=== PATIENT | female | born 1930 | race Caucasian/White ===

== ENCOUNTER → 2019-03-03 | Outpatient (CLI) | payer MEDICARE ==
[~2019-03-03] MED LIST: AMLO10TA PO; CITA20TA4 PO; FURO20TA4 PO; LOSA100T7 PO
--- NOTE | 2019-03-03 11:18 | Diagnostic Imaging Report ---
PROCEDURE: MRI lumbar spine. TECHNIQUE: Multiplanar, multisequence MRI of the lumbar spine was performed without contrast. INDICATION: Low back pain radiating into both legs. COMPARISON: No prior studies are available for comparison. FINDINGS: There is mild left convexity lumbar scoliotic curvature. There is normal lordotic curvature. Alignment is normal. Vertebral body heights are maintained. No acute compression fracture is seen. No geographic marrow lesion is identified. There is generalized lumbar degenerative disc disease with variable disc space narrowing and desiccation. The conus is unremarkable at the T12-L1 level. T12-L1: There is some ligamentous thickening. Central canal does appear to be patent. No significant neural foraminal stenosis is seen. L1-2: Hypertrophic facet changes and ligamentous thickening is seen. There is some mild trefoil configuration of the thecal sac but the AP dimensions are normal. No significant neural foraminal stenosis is seen. L2-3: Hypertrophic facet changes and ligamentous thickening produce moderate trefoil stenosis to the canal. Broad-based disc/osteophyte complex results in moderate bilateral lateral recess stenosis as well as mild to moderate right and mild left neural foraminal stenosis. L3-4: Ligamentous thickening and facet changes with broad-based disc/osteophyte complex result in severe trefoil stenosis to the central canal. There is severe bilateral lateral recess stenosis as well as severe bilateral neural foraminal stenosis. L4-5: Ligamentous thickening and facet changes as well as broad-based disc/osteophyte complex result in severe trefoil stenosis to the central canal. There is severe bilateral lateral recess and severe bilateral neural foraminal stenosis. L5-S1: Hypertrophic facet changes are noted. Central canal is widely patent. There is moderate left neural foraminal narrowing. Right neural foramen is patent. Paraspinous tissues are unremarkable. IMPRESSION: Multilevel lumbar spondylosis with multilevel central canal, lateral recess and neural foraminal stenosis described level by level above. No acute compression fracture is detected. Dictated by: Dictated on workstation # [id number]
== END ==
LOC: RAD 10:11
PROVIDERS: ATTEND Family Medicine
DX: M47.817 Spondylosis without myelopathy or radiculopathy, lumbosacral region (principal); M48.07 Spinal stenosis, lumbosacral region; M41.86 Other forms of scoliosis, lumbar region; M51.36 Other intervertebral disc degeneration, lumbar region
CPT/HCPCS: 72148

== ENCOUNTER 2019-06-26 08:46 | Emergency (ER) | payer MEDICARE ==
[~2019-06-26] VITALS: Ht 157 cm; Wt 55.9 kg
[2019-06-26] MEDS ORDERED: ZINC50TA51 PO (09:33)
[2019-06-26] MEDS ORDERED: CALC600T12 PO (09:33)
[2019-06-26] MEDS ORDERED: NF-SOLIF5T PO (09:33)
[2019-06-26] MEDS ORDERED: CHOL20003 PO (09:33)
[2019-06-26] MEDS ORDERED: FESO4TAB PO (09:33)
[2019-06-26] MEDS ORDERED: MELO15TA39 PO (09:33)
[2019-06-26] MEDS ORDERED: MIRA25TA PO (09:33)
[2019-06-26] MEDS ORDERED: fentaNYL INJECTION 100 MCG/2 ML AMP IM ONE (10:00)
--- NOTE | 2019-06-26 10:00 | ED Back Pain ---
General Chief Complaint: Back Problems Stated Complaint: LEG/BACK PAIN Nursing Triage Note: Patient brought to ER room 10 via wheelchair with complaint of left lower back pain radiating into left hip and down left leg. Patient states this is an ongoing problem and had an MRI on 03-03-19 which showed a pinched nerve. She states since she has had more pain with difficulty walking on the left leg. It has gotten progressively worse in the last week. She has not followed up with her PCP for this. Nursing Sepsis Screen: No Definite Risk Source of Information: Patient, Family Exam Limitations: No Limitations History of Present Illness Date Seen by Provider: Jun 26, 2019 Time Seen by Provider: 09:55 Initial Comments This 89-year-old white female presents with a complaint of severe low back pain. Patient has well documented spinal stenosis. She's been using [id number] nonsteroidals without relief. Patient states that the pain is in the left buttock and radiates down into the left leg and foot. Patient denies bowel or bladder dysfunction. She denies dysuria frequency or flank pain. Next Patient is under the care of Dr. Carmona. Allergies and Home Medications Allergies Coded Allergies: Tetanus Vaccines & Toxoid (Unverified Allergy, Mild, RASH, 09/08/06) Home Medications Amlodipine Besylate 10 Mg Tablet, 20 MG PO DAILY, (Reported) Calcium Carbonate 600 Mg Tablet, 600 MG PO DAILY, (Reported) Cholecalciferol (Vitamin D3) 2,000 Unit Capsule, 2,000 UNIT PO DAILY, (Reported) Citalopram Hydrobromide 20 Mg Tablet, 20 MG PO DAILY, (Reported) Fesoterodine Fumarate 4 Mg Tab.sr.24h, 4 MG PO DAILY, (Reported) Losartan Potassium 100 Mg Tablet, 100 MG PO DAILY, (Reported) Meloxicam 15 Mg Tablet, 15 MG PO DAILY, (Reported) Mirabegron 25 Mg Tab.er.24h, 25 MG PO DAILY, (Reported) Solifenacin Succinate 5 Mg Tablet, 5 MG PO DAILY, (Reported) Zinc Amino Acid Chelate 50 Mg Tablet, 50 MG PO DAILY, (Reported) Patient Home Medication List Home Medication List Reviewed: Yes Review of Systems Constitutional: no symptoms reported EENTM: no symptoms reported Respiratory: no symptoms reported Cardiovascular: no symptoms reported Gastrointestinal: no symptoms reported Genitourinary: no symptoms reported Musculoskeletal: see HPI, back pain Skin: no symptoms reported Psychiatric/Neurological: No Symptoms Reported Past Zpdmqto-Shvnmy-Vztlmx Hx Past Med/Social Hx: Reviewed Nursing Past Med/Soc Hx Patient Social History Alcohol Use: Denies Use Recreational Drug Use: No Smoking Status: Never a Smoker 2nd Hand Smoke Exposure: No Recent Foreign Travel: No Contact w/Someone Who Travel: No Recent Infectious Disease Expo: No Recent Hopitalizations: No Physical Abuse: No Sexual Abuse: No Mistreated: No Fear: No Immunizations Up To Date Tetanus Booster (TDap): Unknown Date of Influenza Vaccine: Apr 19, 2019 Seasonal Allergies Seasonal Allergies: No Past Medical History Surgeries: Yes Bladder Surgery Respiratory: No Cardiac: Yes Hypertension Neurological: No Genitourinary: No Gastrointestinal: No Musculoskeletal: Yes Chronic Back Pain Endocrine: No HEENT: No Cancer: No Psychosocial: No Integumentary: No Blood Disorders: No Physical Exam Vital Signs Vital Signs - First Documented 06/26/19 09:10 Temp 36.7 Pulse 80 Resp 14 B/P (MAP) 174/88 (116) Pulse Ox 95 O2 Delivery Room Air Capillary Refill : Less Than 3 Seconds Height, Weight, BMI Height: 5'3" Weight: 165lbs. oz. 74.903539eg; 22.00 BMI Method:Estimated General Appearance: No Apparent Distress, WD/WN HEENT: Normal ENT Inspection Neck: Normal Inspection Cardiovascular: Regular Rate, Rhythm Respiratory: Crackles Gastrointestinal: Normal Bowel Sounds Back: Vertebral Tenderness (over the lower lumbar spine) Extremity: Normal Inspection, Normal Range of Motion Neurologic/Psychiatric: Oriented x3, No Motor/Sensory Deficits Skin: Normal Color, Warm/Dry Progress/Results/Core Measures Results/Orders My Orders Orders - EDIN QUILES MD Fentanyl Injection (Sublimaze Injection (06/26/19 10:00) Vital Signs/I&O 06/26/19 09:10 Temp 36.7 Pulse 80 Resp 14 B/P (MAP) 174/88 (116) Pulse Ox 95 O2 Delivery Room Air Blood Pressure Mean: 116 POS Progress Progress Note : Time: 09:58 Progress Note Patient was given 50 g of that now IM. I prescribed hydrocodone for pain and Flexeril for spasm. I asked that she follow-up with her primary care physician Dr. Carmona tomorrow. I told her that she still had crackles in her chest and that she should complete her amoxicillin which has improved her. I believe she'll need close follow-up until she is clear of her upper respiratory infection. Departure Impression Primary Impression: Back pain Qualified Codes: M54.42 - Lumbago with sciatica, left side; G89.29 - Other chronic pain Disposition: HOME, SELF-CARE Condition: Improved Departure-Patient Inst. Decision time for Depature: 10:01 Referrals: KOKO CARMONA MD (PCP/Family) Primary Care Physician Patient Instructions: Low Back Pain (DC) Add. Discharge Instructions: Flexeril and Vicodin as prescribed. Close follow-up with Dr. Carmona tomorrow. Return if any problems or questions. All discharge instructions reviewed with patient and/or family. Voiced understanding. Scripts Cyclobenzaprine HCl (Cyclobenzaprine HCl) 10 Mg Tablet 10 MG PO TID PRN for SPASMS, #30 TAB Prov: EDIN QUILES MD 06/26/19 Hydrocodone/Acetaminophen (Vicodin 5-300 mg Tablet) 1 Each Tablet 1-2 EACH PO Q6H PRN for PAIN-MODERATE MDD 10 for 7 Days, #20 TAB Prov: EDIN QUILES MD 06/26/19 EDIN QUILES MD Jun 26, 2019 10:00 POS
[2019-06-26] MEDS ORDERED: HYDR-3455 PO (10:07)
[2019-06-26] MEDS ORDERED: CYCL10TA9 PO (10:07)
[2019-06-26 10:21] VITALS: BP 131/94
--- OUTSIDE RECORDS SUMMARY | 2019-07-21 18:11 | XMS REPORT | Continuity of Care Document ---
Author Organization Unknown Address Unknown Phone Unavailable Allergies Active Description Code Type Severity Reaction Onset Reported/Identified Relationship to Patient Clinical Status Yes Tetanus Vaccines and Toxoid [id number] Drug Allergy Mild RASH 09/08/2006 Medications There is no data. Problems Date Dx Coded Attending Type Code Diagnosis Diagnosed By 03/10/2014 Ot 873.42 OPE N WOUND OF FOREHEAD 03/10/2014 Ot 959.01 HEA D INJURY, NOS 03/10/2014 Ot E000.8 OTH ER EXTERNAL CAUSE STATUS 03/10/2014 Ot E001.0 ACT IVITIES INVOLVING WALKING, MARCHING A 03/10/2014 Ot E849.0 ACC IDENT IN HOME 03/10/2014 Ot E885.9 FAL L FROM SLIPPING, TRIPPING, OR STUMBLI 03/02/2019 KOKO GUEVARA MD R Ot 786. 05 SHORTNESS OF BREATH 03/02/2019 ISMAEL IGLESIAS, KOKO R Ot 793. 19 OTHER NONSPECIFIC ABNORMAL FINDING OF BEBA 03/02/2019 KOKO GUEVARA MD R Ot 719. 43 JOINT PAIN-FOREARM 03/07/2019 KOKO GUEVARA MD R Ot M41. 86 OTHER FORMS OF SCOLIOSIS, LUMBAR REGION 03/07/2019 KOKO GUEVARA MD Ot M47.817 SPONDYLS W/O MYELOPATHY OR RADICULOPATHY 03/07/2019 KOKO GUEVARA MD R Ot M48. 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 86 OTHER FORMS OF SCOLIOSIS, LUMBAR REGION 03/24/2019 KOKO GUEVARA MD R Ot M47.817 SPONDYLS W/O MYELOPATHY OR RADICULOPATHY 03/24/2019 KOKO GUEVARA MD Ot M48. 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 86 OTHER FORMS OF SCOLIOSIS, LUMBAR REGION 03/31/2019 ISMAEL IGLESIAS, KOKO Ivory Ot M47.817 SPONDYLS W/O MYELOPATHY OR RADICULOPATHY 03/31/2019 KOKO GUEVARA MD R Ot M48. 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 5 LOW BACK PAIN 06/26/2019 EDIN QUILES MD Ot Z88. 7 ALLERGY STATUS TO SERUM AND VACCINE STAT 06/29/2019 EDIN QUILES MD Ot I10 ESSENTIAL (PRIMARY) HYPERTENSION 06/29/2019 EDIN QUILES MD Ot M54. 5 LOW BACK PAIN 06/29/2019 EDIN QUILES MD Ot Z88. 7 ALLERGY STATUS TO SERUM AND VACCINE STAT 07/02/2019 GLENNY ZAZUETA MD Ot G89. 29 OTHER CHRONIC PAIN 07/02/2019 GLENNY ZAZUETA MD Ot I10 ESSENTIAL (PRIMARY) HYPERTENSION 07/02/2019 GLENNY ZAZUETA MD Ot M54. 5 LOW BACK PAIN 07/02/2019 GLENNY ZAZUETA MD Ot Z79. 51 FDC (CURRENT) USE OF INHALED STERO 07/02/2019 GLENNY ZAZUETA MD Ot Z79. 52 FDC (CURRENT) USE OF SYSTEMIC STER 07/02/2019 GLENNY ZAZUETA MD Ot Z79.899 OTHER FDC (CURRENT) DRUG THERAPY 07/02/2019 GLENNY ZAZUETA MD Ot Z88. 7 ALLERGY STATUS TO SERUM AND VACCINE STAT 07/02/2019 GLENNY ZAZUEAT MD Ot G89. 29 OTHER CHRONIC PAIN 07/02/2019 GLENNY ZAZUETA MD Ot I10 ESSENTIAL (PRIMARY) HYPERTENSION 07/02/2019 GLENNY ZAZUETA MD Ot M54. 5 LOW BACK PAIN 07/02/2019 GLENNY ZAZUETA MD Ot Z79. 51 LABEL DRIER (CURRENT) USE OF INHALED STERO 07/02/2019 CARLITA IGLESIAS, GLENNY Mitchell Ot Z79. 52 FDC (CURRENT) USE OF SYSTEMIC STER 07/02/2019 CARLITA IGLESIAS, GLENNY Mitchell Ot Z79.899 OTHER FDC (CURRENT) DRUG THERAPY 07/02/2019 CARLITA IGLESIAS, GLENNY Mitchell Ot Z88. 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, SINGLE EPISOD 07/07/2019 ARTHUR DO, PERRY Ot I10 ESSENTIAL (PRIMARY) HYPERTENSION 07/07/2019 ARTHUR DO, PERRY Ot M19.91 PRIMARY OSTEOARTHRITIS, UNSPECIFIED SITE 07/07/2019 GIBSON DO, PERRY Ot M48.06 2 SPINAL STENOSIS, LUMBAR REGION WITH NEUR 07/07/2019 ARTHUR DO PERRY Ot M54.16 RADICULOPATHY, LUMBAR REGION 07/07/2019 ARTHUR DO PERRY Ot Z91.81 HISTORY OF FALLING 07/10/2019 ARTHUR DO PERRY Ot D64.9 ANEMIA, UNSPECIFIED 07/10/2019 ARTHUR DO, PERYR Ot E78.00 PURE HYPERCHOLESTEROLEMIA, UNSPECIFIED 07/10/2019 GIBSON DO, PERRY Ot 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, SINGLE EPISOD 07/10/2019 GIBSON DO, PERRY Ot G89.29 OTHER CHRONIC PAIN 07/10/2019 ARTHUR DO, PERRY Ot I10 ESSENTIAL (PRIMARY) HYPERTENSION 07/10/2019 ARTHUR DO, PERRY Ot M48.06 2 SPINAL STENOSIS, LUMBAR REGION WITH NEUR 07/10/2019 ARTHUR DO, PERRY Ot M51.16 INTERVERTEBRAL DISC DISORDERS W RADICULO 07/10/2019 ARTHUR DO PERRY Ot M54.5 LOW BACK PAIN 07/10/2019 ARTHUR DO PERRY Ot N28.9 DISORDER OF KIDNEY AND URETER, UNSPECIFI 07/10/2019 ARTHUR DO PERRY Ot N32.81 OVERACTIVE BLADDER 07/10/2019 ARTHUR DO PERRY Ot R33.8 OTHER RETENTION OF URINE 07/16/2019 ARTHUR DO PERRY Ot D62 ACUTE POSTHEMORRHAGIC ANEMIA 07/16/2019 ARTHUR DO PERRY Ot 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, SINGLE EPISOD 07/16/2019 ARTHUR DO PERRY Ot F41.9 ANXIETY DISORDER, UNSPECIFIED 07/16/2019 GIBSONRICHARD MCLAUGHLIN PERRY Ot G95.9 DISEASE OF SPINAL CORD, UNSPECIFIED 07/16/2019 GIBSONRICHARD MCLAUGHLIN PERRY Ot I10 ESSENTIAL (PRIMARY) HYPERTENSION 07/16/2019 GIBSONRICHARD MCLAUGHLIN PERRY Ot M19.91 PRIMARY OSTEOARTHRITIS, UNSPECIFIED SITE 07/16/2019 GIBSONRICHARD MCLAUGHLIN PERRY Ot M54.9 DORSALGIA, UNSPECIFIED 07/16/2019 GIBSONRICHARD MCLAUGHLIN PERRY Ot N32.81 OVERACTIVE BLADDER 07/16/2019 ARTHUR MCLAUGHLIN PERRY Ot R09.89 OTH SYMPTOMS AND SIGNS INVOLVING THE CIR 07/16/2019 GIBSONMADDI RAMOS DOI Ot R33.9 RETENTION OF URINE, UNSPECIFIED 07/16/2019 MADDI GIBSON DOI Ot Z91.81 HISTORY OF FALLING 07/21/2019 JUSTINO ASCENCIO MD, Ot I10 ESSENTIAL (PRIMARY) HYPERTENSION 07/21/2019 JUSTINO ASCENCIO MD, Ot M48.0 62 SPINAL STENOSIS, LUMBAR REGION WITH NEUR 07/21/2019 JUSTINO ASCENCIO MD, Ot M54.1 6 RADICULOPATHY, LUMBAR REGION 07/21/2019 JUSTINO ASCENCIO MD, Ot Z79.5 2 FDC (CURRENT) USE OF SYSTEMIC STER 07/21/2019 JUSTINO ASCENCIO MD, Ot Z79.8 91 LABEL DRIER (CURRENT) USE OF OPIATE ANALGE 07/21/2019 JUSTINO ASCENCIO MD, Ot Z88.7 ALLERGY STATUS TO SERUM AND VACCINE STAT Procedures Code Description Performed By Per formed On [id number] RE LEASE LUMBAR NERVE, OPEN APPROACH 07/08/2019 [id number] MO NITORING OF PNS ELECTR ACTIVITY, INTRA 07/08/2019 Results Test Result Range Complete blood count (CBC) with automate d white blood cell (WBC) differential - 07/03/19 05:58 Blood leukocytes automated count (number/volume) 5.4 10*3/uL 4.3-11.0 Blood erythrocytes automated count (number/volume) 3.55 10*6/uL 4.35-5.85 Venous blood hemoglobin measurement (mass/volume) 10.0 g/dL 11.5-16.0 Blood hematocrit (volume fraction) 32 % 35-52 Automated erythrocyte mean corpuscular volume 89 [ foz_us] 80-99 Automated erythrocyte mean corpuscular h emoglobin (mass per erythrocyte) 28 pg 25-34 Automated erythrocyte mean corpuscular h emoglobin concentration measurement (mass/volume) 32 g/dL 32-36 Automated erythrocyte distribution width ratio 16. 3 % 10.0- 14.5 Automated blood platelet count (count/volume) 264 10*3/uL 130-400 Automated blood platelet mean volume measurement 9.8 [foz_us] 7.4-10.4 Automated blood neutrophils/100 leukocytes 51 % 42-75 Automated blood lymphocytes/100 leukocytes 33 % 12-44 Blood monocytes/100 leukocytes 9 % 0-12 Automated blood eosinophils/100 leukocytes 7 % 0-10 Automated blood basophils/100 leukocytes 1 % 0-10 Blood neutrophils automated count (number/volume) 2.7 10*3 1.8-7.8 Blood lymphocytes automated count (number/volume) 1.8 10*3 1.0-4.0 Blood monocytes automated count (number/volume) 0. 5 10*3 0.0-1.0 Automated eosinophil count 0.4 10*3/uL 0 .0-0.3 Automated blood basophil count (count/volume) 0.1 10*3/uL 0.0-0.1 Comprehensive metabolic panel - 07/03/19 05:58 Serum or plasma sodium measurement (moles/volume) 139 mmol/L 135-145 Serum or plasma potassium measurement (moles/volume) 4.3 mmol/L 3.6-5.0 Serum or plasma chloride measurement (moles/volume) 103 mmol/L 98-107 Carbon dioxide 26 mmol/L 21-32 Serum or plasma anion gap determination (moles/volume) 10 mmol/L 5-14 Serum or plasma urea nitrogen measurement (mass/volume ) 22 mg/dL 7-18 Serum or plasma creatinine measurement (mass/volume) 1.10 mg/dL 0.60-1.30 Serum or plasma urea nitrogen/creatinine mass ratio 20 NRG Serum or plasma creatinine measurement w ith calculation of estimated glomerular filtration rate 47 NRG Serum or plasma glucose measurement (mass/volume) 95 mg/dL 70-105 Serum or plasma calcium measurement (mass/volume) 8.8 mg/dL 8.5-10.1 Serum or plasma total bilirubin measurement (mass/volu me) 0.3 mg/dL 0.1-1.0 Serum or plasma alkaline phosphatase priscilla surement (enzymatic activity/volume) 74 U/L 40-136 Serum or plasma aspartate aminotransfera se measurement (enzymatic activity/volume) 15 U/L 5-34 Serum or plasma alanine aminotransferase measurement (enzymatic activity/volume) 10 U/L 0-55 Serum or plasma protein measurement (mass/volume) 6.5 g/dL 6.4-8.2 Serum or plasma albumin measurement (mass/volume) 3.5 g/dL 3.2-4.5 CALCIUM CORRECTED 9.2 mg/dL 8.5-10.1 Methicillin resistant Staphylococcus aur eus (MRSA) screening culture - 07/06/19 21:50 Methicillin resistant Staphylococcus aureus (MRSA) scr eening culture NEG NRG Automated blood complete blood count (he mogram) panel - 07/07/19 05:01 Blood leukocytes automated count (number/volume) 6.5 10*3/uL 4.3-11.0 Blood erythrocytes automated count (number/volume) 4.06 10*6/uL 4.35-5.85 Venous blood hemoglobin measurement (mass/volume) 11.4 g/dL 11.5-16.0 Blood hematocrit (volume fraction) 36 % 35-52 Automated erythrocyte mean corpuscular volume 88 [ foz_us] 80-99 Automated erythrocyte mean corpuscular h emoglobin (mass per erythrocyte) 28 pg 25-34 Automated erythrocyte mean corpuscular h emoglobin concentration measurement (mass/volume) 32 g/dL 32-36 Automated erythrocyte distribution width ratio 16. 5 % 10.0- 14.5 Automated blood platelet count (count/volume) 287 10*3/uL 130-400 Automated blood platelet mean volume measurement 11.1 [foz_us] 7.4-10.4 Serum or plasma creatinine measurement ( mass/volume) - 07/07/19 05:01 Serum or plasma creatinine measurement (mass/volume) 1.21 mg/dL 0.60-1.30 Complete blood count (CBC) with automate d white blood cell (WBC) differential - 07/08/19 04:30 Blood leukocytes automated count (number/volume) 7.3 10*3/uL 4.3-11.0 Blood erythrocytes automated count (number/volume) 3.20 10*6/uL 4.35-5.85 Venous blood hemoglobin measurement (mass/volume) 9.1 g/dL 11.5-16.0 Blood hematocrit (volume fraction) 29 % 35-52 Automated erythrocyte mean corpuscular volume 92 [ foz_us] 80-99 Automated erythrocyte mean corpuscular h emoglobin (mass per erythrocyte) 28 pg 25-34 Automated erythrocyte mean corpuscular h emoglobin concentration measurement (mass/volume) 31 g/dL 32-36 Automated erythrocyte distribution width ratio 16. 4 % 10.0- 14.5 Automated blood platelet count (count/volume) 229 10*3/uL 130-400 Automated blood platelet mean volume measurement 11.2 [foz_us] 7.4-10.4 Automated blood neutrophils/100 leukocytes 60 % 42-75 Automated blood lymphocytes/100 leukocytes 28 % 12-44 Blood monocytes/100 leukocytes 10 % 0-12 Automated blood eosinophils/100 leukocytes 1 % 0-10 Automated blood basophils/100 leukocytes 0 % 0-10 Blood neutrophils automated count (number/volume) 4.4 10*3 1.8-7.8 Blood lymphocytes automated count (number/volume) 2.1 10*3 1.0-4.0 Blood monocytes automated count (number/volume) 0. 7 10*3 0.0-1.0 Automated eosinophil count 0.1 10*3/uL 0 .0-0.3 Automated blood basophil count (count/volume) 0.0 10*3/uL 0.0-0.1 Comprehensive metabolic panel - 07/08/19 04:30 Serum or plasma sodium measurement (moles/volume) 140 mmol/L 135-145 Serum or plasma potassium measurement (moles/volume) 4.3 mmol/L 3.6-5.0 Serum or plasma chloride measurement (moles/volume) 106 mmol/L 98-107 Carbon dioxide 27 mmol/L 21-32 Serum or plasma anion gap determination (moles/volume) 7 mmol/L 5-14 Serum or plasma urea nitrogen measurement (mass/volume ) 32 mg/dL 7-18 Serum or plasma creatinine measurement (mass/volume) 1.17 mg/dL 0.60-1.30 Serum or plasma urea nitrogen/creatinine mass ratio 27 NRG Serum or plasma creatinine measurement w ith calculation of estimated glomerular filtration rate 44 NRG Serum or plasma glucose measurement (mass/volume) 86 mg/dL 70-105 Serum or plasma calcium measurement (mass/volume) 8.1 mg/dL 8.5-10.1 Serum or plasma total bilirubin measurement (mass/volu me) 0.3 mg/dL 0.1-1.0 Serum or plasma alkaline phosphatase priscilla surement (enzymatic activity/volume) 51 U/L 40-136 Serum or plasma aspartate aminotransfera se measurement (enzymatic activity/volume) 20 U/L 5-34 Serum or plasma alanine aminotransferase measurement (enzymatic activity/volume) 19 U/L 0-55 Serum or plasma protein measurement (mass/volume) 5.6 g/dL 6.4-8.2 Serum or plasma albumin measurement (mass/volume) 3.3 g/dL 3.2-4.5 CALCIUM CORRECTED 8.7 mg/dL 8.5-10.1 Complete blood count (CBC) with automate d white blood cell (WBC) differential - 07/09/19 05:14 Blood leukocytes automated count (number/volume) 6.8 10*3/uL 4.3-11.0 Blood erythrocytes automated count (number/volume) 3.06 10*6/uL 4.35-5.85 Venous blood hemoglobin measurement (mass/volume) 8.7 g/dL 11.5-16.0 Blood hematocrit (volume fraction) 28 % 35-52 Automated erythrocyte mean corpuscular volume 91 [ foz_us] 80-99 Automated erythrocyte mean corpuscular h emoglobin (mass per erythrocyte) 28 pg 25-34 Automated erythrocyte mean corpuscular h emoglobin concentration measurement (mass/volume) 31 g/dL 32-36 Automated erythrocyte distribution width ratio 16. 4 % 10.0- 14.5 Automated blood platelet count (count/volume) 193 10*3/uL 130-400 Automated blood platelet mean volume measurement 11.1 [foz_us] 7.4-10.4 Automated blood neutrophils/100 leukocytes 61 % 42-75 Automated blood lymphocytes/100 leukocytes 21 % 12-44 Blood monocytes/100 leukocytes 13 % 0-12 Automated blood eosinophils/100 leukocytes 5 % 0-10 Automated blood basophils/100 leukocytes 0 % 0-10 Blood neutrophils automated count (number/volume) 4.1 10*3 1.8-7.8 Blood lymphocytes automated count (number/volume) 1.4 10*3 1.0-4.0 Blood monocytes automated count (number/volume) 0. 9 10*3 0.0-1.0 Automated eosinophil count 0.3 10*3/uL 0 .0-0.3 Automated blood basophil count (count/volume) 0.0 10*3/uL 0.0-0.1 Comprehensive metabolic panel - 07/09/19 05:14 Serum or plasma sodium measurement (moles/volume) 138 mmol/L 135-145 Serum or plasma potassium measurement (moles/volume) 4.7 mmol/L 3.6-5.0 Serum or plasma chloride measurement (moles/volume) 105 mmol/L 98-107 Carbon dioxide 24 mmol/L 21-32 Serum or plasma anion gap determination (moles/volume) 9 mmol/L 5-14 Serum or plasma urea nitrogen measurement (mass/volume ) 21 mg/dL 7-18 Serum or plasma creatinine measurement (mass/volume) 1.01 mg/dL 0.60-1.30 Serum or plasma urea nitrogen/creatinine mass ratio 21 NRG Serum or plasma creatinine measurement w ith calculation of estimated glomerular filtration rate 52 NRG Serum or plasma glucose measurement (mass/volume) 92 mg/dL 70-105 Serum or plasma calcium measurement (mass/volume) 8.1 mg/dL 8.5-10.1 Serum or plasma total bilirubin measurement (mass/volu me) 0.4 mg/dL 0.1-1.0 Serum or plasma alkaline phosphatase priscilla surement (enzymatic activity/volume) 52 U/L 40-136 Serum or plasma aspartate aminotransfera se measurement (enzymatic activity/volume) 15 U/L 5-34 Serum or plasma alanine aminotransferase measurement (enzymatic activity/volume) 11 U/L 0-55 Serum or plasma protein measurement (mass/volume) 5.6 g/dL 6.4-8.2 Serum or plasma albumin measurement (mass/volume) 3.1 g/dL 3.2-4.5 CALCIUM CORRECTED 8.8 mg/dL 8.5-10.1 Complete blood count (CBC) with automate d white blood cell (WBC) differential - 07/10/19 04:47 Blood leukocytes automated count (number/volume) 7.7 10*3/uL 4.3-11.0 Blood erythrocytes automated count (number/volume) 3.21 10*6/uL 4.35-5.85 Venous blood hemoglobin measurement (mass/volume) 9.2 g/dL 11.5-16.0 Blood hematocrit (volume fraction) 29 % 35-52 Automated erythrocyte mean corpuscular volume 91 [ foz_us] 80-99 Automated erythrocyte mean corpuscular h emoglobin (mass per erythrocyte) 29 pg 25-34 Automated erythrocyte mean corpuscular h emoglobin concentration measurement (mass/volume) 32 g/dL 32-36 Automated erythrocyte distribution width ratio 16. 0 % 10.0- 14.5 Automated blood platelet count (count/volume) 187 10*3/uL 130-400 Automated blood platelet mean volume measurement 11.6 [foz_us] 7.4-10.4 Automated blood neutrophils/100 leukocytes 67 % 42-75 Automated blood lymphocytes/100 leukocytes 18 % 12-44 Blood monocytes/100 leukocytes 12 % 0-12 Automated blood eosinophils/100 leukocytes 4 % 0-10 Automated blood basophils/100 leukocytes 0 % 0-10 Blood neutrophils automated count (number/volume) 5.1 10*3 1.8-7.8 Blood lymphocytes automated count (number/volume) 1.4 10*3 1.0-4.0 Blood monocytes automated count (number/volume) 0. 9 10*3 0.0-1.0 Automated eosinophil count 0.3 10*3/uL 0 .0-0.3 Automated blood basophil count (count/volume) 0.0 10*3/uL 0.0-0.1 Comprehensive metabolic panel - 07/10/19 04:47 Serum or plasma sodium measurement (moles/volume) 139 mmol/L 135-145 Serum or plasma potassium measurement (moles/volume) 4.4 mmol/L 3.6-5.0 Serum or plasma chloride measurement (moles/volume) 105 mmol/L 98-107 Carbon dioxide 25 mmol/L 21-32 Serum or plasma anion gap determination (moles/volume) 9 mmol/L 5-14 Serum or plasma urea nitrogen measurement (mass/volume ) 19 mg/dL 7-18 Serum or plasma creatinine measurement (mass/volume) 0.87 mg/dL 0.60-1.30 Serum or plasma urea nitrogen/creatinine mass ratio 22 NRG Serum or plasma creatinine measurement w ith calculation of estimated glomerular filtration rate > NRG Serum or plasma glucose measurement (mass/volume) 101 mg/dL 70-105 Serum or plasma calcium measurement (mass/volume) 8.5 mg/dL 8.5-10.1 Serum or plasma total bilirubin measurement (mass/volu me) 0.5 mg/dL 0.1-1.0 Serum or plasma alkaline phosphatase priscilla surement (enzymatic activity/volume) 53 U/L 40-136 Serum or plasma aspartate aminotransfera se measurement (enzymatic activity/volume) 15 U/L 5-34 Serum or plasma alanine aminotransferase measurement (enzymatic activity/volume) 6 U/L 0-55 Serum or plasma protein measurement (mass/volume) 5.9 g/dL 6.4-8.2 Serum or plasma albumin measurement (mass/volume) 3.3 g/dL 3.2-4.5 CALCIUM CORRECTED 9.1 mg/dL 8.5-10.1 IRON TEST - 07/10/19 04:47 Serum or plasma iron measurement (mass/volume) 16 % 35-180 Complete blood count (CBC) with automate d white blood cell (WBC) differential - 07/11/19 05:48 Blood leukocytes automated count (number/volume) 6.8 10*3/uL 4.3-11.0 Blood erythrocytes automated count (number/volume) 3.12 10*6/uL 4.35-5.85 Venous blood hemoglobin measurement (mass/volume) 8.7 g/dL 11.5-16.0 Blood hematocrit (volume fraction) 28 % 35-52 Automated erythrocyte mean corpuscular volume 90 [ foz_us] 80-99 Automated erythrocyte mean corpuscular h emoglobin (mass per erythrocyte) 28 pg 25-34 Automated erythrocyte mean corpuscular h emoglobin concentration measurement (mass/volume) 31 g/dL 32-36 Automated erythrocyte distribution width ratio 16. 1 % 10.0- 14.5 Automated blood platelet count (count/volume) 186 10*3/uL 130-400 Automated blood platelet mean volume measurement 11.3 [foz_us] 7.4-10.4 Automated blood neutrophils/100 leukocytes 62 % 42-75 Automated blood lymphocytes/100 leukocytes 20 % 12-44 Blood monocytes/100 leukocytes 14 % 0-12 Automated blood eosinophils/100 leukocytes 5 % 0-10 Automated blood basophils/100 leukocytes 0 % 0-10 Blood neutrophils automated count (number/volume) 4.2 10*3 1.8-7.8 Blood lymphocytes automated count (number/volume) 1.3 10*3 1.0-4.0 Blood monocytes automated count (number/volume) 1. 0 10*3 0.0-1.0 Automated eosinophil count 0.3 10*3/uL 0 .0-0.3 Automated blood basophil count (count/volume) 0.0 10*3/uL 0.0-0.1 Comprehensive metabolic panel - 07/11/19 05:48 Serum or plasma sodium measurement (moles/volume) 139 mmol/L 135-145 Serum or plasma potassium measurement (moles/volume) 4.4 mmol/L 3.6-5.0 Serum or plasma chloride measurement (moles/volume) 105 mmol/L 98-107 Carbon dioxide 24 mmol/L 21-32 Serum or plasma anion gap determination (moles/volume) 10 mmol/L 5-14 Serum or plasma urea nitrogen measurement (mass/volume ) 18 mg/dL 7-18 Serum or plasma creatinine measurement (mass/volume) 1.01 mg/dL 0.60-1.30 Serum or plasma urea nitrogen/creatinine mass ratio 18 NRG Serum or plasma creatinine measurement w ith calculation of estimated glomerular filtration rate 52 NRG Serum or plasma glucose measurement (mass/volume) 97 mg/dL 70-105 Serum or plasma calcium measurement (mass/volume) 8.8 mg/dL 8.5-10.1 Serum or plasma total bilirubin measurement (mass/volu me) 0.4 mg/dL 0.1-1.0 Serum or plasma alkaline phosphatase priscilla surement (enzymatic activity/volume) 56 U/L 40-136 Serum or plasma aspartate aminotransfera se measurement (enzymatic activity/volume) 15 U/L 5-34 Serum or plasma alanine aminotransferase measurement (enzymatic activity/volume) < U/L 0-55 Serum or plasma protein measurement (mass/volume) 6.1 g/dL 6.4-8.2 Serum or plasma albumin measurement (mass/volume) 3.2 g/dL 3.2-4.5 CALCIUM CORRECTED 9.4 mg/dL 8.5-10.1 Encounters ACCT No. Visit Date/Time Discharge Status Pt. Type Provider Facility Loc./Unit Complaint [id number] 07/10/2019 09:50:00 019 11:15:00 DIS Outpatient PERRY GIBSON DO [facility] IRF LUMBAR STENOSIS, LUMBAR RADICULOPATHY [id number] 07/07/2019 13:45:00 09:46:00 DIS Outpatient PERRY GIBSON DO [facility] 4TH LAMINECTOMY [id number] 07/07/2019 14:05:00 23:59:59 CLS Outpatient JUSTINO ASCENCIO MD [facility] SDC SPINAL STENOSIS [id number] 07/02/2019 10:35:00 13:30:00 DIS Outpatient PERRY GIBSON DO [facility] IRF LUMBAR RADICULOPATHY [id number] 07/01/2019 15:33:00 10:45:00 DIS Outpatient CARLITA IGLESIAS, GLENNY Mitchell [facility] 4TH LUMBAR STENOSIS W INABI LITY TO CARE FOR SELF [id number] 06/26/2019 08:47:00 10:22:00 DIS Emergency KB IGLESIAS, EDIN Courtney [facility] ER LEG/BACK PAIN [id number] 03/03/2019 10:11:00 23:59:59 CLS Outpatient KOKO GUEVARA MD [facility] RAD BACK PAIN [id number] 02/24/2014 09:00:00 23:59:59 CLS Outpatient KOKO GUEVARA MD [facility] RAD PAINFUL ON EXTENSION [id number] 09/26/2013 09:40:00 23:59:59 CLS Outpatient KOKO GUEVARA MD [facility] RAD SOA WITH ACTIVITY [id number] 06/09/2013 12:05:00 23:59:59 CLS Outpatient [id number] 06/06/2013 10:51:00 23:59:59 CLS Outpatient [id number] 12/06/2012 10:14:00 23:59:59 CLS Outpatient [id number] 03/10/2014 18:19:00 Document Registration
== END 2019-06-26 10:22 | disposition home or self-care (01) ==
LOC: EDUNIT# 08:46 → ER 08:47
DX: M54.5 Low back pain (principal); I10 Essential (primary) hypertension; Z88.7 Allergy status to serum and vaccine
CPT/HCPCS: 96372; 99284

== ENCOUNTER 2019-07-01 13:30 | Observation (INO) | payer MEDICARE ==
[~2019-07-01] VITALS: Ht 157.5 cm; Wt 55.0 kg
[~2019-07-01 13:30] MED LIST changes: +CALC600T12 PO; +CHOL20003 PO; +CYCL10TA9 PO; +FESO4TAB PO; +HYDR-3455 PO; +MELO15TA39 PO; +MIRA25TA PO; +NF-SOLIF5T PO; +ZINC50TA51 PO
--- NOTE | 2019-07-01 13:59 | ED Back Pain ---
General Chief Complaint: Back Problems Stated Complaint: HIP/LEG PAIN Nursing Triage Note: Patient brought to ER triage room via wheelchair with daughter. Patient is RAMIREZ x4, complaining of lower back pain radiating into bilateral lower legs. Patient was seen here on Thursday with same symptoms and was given flexeril and hydrocodone/apap. Patient states the medication did not work well and she was unable to follow up with her PCP since he was out of town. She states she is barely able to walk. She denies any new injuries. Nursing Sepsis Screen: No Definite Risk Source of Information: Patient Exam Limitations: No Limitations History of Present Illness Date Seen by Provider: Jul 01, 2019 Time Seen by Provider: 13:56 Initial Comments To ER by private vehicle with reports of midline low back pain, this is somewhat alleviated by bending forward. Pain radiates down both legs all the way to the feet. No loss of bowel or bladder control, no episodes of incontinence and no loss of sensation of her genitals. She had an MRI here in February of this year. She was seen here recently and given Flexeril and hydrocodone but denies improvement. His pain seemed to began or at least get worse than usual around without inciting event. Location: Lumbar Spine Timing/Duration: 1-2 Days, Other Severity: Moderate Method of Injury: Unknown Associated Symptoms: lower back pain Allergies and Home Medications Allergies Coded Allergies: Tetanus Vaccines and Toxoid (Unverified Allergy, Mild, RASH, 09/08/06) Home Medications Amlodipine Besylate 10 Mg Tablet, 20 MG PO DAILY, (Reported) Calcium Carbonate 600 Mg Tablet, 600 MG PO DAILY, (Reported) Cholecalciferol (Vitamin D3) 2,000 Unit Capsule, 2,000 UNIT PO DAILY, (Reported) Citalopram Hydrobromide 20 Mg Tablet, 20 MG PO DAILY, (Reported) Cyclobenzaprine HCl 10 Mg Tablet, 10 MG PO TID PRN for SPASMS Prescribed by: EDIN QUILES MD on 06/26/191006 Fesoterodine Fumarate 4 Mg Tab.sr.24h, 4 MG PO DAILY, (Reported) Hydrocodone/Acetaminophen 1 Each Tablet, 1-2 EACH PO Q6H PRN for PAIN-MODERATE Prescribed by: EDIN QUILES MD on 06/26/191006 Losartan Potassium 100 Mg Tablet, 100 MG PO DAILY, (Reported) Meloxicam 15 Mg Tablet, 15 MG PO DAILY, (Reported) Mirabegron 25 Mg Tab.er.24h, 25 MG PO DAILY, (Reported) Oxycodone HCl/Acetaminophen 1 Each Tablet, 1 TAB PO Q4H Prescribed by: JUNE KILGORE on 07/01/19 1424 Prednisone 20 Mg Tab, 40 MG PO DAILY Prescribed by: JUNE KILGORE on 07/01/19 1443 Solifenacin Succinate 5 Mg Tablet, 5 MG PO DAILY, (Reported) Zinc Amino Acid Chelate 50 Mg Tablet, 50 MG PO DAILY, (Reported) Patient Home Medication List Home Medication List Reviewed: Yes Review of Systems Constitutional: see HPI EENTM: see HPI Respiratory: no symptoms reported Cardiovascular: no symptoms reported Genitourinary: no symptoms reported Musculoskeletal: see HPI, back pain Skin: no symptoms reported Past Nmkavof-Bzdzap-Osbcjs Hx Patient Social History Alcohol Use: Denies Use Recreational Drug Use: No Smoking Status: Never a Smoker 2nd Hand Smoke Exposure: No Recent Foreign Travel: No Contact w/Someone Who Travel: No Recent Infectious Disease Expo: No Recent Hopitalizations: No Physical Abuse: No Sexual Abuse: No Mistreated: No Fear: No Immunizations Up To Date Tetanus Booster (TDap): Unknown Date of Influenza Vaccine: Apr 19, 2019 Seasonal Allergies Seasonal Allergies: No Past Medical History Surgeries: Yes Bladder Surgery Respiratory: No Cardiac: Yes Hypertension Neurological: No Genitourinary: No Gastrointestinal: No Musculoskeletal: Yes Chronic Back Pain Endocrine: No HEENT: No Cancer: No Psychosocial: No Integumentary: No Blood Disorders: No Physical Exam Vital Signs Vital Signs - First Documented 07/01/19 13:32 Temp 37.0 Pulse 83 Resp 16 B/P (MAP) 138/79 (98) Pulse Ox 95 O2 Delivery Room Air Capillary Refill : Less Than 3 Seconds Height, Weight, BMI Height: 5'3" Weight: 165lbs. oz. 74.296785mx; 23.00 BMI Method:Estimated General Appearance: No Apparent Distress, WD/WN Neck: Full Range of Motion, Normal Inspection Respiratory: Chest Non Tender, Lungs Clear, Normal Breath Sounds Gastrointestinal: Non Tender, Soft Extremity: Normal Capillary Refill, Normal Inspection, Other (able to dorsiflex both feet and great toes, strength 4 out of 5 bilateral) Neurologic/Psychiatric: Alert, Oriented x3 Skin: Normal Color, Warm/Dry Progress/Results/Core Measures Results/Orders My Orders Orders - JUNE KILGORE APRN Ed Iv/Invasive Line Start (07/01/19 13:52) Ketorolac Injection (Toradol Injection) (07/01/19 14:00) Fentanyl Injection (Sublimaze Injection (07/01/19 14:00) Fentanyl Injection (Sublimaze Injection (07/01/19 15:00) Medications Given in ED Current Medications Medications Dose Ordered Sig/Dawood Route Start Time Stop Time Status Last Admin Dose Admin Fentanyl Citrate 25 mcg ONCE PRN IVP 07/01/19 14:00 07/01/19 14:21 25 MCG Fentanyl Citrate 50 mcg ONCE ONCE IVP 07/01/19 15:00 07/01/19 15:01 DC 07/01/19 15:09 50 MCG Ketorolac Tromethamine 15 mg ONCE ONCE IVP 07/01/19 14:00 07/01/19 14:01 DC 07/01/19 14:21 15 MG Vital Signs/I&O 07/01/19 13:32 Temp 37.0 Pulse 83 Resp 16 B/P (MAP) 138/79 (98) Pulse Ox 95 O2 Delivery Room Air Blood Pressure Mean: 98 POS Departure Communication (Admissions) NAME: MIKE CHO [facility] REC#: [id number] PT STATUS: REG CLI : 1930 PHYSICIAN: KOKO GUEVARA MD ADMIT DATE: 03/03/19/RAD Signed Date of Exam:03/03/19 MRI LUMBAR SPINE W/O CONTRAST PROCEDURE: MRI lumbar spine. TECHNIQUE: Multiplanar, multisequence MRI of the lumbar spine was performed without contrast. INDICATION: Low back pain radiating into both legs. COMPARISON: No prior studies are available for comparison. FINDINGS: There is mild left convexity lumbar scoliotic curvature. There is normal lordotic curvature. Alignment is normal. Vertebral body heights are maintained. No acute compression fracture is seen. No geographic marrow lesion is identified. There is generalized lumbar degenerative disc disease with variable disc space narrowing and desiccation. The conus is unremarkable at the T12-L1 level. T12- L1: There is some ligamentous thickening. Central canal does appear to be patent. No significant neural foraminal stenosis is seen. L1-2: Hypertrophic facet changes and ligamentous thickening is seen. There is some mild trefoil configuration of the thecal sac but the AP dimensions are normal. No significant neural foraminal stenosis is seen. L2-3: Hypertrophic facet changes and ligamentous thickening produce moderate trefoil stenosis to the canal. Broad- based disc/osteophyte complex results in moderate bilateral lateral recess stenosis as well as mild to moderate right and mild left neural foraminal stenosis. L3-4: Ligamentous thickening and facet changes with broad-based disc/osteophyte complex result in severe trefoil stenosis to the central canal. There is severe bilateral lateral recess stenosis as well as severe bilateral neural foraminal stenosis. L4-5: Ligamentous thickening and facet changes as well as broad-based disc/osteophyte complex result in severe trefoil stenosis to the central canal. There is severe bilateral lateral recess and severe bilateral neural foraminal stenosis. L5-S1: Hypertrophic facet changes are noted. Central canal is widely patent. There is moderate left neural foraminal narrowing. Right neural foramen is patent. Paraspinous tissues are unremarkable. IMPRESSION: Multilevel lumbar spondylosis with multilevel central canal, lateral recess and neural foraminal stenosis described level by level above. No acute compression fracture is detected. Dictated by: Dictated on workstation # [id number] Dict: 03/03/19 1106 Trans: 03/03/19 1552 [facility] [id number] Interpreted by: AUSTYN JANE MD Electronically signed by: AUSTYN JANE MD 03/03/19 1552 Impression Primary Impression: Low back pain Qualified Codes: M54.5 - Low back pain; G89.29 - Other chronic pain Additional Impression: Lumbar radiculopathy Disposition: 01 HOME, SELF-CARE Condition: Stable Departure-Patient Inst. Decision time for Depature: 14:22 Referrals: JUSTINO SANDOVAL MD, FLOYD R MD (PCP/Family) Primary Care Physician Patient Instructions: Low Back Pain in Adults Add. Discharge Instructions: 1. Call Dr. Sandoval to make an appointment to be seen for follow-up. Stop the hydrocodone and the Flexeril, start the oxycodone. Beware this may be constipating, if you don't already then you should start taking a Colace stool softener daily. All discharge instructions reviewed with patient and/or family. Voiced understanding. Scripts Prednisone (Prednisone) 20 Mg Tab 40 MG PO DAILY, #8 TAB 0 Refills Prov: JUNE KILGORE APRN 07/01/19 Oxycodone HCl/Acetaminophen (Percocet 5-325 mg Tablet) 1 Each Tablet 1 TAB PO Q4H for PAIN-MODERATE MDD 6 TABS for 7 Days, #20 TAB Prov: JUNE KILGORE APRN 07/01/19 JUNE KILGORE APRN Jul 01, 2019 13:59 POS
[2019-07-01] MEDS ORDERED: fentaNYL INJECTION 100 MCG/2 ML AMP IVP PRN (14:00)
[2019-07-01] MEDS ORDERED: KETOROLAC 30 MG/ML VIAL IVP ONE (14:00)
[2019-07-01] MEDS ORDERED: OXYC1TAB87 PO (14:24)
[2019-07-01] MEDS ORDERED: PRD20T PO (14:43)
[2019-07-01] MEDS ORDERED: fentaNYL INJECTION 100 MCG/2 ML AMP IVP ONE (15:00)
--- NOTE | 2019-07-01 15:39 | NUR ---
Patient awake and alert. Daughter in room. Patient states the pain medications did help the back pain and rates her pain at a 3. She is resting quietly at this time.
--- NOTE | 2019-07-01 16:20 | NUR ---
ARU SW, consult. Called to ED to educate patient and daughter Daysi Villar about proposed Thursday admission and overview of services. Patient resides with her daughter Sander Blanco. 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 She did say she picked up the child/children and that she shouldn't have, relative to back pain. Patient appears to remain tentative about the initial OBS admission and ARU proposed admission to follow. If she could get up and walk, no doubt she would choose discharge to home. Sys Dir present when Registration came to get signatures, assisted with explanation of OBS status and the offer to bring home Rx. Got a copy of her current Rx from Daysi, patrice and with her admission paperwork. Patient concerned about how long she might be hospitalized, she set her comfortable limit at one week. Visit patient next week if she has admitted to ARU.
--- NOTE | 2019-07-01 16:45 | NUR ---
MIKE CHO admitted to room 432-1, with an admitting diagnosis of BACK PAIN, on 07/01/19 from ER via W/C, accompanied by STAFF.MIKE CHO introduced to surroundings, call light, bed controls, phone, TV, temperature control, lights, meal times, smoking policy, visitor policy, side rail policy, bathrooms and showers. Patient Rights given to patient in the handbook.MIKE CHO verbalizes understanding that [facility] is not responsible for the loss or damage to any personal effects or valuables that are kept in the patients posession during their hospitalization. The following Patient Care Plans were discussed with the PT: Discharge Planning, PAIN CONTROL,IV THERAPY, and TESTS AND PROCEDURES. MIKE CHO verbalizes understanding of Interdisciplinary Patient Education. Patient and/or family were informed about the Rapid Response Team and its purpose.
[2019-07-01 17:02] VITALS: BP 159/88
[2019-07-01 17:06] VITALS: BP 159/88
[2019-07-01] MEDS ORDERED: fentaNYL INJECTION 100 MCG/2 ML AMP IV PRN ×2 (17:15)
[2019-07-01] MEDS ORDERED: CATHETER FLUSH 10 ML SYR IV PRN (17:15)
[2019-07-01 20:00] VITALS: BP 132/70
[2019-07-01] MEDS: oxyCODONE/APAP 5/325MG (PERCOCET 5) TABLET PO PRN (20:12)
[2019-07-01] MEDS: CATHETER FLUSH 10 ML SYR IV SCH (22:16)
[2019-07-01 23:29] VITALS: BP 144/70
[2019-07-02 04:30] VITALS: BP 152/83
[2019-07-02] MEDS: CATHETER FLUSH 10 ML SYR IV SCH (05:06)
[2019-07-02] MEDS ORDERED: POLYETHYLENE GLYCOL 17 GM (MIRALAX) PACK PO PRN (07:00)
[2019-07-02] MEDS ORDERED: MELATONIN 3 MG TABLET PO PRN (07:00)
[2019-07-02] MEDS ORDERED: ONDANSETRON 4 MG/2 ML (SDV) Z0FRAN IV PRN (07:00)
[2019-07-02] MEDS ORDERED: ACETAMINOPHEN 325 MG TABLET PO PRN (07:00)
[2019-07-02] MEDS ORDERED: BISACODYL 10 MG SUPP (DULCOLAX) PR PRN (07:00)
[2019-07-02] MEDS ORDERED: ONDANSETRON 4 MG (ZOFRAN) ORAL DISSOLVE TAB PO PRN (07:00)
[2019-07-02] MEDS ORDERED: MILK OF MAGNESIA 400 MG/5 ML 30 ML UDC PO PRN (07:00)
[2019-07-02 08:00] VITALS: BP 146/77
[2019-07-02] MEDS ORDERED: PATIENT MAY USE OWN MEDS, ALL MC SCH (08:15)
[2019-07-02] MEDS ORDERED: DOCUSATE SODIUM 100 MG (COLACE) CAP PO SCH (09:00)
[2019-07-02] MEDS ORDERED: SENNOSIDES 8.6 MG (SENOKOT) TAB PO SCH (09:00)
[2019-07-02] MEDS: oxyCODONE/APAP 5/325MG (PERCOCET 5) TABLET PO PRN (10:11)
--- NOTE | 2019-07-02 10:40 | Discharge Summary ---
Discharge Summary Hospital Course Was the Problem List Reviewed?: Yes Problems/Dx: (1) Intractable low back pain Status: Acute Final Diagnosis: intractable back pain Hospital Course Date of Admission: Jul 01, 2019 at 15:33 Admission Diagnosis : intractable back pain Family Physician/Provider: Mendez Carmona MD Date of Discharge: 07/02/19 Discharge Diagnosis: intractable back pain Hospital Course: Adriana Blake is an 89-year-old female with past medical history of hypertension and lumbar stenosis who presented with intractable low back pain. She was admitted for pain control. She will transferred to the inpatient rehabilitation unit for ongoing therapies and pain control. Labs and Pending Lab Test: Home Meds Active Prednisone 20 Mg Tab 40 Mg PO DAILY Percocet 5-325 mg Tablet (Oxycodone HCl/Acetaminophen) 1 Each Tablet 1 Tab PO Q4H MDD 6 TABS 7 Days Cyclobenzaprine HCl 10 Mg Tablet 10 Mg PO TID PRN Vicodin 5-300 mg Tablet (Hydrocodone/Acetaminophen) 1 Each Tablet 1-2 Each PO Q6H PRN MDD 10 7 Days Reported Zinc (Zinc Amino Acid Chelate) 50 Mg Tablet 50 Mg PO DAILY Vitamin D3 (Cholecalciferol (Vitamin D3)) 2,000 Unit Capsule 2,000 Unit PO DAILY Calcium (Calcium Carbonate) 600 Mg Tablet 600 Mg PO DAILY Meloxicam 15 Mg Tablet 15 Mg PO DAILY Toviaz (Fesoterodine Fumarate) 4 Mg Tab.sr.24h 4 Mg PO DAILY Vesicare (Solifenacin Succinate) 5 Mg Tablet 5 Mg PO DAILY Myrbetriq (Mirabegron) 25 Mg Tab.er.24h 25 Mg PO DAILY Citalopram Hbr (Citalopram Hydrobromide) 20 Mg Tablet 20 Mg PO DAILY Losartan Potassium 100 Mg Tablet 100 Mg PO DAILY Amlodipine Besylate 10 Mg Tablet 20 Mg PO DAILY Assessment/Pt Instructions take medications as prescribed. Participate in therapies. Discharge Instructions Discharge Diet: No Restrictions Activity as Tolerated: Yes Discharge Physical Examination General Appearance: Alert, Oriented X3, Cooperative, No Acute Distress HEENT: Atraumatic, PERRLA, EOMI, Mucous Memb Moist/[place] Respiratory: Clear to Auscultation, Normal Air Movement Cardiovascular: Regular Rate, Normal S1, Normal S2, No Murmurs Abdominal: Normal Bowel Sounds, Soft, No Tenderness Extremities: No Edema, No Tenderness/Swelling Skin: No Rashes, No Significant Lesion Neuro: Normal Speech Psych/Mental Status: Mental Status NL, Mood NL Allergies: Coded Allergies: Tetanus Vaccines and Toxoid (Unverified Allergy, Mild, RASH, 09/08/06) Discharge Summary Date of Admission Jul 01, 2019 at 15:33 Date of Discharge Discharge Date: Jul 02, 2019 Discharge Time: 08:00 Admission Diagnosis intractable low back pain Discharge Diagnosis intractable low back pain (1) Intractable low back pain Status: Acute Clinical Quality Measures DVT/VTE Risk/Contraindication: Risk Factor Score Per Nursin RFS Level Per Nursing on Admit: 4+=Very High GLENNY ZAZUETA MD Jul 02, 2019 10:40 POS
[2019-07-02 10:45] VITALS: BP 146/77
--- NOTE | 2019-07-02 10:45 | NUR ---
REPORT GIVEN TO GIA COBIAN
--- NOTE | 2019-07-02 10:45 | NUR ---
DISCHARGED TO REHAB PER W/C.
[2019-07-02] MEDS ORDERED: CALC600T80 PO (17:24)
[2019-07-02] MEDS ORDERED: CHOL200025 PO (17:26)
== END 2019-07-02 07:32 ==
LOC: EDUNIT# 13:30 → ER 13:31 → 4TH 15:33 → UNDOADMOB 15:33 → 4TH 16:45 → UNDODISOB 07-02 10:45
PROVIDERS: ADMIT Internal Medicine; ATTEND Internal Medicine
DX: M54.5 Low back pain (principal); I10 Essential (primary) hypertension; G89.29 Other chronic pain; Z79.51 Long term (current) use of inhaled steroids; Z79.899 Other long term (current) drug therapy; Z88.7 Allergy status to serum and vaccine; Z79.52 Long term (current) use of systemic steroids
CPT/HCPCS: 94760; 96374; 96375; 96376; G0378

== ENCOUNTER 2019-07-02 10:35 | Inpatient (IN) | payer MEDICARE ==
[~2019-07-02] VITALS: Ht 157.5 cm; Wt 57.8 kg
[2019-07-02] MEDS: DOCUSATE SODIUM 100 MG (COLACE) CAP PO SCH ×2 (09:00→20:16)
[~2019-07-02 10:35] MED LIST changes: +ALPRAZolam 0.25 MG (XANAX) TAB PO PRN; +BISACODYL 10 MG SUPP (DULCOLAX) PR PRN; +CALCIUM CARBONATE 500 MG (TUMS) TAB.CHEW PO PRN; +DOCUSATE SODIUM 100 MG (COLACE) CAP PO PRN; +FLEET ENEMA ADULT 1 EA BTL PR PRN; +LACTULOSE SYRUP 10GM/15ML (ENULOSE) 30ML UDC PO PRN; +LOPERAMIDE 2 MG (IMODIUM) TABLET PO PRN; +MELATONIN 3 MG TABLET PO PRN; +ONDANSETRON 4 MG (ZOFRAN) ORAL DISSOLVE TAB PO PRN; +OXYC1TAB87 PO; +PRD20T PO; +diphenhydrAMINE 25 MG TAB (BENADRYL) PO PRN; +guaiFENesin/CODEINE (ROBITUSSIN AC) 10ML UDC PO PRN
--- NOTE | 2019-07-02 10:35 | NUR ---
Adriana Hayden admitted to room 231-1, with an admitting diagnosis of Debility, on 07/02/19 from 4th floor via wheelchair, accompanied by staff/family.ADRIANA CHO introduced to surroundings, call light, bed controls, phone, TV, temperature control, lights, meal times, smoking policy, visitor policy, side rail policy, bathrooms and showers. Patient Rights given to patient in the handbook.ADRIANA CHO verbalizes understanding that [facility] is not responsible for the loss or damage to any personal effects or valuables that are kept in the patients posession during their hospitalization. The following Patient Care Plans were discussed with the Fall Precautions, Standard Precaution, and Discharge Planning. ADRIANA CHO verbalizes understanding of Interdisciplinary Patient Education. Patient received Patient Rights Booklet, which includes Privacy Act Statement and Data Collection Information Summary.
--- NOTE | 2019-07-02 11:00 | Occupational Therapy Eval ---
OT Evaluation-General/PLF Medical Diagnosis Admission Date Jul 02, 2019 at 10:35 Medical Diagnosis: back pain Onset Date: Jun 16, 2019 Therapy Diagnosis Therapy Diagnosis: impaired ADLs and funcitonal mobility. Height/Weight Height (Inches): 3 Weight (Pounds): 165 Precautions Precautions/Isolations: Standard Precautions Weight Bear Status Weight Bearing Restriction: Weight Bearing/Tolerated Referral Physician: Anjali Referral Reason: Activity Tolerance, Self Care, Evaluation/Treatment, Strengthening/ROM Medical History Reviewed History: Yes Social History Home: Single Level Current Living Status: Children ADL-Prior Level of Function SCALE: Activities may be completed with or without assistive devices. 5-Bilwifpzzg-vbeesri completes the activity by him/herself with no assistance from a helper. 5-Set-up or Clean-up Assistance-helper sets up or cleans up; patient completes activity. [place] assists only prior to or following the activity. 4-Supervision or Touching Assistance-helper provides verbal cues and/or touching/steadying and/or contact guard assistance as patient completes activity. Assistance may be provided throughout the activity or intermittently. 3-Partial/Moderate Assistance-helper does LESS THAN HALF the effort. [place] lifts, holds or supports trunk or limbs, but provides less than half the effort. 2-Substantial/Maximal Assistance-helper does MORE THAN HALF the effort. [place] lifts or holds trunk or limbs and provides more than half the effort. 3-Wkyiupkif-ylljqg does ALL the effort. Patient does none of the effort to complete the activity. Or, the assistance of 2 or more helpers is required for the patient to complete the activity. If activity was not attempted, code reason: 7-Patient Refused. 9-Not Applicable-not attempted and the patient did not perform the activity before the current illness, exacerbation or injury. 10-Not Attempted due to Environmental Limitations-(lack of equipment, weather restraints, etc.). 88-Not Attempted due to Medical Conditions or Safety Concerns. ADL PLOF Comments Pt reports she lives with her youngest daughter, she was able to complete all ADLs indpenedently prior to her back pain starting around gi. She helps with babysitting her 2 great grandchildren Self Care: Independent Functional Cognition: Independent DME/Equipment: Tub/Shower DME/Equipment Comments none, pt reports using furniture and objects to hold onto as she walks Drive Self: Yes OT Current Status Subjective OT assisted with transferring pt from 4th floor to the rehab unit. Pt's daughter present during OT evaluation. Mental Status/Objective Patient Orientation: Person, Place, Time, Situation Current Glasses/Contacts: Yes Hearing Aids: No Dentures/Partials: Yes Hand Dominance: Right Upper Extremity ROM WFL Upper Extremity Coordination WFL Upper Extremity Sensation Pt denies tingling/numbness in UEs, she states her legs feel "dull" and sometim es she experiences tingling/numbness at the back of her thighs and hips. Upper Extremity Strength grossly 3+/5 MMT BUE ADL-Treatment Eating (QC): 7 Oral Hygiene (QC): 7 Shower/Bathe Self (QC): 7 Upper Body Dressing (QC): 7 Lower Body Dressing (QC): 7 On/Off Footwear (QC): 7 Toileting Hygiene (QC): 2 (pt finishing with toileting task with nursing at start of session. Pt reported she required assistance with managing clothing but she was able to complete hygiene without assistance. Pt's legs shaking as she attempted to pull up pants, assistance required to pull up completely.) Toilet Transfer (QC): 4 (CGA transfer to/from toilet.) Other Treatments OT assisted pt from toilet to w/c, then transferred pt from 4th floor to the room 231 on the rehab unit. Pt provided information about PLOF and home set up. OT assisted pt from w/c to bed, pt used FWW with CGA. Pt then transferred sit to supine, requiring assistance with BLE due to back pain. Post OT session, pt laying in bed, call light in reach and all needs met. Education OT Patient Education: Correct positioning, Energy conservation, Modified ADL techniques, Progress toward Goal/Update tx plan, Purpose of tx/functional activities, Transfer techniques Teaching Recipient: Patient Teaching Methods: Discussion Response to Teaching: Verbalize Understanding OT Flower Buncher Or Picker Goals Flower Buncher Or Picker Goals Time Frame: Jul 16, 2019 Eating (QC): 6 Oral Hygiene (QC): 6 Toileting Hygiene (QC): 6 Shower/Bathe Self (QC): 6 Upper Body Dressing (QC): 6 Lower Body Dressing (QC): 6 On/Off Footwear (QC): 6 Additional Goals: 1-Demonstrate ADL Tasks, 2-Verbalize Understanding, 3-Impro veStrength/Kaden 1=Demonstrate adherence to instructed precautions during ADL tasks. 2=Patient will verbalize/demonstrate understanding of assistive devices/modifications for ADL. 3=Patient will improve strength/tolerance for activity to enable patient to perform ADL's. OT Education/Plan Problem List/Assessment Assessment: Decreased Activ Tolerance, Decreased UE Strength, Impaired Funct Balance, Impaired I ADL's, Impaired Self-Care Skills Discharge Recommendations Plan/Recommendations: Continue POC Treatment Plan/Plan of Care Treatment,Training & Education: Yes Patient would benefit from OT for education, treatment and training to promote independence in ADL's, mobility, safety and/or upper extremity function for ADL's. Plan of Care: ADL Retraining, Functional Mobility, Group Exercise/Act as Ind, UE Funct Exercise/Act Treatment Duration: Jul 16, 2019 Frequency: At least 5 of 7 days/Wk (IRF) Estimated Hrs Per Day: 1.5 hours per day Agreement: Yes Rehab Potential: Fair Time/GCodes Start Time: 10:15 Stop Time: 10:50 Total Time Billed (hr/min): 35 Billed Treatment Time 1, EVL (25'), ADL (10') CRUZITO BOBO OT Jul 02, 2019 11:00 POS
[2019-07-02 12:09] VITALS: BP 111/68
--- NOTE | 2019-07-02 12:46 | PM&R Post Admission Assessment ---
PM&R HP Date of Visit: Jul 02, 2019 Time of Visit: 12:20 History of Present Illness Chief complaint: Severe lumbar stenosis back pain in need of rehabilitation in order to ambulate and return home History of present illness: This is an 89-year-old white female patient of Dr. Carmona who has a past medical history of hypertension who presents to the inpatient rehab unit after a very debilitating week of lumbar stenosis back pain when she arrived in the ER last week given pain medication sent home and return back a week later with the same situation. MRI was obtained by primary care provider showing significant stenosis and bone spurs and not a surgical candidate. She lives at home with her daughter. She had a bowel movement yesterday. Steroids were given and back pain is much improved. We will maintain pain medication and physical therapy in order to strengthen and help with the debilitating severe back pain. She is not aware of any cardiology or pulmonology problems in the past. She was a [employer] worker for 20+ yrs. Past Wygikmz-Isoicq-Lgovyf Hx Past Med/Social Hx: Reviewed Nursing Past Med/Soc Hx, Reviewed and Corrections made Patient Social History Marrital Status: single Employed/Student: retired Alcohol Use: Denies Use Recreational Drug Use: No Smoking Status: Never a Smoker 2nd Hand Smoke Exposure: No Physical Abuse Screen: No Sexual Abuse: No Recent Foreign Travel: No Contact w/other who traveled: No Recent Hopitalizations: No Recent Infectious Disease Expo: No Immunizations Up To Date Tetanus Booster (TDap): Unknown Date of Pneumonia Vaccine: Apr 19, 2014 Date of Influenza Vaccine: Apr 19, 2019 Seasonal Allergies Seasonal Allergies: No Past Medical History Surgeries: Bladder Surgery Currently Using CPAP: No Currently Using BIPAP: No Cardiac: Hypertension Sexually Transmitted Disease: No HIV/AIDS: No Female Reproductive Disorders: Denies Musculoskeletal: Chronic Back Pain Hearing Impairment: Denies History of Blood Disorders: No Self Care: Independent Functional Cognition: Independent Drive Self: Yes Eatin Oral Hygiene: 7 Shower/Bathe Self: 7 Upper Body Dressin Lower Body Dressin On/Off Footwear: 7 Toileting Hygiene: 2 (pt finishing with toileting task with nursing at start of session. Pt reported she required assistance with managing clothing but she was able to complete hygiene without assistance. Pt's legs shaking as she attempted to pull up pants, assistance required to pull up completely.) Toilet Transfer: 4 (CGA transfer to/from toilet.) PM&R Allergy/Meds/Data Review Allergies Coded Allergies: Tetanus Vaccines and Toxoid (Unverified Allergy, Mild, RASH, 09/08/06) Home Medications Scheduled Amlodipine Besylate (Amlodipine Besylate), 5 MG PO DAILY, (Reported) Calcium Carbonate (Calcium Carbonate), 600 MG PO DAILY Cholecalciferol (Vitamin D3) (Vitamin D3), 2,000 UNIT PO DAILY Citalopram Hydrobromide (Citalopram Hbr), 20 MG PO DAILY, (Reported) Fesoterodine Fumarate (Toviaz), 4 MG PO DAILY, (Reported) Losartan Potassium (Losartan Potassium), 50 MG PO DAILY, (Reported) Meloxicam (Meloxicam), 15 MG PO DAILY, (Reported) Mirabegron (Myrbetriq), 50 MG PO DAILY, (Reported) Oxycodone HCl/Acetaminophen (Percocet 5-325 mg Tablet), 1 TAB PO Q4H Prednisone (Prednisone), 40 MG PO DAILY Solifenacin Succinate (Vesicare), 5 MG PO DAILY, (Reported) Zinc Amino Acid Chelate (Zinc), 50 MG PO DAILY, (Reported) Scheduled PRN Cyclobenzaprine HCl (Cyclobenzaprine HCl), 10 MG PO TID PRN for SPASMS Hydrocodone/Acetaminophen (Vicodin 5-300 mg Tablet), 1-2 EACH PO Q6H PRN for PAIN-MODERATE Discontinued Medications Calcium Carbonate (Calcium), 600 MG PO DAILY, (Reported) Discontinued Reason: No Longer Taking Cholecalciferol (Vitamin D3) (Vitamin D3), 2,000 UNIT PO DAILY, (Reported) Discontinued Reason: No Longer Taking Furosemide (Furosemide), 1 EACH PO DAILY, (Reported) Discontinued Reason: No Longer Taking Current Medications Current Medications Reviewed Review of Systems Constitutional: see HPI, malaise, weakness Musculoskeletal: back pain Physical Exam Physical Exam Vital Signs Vital Signs - First Documented 07/02/19 12:09 Temp 36.7 Pulse 73 Resp 18 B/P (MAP) 111/68 Pulse Ox 95 O2 Delivery Room Air Capillary Refill : Height, Weight, BMI Height: '3" Weight: 165lbs. oz. 74.768247ke; 22.25 BMI Method:Estimated General Appearance: No Apparent Distress, WD/WN, Chronically ill, Thin Eyes: Bilateral Eye Normal Inspection, Bilateral Eye PERRL HEENT: PERRL/EOMI, Normal ENT Inspection, Pharynx Normal Neck: Full Range of Motion, Normal Inspection, Non Tender, Supple, Carotid Bruit Respiratory: Chest Non Tender, Lungs Clear, Normal Breath Sounds, No Accessory Muscle Use, No Respiratory Distress Cardiovascular: Regular Rate, Rhythm, No Edema, No Gallop, No JVD, No Murmur, Normal Peripheral Pulses Gastrointestinal: Normal Bowel Sounds, No Organomegaly, No Pulsatile Mass, Non Tender, Soft Back: Normal Inspection, Decreased Range of Motion, Muscle Spasm, Vertebral Tenderness Extremity: Normal Capillary Refill, Normal Inspection, Normal Range of Motion, Non Tender, No Calf Tenderness, No Pedal Edema Neurologic/Psychiatric: Alert, Oriented x3, No Motor/Sensory Deficits, Normal Mood/Affect, athletic instructor II-XII Norm as Tested Skin: Normal Color, Warm/Dry Lymphatic: No Adenopathy PM&R Medical Assessment & Plan REHAB/MEDICAL ASSESSMENT AND PLAN: REHAB IMPAIRMENT GROUP: Lumbar stenosis ETIOLOGIC DIAGNOSIS: Lumbar stenosis The comorbidities that impact the patients function and/or functional outcome by: advanced age, fall risk, thin habitus, narcotics in elderly REHAB PLAN: The patient is being admitted to our comprehensive inpatient rehabilitation facility and can tolerate the intensity of service consisting of at least: 180 minutes of therapy a day, 5 out of 7 days a week Rehab treatment will consist of: PT will help stretching fall risk prevention and OT will help in ADL independence The patient/family has a good understanding of our discharge process and will benefit from an interdisciplinary inpatient rehabilitation program. The patient has potential to make improvement and is in need of at least two of the following multidisciplinary therapies including but not limited to physical, occupational, speech, and prosthetics and orthotics. Additionally the patient will need services from respiratory, nutritional services, wound care, psychology, etc. (Customize this to each patient). Given the patients complex condition and risk of further medical complications, rehabilitation services cannot be safely or effectively provided at a lower level of care such as a care home facility. BARRIERS TO DISCHARGE: Frail status and advanced age at risk for falls and decline ESTIMATED LOS: 7 days DISPOSITION: Home with daughter RELEVANT CHANGES SINCE PREADMISSION SCREENING: I have compared the patients medical and functional status at the time of the preadmission screening and there are: no changes PROGNOSIS: Good REHABILITATION GOALS: 1. Focus on improving back pain and increasing strength and back mobility to prevent falls All the above goals were reviewed with the patient and he/she is in agreement. By signing this document, I acknowledge that I have personally performed a full physical examination on this patient within 24 hours of admission to this inpatient rehabilitation facility and have determined the patient to be able to tolerate the above course of treatment at an intensive level for a reasonable period of time. I will be completing a detailed individualized Plan of Care for this patient by day #4 of the patients stay based upon the Preadmission Screen, the Post-Admission Evaluation, and the therapy evaluations. Admission Dx/Comorbidities: (1) Intractable low back pain Status: Acute ICD Codes: M54.5 - Low back pain (2) Hypertension ICD Codes: I10 - Essential (primary) hypertension (3) Osteoarthritis ICD Codes: M19.90 - Unspecified osteoarthritis, unspecified site (4) Depression ICD Codes: F32.9 - Major depressive disorder, single episode, unspecified (5) Advanced age ICD Codes: R54 - Age-related physical debility (6) Thin build ICD Codes: R68.89 - Other general symptoms and signs (7) At risk for falls ICD Codes: Z91.81 - History of falling (8) DVT prophylaxis ICD Codes: Z29.9 - Encounter for prophylactic measures, unspecified (9) Lumbar radiculopathy Status: Acute ICD Codes: M54.16 - Radiculopathy, lumbar region PERRY GIBSON DO Jul 02, 2019 12:46 POS
[2019-07-02] MEDS ORDERED: BACLOFEN 10 MG (LIORESAL) TAB PO PRN (13:00)
--- NOTE | 2019-07-02 14:12 | Physical Therapy Evaluation ---
PT Evaluation-General Medical Diagnosis Admission Date Jul 02, 2019 at 10:35 Medical Diagnosis: back pain Onset Date: Jun 16, 2019 Therapy Diagnosis Therapy Diagnosis: Decreased functional mobility Height/Weight Height (Inches): 3 Weight (Pounds): 165 Precautions Precautions/Isolations: Fall Prevention, Standard Precautions Weight Bear Status Right Lower Extremity: Right Full Weight Bearing Left Lower Extremity: Left Full Weight Bearing Referral Physician: Anjali Reason for Referral: Evaluation/Treatment Medical History Pertinent Medical History: HTN Additional Medical History bladder Sx, chronic back pain Current History Pt reports that "since about " her back pain "has been coming on". Presented to ER on 07/01/19 due to severe LBP with (B) radiculopathy to (B) feet. Admitted to ARU this date. Reviewed History: Yes Social History Home: Single Level Current Living Status: Children Entry Into Home: Stairs Without Railing PT Steps Into Home: 1 Prior Prior Level of Function SCALE: Activities may be completed with or without assistive devices. 2-Kdfifzgxkl-sthgfou completes the activity by him/herself with no assistance from a helper. 5-Set-up or Clean-up Assistance-helper sets up or cleans up; patient completes activity. [place] assists only prior to or following the activity. 4-Supervision or Touching Assistance-helper provides verbal cues and/or touching/steadying and/or contact guard assistance as patient completes activity. Assistance may be provided throughout the activity or intermittently. 3-Partial/Moderate Assistance-helper does LESS THAN HALF the effort. [place] lifts, holds or supports trunk or limbs, but provides less than half the effort. 2-Substantial/Maximal Assistance-helper does MORE THAN HALF the effort. [place] lifts or holds trunk or limbs and provides more than half the effort. 4-Bjwutxynb-zgbfar does ALL the effort. Patient does none of the effort to complete the activity. Or, the assistance of 2 or more helpers is required for the patient to complete the activity. If activity was not attempted, code reason: 7-Patient Refused. 9-Not Applicable-not attempted and the patient did not perform the activity before the current illness, exacerbation or injury. 10-Not Attempted due to Environmental Limitations-(lack of equipment, weather restraints, etc.). 88-Not Attempted due to Medical Conditions or Safety Concerns. Bed Mobility: 6 Transfers (B,C,W/C): 6 Gait: 6 Stairs: 6 Indoor Mobility (Ambulation): Independent Stairs: Independent Prior Devices Use: None Prior Device Use: Prior to episode of LBP, Pt (I). Pt has spouse's FWW and reports she attempted to use it when pain began but it is very wide and hard for her to maneuver. PT Evaluation-Current Subjective Pt in bed, agreeable and states "I will do what I can". Denies pain at rest but reports 8/10 with any movement. Localizes pain to low back and "mostly" posterior thighs but states it goes down to (B) feet. Reports (B) LE "feel numb". Objective Patient Orientation: Person, Place, Time, Situation ROM/Strength ROM Upper Extremities See OT ROM Lower Extremities Grossly WFL for mobility Strength Upper Extremities See OT Strength Lower Extremities (R) LE grossly 3+/5 knee and ankle (L) LE grossly 3/5 knee and ankle (B) hips grossly 3/5, no resistance given due to high pain rating Integumentary/Posture Integumentary See nurses' notes Neuromuscular (Tone, Coordination, Reflexes) Weakness (B) L5-S1 myotomes, L > R. Pt reports numbness (B) LE but intact to light touch (B) LE Patellar and Achilles reflexes 1+ (B) Proprioception unremarkable with functional movement Sensory Vision: Functional Hearing: Functional Hand Dominance: Right Sensation Right Lower Extremit: Intact Sensation Left Lower Extremity: Intact Sensation Lower Extremities Reports numbness (B) LE but intact to light touch Transfers Roll Left to Right (QC): 3 Sit to Lying (QC): 3 Lying to Sitting/Side of Bed(Q: 3 Sit to Stand (QC): 4 Chair/Ewj-oq-Mporf Xfer(QC): 4 Car Transfer (QC): 88 Pt's pain increased immediately with activity. Requested to return to bed. Gait Does the Patient Walk?: Yes Mode of Locomotion: Walk Anticipated Mode of Locomotion: Walk Walk 10 feet (QC): 4 Walk 50 ft with 2 Turns(QC): 88 Walk 150 ft (QC): 88 Walking 10ft/uneven surface-QC: 88 Distance: 10 Gait Assistive Device: FWW Comments/Gait Description CGA for safety with FWW. Pt with flexed posture, short, shuffling steps with (B) hips and knees in flexion. Precarious balance at time due to pain but no neelam LOB. Wheelchair Training Does the Pt Use a Wheelchair?: No Wheel 50 ft with 2 turns (QC): 9 Wheel 150 ft (QC): 9 Type of Wheelchair: Manual Stairs 1 Step (curb) (QC): 88 4 Steps (QC): 88 12 Steps (QC): 88 Pt ambulated only 10 feet this date due to severe pain. Balance Sitting Static: Good Sitting Dynamic: Fair Standing Static: Fair Standing Dynamic: Fair Picking up an Object (QC): 88 Treatment Eval. Returned to bed with needs met, RN addressing pain. Assessment/Needs Pt's functional mobility severely limited by LBP and LE radicular pain. Pt may benefit from skilled PT address limited functional mobility to restore PLOF. Pt may also benefit from evaluation by workers compensation claims specialist and pain management doctor. Rehab Potential: Fair Post Rehab Potential-Barriers: Pt's functional activity tolernace severely limited by pain at this time. PT Short Term Goals Short Term Goals Time Frame: Jul 09, 2019 Roll Left & Right: 6 Sit to lyin Lying to sitting on side of be: 6 Sit to stand: 6 PT Jail Goals Jail Goals PT Jail Goals Time Frame: Jul 23, 2019 Roll Left & Right (QC): 6 Sit to Lying (QC): 6 Lying-Sitting on Side/Bed(QC): 6 Sit to Stand (QC): 6 Chair/Fuo-lp-Cudnq Xfer(QC): 6 Toilet Transfer (QC): 6 Car Transfer (QC): 6 Does the Patient Walk: Yes Walk 10 feet (QC): 6 Walk 50ft with 2 Turns (QC): 6 Walk 150 ft (QC): 6 Walking 10ft on Uneven Surface: 6 1 Step (curb) (QC): 6 4 Steps (QC): 4 12 Steps (QC): 4 Picking up an Object (QC): 6 Does the Pt use WC or Scooter?: No Type: N/A Type: N/A PT LTGs established to allow safe return home with family at [facility] PT Plan Problem List Problem List: Activity Tolerance, Functional Strength, Safety, Balance, Gait, Transfer, Bed Mobility, ROM Treatment/Plan Treatment Plan: Continue Plan of Care Treatment Plan: Bed Mobility, Education, Functional Activity Kaden, Functional Strength, Group Therapy, Gait, Safety, Therapeutic Exercise, Transfers Treatment Duration: Jul 23, 2019 Frequency: At least 5 of 7 days/Wk (IRF) Estimated Hrs Per Day: 1.5 hours per day Patient and/or Family Agrees t: Yes Safety Risks/Education Patient Education: Transfer Techniques Teaching Recipient: Patient Teaching Methods: Discussion Response to Teaching: Verbalize Understanding PT POC, Role of PT on ARU. Log rolling to protect LB Discharge Recommendations Plan Continue to assess as pain management improves. Barriers to Progress Pain Time/GCodes Time In: 1141 Time Out: 1201 Total Billed Treatment Time: 20 Total Billed Treatment 1[facility] ALPA RUIZ DPElizabeth Jul 02, 2019 14:12 POS
[2019-07-02] MEDS: POLYETHYLENE GLYCOL 17 GM (MIRALAX) PACK PO SCH ×2 (14:23→20:16)
[2019-07-02] MEDS: DICLOFENAC 1% GEL 100 GM (VOLTAREN) TUBE TOP SCH ×3 (14:27→20:15)
[2019-07-02] MEDS: ENOXAPARIN 40 MG/0.4 ML (LOVENOX) SYR SC SCH (14:52)
[2019-07-02] MEDS ORDERED: CALC600T80 PO (17:24)
[2019-07-02] MEDS ORDERED: CHOL200025 PO (17:26)
[2019-07-02] MEDS ORDERED: CYCLOBENZAPRINE 10 MG (FLEXERIL) TAB PO PRN (17:30)
[2019-07-02 17:51] VITALS: BP 139/72
[2019-07-02] MEDS: oxyCODONE/APAP 5/325MG (PERCOCET 5) TABLET PO SCH ×3 (18:10→23:38)
[2019-07-02] MEDS: SENNA W/DOCUSATE (SENOKOT S) TABLET PO SCH (20:16)
[2019-07-03] MEDS: oxyCODONE/APAP 5/325MG (PERCOCET 5) TABLET PO SCH ×5 (04:41→20:21)
[2019-07-03 06:05] VITALS: BP 137/73
[2019-07-03 06:14] LABS: BASOPHILS # (AUTO) 0.1 10^3/uL (0.0-0.1); BASOPHILS % (AUTO) 1 % (0-10); EOSINOPHILS # (AUTO) 0.4 10^3/uL (0.0-0.3); EOSINOPHILS % (AUTO) 7 % (0-10); HEMATOCRIT 32 % (35-52); LYMPHOCYTES # (AUTO) 1.8 X 10^3 (1.0-4.0); LYMPHOCYTES % (AUTO) 33 % (12-44); MEAN CORPUSCULAR HEMOGLOBIN 28 PG (25-34); MEAN CORPUSCULAR HGB CONC 32 G/DL (32-36); MEAN CORPUSCULAR VOLUME 89 FL (80-99); MEAN PLATELET VOLUME 9.8 FL (7.4-10.4); MONOCYTES # (AUTO) 0.5 X 10^3 (0.0-1.0); MONOCYTES % (AUTO) 9 % (0-12); NEUTROPHILS # (AUTO) 2.7 X 10^3 (1.8-7.8); NEUTROPHILS % (AUTO) 51 % (42-75); PLATELET COUNT 264 10^3/uL (130-400); RED CELL DISTRIBUTION WIDTH 16.3 % (10.0-14.5); WHITE BLOOD COUNT 5.4 10^3/uL (4.3-11.0)
[2019-07-03 06:34] LABS: ALBUMIN 3.5 GM/DL (3.2-4.5); BILIRUBIN,TOTAL 0.3 MG/DL (0.1-1.0); CALCIUM 8.8 MG/DL (8.5-10.1); CREATININE SERUM 1.1 MG/DL (0.60-1.30); POTASSIUM 4.3 MMOL/L (3.6-5.0); TOTAL PROTEIN 6.5 GM/DL (6.4-8.2)
[2019-07-03] MEDS ORDERED: NON-FORMULARY MEDICATION 1 EA EA (Fesoterodine Fumarate (Toviaz) 4 MG) PO SCH (09:00)
[2019-07-03] MEDS ORDERED: LOSARTAN 50 MG (COZAAR) TAB PO SCH (09:00)
[2019-07-03] MEDS ORDERED: amLODIPine 5 MG (NORVASC) TAB PO SCH (09:00)
[2019-07-03] MEDS ORDERED: MELOXICAM 7.5 MG (MOBIC) TABLET PO SCH (09:00)
[2019-07-03] MEDS ORDERED: SOLIFENACIN 5 MG TAB (VESICARE) NON-FORMULARY PO SCH (09:00)
[2019-07-03] MEDS: POLYETHYLENE GLYCOL 17 GM (MIRALAX) PACK PO SCH ×2 (10:57→11:06)
[2019-07-03] MEDS: ZINC SULFATE 220 MG CAPSULE PO SCH (11:02)
[2019-07-03] MEDS: SENNA W/DOCUSATE (SENOKOT S) TABLET PO SCH ×2 (11:02→20:21)
[2019-07-03] MEDS: DOCUSATE SODIUM 100 MG (COLACE) CAP PO SCH ×2 (11:02→20:21)
[2019-07-03] MEDS: DICLOFENAC 1% GEL 100 GM (VOLTAREN) TUBE TOP SCH ×3 (11:04→20:21)
--- NOTE | 2019-07-03 11:30 | PM&R Progress Note ---
Subjective HPI/CC On Admission Date Seen by Provider: Jul 03, 2019 Time Seen by Provider: 11:30 Subjective/Events-last exam Patient doing well today I explained why she was improved via prednisone and she understands why she is taking it now Oxycodone not used now Will wean steroids as the next few days progress NO confusion noted Daughter lives with her Checked meds and labs Reviewed therapy notes Conferred with matcher of Systems General: Fatigue Musculoskeletal: back pain Objective Exam Vital Signs Vital Signs Date Time Temp Pulse Resp B/P (MAP) Pulse Ox O2 Delivery O2 Flow Rate FiO2 07/03/19 18:00 36.4 62 18 134/81 (98) 97 Room Air Capillary Refill : General Appearance: No Apparent Distress, WD/WN, Chronically ill, Thin HEENT: PERRL/EOMI, Normal ENT Inspection, Pharynx Normal Neck: Full Range of Motion, Normal Inspection, Non Tender, Supple, Carotid Bruit Respiratory: Chest Non Tender, Lungs Clear, Normal Breath Sounds, No Accessory Muscle Use, No Respiratory Distress Cardiovascular: Regular Rate, Rhythm, No Edema, No Gallop, No JVD, No Murmur, Normal Peripheral Pulses Gastrointestinal: Normal Bowel Sounds, No Organomegaly, No Pulsatile Mass, Non Tender, Soft Back: Normal Inspection, Decreased Range of Motion, Muscle Spasm, Vertebral Tenderness Extremity: Normal Capillary Refill, Normal Inspection, Normal Range of Motion, Non Tender, No Calf Tenderness, No Pedal Edema Neurologic/Psychiatric: Alert, Oriented x3, No Motor/Sensory Deficits, Normal Mood/Affect, multicultural manager II-XII Norm as Tested Skin: Normal Color, Warm/Dry Lymphatic: No Adenopathy Results/Procedures Lab Laboratory Tests 07/03/19 05:58 Patient resulted labs reviewed. FIM Transfers Therapy Code Descriptions/Definitions Functional [place] Measure: 0=Not Assessed/NA 4=Minimal Assistance 1=Total Assistance 5=Supervision or Setup 2=Maximal Assistance 6=Modified [place] 3=Moderate Assistance 7=Complete IndependenceSCALE: Activities may be completed with or without assistive devices. 2-Fikouepozu-solosjt completes the activity by him/herself with no assistance from a helper. 5-Set-up or Clean-up Assistance-helper sets up or cleans up; patient completes activity. [place] assists only prior to or following the activity. 4-Supervision or Touching Assistance-helper provides verbal cues and/or touching/steadying and/or contact guard assistance as patient completes activity. Assistance may be provided throughout the activity or intermittently. 3-Partial/Moderate Assistance-helper does LESS THAN HALF the effort. [place] lifts, holds or supports trunk or limbs, but provides less than half the effort. 2-Substantial/Maximal Assistance-helper does MORE THAN HALF the effort. [place] lifts or holds trunk or limbs and provides more than half the effort. 7-Yqqrgtthp-lspmnh does ALL the effort. Patient does none of the effort to complete the activity. Or, the assistance of 2 or more helpers is required for the patient to complete the activity. If activity was not attempted, code reason: 7-Patient Refused. 9-Not Applicable-not attempted and the patient did not perform the activity before the current illness, exacerbation or injury. 10-Not Attempted due to Environmental Limitations-(lack of equipment, weather restraints, etc.). 88-Not Attempted due to Medical Conditions or Safety Concerns. Roll Left to Right (QC): 3 Sit to Lying (QC): 3 Sit to Stand (QC): 4 Chair/Jix-qc-Izsvc Xfer(QC): 4 Car Transfer (QC): 88 Gait Training Does the Patient Walk?: Yes Walk 10 feet (QC): 4 Walk 50 ft with 2 Turns(QC): 88 Walk 150 ft (QC): 88 Walking 10ft/uneven surface-QC: 88 Gait Assistive Device: FWW Wheelchair Training Does the Pt Use a Wheelchair?: No Wheel 50 ft with 2 turns (QC): 9 Wheel 150 ft (QC): 9 Type of Wheelchair: Manual Stair Training 1 Step (curb) (QC): 88 4 Steps (QC): 88 12 Steps (QC): 88 Balance Picking up an Object (QC): 88 ADL-Treatment Eating (QC): 7 Oral Hygiene (QC): 7 Shower/Bathe Self (QC): 7 Upper Body Dressing (QC): 7 Lower Body Dressing (QC): 7 On/Off Footwear (QC): 7 Toileting Hygiene (QC): 2 (pt finishing with toileting task with nursing at start of session. Pt reported she required assistance with managing clothing but she was able to complete hygiene without assistance. Pt's legs shaking as she attempted to pull up pants, assistance required to pull up completely.) Toilet Transfer (QC): 4 (CGA transfer to/from toilet.) Assessment/Plan Assessment and Plan Assess & Plan/Chief Complaint Assessment: Severe lumbar stenosis not a surgical candidate Risk for falls HTN Depression DVT PPx with Lovenox Plan: Lovenox BM regimen Monitor pain Wean prednisone (1) Intractable low back pain Status: Acute (2) Hypertension (3) Osteoarthritis (4) Depression (5) Advanced age (6) Thin build (7) At risk for falls (8) DVT prophylaxis (9) Lumbar radiculopathy Status: Acute PERRY GIBSON DO Jul 03, 2019 11:29 POS
[2019-07-03] MEDS: predniSONE 20 MG TAB PO SCH (11:44)
[2019-07-03] MEDS: ENOXAPARIN 40 MG/0.4 ML (LOVENOX) SYR SC SCH (14:07)
[2019-07-03 18:00] VITALS: BP 134/81
[2019-07-03] MEDS: TROSPIUM 20 MG (SANCTURA) TAB PO SCH (20:21)
[2019-07-04] MEDS ORDERED: oxyCODONE/APAP 5/325MG (PERCOCET 5) TABLET ONE (05:21)
[2019-07-04] MEDS: oxyCODONE/APAP 5/325MG (PERCOCET 5) TABLET PO PRN (05:57)
[2019-07-04 06:46] VITALS: BP 120/72
--- NOTE | 2019-07-04 08:24 | PM&R Progress Note ---
Subjective HPI/CC On Admission Date Seen by Provider: Jul 04, 2019 Time Seen by Provider: 08:30 Subjective/Events-last exam Decreasing Prednisone starting tomorrow since she had 40 today Bowel movement was yesterday Sore in her back Took and Oxycodone this morning Denies any other issues Daughter lives with her Checked meds and labs Reviewed therapy notes Conferred with plant changer of Systems Musculoskeletal: back pain Objective Exam Vital Signs Vital Signs Date Time Temp Pulse Resp B/P (MAP) Pulse Ox O2 Delivery O2 Flow Rate FiO2 07/04/19 20:20 Room Air 07/04/19 18:00 36.9 88 18 144/85 (104) 98 Capillary Refill : General Appearance: No Apparent Distress, WD/WN, Chronically ill, Thin HEENT: PERRL/EOMI, Normal ENT Inspection, Pharynx Normal Neck: Full Range of Motion, Normal Inspection, Non Tender, Supple, Carotid Bruit Respiratory: Chest Non Tender, Lungs Clear, Normal Breath Sounds, No Accessory Muscle Use, No Respiratory Distress Cardiovascular: Regular Rate, Rhythm, No Edema, No Gallop, No JVD, No Murmur, Normal Peripheral Pulses Gastrointestinal: Normal Bowel Sounds, No Organomegaly, No Pulsatile Mass, Non Tender, Soft Back: Normal Inspection, Decreased Range of Motion, Muscle Spasm, Vertebral Tenderness Extremity: Normal Capillary Refill, Normal Inspection, Normal Range of Motion, Non Tender, No Calf Tenderness, No Pedal Edema Neurologic/Psychiatric: Alert, Oriented x3, No Motor/Sensory Deficits, Normal Mood/Affect, plate molder II-XII Norm as Tested Skin: Normal Color, Warm/Dry Lymphatic: No Adenopathy Results/Procedures Lab Patient resulted labs reviewed. FIM Transfers Therapy Code Descriptions/Definitions Functional [place] Measure: 0=Not Assessed/NA 4=Minimal Assistance 1=Total Assistance 5=Supervision or Setup 2=Maximal Assistance 6=Modified [place] 3=Moderate Assistance 7=Complete IndependenceSCALE: Activities may be completed with or without assistive devices. 8-Xvwwbjtvta-svdjxde completes the activity by him/herself with no assistance from a helper. 5-Set-up or Clean-up Assistance-helper sets up or cleans up; patient completes a ctivity. [place] assists only prior to or following the activity. 4-Supervision or Touching Assistance-helper provides verbal cues and/or touching/steadying and/or contact guard assistance as patient completes activity. Assistance may be provided throughout the activity or intermittently. 3-Partial/Moderate Assistance-helper does LESS THAN HALF the effort. [place] lifts, holds or supports trunk or limbs, but provides less than half the effort. 2-Substantial/Maximal Assistance-helper does MORE THAN HALF the effort. [place] lifts or holds trunk or limbs and provides more than half the effort. 1-Zlafzzfgz-xltybd does ALL the effort. Patient does none of the effort to complete the activity. Or, the assistance of 2 or more helpers is required for the patient to complete the activity. If activity was not attempted, code reason: 7-Patient Refused. 9-Not Applicable-not attempted and the patient did not perform the activity before the current illness, exacerbation or injury. 10-Not Attempted due to Environmental Limitations-(lack of equipment, weather restraints, etc.). 88-Not Attempted due to Medical Conditions or Safety Concerns. Roll Left to Right (QC): 3 Sit to Lying (QC): 3 Sit to Stand (QC): 4 Chair/Qjk-em-Numgn Xfer(QC): 4 Car Transfer (QC): 88 Gait Training Does the Patient Walk?: Yes Walk 10 feet (QC): 4 Walk 50 ft with 2 Turns(QC): 88 Walk 150 ft (QC): 88 Walking 10ft/uneven surface-QC: 88 Gait Assistive Device: FWW Wheelchair Training Does the Pt Use a Wheelchair?: No Wheel 50 ft with 2 turns (QC): 9 Wheel 150 ft (QC): 9 Type of Wheelchair: Manual Stair Training 1 Step (curb) (QC): 88 4 Steps (QC): 88 12 Steps (QC): 88 Balance Picking up an Object (QC): 88 ADL-Treatment Eating (QC): 7 Oral Hygiene (QC): 7 Shower/Bathe Self (QC): 7 Upper Body Dressing (QC): 7 Lower Body Dressing (QC): 7 On/Off Footwear (QC): 7 Toileting Hygiene (QC): 2 (pt finishing with toileting task with nursing at start of session. Pt reported she required assistance with managing clothing but she was able to complete hygiene without assistance. Pt's legs shaking as she attempted to pull up pants, assistance required to pull up completely.) Toilet Transfer (QC): 4 (CGA transfer to/from toilet.) Assessment/Plan Assessment and Plan Assess & Plan/Chief Complaint Assessment: Severe lumbar stenosis not a surgical candidate Risk for falls HTN Depression DVT PPx with Lovenox Plan: Lovenox BM regimen Monitor pain Wean prednisone (1) Intractable low back pain Status: Acute (2) Hypertension (3) Osteoarthritis (4) Depression (5) Advanced age (6) Thin build (7) At risk for falls (8) DVT prophylaxis (9) Lumbar radiculopathy Status: Acute PERRY GIBSON DO Jul 04, 2019 08:24 POS
--- NOTE | 2019-07-04 08:51 | ST Cognitive Linguistic Eval ---
Speech Evaluation-General Medical Diagnosis back pain Onset Date: Jun 16, 2019 Therapy Diagnosis Therapy Diagnosis: Cognitive-communication Referral Referring Physician: Dr. Alba Medical History Pertinent Medical History: HTN Reviewed History: Yes Social History Current Living Status: Children Speech PLF-Current Status Prior Level of Function Patient lived with her children where she was independent with much of her daily needs. Subjective Patient was pleasant and cooperative with the cognitive assessment. Language Eval: Auditory Comprehends Simple Yes/No Ques: Functional Indent/Objects Multiple [place]: Functional Ident/Pics in Multiple [place]: Functional Follows 1-Step Commands: Functional Follows Complex Directions: Functional Follows General Conversations: Functional Language Eval: Verbal Language Completes Spontaneous Greeting: Functional Produces Auto, Serial Info: Functional Imitates Simple Words/Phrases: Functional Word Finding: Functional Requests Basic Needs: Functional States Basic Personal Info: Functional Expresses Complex Ideas: Functional Objective Cognitive Domain Problem Solving: Functional Executive Functions: WNL Visuospatial Skills: WNL Composite Severity Rating: WNL Clock Drawing Severity Rating: WN Objective Formal/Standardized Tests [facility] Mental Status ([facility]) Results , within the normal range of function Oral Motor/Speech Production Within Normal Limits Impression The patient is a pleasant 89 year old female who was admitted to the ARU due to back pain. The patient was given the UMS at bedside with a score of 28 obtained. The patient does not require further ST services at this time. Speech Patient Assess Expression of Ideas/Wants: Expression (4) Understanding Verbal Content: Understands (4) Brief Interview-Mental Status: Yes Repetition of Three Words: Three (3) Temporal Orientation: Year: Correct (3) Temporal Orientation: Month: Accurate within 5 days(2) Temporal Orientation: Day: Correct (1) Recall : Wear to say "Sock": Yes, no cue required (2) Recall : Color: Yes, after cueing (1) Recall : Bed: Yes, no cue required (2) Memory/Recall Ability: Current season, That he or she is in a hsp/hsp unit Speech-Plan Patient/Family Goals Patient/Family Goals: The patient plans on returning to her home where she lives with her children. Treatment Plan Speech Therapy Treatment Plan: Discontinue ST Patient does not warrant further skilled ST services at this time. Treatment Duration: Jul 04, 2019 Frequency: 4 times per week Estimated Hrs Per Day: .25 hour per day Rehab Potential: Fair Barriers to Learning: None identified with the UMS Pt/Family Agrees to Plan: Yes Safety Risks/Education Teaching Recipient: Patient Teaching Methods: Discussion Response to Teaching: Verbalize Understanding Education Topics Provided: Safety within her room and utilization of the call light as needed Time Speech Therapy Time In: 08:00 Speech Therapy Time Out: 08:15 Total Billed Time: 15 Billed Treatment Time 1, SPSNDLYDIA Hernandez Jul 04, 2019 08:51 POS
--- NOTE | 2019-07-04 09:33 | Physical Therapy Daily Note ---
PT Daily Note-Current Subjective PPt. states that in supine her pain is only around her hips and rates at approx 4/10 but in stance and on feet it is 8-10/10. Pt. also reports poor sensation in bilat feet Pain Numeric Pain Scale: 10-Worst Possible Pain Location: Left Location Body Site: Calf (thight to foot pain) Pain Description: Burning Transfers SCALE: Activities may be completed with or without assistive devices. 8-Dofxusygmx-rnazaym completes the activity by him/herself with no assistance from a helper. 5-Set-up or Clean-up Assistance-helper sets up or cleans up; patient completes activity. [place] assists only prior to or following the activity. 4-Supervision or Touching Assistance-helper provides verbal cues and/or touching/steadying and/or contact guard assistance as patient completes activity. Assistance may be provided throughout the activity or intermittently. 3-Partial/Moderate Assistance-helper does LESS THAN HALF the effort. [place] lifts, holds or supports trunk or limbs, but provides less than half the effort. 2-Substantial/Maximal Assistance-helper does MORE THAN HALF the effort. [place] lifts or holds trunk or limbs and provides more than half the effort. 0-Drdsuvike-utqwei does ALL the effort. Patient does none of the effort to complete the activity. Or, the assistance of 2 or more helpers is required for the patient to complete the activity. If activity was not attempted, code reason: 7-Patient Refused. 9-Not Applicable-not attempted and the patient did not perform the activity before the current illness, exacerbation or injury. 10-Not Attempted due to Environmental Limitations-(lack of equipment, weather restraints, etc.). 88-Not Attempted due to Medical Conditions or Safety Concerns. Weight Bearing Right Lower Extremity: Right Full Weight Bearing Left Lower Extremity: Left Full Weight Bearing Gait Training Does the Patient Walk?: Yes Walk 10 feet (QC): 4 Walk 50 ft with 2 Turns(QC): 4 Gait Persons Needed: 1 Gait Assistive Device: FWW instructed in wt bearing to help alleviate pain as well as safe space and position in FWW Wheelchair Training Does the Pt Use a Wheelchair?: Yes Wheel 50 ft with 2 turns (QC): 5 Type of Wheelchair: Manual instructed in braking and propulsion and turning Exercises Supine Ex: Ankle pumps, Quad Set, Rolling, Glut sets, Heel Slides, Short Arc Quads, Scooting, Hip abd/add Supine Reps: 15 Seated Therapy Exercises: Ankle pumps, Sit to stand, Long arc quads, Hip flexion, Hip abd/add Seated Reps: 15 NuStep Minutes: 8 NuStep Workload: 3 Assessment Current Status: Good Progress gives full effort but pain and nueropathy limits gait greatly PT Short Term Goals Short Term Goals Time Frame: Jul 09, 2019 Roll Left & Right: 6 Sit to lyin Lying to sitting on side of be: 6 Sit to stand: 6 PT [place]ing [place]pper Goals Assisted Goals PT [place] Goals Time Frame: Jul 23, 2019 Roll Left & Right (QC): 6 Sit to Lying (QC): 6 Lying-Sitting on Side/Bed(QC): 6 Sit to Stand (QC): 6 Chair/Cws-pi-Smxtl Xfer(QC): 6 Toilet Transfer (QC): 6 Car Transfer (QC): 6 Does the Patient Walk: Yes Walk 10 feet (QC): 6 Walk 50ft with 2 Turns (QC): 6 Walk 150 ft (QC): 6 Walking 10ft on Uneven Surface: 6 1 Step (curb) (QC): 6 4 Steps (QC): 4 12 Steps (QC): 4 Picking up an Object (QC): 6 Does the Pt use WC or Scooter?: No Type: N/A Type: N/A PT Plan Treatment/Plan Treatment Plan: Continue Plan of Care Treatment Plan: Bed Mobility, Education, Functional Activity Kaden, Functional Strength, Group Therapy, Gait, Safety, Therapeutic Exercise, Transfers Treatment Duration: Jul 23, 2019 Frequency: At least 5 of 7 days/Wk (IRF) Estimated Hrs Per Day: 1.5 hours per day Patient and/or Family Agrees t: Yes Safety Risks/Education Patient Education: Gait Training, Transfer Techniques, Correct Positioning, Disease Process, Safety Issues Teaching Recipient: Patient Teaching Methods: Demonstration, Discussion Response to Teaching: Verbalize Understanding, Return Demonstration, Reinforcement Needed Time/GCodes Time In: 845 Time Out: 930 Total Billed Treatment Time: 45 Total Billed Treatment 1,EX20m,GT15m,FA10m JADE LAI TANK SETTER Jul 04, 2019 09:33 POS
[2019-07-04] MEDS: LOSARTAN 25 MG (COZAAR) TAB PO SCH (09:39)
[2019-07-04] MEDS: amLODIPine 10 MG (NORVASC) TAB PO SCH (09:40)
[2019-07-04] MEDS: DOCUSATE SODIUM 100 MG (COLACE) CAP PO SCH ×2 (09:44→20:48)
[2019-07-04] MEDS: predniSONE 20 MG TAB PO SCH (09:44)
[2019-07-04] MEDS: DICLOFENAC 1% GEL 100 GM (VOLTAREN) TUBE TOP SCH ×4 (09:44→20:49)
[2019-07-04] MEDS: ZINC SULFATE 220 MG CAPSULE PO SCH (09:44)
[2019-07-04] MEDS: POLYETHYLENE GLYCOL 17 GM (MIRALAX) PACK PO SCH ×2 (09:44→20:49)
[2019-07-04] MEDS: SENNA W/DOCUSATE (SENOKOT S) TABLET PO SCH ×2 (09:47→20:48)
--- NOTE | 2019-07-04 10:25 | NUR ---
Pastoral care visit.
[2019-07-04] MEDS ORDERED: CALC600T80 PO (11:36)
[2019-07-04] MEDS ORDERED: CHOL200025 PO (11:36)
[2019-07-04] MEDS ORDERED: AMLO10TA7 PO (11:36)
[2019-07-04] MEDS ORDERED: LOSA25TA41 PO (11:36)
[2019-07-04] MEDS ORDERED: CITA20TA9 PO (11:36)
[2019-07-04] MEDS ORDERED: CYCL10TA9 PO (11:36)
[2019-07-04] MEDS ORDERED: HYDR-3812 PO (11:36)
[2019-07-04] MEDS ORDERED: PRD20T PO (11:44)
--- NOTE | 2019-07-04 12:58 | Occupational Ther Daily Note ---
OT Current Status-Daily Note Subjective Pt. reports 9/10 back pain with movement. States that she has already had pain meds, and this is when she is standing. Appearance Pt. in bed. Agrees to work with OT. Mental Status/Objective Patient Orientation: Person, Place ADL-Treatment Therapy Code Descriptions/Definitions Functional [place] Measure: 0=Not Assessed/NA 4=Minimal Assistance 1=Total Assistance 5=Supervision or Setup 2=Maximal Assistance 6=Modified [place] 3=Moderate Assistance 7=Complete IndependenceSCALE: Activities may be completed with or without assistive devices. 4-Bppwvdrudv-hilfvrp completes the activity by him/herself with no assistance from a helper. 5-Set-up or Clean-up Assistance-helper sets up or cleans up; patient completes activity. [place] assists only prior to or following the activity. 4-Supervision or Touching Assistance-helper provides verbal cues and/or touching/steadying and/or contact guard assistance as patient completes activity. Assistance may be provided throughout the activity or intermittently. 3-Partial/Moderate Assistance-helper does LESS THAN HALF the effort. [place] lifts, holds or supports trunk or limbs, but provides less than half the effort. 2-Substantial/Maximal Assistance-helper does MORE THAN HALF the effort. [place] lifts or holds trunk or limbs and provides more than half the effort. 0-Uknjjwzyq-wirofz does ALL the effort. Patient does none of the effort to complete the activity. Or, the assistance of 2 or more helpers is required for the patient to complete the activity. If activity was not attempted, code reason: 7-Patient Refused. 9-Not Applicable-not attempted and the patient did not perform the activity before the current illness, exacerbation or injury. 10-Not Attempted due to Environmental Limitations-(lack of equipment, weather restraints, etc.). 88-Not Attempted due to Medical Conditions or Safety Concerns. Shower/Bathe Self (QC): 4 (CGA in stance in shower.) Upper Body Dressing (QC): 4 (SBA to don shirt.) Lower Body Dressing (QC): 4 (CGA for pt. to don underwear and pants.) (4) SBA for pt. to don slipper socks while seated. Other Treatment Pt. agrees to shower. Transferred supine-sit with SBA. Stood with walker and CGA to ambulate to shower. Pt. required CGA in stance while in shower. After showering, pt. able to dress with CGA/SBA. Transferred to wheelchair and sat at sink to brush/comb hair. Pt. self propelled to hallway. Attempted to ambulate with walker but required CGA to ambulate approximately 10 feet. Pt. had difficulty standing upright and wanted to lean on walker due to pain. Transferred back to wheelchair and self propelled to laundry area. Pt. stood at washing machine with min assist and leaned to put in laundry. OT set it for h er. Pt. transferred back to wheelchair and self propelled to therapy gym. Pt. reports no pain while seated/propelling. Completed 10 minutes on arm bike at min resistance for overall endurance activity. Self propelled back to room and tranferred to bed. Min assist needed for sit-supine. All needs met. Education OT Patient Education: Correct positioning, Exercise program, Modified ADL techniques, Progress toward Goal/Update tx plan, Purpose of tx/functional activities, Reviewed precautions, Rehab process, Transfer techniques Teaching Recipient: Patient Teaching Methods: Demonstration, Discussion Response to Teaching: Verbalize Understanding, Return Demonstration OT Prison Goals Prison Goals Time Frame: Jul 16, 2019 Eating (QC): 6 Oral Hygiene (QC): 6 Toileting Hygiene (QC): 6 Shower/Bathe Self (QC): 6 Upper Body Dressing (QC): 6 Lower Body Dressing (QC): 6 On/Off Footwear (QC): 6 Additional Goals: 1-Demonstrate ADL Tasks, 2-Verbalize Understanding, 3- ImproveStrength/Kaden 1=Demonstrate adherence to instructed precautions during ADL tasks. 2=Patient will verbalize/demonstrate understanding of assistive devices/modifications for ADL. 3=Patient will improve strength/tolerance for activity to enable patient to perform ADL's. OT Education/Plan Problem List/Assessment Assessment: Decreased Activ Tolerance, Decreased UE Strength, Dependent Transfers, Impaired Bed Mobility, Impaired Funct Balance, Impaired I ADL's, Impaired Self-Care Skills Discharge Recommendations Plan/Recommendations: Continue POC Therapy Discharge Recommendati: 24 Hour Supervision, Post Acute OT Treatment Plan/Plan of Care Treatment,Training & Education: Yes Patient would benefit from OT for education, treatment and training to promote independence in ADL's, mobility, safety and/or upper extremity function for ADL's. Plan of Care: ADL Retraining, Functional Mobility, Group Exercise/Act as Ind, UE Funct Exercise/Act Treatment Duration: Jul 16, 2019 Frequency: At least 5 of 7 days/Wk (IRF) Estimated Hrs Per Day: 1.5 hours per day Agreement: Yes Rehab Potential: Fair Time/GCodes Start Time: 11:10 Stop Time: 12:10 Total Time Billed (hr/min): 60 Billed Treatment Time 1, ADL x 45minutes, Ex x 15minutes LEATHA LOPES OT Jul 04, 2019 12:58 POS
[2019-07-04] MEDS ORDERED: TR1C15 TOP (13:02)
--- NOTE | 2019-07-04 13:02 | NUR ---
MED REC WAS NOT COMPLETED ON 4TH FLOOR PRIOR TO THE PATIENT DISCHARGING TO REHAB. IT WAS ADDRESSED BY A NURSE IN REHAB. I REVIEWED WHAT IS ON HER CHART WITH THE EXT MED HX. SHE FILLED AMLODIPINE 10MG #90 FOR 90 DAYS 03-17-19 BUT SHE STATES SHE TAKES 1/2 TAB DAILY. SHE FILLED PREDNISONE 20MG 2 TABS DAILY #8 TABLETS 07-01-19 HOWEVER IT HAS NOT BEEN PICKED UP YET, I LEFT IT WELL THE SCRIPT FOR PERCOCET 5-325MG #20 ON THE MED REC. THE PERCOCET WAS PRINTED AND GIVEN TO THE PATIENT ON 07-01-19 WELL BUT [facility] HAS NOT RECEIVED IT YET AND NOTHING IS SHOWING IN [place] FOR THAT. SHE DOES PROBABLY HAVE THE SCRIPT AVAILABLE TO HER BUT WAS ADMITTED SHORTLY AFTER THEY WERE PRESCRIBED. I LEFT BOTH ON THE MED REC AT THIS TIME TO BE ADDRESSED AT DISCHARGE. OTC MEDS: ZINC CALCIUM VITAMIN D Addendum: 07/04/19 at 1308 by HERI MALDONADO [facility] INFORMED PHARMACIST RAFAL THAT I CLARIFIED WITH THE PATIENT SHE DOES NOT TAKE TOVIAZ, VESICARE, AND MYRBETRIQ. TOVIAZ HAS NOT BEEN FILLED SINCE JANUARY, PATIENT STATES SHE GETS SAMPLES OF HER MYRBETRIQ AND IF THEY DO NOT HAVE SAMPLES AVAILABLE THEY WILL PRESCRIBED ONE OF THE OTHER MEDICATIONS BUT SHE DOES NOT TAKE MORE THAN ONE AT A TIME, RECENTLY SHE HAS BEEN ON THE MYRBETRIQ AND BROUGHT THAT MEDICATION IN TO USE WHILE IN HOSPITAL.
[2019-07-04] MEDS: ENOXAPARIN 30 MG/0.3 ML (LOVENOX) SYR SC SCH (14:10)
--- NOTE | 2019-07-04 14:10 | Physical Therapy Daily Note ---
PT Daily Note-Current Subjective Pt. agrees to Rx but states she is still having the pain in her legs cathie with gait and wt bearing Pain Numeric Pain Scale: 8 Location: Right Location Body Site: Thigh Pain Description: Burning Comment: pain in leg and down in to foot Mental Status Patient Orientation: Normal For Age Transfers SCALE: Activities may be completed with or without assistive devices. 2-Styibylyit-ruuhfho completes the activity by him/herself with no assistance from a helper. 5-Set-up or Clean-up Assistance-helper sets up or cleans up; patient completes activity. [place] assists only prior to or following the activity. 4-Supervision or Touching Assistance-helper provides verbal cues and/or touching/steadying and/or contact guard assistance as patient completes activity. Assistance may be provided throughout the activity or intermittently. 3-Partial/Moderate Assistance-helper does LESS THAN HALF the effort. [place] lifts, holds or supports trunk or limbs, but provides less than half the effort. 2-Substantial/Maximal Assistance-helper does MORE THAN HALF the effort. [place] lifts or holds trunk or limbs and provides more than half the effort. 7-Xhxarueod-zoztmx does ALL the effort. Patient does none of the effort to complete the activity. Or, the assistance of 2 or more helpers is required for the patient to complete the activity. If activity was not attempted, code reason: 7-Patient Refused. 9-Not Applicable-not attempted and the patient did not perform the activity before the current illness, exacerbation or injury. 10-Not Attempted due to Environmental Limitations-(lack of equipment, weather restraints, etc.). 88-Not Attempted due to Medical Conditions or Safety Concerns. in out bed chair and on off toilet SBA to Mod I Weight Bearing Right Lower Extremity: Right Full Weight Bearing Left Lower Extremity: Left Full Weight Bearing Gait Training Does the Patient Walk?: Yes Gait Assistive Device: FWW gait trials 50 ft x 5 slow, small steps, instructed to take broader LESVIA and position safely in FWW. Pt. has increasing pain while on feet for gait and requests resting. Exercises Supine Ex: Ankle pumps, Lower trunk rotation, Knee to chest, Straight leg raise (for HS stretches) Supine Reps: 10 Seated Therapy Exercises: Ankle pumps, Sit to stand, Long arc quads Seated Reps: 10 Assessment Current Status: Good Progress pts. pain level continues to limit her gait . pt. may need to use w/c for primary mobility if pain is not stablilized PT Short Term Goals Short Term Goals Time Frame: Jul 09, 2019 Roll Left & Right: 6 Sit to lyin Lying to sitting on side of be: 6 Sit to stand: 6 PT Churn Drill Operator Goals Longterm Goals PT Churn Drill Operator Goals Time Frame: Jul 23, 2019 Roll Left & Right (QC): 6 Sit to Lying (QC): 6 Lying-Sitting on Side/Bed(QC): 6 Sit to Stand (QC): 6 Chair/Rcz-hf-Awmht Xfer(QC): 6 Toilet Transfer (QC): 6 Car Transfer (QC): 6 Does the Patient Walk: Yes Walk 10 feet (QC): 6 Walk 50ft with 2 Turns (QC): 6 Walk 150 ft (QC): 6 Walking 10ft on Uneven Surface: 6 1 Step (curb) (QC): 6 4 Steps (QC): 4 12 Steps (QC): 4 Picking up an Object (QC): 6 Does the Pt use WC or Scooter?: No Type: N/A Type: N/A PT Plan Treatment/Plan Treatment Plan: Continue Plan of Care Treatment Plan: Bed Mobility, Education, Functional Activity Kaden, Functional Strength, Group Therapy, Gait, Safety, Therapeutic Exercise, Transfers Treatment Duration: Jul 23, 2019 Frequency: At least 5 of 7 days/Wk (IRF) Estimated Hrs Per Day: 1.5 hours per day Patient and/or Family Agrees t: Yes Safety Risks/Education Patient Education: Gait Training, Transfer Techniques, Correct Positioning, Disease Process, Safety Issues Teaching Recipient: Patient Teaching Methods: Demonstration, Discussion Response to Teaching: Verbalize Understanding, Return Demonstration, Reinforcement Needed Time/GCodes Time In: 1320 Time Out: 1405 Total Billed Treatment Time: 45 Total Billed Treatment 1,EX20,GT25 JADE LAI ASSISTANT ACTIVITIES DIRECTOR Jul 04, 2019 14:10 POS
--- NOTE | 2019-07-04 15:00 | Occupational Ther Daily Note ---
OT Current Status-Daily Note Subjective No pain reported. Appearance Pt. had just finished session with PT. States that she is tired. Agrees to work with OT. Mental Status/Objective Patient Orientation: Person, Place, Time, Situation ADL-Treatment Therapy Code Descriptions/Definitions Functional [place] Measure: 0=Not Assessed/NA 4=Minimal Assistance 1=Total Assistance 5=Supervision or Setup 2=Maximal Assistance 6=Modified [place] 3=Moderate Assistance 7=Complete IndependenceSCALE: Activities may be completed with or without assistive devices. 5-Nwucxjiqqw-tttnpte completes the activity by him/herself with no assistance from a helper. 5-Set-up or Clean-up Assistance-helper sets up or cleans up; patient completes activity. [place] assists only prior to or following the activity. 4-Supervision or Touching Assistance-helper provides verbal cues and/or touching/steadying and/or contact guard assistance as patient completes a ctivity. Assistance may be provided throughout the activity or intermittently. 3-Partial/Moderate Assistance-helper does LESS THAN HALF the effort. [place] lifts, holds or supports trunk or limbs, but provides less than half the effort. 2-Substantial/Maximal Assistance-helper does MORE THAN HALF the effort. [place] lifts or holds trunk or limbs and provides more than half the effort. 5-Cgjvrxizz-usexsn does ALL the effort. Patient does none of the effort to complete the activity. Or, the assistance of 2 or more helpers is required for the patient to complete the activity. If activity was not attempted, code reason: 7-Patient Refused. 9-Not Applicable-not attempted and the patient did not perform the activity before the current illness, exacerbation or injury. 10-Not Attempted due to Environmental Limitations-(lack of equipment, weather restraints, etc.). 88-Not Attempted due to Medical Conditions or Safety Concerns. Pt. transfers sit-supine with SBA. Increased time needed. Pt. able to position self in bed but states that she is very tired. Completes 3 bilateral UE exercises x 15 reps each, x 2 sets in all planes. Tolerated well with rest breaks in between. Worked on this to increase overall strength and independence. All needs met after treatment. Education OT Patient Education: Correct positioning, Exercise program, Progress toward Goal/Update tx plan, Purpose of tx/functional activities, Reviewed precautions, Rehab process Teaching Recipient: Patient Teaching Methods: Demonstration, Discussion Response to Teaching: Verbalize Understanding, Return Demonstration OT Automotive Title Clerk Goals Group Home Goals Time Frame: Jul 16, 2019 Eating (QC): 6 Oral Hygiene (QC): 6 Toileting Hygiene (QC): 6 Shower/Bathe Self (QC): 6 Upper Body Dressing (QC): 6 Lower Body Dressing (QC): 6 On/Off Footwear (QC): 6 Additional Goals: 1-Demonstrate ADL Tasks, 2-Verbalize Understanding, 3- ImproveStrength/Kaden 1=Demonstrate adherence to instructed precautions during ADL tasks. 2=Patient will verbalize/demonstrate understanding of assistive devices/modifications for ADL. 3=Patient will improve strength/tolerance for activity to enable patient to perform ADL's. OT Education/Plan Problem List/Assessment Assessment: Decreased Activ Tolerance, Decreased UE Strength, Impaired I ADL's Discharge Recommendations Plan/Recommendations: Continue POC Therapy Discharge Recommendati: Post Acute OT Treatment Plan/Plan of Care Treatment,Training & Education: Yes Patient would benefit from OT for education, treatment and training to promote independence in ADL's, mobility, safety and/or upper extremity function for ADL's. Plan of Care: ADL Retraining, Functional Mobility, Group Exercise/Act as Ind, UE Funct Exercise/Act Treatment Duration: Jul 16, 2019 Frequency: At least 5 of 7 days/Wk (IRF) Estimated Hrs Per Day: 1.5 hours per day Agreement: Yes Rehab Potential: Fair Time/GCodes Start Time: 14:05 Stop Time: 14:35 Total Time Billed (hr/min): 30 Billed Treatment Time 1, Ex x 2 LEATHA LOPES OT Jul 04, 2019 15:00 POS
--- NOTE | 2019-07-04 16:03 | NUR ---
"RD ASSESSMENT PMHx: HTN PT INTERACTION: Pt was awake and pleasant during nutrition assessment. Pt states current appetite is good, though she doesn't normally eat a lot. Note pt avg PO intake of 81% x2d, per chart review. Pt states following a regular diet at home, and has no issues with chewing/swallowing food at this time. Pt states no recent issues with n/v at this time. Pt states having some issues with constipation. Note pt currently on bowel regimen of senna BID; colace BID; and miralax BID, per chart review. Pt states no recent wt changes. Note unable to determine recent wt hx, per chart review. ABNORMAL NUTRITION-RELATED LAB VALUES LOW: HIGH: BUN 22 Est. kcal needs: 0793-3943 kcal | 25-30 kcal/kg Est. Pro needs: 58-69 g Pro | 1.0-1.2 g Pro/kg PES STATEMENT: Given pt's current PO intake, no nutrition diagnosis at this time (NO-1.1) INTERVENTION: Continue with current diet order of Regular diet. Will continue to follow and reassess as pt needs and status change. MONITOR/EVALUATE: PO Intake; Plan of Care; Hydration Status; Weight Status; Lab Values Ciro Betancur, MS, RD, LD"
[2019-07-04 18:00] VITALS: BP 144/85
[2019-07-04] MEDS: TROSPIUM 20 MG (SANCTURA) TAB PO SCH (20:48)
[2019-07-05 06:00] VITALS: BP 153/76
--- NOTE | 2019-07-05 08:56 | Occupational Ther Daily Note ---
OT Current Status-Daily Note Subjective Pt laying in bed at start of session, agreeable to OT tx. Pt reported pain 10/10 only when walking, denied pain when seated/laying down. Pain Numeric Pain Scale: 10-Worst Possible Pain ADL-Treatment Therapy Code Descriptions/Definitions Functional [place] Measure: 0=Not Assessed/NA 4=Minimal Assistance 1=Total Assistance 5=Supervision or Setup 2=Maximal Assistance 6=Modified [place] 3=Moderate Assistance 7=Complete IndependenceSCALE: Activities may be completed with or without assistive devices. 0-Zehzzmzgql-tppdavw completes the activity by him/herself with no assistance from a helper. 5-Set-up or Clean-up Assistance-helper sets up or cleans up; patient completes activity. [place] assists only prior to or following the activity. 4-Supervision or Touching Assistance-helper provides verbal cues and/or touching/steadying and/or contact guard assistance as patient completes activity. Assistance may be provided throughout the activity or intermittently. 3-Partial/Moderate Assistance-helper does LESS THAN HALF the effort. [place] lifts, holds or supports trunk or limbs, but provides less than half the effort. 2-Substantial/Maximal Assistance-helper does MORE THAN HALF the effort. [place] lifts or holds trunk or limbs and provides more than half the effort. 5-Zgcluzmtv-tuhbdg does ALL the effort. Patient does none of the effort to complete the activity. Or, the assistance of 2 or more helpers is required for the patient to complete the activity. If activity was not attempted, code reason: 7-Patient Refused. 9-Not Applicable-not attempted and the patient did not perform the activity before the current illness, exacerbation or injury. 10-Not Attempted due to Environmental Limitations-(lack of equipment, weather restraints, etc.). 88-Not Attempted due to Medical Conditions or Safety Concerns. Eating (QC): 6 (Per pt report: Pt was able to open all containers with breakfast and eat food without difficulty.) Oral Hygiene (QC): 6 (Pt completed task seated in w/c at sink.) Lower Body Dressing (QC): 4 (CGA during stand. Pt able to doff/don pants and underwear) Toileting Hygiene (QC): 4 (CGA during stand for clothing management. Pt able to complete all parts of task) Toilet Transfer (QC): 4 (CGA using FWW) FOOTWEAR QC: 6 (Pt able to don/doff BLE socks seated in recliner) Other Treatment Pt laying in bed at start of session, transferred supine to sit with SBA. She then ambulated to the bathroom using FWW & CGA, completing toileting. Pt then transferred to w/c to complete groom ing tasks at sink. Pt self propelled w/c to therapy gym. In order to increase BUE strength, functional endurance, and fine motor strength, pt completed the following tasks: 1) pt removed x36 beads from red theraputty, 2) Pt completed arm bike x15 mins, min resistance, no rest breaks. 3) [place] exercises, x15 reps, 2 sets each shoulder flexion, elbow flexion, front punch. Pt then self propelled w/c back to her room, she completed x10 reps of sales and marketing executive squeezes with red sales and marketing executive sponge. Post OT session, pt upright in recliner, call light and phone in reach, all needs met. Education OT Patient Education: Correct positioning, Energy conservation, Exercise prog allie, Modified ADL techniques, Progress toward Goal/Update tx plan, Purpose of tx/functional activities, Transfer techniques Teaching Recipient: Patient Teaching Methods: Demonstration, Discussion Response to Teaching: Verbalize Understanding, Return Demonstration OT [employer] Chemist Goals Halfway Goals Time Frame: Jul 16, 2019 Eating (QC): 6 Oral Hygiene (QC): 6 Toileting Hygiene (QC): 6 Shower/Bathe Self (QC): 6 Upper Body Dressing (QC): 6 Lower Body Dressing (QC): 6 On/Off Footwear (QC): 6 Additional Goals: 1-Demonstrate ADL Tasks, 2-Verbalize Understanding, 3- ImproveStrength/Kaden 1=Demonstrate adherence to instructed precautions during ADL tasks. 2=Patient will verbalize/demonstrate understanding of assistive devices/modifications for ADL. 3=Patient will improve strength/tolerance for activity to enable patient to perform ADL's. OT Education/Plan Problem List/Assessment Assessment: Decreased Activ Tolerance, Decreased UE Strength, Impaired Funct Balance, Impaired I ADL's, Impaired Self-Care Skills Discharge Recommendations Plan/Recommendations: Continue POC Treatment Plan/Plan of Care Treatment,Training & Education: Yes Patient would benefit from OT for education, treatment and training to promote independence in ADL's, mobility, safety and/or upper extremity function for ADL's. Plan of Care: ADL Retraining, Functional Mobility, Group Exercise/Act as Ind, UE Funct Exercise/Act Treatment Duration: Jul 16, 2019 Frequency: At least 5 of 7 days/Wk (IRF) Estimated Hrs Per Day: 1.5 hours per day Agreement: Yes Rehab Potential: Fair Time/GCodes Start Time: 08:00 Stop Time: 09:30 Total Time Billed (hr/min): 90 Billed Treatment Time 1, ADL 2 (30 mins), FA (15 mins), EX 3 (45mins) CRUZITO BOBO OT Jul 05, 2019 08:56 POS
[2019-07-05] MEDS: DOCUSATE SODIUM 100 MG (COLACE) CAP PO SCH ×2 (10:13→20:28)
[2019-07-05] MEDS: ZINC SULFATE 220 MG CAPSULE PO SCH (10:13)
[2019-07-05] MEDS: predniSONE 20 MG TAB PO SCH (10:13)
[2019-07-05] MEDS: SENNA W/DOCUSATE (SENOKOT S) TABLET PO SCH ×2 (10:14→20:28)
[2019-07-05] MEDS: LOSARTAN 25 MG (COZAAR) TAB PO SCH (10:15)
[2019-07-05] MEDS: amLODIPine 10 MG (NORVASC) TAB PO SCH (10:17)
[2019-07-05] MEDS: DICLOFENAC 1% GEL 100 GM (VOLTAREN) TUBE TOP SCH ×4 (10:18→20:23)
[2019-07-05] MEDS: POLYETHYLENE GLYCOL 17 GM (MIRALAX) PACK PO SCH ×2 (10:18→20:20)
--- NOTE | 2019-07-05 10:21 | NUR ---
Notified by PT that patient continues to have significant lower back pain that radiates down both legs. Notified Dr. Alba and received order to consult Dr. Sandoval. Talked with Dr. Lori Bartlett's nurse at [address] Tri is going to talk with Dr. Sandoval regarding consult and will phone this worker back with plan. Dr. Sandoval is out of the office next week and Tri reports Dr. Sandoval may want a colleague to see the patient. Notified PT and RN.
--- NOTE | 2019-07-05 10:35 | Individualized Plan of Care ---
Individualized Plan of Care Rehab Nursing IPOC Order Admission Date Jul 02, 2019 at 10:35 Current Orders Orders Admission Order(Inpt,Obs,Sdc) (07/02/19 07:16) Vital Signs: Per Unit Policy ( 08,16,00 (07/02/19 07:16) Juan Arango 09,21 (07/02/19 07:16) Sequential Compression Device Q4H (07/02/19 07:16) Mash Grinder-Inpt Rehab Con (07/02/19 07:16) Rehab Nursing Orders-Ipoc (07/02/19 07:16) Physical Therapy Rehab Orders (07/02/19 07:16) Occupational Therapy Rehab Ord (07/02/19 07:16) Speech Therapy Rehab Orders (07/02/19 07:16) Cbc With Automated Diff (07/03/19 06:00) Comprehensive Metabolic Panel (07/03/19 06:00) General/Regular (07/02/19 Lunch) Intake & Output 06,14,22 (07/02/19 07:16) Precautions (Aru) (07/02/19 07:16) Weekly Weight WEEK (07/02/19 07:16) Rehab-Intensity Of Therapy (07/02/19 07:16) Initiate Admission Nursing Pro .admission (07/02/19 07:16) Alprazolam Tablet (Xanax Tablet) (07/02/19 07:30) Calcium Carbonate Chew Tablet (Antacid C (07/02/19 07:30) Diphenhydramine Tablet (Benadryl Tablet) (07/02/19 07:30) Docusate Sodium Capsule (Colace Capsule) (07/02/19 09:00) Docusate Sodium Capsule (Colace Capsule) (07/02/19 07:30) Bisacodyl Suppository (Dulcolax Supposit (07/02/19 07:30) Lactulose Oral Solution (Enulose Oral So (07/02/19 07:30) Na Phos/Na Biphos Enema (Fleet Enema Wander (07/02/19 07:30) Guaifenesin/Codeine Syrup (Robitussin Ac (07/02/19 07:30) Loperamide Tablet (Imodium Tablet) (07/02/19 07:30) Enoxaparin Injection (Lovenox Injection) (07/02/19 14:00) Melatonin Tablet (Melatonin Tablet) (07/02/19 07:30) Polyethylene Glycol Powder Pkt (Miralax (07/02/19 09:00) Ondansetron Oral Dissolve Tab (Zofran (07/02/19 07:30) Senna S Tablet (Senokot S Tablet) (07/02/19 21:00) Admission Arrival Bed Request (07/02/19 10:40) Patient Visit (07/02/19 ) Pt Eval High Complexity (07/02/19 ) Oxycodone Immediate Rel Tablet (Oxyir Ta (07/02/19 13:00) Baclofen Tablet (Lioresal Tablet) (07/02/19 13:00) Diclofenac 1% Gel (Voltaren 1% Gel) (07/02/19 13:00) Citalopram Tablet (Celexa Tablet) (07/03/19 09:00) Cyclobenzaprine Tablet (Flexeril Tablet) (07/02/19 17:30) Losartan Tablet (Cozaar Tablet) (07/03/19 09:00) Oxycodone/Apap 5/325mg Tablet (Percocet (07/02/19 17:30) Prednisone Tablet (Deltasone Tablet) (07/03/19 09:00) (Nf) Fesoterodine Fumarate (Toviaz) (07/03/19 09:00) Meloxicam Tablet (Mobic Tablet) (07/03/19 09:00) (Nf) Mirabegron (Myrbetriq) (07/03/19 09:00) Zinc Sulfate Capsule (Zinc 50 Mg Capsule (07/03/19 09:00) Amlodipine Tablet (Norvasc Tablet) (07/03/19 09:00) Trospium Tablet (Sanctura Tablet) (07/03/19 21:00) Incentive Spirometry (Nursing) Q2H (07/03/19 11:49) Incentive Spirometry Initial (07/03/19 11:49) Incentive Spirometry (Nursing) Q2H (07/03/19 11:49) Non-Formulary Medication (Non-Formulary (07/04/19 09:00) Citalopram Tablet (Celexa Tablet) (07/04/19 09:00) Losartan Tablet (Cozaar Tablet) (07/04/19 09:00) Amlodipine Tablet (Norvasc Tablet) (07/04/19 09:00) Oxycodone/Apap 5/325mg Tablet (Percocet (07/03/19 23:45) Oxycodone/Apap 5/325mg Tablet (Percocet (07/04/19 05:21) Enoxaparin Injection (Lovenox Injection) (07/04/19 14:00) Prednisone Tablet (Deltasone Tablet) (07/05/19 08:00) Patient Visit (07/04/19 ) Speech Sound Lang Comp (07/04/19 ) Patient Visit (07/04/19 ) Exercise Therap, Ea 15 Min (07/04/19 ) Functional Activities, Ea 15 (07/04/19 ) Gait Training, Ea 15 Min (07/04/19 ) Consult Orthopedic Surgery (07/05/19 10:15) Patient Visit (07/05/19 ) Functional Activities, Ea 15 (07/05/19 ) Gait Training, Ea 15 Min (07/05/19 ) Exercise Therap, Ea 15 Min (07/05/19 ) Rehab Nursing Orders: Ongoing Assess. of Cognitive Status, Ongoing Assess. of Function Status, Bladder Management, Bladder Scan, Bladder Training, Bowel Management, Bowel Training, Disease Management & Educaiton, DVT Prophylaxis, Fall Prevention, Fluid/Electrolyte/Nutrition Mgmt, Infection Prevention, Medication Management & Education, Management of Risks & Complications, Management of Skin Intergrity, Nutrition Management, Pain Management, Patient/Family Support, Safety Management Intensity of Therapy to be met Patient to be seen: Min.3h per day/5 of 7d PT IPOC Problem List: Activity Tolerance, Functional Strength, Safety, Balance, Gait, Transfer, Bed Mobility, ROM Treatment Plan: Continue Plan of Care Bed Mobility, Education, Functional Activity Kaden, Functional Strength, Group Therapy, Gait, Safety, Therapeutic Exercise, Transfers Treatment Duration: Jul 23, 2019 Frequency: At least 5 of 7 days/Wk (IRF) Estimated Hrs Per Day: 1.5 hours per day OT IPOC Problems: Decreased Activ Tolerance, Decreased UE Strength, Impaired Funct Balance, Impaired I ADL's, Impaired Self-Care Skills OT Treatment, Training and Edu: Yes Plan of Care: ADL Retraining, Functional Mobility, Group Exercise/Act as Ind, UE Funct Exercise/Act Treatment Duration: Jul 16, 2019 Frequency: At least 5 of 7 days/Wk (IRF) Estimated Hrs Per Day: 1.[address] IPOC Speech Therapy Treatment Plan: Discontinue ST Treatment Duration: Jul 04, 2019 Frequency: 4 times per week Estimated Hrs Per Day: .25 hour per day Mash Grinder/Case Mgmt Mash Grinder/Case Managemen: Discharge Planning Dietitian/Roll Former Dietitian/Roll Former to monitor nutritional status and make changes and/or r ecommendations as needed and work with speech pathology on dietary upgrades as the occur. Physician IPOC Medical Issues being managed closely and that require the 24 hour availability of a physician: Frail status with advanced age and major fall risk with steroids which could cause delirium along with high risk for narcotic bowel Medical Issues: Bowel/Bladder Function, DVT Prophylaxis, Falls Precautions, Fluid/Electrolyte/Nutrition Balance, Infection Protection, Pain Management Brief Synthesis of Preadmission Screen, Post-Admission Evaluation, and Therapy Evaluations: PT and OT will both increase spine mobility with fall risk prevention and regain confidence and be able to return home Medical Prognosis: Good Anticipated Length of Stay: 7 days PERRY GIBOSN DO Jul 05, 2019 10:35 POS
--- NOTE | 2019-07-05 10:35 | PM&R Progress Note ---
Subjective HPI/CC On Admission Date Seen by Provider: Jul 05, 2019 Time Seen by Provider: 09:00 Subjective/Events-last exam Crackles are noted in the lower lobes, likely pulmonary fibrosis. Bowels are moving. Pain is controlled but taking Oxycodone and that is helping. Denies any other issues Daughter lives with her Checked meds and labs Reviewed therapy notes Conferred with field clerk of Systems Musculoskeletal: back pain, leg pain Objective Exam Vital Signs Vital Signs Date Time Temp Pulse Resp B/P (MAP) Pulse Ox O2 Delivery O2 Flow Rate FiO2 07/06/19 09:00 Room Air 07/06/19 06:28 35.8 65 18 153/76 (101) 98 Capillary Refill : General Appearance: No Apparent Distress, WD/WN, Chronically ill, Thin HEENT: PERRL/EOMI, Normal ENT Inspection, Pharynx Normal Neck: Full Range of Motion, Normal Inspection, Non Tender, Supple, Carotid Bruit Respiratory: Chest Non Tender, Lungs Clear, Normal Breath Sounds, No Accessory Muscle Use, No Respiratory Distress Cardiovascular: Regular Rate, Rhythm, No Edema, No Gallop, No JVD, No Murmur, Normal Peripheral Pulses Gastrointestinal: Normal Bowel Sounds, No Organomegaly, No Pulsatile Mass, Non Tender, Soft Back: Normal Inspection, Decreased Range of Motion, Muscle Spasm, Vertebral Tenderness Extremity: Normal Capillary Refill, Normal Inspection, Normal Range of Motion, Non Tender, No Calf Tenderness, No Pedal Edema Neurologic/Psychiatric: Alert, Oriented x3, No Motor/Sensory Deficits, Normal Mood/Affect, wirer maintenance II-XII Norm as Tested Skin: Normal Color, Warm/Dry Lymphatic: No Adenopathy Results/Procedures Lab Patient resulted labs reviewed. FIM Transfers Therapy Code Descriptions/Definitions Functional [place] Measure: 0=Not Assessed/NA 4=Minimal Assistance 1=Total Assistance 5=Supervision or Setup 2=Maximal Assistance 6=Modified [place] 3=Moderate Assistance 7=Complete IndependenceSCALE: Activities may be completed with or without assistive devices. 9-Iupqnflwrr-iyyopmi completes the activity by him/herself with no assistance from a helper. 5-Set-up or Clean-up Assistance-helper sets up or cleans up; patient completes activity. [place] assists only prior to or following the activity. 4-Supervision or Touching Assistance-helper provides verbal cues and/or touching/steadying and/or contact guard assistance as patient completes activity. Assistance may be provided throughout the activity or intermittently. 3-Partial/Moderate Assistance-helper does LESS THAN HALF the effort. [place] lifts, holds or supports trunk or limbs, but provides less than half the effort. 2-Substantial/Maximal Assistance-helper does MORE THAN HALF the effort. [place] lifts or holds trunk or limbs and provides more than half the effort. 9-Ornhkrxsy-wzgucz does ALL the effort. Patient does none of the effort to complete the activity. Or, the assistance of 2 or more helpers is required for the patient to complete the activity. If activity was not attempted, code reason: 7-Patient Refused. 9-Not Applicable-not attempted and the patient did not perform the activity before the current illness, exacerbation or injury. 10-Not Attempted due to Environmental Limitations-(lack of equipment, weather restraints, etc.). 88-Not Attempted due to Medical Conditions or Safety Concerns. Roll Left to Right (QC): 3 Sit to Lying (QC): 3 Sit to Stand (QC): 4 Chair/Wph-kv-Mcwmv Xfer(QC): 4 Car Transfer (QC): 88 Gait Training Does the Patient Walk?: Yes Walk 10 feet (QC): 4 Walk 50 ft with 2 Turns(QC): 4 Walk 150 ft (QC): 88 Walking 10ft/uneven surface-QC: 88 Gait Persons Needed: 1 Gait Assistive Device: FWW Wheelchair Training Does the Pt Use a Wheelchair?: Yes Wheel 50 ft with 2 turns (QC): 5 Wheel 150 ft (QC): 9 Type of Wheelchair: Manual Stair Training 1 Step (curb) (QC): 88 4 Steps (QC): 88 12 Steps (QC): 88 Balance Picking up an Object (QC): 88 ADL-Treatment Eating (QC): 6 (Per pt report: Pt was able to open all containers with breakfast and eat food without difficulty.) Oral Hygiene (QC): 6 (Pt completed task seated in w/c at sink.) Shower/Bathe Self (QC): 4 (CGA in stance in shower.) Upper Body Dressing (QC): 4 (SBA to don shirt.) Lower Body Dressing (QC): 4 (CGA during stand. Pt able to doff/don pants and underwear) On/Off Footwear (QC): 7 Toileting Hygiene (QC): 4 (CGA during stand for clothing management. Pt able to complete all parts of task) Toilet Transfer (QC): 4 (CGA using FWW) Assessment/Plan Assessment and Plan Assess & Plan/Chief Complaint Assessment: Severe lumbar stenosis not a surgical candidate Risk for falls HTN Depression DVT PPx with Lovenox Plan: Lovenox BM regimen Monitor pain Wean prednisone (1) Intractable low back pain Status: Acute (2) Hypertension (3) Osteoarthritis (4) Depression (5) Advanced age (6) Thin build (7) At risk for falls (8) DVT prophylaxis (9) Lumbar radiculopathy Status: Acute PERRY GIBSON DO Jul 05, 2019 10:35
--- NOTE | 2019-07-05 12:15 | Physical Therapy Daily Note ---
PT Daily Note-Current Subjective Pt sitting in bed upon arrival. Pt agrees to PT. Pain Numeric Pain Scale: 10-Worst Possible Pain Location: Right, Dorsal Location Body Site: Thigh Pain Description: Ache Comment: Pt reports pain in R hip down through thigh to foot, more with WB. Mental Status Patient Orientation: Person, Place, Time, Situation Transfers SCALE: Activities may be completed with or without assistive devices. 2-Pnofcdfmva-krgbobt completes the activity by him/herself with no assistance from a helper. 5-Set-up or Clean-up Assistance-helper sets up or cleans up; patient completes activity. [place] assists only prior to or following the activity. 4-Supervision or Touching Assistance-helper provides verbal cues and/or touching/steadying and/or contact guard assistance as patient completes activity. Assistance may be provided throughout the activity or intermittently. 3-Partial/Moderate Assistance-helper does LESS THAN HALF the effort. [place] lifts, holds or supports trunk or limbs, but provides less than half the effort. 2-Substantial/Maximal Assistance-helper does MORE THAN HALF the effort. [place] lifts or holds trunk or limbs and provides more than half the effort. 6-Bzofnjqyd-mygsob does ALL the effort. Patient does none of the effort to compl ete the activity. Or, the assistance of 2 or more helpers is required for the patient to complete the activity. If activity was not attempted, code reason: 7-Patient Refused. 9-Not Applicable-not attempted and the patient did not perform the activity before the current illness, exacerbation or injury. 10-Not Attempted due to Environmental Limitations-(lack of equipment, weather restraints, etc.). 88-Not Attempted due to Medical Conditions or Safety Concerns. Sit to Lying (QC): 5 Lying to Sitting/Side of Bed(Q: 5 Sit to Stand (QC): 5 Toilet Transfer (QC): 5 Weight Bearing Right Lower Extremity: Right Full Weight Bearing Left Lower Extremity: Left Full Weight Bearing Gait Training Does the Patient Walk?: Yes Distance: 50' x5 Walk 10 feet (QC): 5 Walk 50 ft with 2 Turns(QC): 5 Walk 150 ft (QC): 5 Gait Persons Needed: 1 Gait Assistive Device: FWW Pt fatigues due to pain tolerance at this time. Wheelchair Training Does the Pt Use a Wheelchair?: Yes Wheel 50 ft with 2 turns (QC): 5 Wheel 150 ft (QC): 5 Type of Wheelchair: Manual Exercises Seated Therapy Exercises: Ankle pumps, Long arc quads, Hip flexion, Kicking activity, Hip abd/add Seated Reps: 15 NuStep Minutes: 9 NuStep Workload: 3 Treatments Pt transfers from bed to standing. Pt uses restroom before leaving room. Pt ambulates in hallway with RB as needed for pain. Pt completes Seated EX then more ambulation before returning to Therapy Gym. Pt rests in W/C as needed after walks. Pt uses NuStep then returns to room via W/C due to fatigue. Pt transfers back to bed at end of Rx. Pt has all needs met, call light in hand. Assessment Current Status: Good Progress Pt's pain limits mobility. Pt's pain increases greatly with WB. Nurse notified & asked to consult Dr about Xray. PT Short Term Goals Short Term Goals Time Frame: Jul 09, 2019 Roll Left & Right: 6 Sit to lyin Lying to sitting on side of be: 6 Sit to stand: 6 PT Hospice Aide Goals Usp Goals PT Hospice Aide Goals Time Frame: Jul 23, 2019 Roll Left & Right (QC): 6 Sit to Lying (QC): 6 Lying-Sitting on Side/Bed(QC): 6 Sit to Stand (QC): 6 Chair/Ofs-lb-Kfcwf Xfer(QC): 6 Toilet Transfer (QC): 6 Car Transfer (QC): 6 Does the Patient Walk: Yes Walk 10 feet (QC): 6 Walk 50ft with 2 Turns (QC): 6 Walk 150 ft (QC): 6 Walking 10ft on Uneven Surface: 6 1 Step (curb) (QC): 6 4 Steps (QC): 4 12 Steps (QC): 4 Picking up an Object (QC): 6 Does the Pt use WC or Scooter?: No Type: N/A Type: N/A PT Plan Problem List Problem List: Activity Tolerance, Gait Treatment/Plan Treatment Plan: Continue Plan of Care Treatment Plan: Bed Mobility, Education, Functional Activity Kaden, Functional Strength, Group Therapy, Gait, Safety, Therapeutic Exercise, Transfers Treatment Duration: Jul 23, 2019 Frequency: At least 5 of 7 days/Wk (IRF) Estimated Hrs Per Day: 1.5 hours per day Patient and/or Family Agrees t: Yes Safety Risks/Education Patient Education: Gait Training, Transfer Techniques, Correct Positioning, W/C Management, Safety Issues Teaching Recipient: Patient Teaching Methods: Discussion Response to Teaching: Verbalize Understanding Time/GCodes Time In: 930 Time Out: 1040 Total Billed Treatment Time: 70 Total Billed Treatment 1, FA (10m), GT x2 (30m) & EX x2 (30m) SAMEER LEVINE PTA Jul 05, 2019 12:15 POS
[2019-07-05] MEDS: ENOXAPARIN 30 MG/0.3 ML (LOVENOX) SYR SC SCH (13:40)
--- NOTE | 2019-07-05 13:57 | NUR ---
Received a call from ARANZA Bartlett with Dr. Sandoval. Tri reports that Dr. Sandoval will be unavailable for consultation at this time. Notified RN and Dr. Alba.
--- NOTE | 2019-07-05 14:15 | Physical Therapy Daily Note ---
PT Daily Note-Current Subjective Pt laying Supine in bed upon arrival. Nurse gives shot during Rx. Pain Numeric Pain Scale: 3 Location: Right Location Body Site: Hip Pain Description: Ache Mental Status Patient Orientation: Person, Place, Time, Situation Transfers SCALE: Activities may be completed with or without assistive devices. 1-Ueorcpleht-igtnlwm completes the activity by him/herself with no assistance fr om a helper. 5-Set-up or Clean-up Assistance-helper sets up or cleans up; patient completes activity. [place] assists only prior to or following the activity. 4-Supervision or Touching Assistance-helper provides verbal cues and/or touching/steadying and/or contact guard assistance as patient completes activity. Assistance may be provided throughout the activity or intermittently. 3-Partial/Moderate Assistance-helper does LESS THAN HALF the effort. [place] lifts, holds or supports trunk or limbs, but provides less than half the effort. 2-Substantial/Maximal Assistance-helper does MORE THAN HALF the effort. [place] lifts or holds trunk or limbs and provides more than half the effort. 8-Okrygctkq-lcxsuk does ALL the effort. Patient does none of the effort to complete the activity. Or, the assistance of 2 or more helpers is required for the patient to complete the activity. If activity was not attempted, code reason: 7-Patient Refused. 9-Not Applicable-not attempted and the patient did not perform the activity before the current illness, exacerbation or injury. 10-Not Attempted due to Environmental Limitations-(lack of equipment, weather restraints, etc.). 88-Not Attempted due to Medical Conditions or Safety Concerns. Weight Bearing Right Lower Extremity: Right Full Weight Bearing Left Lower Extremity: Left Full Weight Bearing Exercises Supine Ex: Ankle pumps, Quad Set, Glut sets, Heel Slides, Hip abd/add Supine Reps: 10 (2 sets of 10 reps) Treatments Pt completes Supine Ex in bed then Nurse arrives to give shot & pt receives visitors at end of Rx. Pt has all needs met, call light in hand. Assessment Current Status: Good Progress Pain limits upright activity which leads to fatigue. PT Short Term Goals Short Term Goals Time Frame: Jul 09, 2019 Roll Left & Right: 6 Sit to lyin Lying to sitting on side of be: 6 Sit to stand: 6 PT Junior Database Administrator Goals Junior Database Administrator Goals PT Halfway Goals Time Frame: Jul 23, 2019 Roll Left & Right (QC): 6 Sit to Lying (QC): 6 Lying-Sitting on Side/Bed(QC): 6 Sit to Stand (QC): 6 Chair/Esb-on-Bbevy Xfer(QC): 6 Toilet Transfer (QC): 6 Car Transfer (QC): 6 Does the Patient Walk: Yes Walk 10 feet (QC): 6 Walk 50ft with 2 Turns (QC): 6 Walk 150 ft (QC): 6 Walking 10ft on Uneven Surface: 6 1 Step (curb) (QC): 6 4 Steps (QC): 4 12 Steps (QC): 4 Picking up an Object (QC): 6 Does the Pt use WC or Scooter?: No Type: N/A Type: N/A PT Plan Problem List Problem List: Activity Tolerance, Gait Treatment/Plan Treatment Plan: Continue Plan of Care Treatment Plan: Bed Mobility, Education, Functional Activity Kaden, Functional Strength, Group Therapy, Gait, Safety, Therapeutic Exercise, Transfers Treatment Duration: Jul 23, 2019 Frequency: At least 5 of 7 days/Wk (IRF) Estimated Hrs Per Day: 1.5 hours per day Patient and/or Family Agrees t: Yes Safety Risks/Education Patient Education: Transfer Techniques, Correct Positioning, Disease Process, Safety Issues Teaching Recipient: Patient Teaching Methods: Discussion Response to Teaching: Verbalize Understanding Time/GCodes Time In: 1330 Time Out: 1350 Total Billed Treatment Time: 20 Total Billed Treatment 1, EX (20m) SAMEER LEVINE VP [employer] Jul 05, 2019 14:15 POS
--- NOTE | 2019-07-05 14:51 | NUR ---
SS Admission Cantilever Crane Operator met with patient in ED of [facility] on 07/01/19. She was admitted OBS to hospital at that time, she admitted to ARU 07/02/19 for Lumbar Radiculopathy. Prior to hospital admission she resided home with her daughter Sander Blanco here in [place]. She was functionally mobile, including driving independently and baby sitting great grandchildren. DME: Needs are to be determined by ARU team, likely FWW. PCP: Dr. Mendez Carmona, [place], [place] INSURED: Medicare, [employer] supplement. PHARMACY: [facility]. ADVANCED DIRECTIVE: Indications are that patient's daughter Daysi Villar is her DPOA, family will be bringing document for EMR. Estimated LOS is 7 days, to be determined by patient progress. She understands the purpose of the weekly team conference, overall target discharge date to be set next team meeting. Sander Blanco, Daughter [phone] Daysi Villar, Daughter, DPOA [phone] Works [employer], can not talk on phone there unless emergency.
[2019-07-05 18:00] VITALS: BP 145/80
[2019-07-05] MEDS: TROSPIUM 20 MG (SANCTURA) TAB PO SCH (20:22)
[2019-07-06 06:28] VITALS: BP 153/76
--- NOTE | 2019-07-06 08:43 | Occupational Ther Daily Note ---
OT Current Status-Daily Note Subjective Pt laying in bed at start of session, agreeable to OT tx with focus on ADLs. Pt denied pain while laying down but reports her pain is present when standing and moving. Pt did not verbalize a pain rating. ADL-Treatment Therapy Code Descriptions/Definitions Functional [place] Measure: 0=Not Assessed/NA 4=Minimal Assistance 1=Total Assistance 5=Supervision or Setup 2=Maximal Assistance 6=Modified [place] 3=Moderate Assistance 7=Complete IndependenceSCALE: Activities may be completed with or without assistive devices. 6-Klwxglsvud-itykqeo completes the activity by him/herself with no assistance from a helper. 5-Set-up or Clean-up Assistance-helper sets up or cleans up; patient completes activity. [place] assists only prior to or following the activity. 4-Supervision or Touching Assistance-helper provides verbal cues and/or touching/steadying and/or contact guard assistance as patient completes activity. Assistance may be provided throughout the activity or intermittently. 3-Partial/Moderate Assistance-helper does LESS THAN HALF the effort. [place] lifts, holds or supports trunk or limbs, but provides less than half the effort. 2-Substantial/Maximal Assistance-helper does MORE THAN HALF the effort. [place] lifts or holds trunk or limbs and provides more than half the effort. 6-Moelhecvf-ghzbkv does ALL the effort. Patient does none of the effort to complete the activity. Or, the assistance of 2 or more helpers is required for the patient to complete the activity. If activity was not attempted, code reason: 7-Patient Refused. 9-Not Applicable-not attempted and the patient did not perform the activity before the current illness, exacerbation or injury. 10-Not Attempted due to Environmental Limitations-(lack of equipment, weather restraints, etc.). 88-Not Attempted due to Medical Conditions or Safety Concerns. Eating (QC): 6 (Per pt report, pt is able to complete eating without assistance.) Bathing Location: L Arm, R Arm, L Upper Leg, R Upper Leg, L Lower Leg (including foot), R Lower Leg (including foot), Chest, Abdomen, Buttocks, Perineal Area Shower/Bathe Self (QC): 4 (SBA for safety during stand. Pt able to compplete all parts of washing/drying) Upper Body Dressing (QC): 5 (set up assist) Lower Body Dressing (QC): 5 (set up assist) Toileting Hygiene (QC): 4 (SBA for safety, pt able to complete all parts of t ask.) Toilet Transfer (QC): 4 (CGA) Footwear QC: 6 (pt able to doff socks, then don without assistance, no AE.) Other Treatment Pt laying in bed at start of session, transferred from supine to sit with mod I (increased time for task). Pt then ambulated to bathroom using FWW and CGA due to increased pain. Pt completed showering and dressing, CGA during stand at GB. Pt then transferred to w/c where she completed grooming tasks at sink including combing her hair and putting on deodorant. Pt then self propelled w/c to therapy gym, completing arm bike x13 mins, min resistance in order to increase functional endurance with tasks and to increase BUE strength. Pt self propelled w/c back to her room, she then completed toileting before returning to bed. Pt transferred sit to supine with mod I (increased time). Post OT session, pt laying in bed, call light in reach and all needs met. Education OT Patient Education: Correct positioning, Energy conservation, Exercise program, Modified ADL techniques, Progress toward Goal/Update tx plan, Purpose of tx/functional activities, Transfer techniques Teaching Recipient: Patient Teaching Methods: Demonstration, Discussion Response to Teaching: Verbalize Understanding, Return Demonstration OT Detention Goals Detention Goals Time Frame: Jul 16, 2019 Eating (QC): 6 Oral Hygiene (QC): 6 Toileting Hygiene (QC): 6 Shower/Bathe Self (QC): 6 Upper Body Dressing (QC): 6 Lower Body Dressing (QC): 6 On/Off Footwear (QC): 6 Additional Goals: 1-Demonstrate ADL Tasks, 2-Verbalize Understanding, 3-ImproveStrength/Kaden 1=Demonstrate adherence to instructed precautions during ADL tasks. 2=Patient will verbalize/demonstrate understanding of assistive devices/modifications for ADL. 3=Patient will improve strength/tolerance for activity to enable patient to perform ADL's. OT Education/Plan Problem List/Assessment Assessment: Decreased Activ Tolerance, Decreased UE Strength, Impaired Funct Balance, Impaired I ADL's, Impaired Self-Care Skills Discharge Recommendations Plan/Recommendations: Continue POC Treatment Plan/Plan of Care Patient would benefit from OT for education, treatment and training to promote independence in ADL's, mobility, safety and/or upper extremity function for ADL's. Plan of Care: ADL Retraining, Functional Mobility, Group Exercise/Act as Ind, UE Funct Exercise/Act Treatment Duration: Jul 16, 2019 Frequency: At least 5 of 7 days/Wk (IRF) Estimated Hrs Per Day: 1.5 hours per day Agreement: Yes Rehab Potential: Fair Time/GCodes Start Time: 07:55 Stop Time: 08:55 Total Time Billed (hr/min): 60 Billed Treatment Time 1, ADL 3 (45), EX (15) CRUZITO BOBO OT Jul 06, 2019 08:43
[2019-07-06] MEDS: predniSONE 20 MG TAB PO SCH (09:05)
[2019-07-06] MEDS: amLODIPine 10 MG (NORVASC) TAB PO SCH (09:05)
[2019-07-06] MEDS: SENNA W/DOCUSATE (SENOKOT S) TABLET PO SCH ×2 (09:05→20:55)
[2019-07-06] MEDS: POLYETHYLENE GLYCOL 17 GM (MIRALAX) PACK PO SCH ×2 (09:06→20:55)
[2019-07-06] MEDS: ZINC SULFATE 220 MG CAPSULE PO SCH (09:06)
[2019-07-06] MEDS: LOSARTAN 25 MG (COZAAR) TAB PO SCH (09:06)
[2019-07-06] MEDS: DOCUSATE SODIUM 100 MG (COLACE) CAP PO SCH ×2 (09:06→20:55)
[2019-07-06] MEDS: DICLOFENAC 1% GEL 100 GM (VOLTAREN) TUBE TOP SCH ×4 (09:08→21:56)
--- NOTE | 2019-07-06 10:37 | PM&R Progress Note ---
Subjective HPI/CC On Admission Date Seen by Provider: Jul 06, 2019 Time Seen by Provider: 08:30 Subjective/Events-last exam Dr. Sandoval called for a consultation because she needs it evaluated but I don't think there is a surgical resolution Overall feels like she is improving but hta pain does go all the way into her legs Chronic changes on MRI but they are severe. Daughter lives with her Checked meds and labs Reviewed therapy notes Conferred with violin repairer of Systems Musculoskeletal: back pain Objective Exam Vital Signs Vital Signs Date Time Temp Pulse Resp B/P (MAP) Pulse Ox O2 Delivery O2 Flow Rate FiO2 07/06/19 18:00 37.0 56 20 144/73 (96) 91 Room Air Capillary Refill : General Appearance: No Apparent Distress, WD/WN, Chronically ill, Thin HEENT: PERRL/EOMI, Normal ENT Inspection, Pharynx Normal Neck: Full Range of Motion, Normal Inspection, Non Tender, Supple, Carotid Bruit Respiratory: Chest Non Tender, Lungs Clear, Normal Breath Sounds, No Accessory Muscle Use, No Respiratory Distress Cardiovascular: Regular Rate, Rhythm, No Edema, No Gallop, No JVD, No Murmur, Normal Peripheral Pulses Gastrointestinal: Normal Bowel Sounds, No Organomegaly, No Pulsatile Mass, Non Tender, Soft Back: Normal Inspection, Decreased Range of Motion, Muscle Spasm, Vertebral Tenderness Extremity: Normal Capillary Refill, Normal Inspection, Normal Range of Motion, Non Tender, No Calf Tenderness, No Pedal Edema Neurologic/Psychiatric: Alert, Oriented x3, No Motor/Sensory Deficits, Normal Mood/Affect, edge grinder machine II-XII Norm as Tested Skin: Normal Color, Warm/Dry Lymphatic: No Adenopathy Results/Procedures Lab Patient resulted labs reviewed. FIM Transfers Therapy Code Descriptions/Definitions Functional [place] Measure: 0=Not Assessed/NA 4=Minimal Assistance 1=Total Assistance 5=Supervision or Setup 2=Maximal Assistance 6=Modified [place] 3=Moderate Assistance 7=Complete IndependenceSCALE: Activities may be completed with or without assistive devices. 8-Hkeqpoxmjp-pyojshy completes the activity by him/herself with no assistance from a helper. 5-Set-up or Clean-up Assistance-helper sets up or cleans up; patient completes activity. [place] assists only prior to or following the activity. 4-Supervision or Touching Assistance-helper provides verbal cues and/or touching/steadying and/or contact guard assistance as patient completes activity. Assistance may be provided throughout the activity or intermittently. 3-Partial/Moderate Assistance-helper does LESS THAN HALF the effort. [place] lifts, holds or supports trunk or limbs, but provides less than half the effort. 2-Substantial/Maximal Assistance-helper does MORE THAN HALF the effort. [place] lifts or holds trunk or limbs and provides more than half the effort. 6-Iukrimazx-wjjpec does ALL the effort. Patient does none of the effort to complete the activity. Or, the assistance of 2 or more helpers is required for the patient to complete the activity. If activity was not attempted, code reason: 7-Patient Refused. 9-Not Applicable-not attempted and the patient did not perform the activity before the current illness, exacerbation or injury. 10-Not Attempted due to Environmental Limitations-(lack of equipment, weather restraints, etc.). 88-Not Attempted due to Medical Conditions or Safety Concerns. Roll Left to Right (QC): 3 Sit to Lying (QC): 5 Sit to Stand (QC): 5 Chair/Eam-tm-Eadko Xfer(QC): 4 Car Transfer (QC): 88 Gait Training Does the Patient Walk?: Yes Distance: 50' x5 Walk 10 feet (QC): 5 Walk 50 ft with 2 Turns(QC): 5 Walk 150 ft (QC): 5 Walking 10ft/uneven surface-QC: 88 Gait Persons Needed: 1 Gait Assistive Device: FWW Wheelchair Training Does the Pt Use a Wheelchair?: Yes Wheel 50 ft with 2 turns (QC): 5 Wheel 150 ft (QC): 5 Type of Wheelchair: Manual Stair Training 1 Step (curb) (QC): 88 4 Steps (QC): 88 12 Steps (QC): 88 Balance Picking up an Object (QC): 88 ADL-Treatment Eating (QC): 6 (Per pt report, pt is able to complete eating without assistance.) Oral Hygiene (QC): 6 (Pt completed task seated in w/c at sink.) Bathing Location: L Arm, R Arm, L Upper Leg, R Upper Leg, L Lower Leg (including foot), R Lower Leg (including foot), Chest, Abdomen, Buttocks, Perineal Area Shower/Bathe Self (QC): 4 (SBA for safety during stand. Pt able to compplete all parts of washing/drying) Upper Body Dressing (QC): 5 (set up assist) Lower Body Dressing (QC): 5 (set up assist) On/Off Footwear (QC): 7 Toileting Hygiene (QC): 4 (SBA for safety, pt able to complete all parts of task.) Toilet Transfer (QC): 4 (CGA) Assessment/Plan Assessment and Plan Assess & Plan/Chief Complaint Assessment: Severe lumbar stenosis not a surgical candidate Risk for falls HTN Depression DVT PPx with Lovenox Plan: Lovenox BM regimen Monitor pain Dr Sandoval appreciated (1) Intractable low back pain Status: Acute (2) Hypertension (3) Osteoarthritis (4) Depression (5) Advanced age (6) Thin build (7) At risk for falls (8) DVT prophylaxis (9) Lumbar radiculopathy Status: Acute PERRY GIBSON DO Jul 06, 2019 10:37
--- NOTE | 2019-07-06 12:11 | Physical Therapy Daily Note ---
PT Daily Note-Current Subjective Pt is laying Supine upon arrival. Pt agrees to PT. Pt continues to report little to no pain with laying or sitting but sharp increase with movement especially WBing. Pt describes pain as Sciatic in nature. Pain Numeric Pain Scale: 10-Worst Possible Pain Location: Right, Left Location Body Site: Hip Pain Description: Radiating, Sharp, Tingling, Numbness Comment: Pt reports pain from B hip down through legs & feet. Mental Status Patient Orientation: Person, Place, Time, Situation Transfers SCALE: Activities may be completed with or without assistive devices. 2-Lyxsxasnvj-kaxdgie completes the activity by him/herself with no assistance from a helper. 5-Set-up or Clean-up Assistance-helper sets up or cleans up; patient completes activity. [place] assists only prior to or following the activity. 4-Supervision or Touching Assistance-helper provides verbal cues and/or touching/steadying and/or contact guard assistance as patient completes activity. Assistance may be provided throughout the activity or intermittently. 3-Partial/Moderate Assistance-helper does LESS THAN HALF the effort. [place] lifts, holds or supports trunk or limbs, but provides less than half the effort. 2-Substantial/Maximal Assistance-helper does MORE THAN HALF the effort. [place] lifts or holds trunk or limbs and provides more than half the effort. 2-Ckcqrhcna-wngbbw does ALL the effort. Patient does none of the effort to complete the activity. Or, the assistance of 2 or more helpers is required for the patient to complete the activity. If activity was not attempted, code reason: 7-Patient Refused. 9-Not Applicable-not attempted and the patient did not perform the activity before the current illness, exacerbation or injury. 10-Not Attempted due to Environmental Limitations-(lack of equipment, weather restraints, etc.). 88-Not Attempted due to Medical Conditions or Safety Concerns. Roll Left & Right (QC): 5 Sit to Lying (QC): 5 Lying to Sitting/Side of Bed(Q: 5 Sit to Stand (QC): 5 Toilet Transfer (QC): 5 Weight Bearing Right Lower Extremity: Right Full Weight Bearing Left Lower Extremity: Left Full Weight Bearing Gait Training Does the Patient Walk?: Yes Distance: 50' x3 Walk 10 feet (QC): 4 Walk 50 ft with 2 Turns(QC): 4 Gait Persons Needed: 1 Gait Assistive Device: FWW Pt fatigues quickly due to pain. POWER TRUCK DRIVER follows pt with W/C to sit in upon fatigue. Exercises Seated Therapy Exercises: Ankle pumps, Long arc quads, Hip flexion, Kicking activity, Hip abd/add Seated Reps: 15 Treatments Pt transfers from bed to standing then uses restroom. Pt then ambulates in hallway using FWW with frequent RB. Pt completes Seated Ex in chair. Pt returns to room to rest at end of Rx. Pt has all needs met, call light in hand. Assessment Current Status: Good Progress Pt tolerates Rx well except for WBing activities. Pt's pain limits activity tolerance especially with distance of ambulation. PT Short Term Goals Short Term Goals Time Frame: Jul 09, 2019 Roll Left & Right: 6 Sit to lyin Lying to sitting on side of be: 6 Sit to stand: 6 PT Usp Goals Finisher Map And Chart Goals PT Usp Goals Time Frame: Jul 23, 2019 Roll Left & Right (QC): 6 Sit to Lying (QC): 6 Lying-Sitting on Side/Bed(QC): 6 Sit to Stand (QC): 6 Chair/Xoc-ko-Wyfhh Xfer(QC): 6 Toilet Transfer (QC): 6 Car Transfer (QC): 6 Does the Patient Walk: Yes Walk 10 feet (QC): 6 Walk 50ft with 2 Turns (QC): 6 Walk 150 ft (QC): 6 Walking 10ft on Uneven Surface: 6 1 Step (curb) (QC): 6 4 Steps (QC): 4 12 Steps (QC): 4 Picking up an Object (QC): 6 Does the Pt use WC or Scooter?: No Type: N/A Type: N/A PT Plan Problem List Problem List: Activity Tolerance, Functional Strength, Safety, Gait Treatment/Plan Treatment Plan: Continue Plan of Care Treatment Plan: Bed Mobility, Education, Functional Activity Kaden, Functional Strength, Group Therapy, Gait, Safety, Therapeutic Exercise, Transfers Treatment Duration: Jul 23, 2019 Frequency: At least 5 of 7 days/Wk (IRF) Estimated Hrs Per Day: 1.5 hours per day Patient and/or Family Agrees t: Yes Safety Risks/Education Patient Education: Gait Training, Transfer Techniques, Correct Positioning, Disease Process, Safety Issues Teaching Recipient: Patient Teaching Methods: Discussion Response to Teaching: Verbalize Understanding Time/GCodes Time In: 945 Time Out: 1030 Total Billed Treatment Time: 45 Total Billed Treatment 1, FA (10m), EX (15m) & GT (20m) SAMEER LEVINE POWER TRUCK DRIVER Jul 06, 2019 12:11
[2019-07-06] MEDS: ENOXAPARIN 30 MG/0.3 ML (LOVENOX) SYR SC SCH (14:18)
--- NOTE | 2019-07-06 15:59 | Therapy Group Daily Note ---
Therapy Daily Group Note Patient Education Topic Other List Below (Memory Strategies) Exercises LE Seated Exercise, UE Exercise Session Ratio (pt:therapist): 4:1 Goal of Session: Memory Strategies, UE/LE Strengthing Goal Met for this Session: Yes Pt Benefit of Group: Contributions to Others, F/U Use of Strategies @Home, Increased Functional Safety, Increased Functional Strength, Improved Cognition, Recognition of Peers, Socialization Other/Notes Pt was transported by W/C to [facility] for OT/PT group. Group consisted of introductions (name, place born, random [place] question), socialization, UE/LE seated exercises, memory activity and memory education/strategies. Pt introduced self appropriately and actively listened to peers. Pt acknowledged understanding of educational topic by given gestures in affirmative and own personal strategies. Pt was able to match 1 of items during a memory activity. After therapy, pt reclined in chair with call light/phone in reach. All needs met in room. Start Time: 13:00 Stop Time: 14:15 Total Billed Treatment Time: 75 Total Billed Treatment 1, GRP (75m) SAMEER LEVINE PTA Jul 06, 2019 15:59
--- NOTE | 2019-07-06 17:12 | Consultation ---
History of Present Illness History of Present Illness Patient Consulted On(joann/time) 07/06/19 17:06 Time Seen by Provider: 17:06 Reason for Visit: Weakness and leg pain History of Present Illness 88 y/o previously independent white female admitted to inpatient rehab for pro gressive weakness and back/lower extremity pain. Worse when she stands or walks. Previously didn't use assistive devices, now cannot stand to walk. Daughter is present for exam/history. She is unable to cooperate much with PT and is getting worse, desires to have something done. Allergies and Home Medications Allergies Coded Allergies: Tetanus Vaccines and Toxoid (Unverified Allergy, Mild, RASH, 09/08/06) Home Medications Amlodipine Besylate 10 Mg Tablet, 5 MG PO DAILY, (Reported) TAKES 1/2 (10MG) TABLET Calcium Carbonate 600 Mg Tablet, 600 MG PO DAILY, (Reported) Cholecalciferol (Vitamin D3) 2,000 Unit Tablet, 2,000 UNIT PO DAILY, (Reported) Citalopram Hydrobromide 20 Mg Tablet, 20 MG PO DAILY, (Reported) Cyclobenzaprine HCl 10 Mg Tablet, 10 MG PO TID PRN for MUSCLE SPASMS, (Reported) Hydrocodone/Acetaminophen 1 Each Tablet, 1-2 TAB PO Q6H PRN for PAIN-MODERATE (5-7), (Reported) Losartan Potassium 25 Mg Tablet, 50 MG PO DAILY, (Reported) TAKES 2 (25MG) TABLETS Meloxicam 15 Mg Tablet, 15 MG PO DAILY, (Reported) Mirabegron 25 Mg Tab.er.24h, 50 MG PO DAILY, (Reported) Oxycodone HCl/Acetaminophen 1 Each Tablet, 1 TAB PO Q4H Prescribed by: JUNE KILGORE on 07/01/19 1424 Prednisone 20 Mg Tab, 40 MG PO DAILY, (Reported) 4 DAY SUPPLY FILLED 07-01-19 (NOT PICKED UP YET) TAKES 2 (20MG) TABLETS Triamcinolone Acet 15 Gm Cr, 1 GM TOP BID PRN for IRRITATION/ITCHING, (Reported) Zinc Amino Acid Chelate 50 Mg Tablet, 50 MG PO DAILY, (Reported) Patient Home Medication List Home Medication List Reviewed: Yes Past Fnzwgpv-Shvpfa-Zmpcah Hx Past Med/Social Hx: Reviewed Nursing Past Med/Soc Hx, Reviewed and Corrections made Patient Social History Alcohol Use: Denies Use Recreational Drug Use: No Smoking Status: Never a Smoker 2nd Hand Smoke Exposure: No Recent Foreign Travel: No Contact w/Someone Who Travel: No Recent Infectious Disease Expo: No Recent Hopitalizations: No Immunizations Up To Date Tetanus Booster (TDap): Unknown Date of Pneumonia Vaccine: Apr 19, 2014 Date of Influenza Vaccine: Apr 19, 2019 Seasonal Allergies Seasonal Allergies: No Past Medical History Surgeries: No Bladder Surgery Respiratory: No Currently Using CPAP: No Currently Using BIPAP: No Cardiac: No Hypertension Neurological: No Female Reproductive Disorders: Denies Sexually Transmitted Disease: No HIV/AIDS: No Genitourinary: No Gastrointestinal: No Musculoskeletal: Yes Chronic Back Pain Endocrine: No HEENT: No Hearing Impairment: Denies Cancer: No Psychosocial: No Integumentary: No Blood Disorders: No Review of Systems-General Constitutional: weakness EENTM: no symptoms reported Respiratory: no symptoms reported Cardiovascular: no symptoms reported Genitourinary: no symptoms reported Musculoskeletal: back pain Skin: no symptoms reported Psychiatric/Neurological: Numbness, Weakness Physical Exam-General Problems Physical Exam Vital Signs Vital Signs - First Documented 07/02/19 07/02/19 10:30 12:09 Temp 36.7 Pulse 73 Resp 18 B/P (MAP) 111/68 Pulse Ox 95 O2 Delivery Room Air Capillary Refill : General Appearance: WD/WN, no apparent distress, thin HEENT: PERRL/EOMI Neck: non-tender, full range of motion, supple, normal inspection Respiratory: no respiratory distress, no accessory muscle use Cardiovascular: regular rate, rhythm, no edema Peripheral Pulses: 2+ Dorsalis Pedis (R), 2+ Left Dors-Pedis (L) Gastrointestinal: non tender, soft Rectal: deferred Back: normal inspection, no CVA tenderness, no vertebral tenderness, decreased range of motion Extremities: non-tender, normal inspection Neurologic/Psychiatric: alert, normal mood/affect, oriented x 3, motor weakness, sensory deficit Skin: normal color Comments MRI shows severe stenosis L3-4 and L4-5. Multilevel DDD, without obvious instability. Assessment/Plan Assessment/Plan Admission Diagnosis/Plan High grade lumbar spinal stenosis, neural canal, due to connective tissue hypertrophy. Neurogenic claudication Lower extremity weakness/gait disturbance Plan: Discussed with Daughter and patient, plan a L3-5 Laminectomy, Risk/Benefits/Alternatives discussed. JUSTINO ASCENCIO MD Jul 06, 2019 17:11
--- NOTE | 2019-07-06 17:43 | NUR ---
Dr Gale here to discuss surgery tomorrow. Stated he would order for NPO after breakfast tomorrow and do procedure tomorrow evening. Pts daughter at bedside.
[2019-07-06 18:00] VITALS: BP 144/73
[2019-07-06] MEDS: TROSPIUM 20 MG (SANCTURA) TAB PO SCH (20:51)
[2019-07-07 05:47] LABS: HEMOGLOBIN 11.4 G/DL (11.5-16.0); MEAN PLATELET VOLUME 11.1 FL (7.4-10.4); RED CELL DISTRIBUTION WIDTH 16.5 % (10.0-14.5); WHITE BLOOD COUNT 6.5 10^3/uL (4.3-11.0)
[2019-07-07 05:50] VITALS: BP 152/55
[2019-07-07] MEDS: SENNA W/DOCUSATE (SENOKOT S) TABLET PO SCH (09:45)
[2019-07-07] MEDS: POLYETHYLENE GLYCOL 17 GM (MIRALAX) PACK PO SCH (09:45)
[2019-07-07] MEDS: DOCUSATE SODIUM 100 MG (COLACE) CAP PO SCH (09:45)
--- NOTE | 2019-07-07 09:46 | NUR ---
Notified Dr. Sandoval of pt's scheduled meds this morning, along w Efren this afternoon. Asked whether he wanted these all given ? Awaiting response.
[2019-07-07 09:50] VITALS: BP 137/74
[2019-07-07] MEDS: oxyCODONE/APAP 5/325MG (PERCOCET 5) TABLET PO PRN (09:58)
[2019-07-07] MEDS: amLODIPine 10 MG (NORVASC) TAB PO SCH (09:59)
[2019-07-07] MEDS: LOSARTAN 25 MG (COZAAR) TAB PO SCH (10:00)
[2019-07-07] MEDS: DICLOFENAC 1% GEL 100 GM (VOLTAREN) TUBE TOP SCH ×2 (10:01→14:00)
[2019-07-07] MEDS: ZINC SULFATE 220 MG CAPSULE PO SCH (10:02)
--- NOTE | 2019-07-07 10:05 | NUR ---
Unable to fine pt's Zainabbetriq, not given
[2019-07-07] MEDS: predniSONE 20 MG TAB PO SCH (10:15)
--- NOTE | 2019-07-07 10:17 | Discharge Summary ---
Diagnosis/Chief Complaint Date of Admission Jul 02, 2019 at 10:35 Date of Discharge Discharge Date: Jul 07, 2019 Discharge Diagnosis Assessment: Severe lumbar stenosis not a surgical candidate Risk for falls HTN Depression DVT PPx with Lovenox Plan: Lovenox BM regimen Monitor pain Dr Sandoval appreciated (1) Intractable low back pain Status: Acute (2) Hypertension (3) Osteoarthritis (4) Depression (5) Advanced age (6) Thin build (7) At risk for falls (8) DVT prophylaxis (9) Lumbar radiculopathy Status: Acute Discharge Summary Discharge Physical Examination Allergies: Coded Allergies: Tetanus Vaccines and Toxoid (Unverified Allergy, Mild, RASH, 09/08/06) Vitals & I&Os Vital Signs Date Time Temp Pulse Resp B/P (MAP) Pulse Ox O2 Delivery O2 Flow Rate FiO2 07/07/19 13:40 36.8 70 18 137/74 97 Room Air General Appearance: Alert, Oriented X3, Cooperative Respiratory: Clear to Auscultation Cardiovascular: Regular Rate Psych/Mental Status: Mental Status NL Hospital Course Was the Problem List Reviewed?: Yes Hospital course: Pt had an uneventful six day hospital course in rehab after she was admitted for severe back pain. She was able to be improved enough on steroids but that was short-lived requiring Dr. Sandoval consultation and he reviewed the MRI that had been done prior to admit, and Pt was deemed in need of a two level laminectomy and she was discharged in hopes of returning back to inpatient rehab once she recovered from surgery. Labs (last 24 hrs) Laboratory Tests 07/03/19 05:58: White Blood Count 5.4, Red Blood Count 3.55L, Hemoglobin 10.0L, Hematocrit 32L, Mean Corpuscular Volume 89, Mean Corpuscular Hemoglobin 28, Mean Corpuscular Hemoglobin Concent 32, Red Cell Distribution Width 16.3H, Platelet Count 264, Mean Platelet Volume 9.8, Neutrophils (%) (Auto) 51, Lymphocytes (%) (Auto) 33, Monocytes (%) (Auto) 9, Eosinophils (%) (Auto) 7, Basophils (%) (Auto) 1, Neutrophils # (Auto) 2.7, Lymphocytes # (Auto) 1.8, Monocytes # (Auto) 0.5, Eosinophils # (Auto) 0.4H, Basophils # (Auto) 0.1, Sodium Level 139, Potassium Level 4.3, Chloride Level 103, Carbon Dioxide Level 26, Anion Gap 10, Blood Urea Nitrogen 22H, Creatinine 1.10, Estimat Glomerular Filtration Rate 47, BUN/Creatinine Ratio 20, Glucose Level 95, Calcium Level 8.8, Corrected Calcium 9.2, Total Bilirubin 0.3, Aspartate Amino Transf (AST/SGOT) 15, Alanine Aminotransferase (ALT/SGPT) 10, Alkaline Phosphatase 74, Total Protein 6.5, Albumin 3.5 07/07/19 05:01: White Blood Count 6.5, Red Blood Count 4.06L, Hemoglobin 11.4L, Hematocrit 36, Mean Corpuscular Volume 88, Mean Corpuscular Hemoglobin 28, Mean Corpuscular Hemoglobin Concent 32, Red Cell Distribution Width 16.5H, Platelet Count 287, Mean Platelet Volume 11.1H, Creatinine 1.21 Pending Labs Laboratory Tests 07/03/19 05:58: White Blood Count 5.4, Red Blood Count 3.55, Hemoglobin 10.0, Hematocrit 32, Mean Corpuscular Volume 89, Mean Corpuscular Hemoglobin 28, Mean Corpuscular Hemoglobin Concent 32, Red Cell Distribution Width 16.3, Platelet Count 264, Mean Platelet Volume 9.8, Neutrophils (%) (Auto) 51, Lymphocytes (%) (Auto) 33, Monocytes (%) (Auto) 9, Eosinophils (%) (Auto) 7, Basophils (%) (Auto) 1, Neutrophils # (Auto) 2.7, Lymphocytes # (Auto) 1.8, Monocytes # (Auto) 0.5, Eosinophils # (Auto) 0.4, Basophils # (Auto) 0.1, Sodium Level 139, Potassium Level 4.3, Chloride Level 103, Carbon Dioxide Level 26, Anion Gap 10, Blood Urea Nitrogen 22, Creatinine 1.10, Estimat Glomerular Filtration Rate 47, BUN/Creatinine Ratio 20, Glucose Level 95, Calcium Level 8.8, Corrected Calcium 9.2, Total Bilirubin 0.3, Aspartate Amino Transf (AST/SGOT) 15, Alanine Aminotransferase (ALT/SGPT) 10, Alkaline Phosphatase 74, Total Protein 6.5, Albumin 3.5 07/07/19 05:01: White Blood Count 6.5, Red Blood Count 4.06, Hemoglobin 11.4, Hematocrit 36, Mean Corpuscular Volume 88, Mean Corpuscular Hemoglobin 28, Mean Corpuscular Hemoglobin Concent 32, Red Cell Distribution Width 16.5, Platelet Count 287, Mean Platelet Volume 11.1, Creatinine 1.21 Discharge Home Medications: Active Scripts Active Percocet 5-325 mg Tablet (Oxycodone HCl/Acetaminophen) 1 Each Tablet 1 Tab PO Q4H MDD 6 TABS 7 Days Reported Triamcinolone Acetonide 0.1% Cream (Triamcinolone Acet) 15 Gm Cr 1 Gm TOP BID PRN Prednisone 20 Mg Tab 40 Mg PO DAILY 4 DAY SUPPLY FILLED 07-01-19 (NOT PICKED UP YET) TAKES 2 (20MG) TABLETS Losartan Potassium 25 Mg Tablet 50 Mg PO DAILY TAKES 2 (25MG) TABLETS Amlodipine Besylate 10 Mg Tablet 5 Mg PO DAILY TAKES 1/2 (10MG) TABLET Vitamin D3 (Cholecalciferol (Vitamin D3)) 2,000 Unit Tablet 2,000 Unit PO DAILY Calcium Carbonate 600 Mg Tablet 600 Mg PO DAILY Citalopram HBr (Citalopram Hydrobromide) 20 Mg Tablet 20 Mg PO DAILY Hydrocodone-Acetamin 5-325 mg (Hydrocodone/Acetaminophen) 1 Each Tablet 1-2 Tab PO Q6H PRN Cyclobenzaprine HCl 10 Mg Tablet 10 Mg PO TID PRN Zinc (Zinc Amino Acid Chelate) 50 Mg Tablet 50 Mg PO DAILY Meloxicam 15 Mg Tablet 15 Mg PO DAILY Myrbetriq (Mirabegron) 25 Mg Tab.er.24h 50 Mg PO DAILY Instructions to patient/family Please see electronic discharge instructions given to patient. Diagnosis/Problems Diagnosis/Problems (1) Intractable low back pain Status: Acute (2) Hypertension (3) Osteoarthritis (4) Depression (5) Advanced age (6) Thin build (7) At risk for falls (8) DVT prophylaxis (9) Lumbar radiculopathy Status: Acute PERRY GIBSON DO Jul 07, 2019 10:17
--- NOTE | 2019-07-07 11:26 | Therapy Team Discharge Summary ---
Therapy Discharge Summary Discharge Recommendations Date of Discharge 07/07/2019 Physical Therapy This patient was admitted to ARU post acute stay due to complaints of lumbar pain with radiculopathy. Her PLOF was living alone at a mod indep to to [facility] level. Upon admission to ARU, she was limited by complaints of back pain but was min assist with transfers and walked 10 ft with CGA. Treatment has focused on pain managment, functional strength and balance as well as transfer, gait and wc training to optimize mobility. She has made progress, as she is set up assist with transfers and able to walk 50 ft with FWW with CGA. Goals not fully met as patient transferring to [facility] for lumbar surgery. Will dc this date with possible readmission post surgery. DC PT Occupational Therapy Decreased Activ Tolerance, Decreased UE Strength, Impaired Funct Balance, Impaired I ADL's, Impaired Self-Care Skills PT Household Personal Assistant Goals Residential Goals PT Residential Goals Time Frame: Jul 23, 2019 Roll Left to Right (QC): 6 Sit to Lying (QC): 6 Lying-Sitting on Side/Bed(QC): 6 Sit to Stand (QC): 6 Chair/Tyz-rj-Nbbzv Xfer(QC): 6 Car Transfer (QC): 6 Does the Patient Walk: Yes Walk 10 feet (QC): 6 Walk 10ft-Uneven Surface(QC): 6 Walk 50ft with 2 Turns (QC): 6 Walk 150 ft (QC): 6 Does the Pt use WC or Scooter?: No 1 Step (curb) (QC): 6 4 Steps (QC): 4 12 Steps (QC): 4 Picking up an Object (QC): 6 Unmet due to transfer to [facility]. OT Household Personal Assistant Goals Household Personal Assistant Goals Time Frame: Jul 16, 2019 Eating (QC): 6 Oral Hygiene (QC): 6 Shower/Bathe Self (QC): 6 Upper Body Dressing (QC): 6 Lower Body Dressing (QC): 6 On/Off Footwear (QC): 6 Toileting Hygiene (QC): 6 Toilet/Commode Transfer (QC): 6 Additional Goals: 1-Demonstrate ADL Tasks, 2-Verbalize Understanding, 3- ImproveStrength/Kaden 1=Demonstrate adherence to instructed precautions during ADL tasks. 2=Patient will verbalize/demonstrate understanding of assistive devices/modifications for ADL. 3=Patient will improve strength/tolerance for activity to enable patient to perform ADL's. BISI QUINN PT Jul 07, 2019 11:26
--- NOTE | 2019-07-07 12:15 | Physical Therapy Daily Note ---
PT Daily Note-Current Subjective Pt laying Supine in bed upon arrival. Pt expresses happiness with surgery option to eventually decrease pain pt has reported. Pain Numeric Pain Scale: 4 Location: Right, Left Location Body Site: Hip Pain Description: Sharp Comment: Pt reports increases with WB. Mental Status Patient Orientation: Person, Place, Time, Situation Transfers SCALE: Activities may be completed with or without assistive devices. 3-Avugtpospo-przryty completes the activity by him/herself with no assistance from a helper. 5-Set-up or Clean-up Assistance-helper sets up or cleans up; patient completes activity. [place] assists only prior to or following the activity. 4-Supervision or Touching Assistance-helper provides verbal cues and/or touching/steadying and/or contact guard assistance as patient completes activity. Assistance may be provided throughout the activity or intermittently. 3-Partial/Moderate Assistance-helper does LESS THAN HALF the effort. [place] lifts, holds or supports trunk or limbs, but provides less than half the effort. 2-Substantial/Maximal Assistance-helper does MORE THAN HALF the effort. [place] lifts or holds trunk or limbs and provides more than half the effort. 0-Ankacgvlr-guqgmf does ALL the effort. Patient does none of the effort to complete the activity. Or, the assistance of 2 or more helpers is required for the patient to complete the activity. If activity was not attempted, code reason: 7-Patient Refused. 9-Not Applicable-not attempted and the patient did not perform the activity before the current illness, exacerbation or injury. 10-Not Attempted due to Environmental Limitations-(lack of equipment, weather restraints, etc.). 88-Not Attempted due to Medical Conditions or Safety Concerns. Weight Bearing Right Lower Extremity: Right Full Weight Bearing Left Lower Extremity: Left Full Weight Bearing Treatments RESIDENTIAL INSURANCE INSPECTOR and pt discussed surgery option and pt's happiness with possible prognosis and improved pain. Pt resting in bed at end of Rx. Pt has all needs met, call light in hand. Assessment Current Status: Fair Progress Pt tolerates Rx as well as she can but pain limits WB activity tolerance. PT Short Term Goals Short Term Goals Time Frame: Jul 09, 2019 Roll Left & Right: 6 Sit to lyin Lying to sitting on side of be: 6 Sit to stand: 6 PT Alf Goals Alf Goals PT Alf Goals Time Frame: Jul 23, 2019 Roll Left & Right (QC): 6 Sit to Lying (QC): 6 Lying-Sitting on Side/Bed(QC): 6 Sit to Stand (QC): 6 Chair/Meo-bt-Gzdji Xfer(QC): 6 Toilet Transfer (QC): 6 Car Transfer (QC): 6 Does the Patient Walk: Yes Walk 10 feet (QC): 6 Walk 50ft with 2 Turns (QC): 6 Walk 150 ft (QC): 6 Walking 10ft on Uneven Surface: 6 1 Step (curb) (QC): 6 4 Steps (QC): 4 12 Steps (QC): 4 Picking up an Object (QC): 6 Does the Pt use WC or Scooter?: No Type: N/A Type: N/A PT Plan Problem List Problem List: Activity Tolerance, Functional Strength, Safety, Gait Treatment/Plan Treatment Plan: Continue Plan of Care Treatment Plan: Bed Mobility, Education, Functional Activity Kaden, Functional Strength, Group Therapy, Gait, Safety, Therapeutic Exercise, Transfers Treatment Duration: Jul 23, 2019 Frequency: At least 5 of 7 days/Wk (IRF) Estimated Hrs Per Day: 1.5 hours per day Patient and/or Family Agrees t: Yes Safety Risks/Education Patient Education: Correct Positioning, Disease Process, Safety Issues Teaching Recipient: Patient Teaching Methods: Discussion Response to Teaching: Verbalize Understanding Time/GCodes Time In: 1045 Time Out: 1105 Total Billed Treatment Time: 20 Total Billed Treatment 1, FA (20m) SAMEER LEVINE RESIDENTIAL INSURANCE INSPECTOR Jul 07, 2019 12:15
--- NOTE | 2019-07-07 12:43 | Occupational Ther Daily Note ---
OT Current Status-Daily Note Subjective Pt. does not report pain but states that she is "hopeful" about her surgery that will be performed today. Appearance Pt. agrees to shower. Completes antimicrobial wash. Mental Status/Objective Patient Orientation: Person, Place, Time, Situation ADL-Treatment Therapy Code Descriptions/Definitions Functional [place] Measure: 0=Not Assessed/NA 4=Minimal Assistance 1=Total Assistance 5=Supervision or Setup 2=Maximal Assistance 6=Modified [place] 3=Moderate Assistance 7=Complete IndependenceSCALE: Activities may be completed with or without assistive devices. 3-Wkjocjntgg-nofcdah completes the activity by him/herself with no assistance from a helper. 5-Set-up or Clean-up Assistance-helper sets up or cleans up; patient completes activity. [place] assists only prior to or following the activity. 4-Supervision or Touching Assistance-helper provides verbal cues and/or touching/steadying and/or contact guard assistance as patient completes activity. Assistance may be provided throughout the activity or intermittently. 3-Partial/Moderate Assistance-helper does LESS THAN HALF the effort. [place] lifts, holds or supports trunk or limbs, but provides less than half the effort. 2-Substantial/Maximal Assistance-helper does MORE THAN HALF the effort. [place] lifts or holds trunk or limbs and provides more than half the effort. 2-[place]-ozjzwg does ALL the effort. Patient does none of the effort to complete the activity. Or, the assistance of 2 or more helpers is required for the patient to complete the activity. If activity was not attempted, code reason: 7-Patient Refused. 9-Not Applicable-not attempted and the patient did not perform the activity before the current illness, exacerbation or injury. 10-Not Attempted due to Environmental Limitations-(lack of equipment, weather restraints, etc.). 88-Not Attempted due to Medical Conditions or Safety Concerns. Oral Hygiene (QC): 5 (Set up seated at sink.) Shower/Bathe Self (QC): 4 (SBA in shower. Pt. able to wash all parts. OT washed back for her.) Upper Body Dressing (QC): 5 Lower Body Dressing (QC): 4 (SBA to doff underwear and pants, and SBA to don underwear. SBA to don underwear.) On/Off Footwear: 4 (SBA to doff/don slipper socks.) Toileting Hygiene (QC): 4 Toilet Transfer (QC): 4 Education OT Patient Education: Correct positioning, Modified ADL techniques, Progress toward Goal/Update tx plan, Purpose of tx/functional activities, Reviewed precautions, Rehab process, Transfer techniques Teaching Recipient: Patient Teaching Methods: Demonstration, Discussion Response to Teaching: Verbalize Understanding, Return Demonstration OT Molded Candles Wicker Goals Shelter Goals Time Frame: Jul 16, 2019 Eating (QC): 6 Oral Hygiene (QC): 6 Toileting Hygiene (QC): 6 Shower/Bathe Self (QC): 6 Upper Body Dressing (QC): 6 Lower Body Dressing (QC): 6 On/Off Footwear (QC): 6 Additional Goals: 1-Demonstrate ADL Tasks, 2-Verbalize Understanding, 3- ImproveStrength/Kaden 1=Demonstrate adherence to instructed precautions during ADL tasks. 2=Patient will verbalize/demonstrate understanding of assistive devices/modifications for ADL. 3=Patient will improve strength/tolerance for activity to enable patient to perform ADL's. OT Education/Plan Problem List/Assessment Assessment: Decreased Activ Tolerance, Impaired I ADL's, Impaired Self-Care Ski lls Discharge Recommendations Plan/Recommendations: Discontinue OT (Pt. having back surgery this date.) Therapy Discharge Recommendati: Post Acute OT Treatment Plan/Plan of Care Treatment,Training & Education: Yes Patient would benefit from OT for education, treatment and training to promote i ndependence in ADL's, mobility, safety and/or upper extremity function for ADL's. Plan of Care: ADL Retraining, Functional Mobility, Group Exercise/Act as Ind, UE Funct Exercise/Act Comment Pt. to have back surgery this date. Will discharge at this time and will re- evaluate with new OT orders when appropriate. Treatment Duration: Jul 16, 2019 Frequency: At least 5 of 7 days/Wk (IRF) Estimated Hrs Per Day: 1.5 hours per day Agreement: Yes Rehab Potential: Fair Time/GCodes Start Time: 08:10 Stop Time: 09:00 Total Time Billed (hr/min): 50 Billed Treatment Time 1, ADL x 50minutes LEATHA LOPES OT Jul 07, 2019 12:43
--- NOTE | 2019-07-07 12:47 | Therapy Team Discharge Summary ---
Therapy Discharge Summary Discharge Recommendations Date of Discharge 07-07-19 Therapy D/C Recommendations: 24 hr Supervision Occupational Therapy Pt. to have back surgery this date. Decreased Activ Tolerance, Impaired I ADL's, Impaired Self-Care Skills PT Custodial Goals Promotional Model Goals PT Promotional Model Goals Time Frame: Jul 23, 2019 Roll Left to Right (QC): 6 Sit to Lying (QC): 6 Lying-Sitting on Side/Bed(QC): 6 Sit to Stand (QC): 6 Chair/Wnr-gn-[place]aq[place] Xfer(QC): 6 Car Transfer (QC): 6 Does the Patient Walk: Yes Walk 10 feet (QC): 6 Walk 10ft-Uneven Surface(QC): 6 Walk 50ft with 2 Turns (QC): 6 Walk 150 ft (QC): 6 Does the Pt use WC or Scooter?: No 1 Step (curb) (QC): 6 4 Steps (QC): 4 12 Steps (QC): 4 Picking up an Object (QC): 6 OT Promotional Model Goals Promotional Model Goals Time Frame: Jul 16, 2019 Eating (QC): 6 Oral Hygiene (QC): 6 Shower/Bathe Self (QC): 6 Upper Body Dressing (QC): 6 Lower Body Dressing (QC): 6 On/Off Footwear (QC): 6 Toileting Hygiene (QC): 6 Toilet/Commode Transfer (QC): 6 Additional Goals: 1-Demonstrate ADL Tasks, 2-Verbalize Understanding, 3- ImproveStrength/Kaden 1=Demonstrate adherence to instructed precautions during ADL tasks. 2=Patient will verbalize/demonstrate understanding of assistive devices/modifications for ADL. 3=Patient will improve strength/tolerance for activity to enable patient to perform ADL's. LEATHA LOPES OT Jul 07, 2019 12:47
--- NOTE | 2019-07-07 13:30 | NUR ---
Pt, & belongings transferred per w/c to 4th floor, room 411, to care of Rachelle Cox RN. Report given to ARANZA Bush. Pt remains NPO for surgery this evening. Signed consent sent w pt paperwork. Pt is very pleasant, visiting w family member, who accompanied her up to 4th floor. Pt denied pain, states, "unless I get up & move around much." Pt did have pain pill this AM per her request to ease soreness.
--- NOTE | 2019-07-07 13:30 | NUR ---
Weekly Team Conference / Discharge Visited with patient this a.m. about her change of care plan. After team meeting yesterday, ARU Aircraft Instrument Tester reached out to Dr. Sandoval, he consulted with patient/daughter, and decision was made for surgery/laminectomy this p.m. Patient is pleased about this intervention and the hope for pain relief and return to a better quality of function and life. She will be discharged today from ARU into acute care for surgical procedure. Plan is that patient will be reassessed for possible re-admission to ARU depending on status and progression.
[2019-07-07 13:40] VITALS: BP 137/74
[2019-07-07] MEDS: ENOXAPARIN 30 MG/0.3 ML (LOVENOX) SYR SC SCH (14:02)
--- NOTE | 2019-07-07 17:53 | Progress Note-Pre Operative ---
Pre-Operative Progress Note H&P Reviewed The H&P was reviewed, patient examined and no changes noted. Date Seen by Provider: Jul 07, 2019 Time Seen by Provider: 17:40 Date H&P Reviewed: Jul 07, 2019 Time H&P Reviewed: 17:40 Pre-Operative Diagnosis: Lumbar Stenosis, neural canal JUSTINO ASCENCIO MD Jul 07, 2019 17:53
--- NOTE | 2019-07-07 19:30 | Diagnostic Imaging Report ---
IMPRESSION: Intraoperative fluoroscopy was utilized by Dr. Sandoval at the level of localization. Examination did demonstrate surgical instrument projecting at the L3-L4 level. Dictated by: Dictated on workstation # [id number]
== END 2019-07-07 13:30 | disposition short-term general hospital (02) | DRG 552 ==
PROVIDERS: ADMIT Internal Medicine; ATTEND Internal Medicine
DX: M48.062 Spinal stenosis, lumbar region with neurogenic claudication (principal); M54.16 Radiculopathy, lumbar region; I10 Essential (primary) hypertension; M19.91 Primary osteoarthritis, unspecified site; F32.9 Major depressive disorder, single episode, unspecified; Z91.81 History of falling
CPT/HCPCS: 36415; 80053; 82565; 85025; 85027; 87081; 94664

== ENCOUNTER 2019-07-07 13:35 | Inpatient (IN) | payer MEDICARE ==
[~2019-07-07] VITALS: Ht 154 cm; Wt 57.8 kg
[~2019-07-07 13:35] MED LIST changes: -ALPRAZolam 0.25 MG (XANAX) TAB PO PRN; +AMLO10TA7 PO; -BISACODYL 10 MG SUPP (DULCOLAX) PR PRN; +CALC600T80 PO; -CALCIUM CARBONATE 500 MG (TUMS) TAB.CHEW PO PRN; +CHOL200025 PO; +CITA20TA9 PO; -DOCUSATE SODIUM 100 MG (COLACE) CAP PO PRN; -FLEET ENEMA ADULT 1 EA BTL PR PRN; +HYDR-3812 PO; -LACTULOSE SYRUP 10GM/15ML (ENULOSE) 30ML UDC PO PRN; -LOPERAMIDE 2 MG (IMODIUM) TABLET PO PRN; +LOSA25TA41 PO; -MELATONIN 3 MG TABLET PO PRN; -ONDANSETRON 4 MG (ZOFRAN) ORAL DISSOLVE TAB PO PRN; +TR1C15 TOP; -diphenhydrAMINE 25 MG TAB (BENADRYL) PO PRN; -guaiFENesin/CODEINE (ROBITUSSIN AC) 10ML UDC PO PRN
[2019-07-07 13:41] VITALS: BP 161/76
--- NOTE | 2019-07-07 13:45 | NUR ---
f pt name] admitted to room 411-1, with an admitting diagnosis of Laminectomy, on 07/07/19 from via wheelchair, accompanied by staff.MIKE CHO introduced to surroundings, call light, bed controls, phone, TV, temperature control, lights, meal times, smoking policy, visitor policy, side rail policy, bathrooms and showers. Patient Rights given to patient in the handbook.MIKE CHO verbalizes understanding that [facility] is not responsible for the loss or damage to any personal effects or valuables that are kept in the patients posession during their hospitalization. The following Patient Care Plans were discussed with the pt: Discharge Planning. MIKE CHO verbalizes understanding of Interdisciplinary Patient Education. Patient and/or family were informed about the Rapid Response Team and its purpose.
[2019-07-07 14:13] VITALS: BP 161/76
[2019-07-07] MEDS ORDERED: fentaNYL INJECTION 100 MCG/2 ML AMP IVP PRN (15:00)
[2019-07-07] MEDS: NS IV 1000 ML 1,000 ML IV SCH (15:55)
[2019-07-07 16:00] VITALS: BP 168/75
--- NOTE | 2019-07-07 16:10 | NUR ---
Initial visit with the pt and her friend of 50 years, Maksim. The pt describes feeling hopeful and positive about her upcoming surgery, stating she is confident it will permit her to walk again without pain.
[2019-07-07] MEDS ORDERED: ACETAMINOPHEN 325 MG TABLET PO PRN (18:00)
[2019-07-07] MEDS ORDERED: CATHETER FLUSH 10 ML SYR IV PRN (18:30)
--- NOTE | 2019-07-07 18:58 | Progress Note-Pre Operative ---
Pre-Operative Progress Note H&P Reviewed The H&P was reviewed, patient examined and no changes noted. Date Seen by Provider: Jul 07, 2019 Time Seen by Provider: 17:40 Date H&P Reviewed: Jul 07, 2019 Time H&P Reviewed: 17:40 Pre-Operative Diagnosis: Lumbar Stenosis, neural canal JUSTINO ASCENCIO MD Jul 07, 2019 18:58
--- NOTE | 2019-07-07 18:59 | Progress Note-Post Operative ---
Post-Operative Progess Note Surgeon (s)/Design Draftsman (s) Surgeon JUSTINO ASCENCIO MD Design Draftsman: MARCIE Nettles Pre-Operative Diagnosis Lumbar Stenosis, neural canal Post-Operative Diagnosis Same Procedure & Operative Findings Date of Procedure 07/07/19 Procedure Performed/Findings L3-4, L4-5 Laminectomy/partial facectomy and foraminotomies Anesthesia Type GETA Estimated Blood Loss Estimated blood loss (mL): Less than 100cc Specimens/Packing Specimens Removed None JUSTINO ASCENCIO MD Jul 07, 2019 18:59
[2019-07-07 20:00] VITALS: BP 144/76
[2019-07-07] MEDS ORDERED: LOPERAMIDE 2 MG (IMODIUM) TABLET PO PRN (20:30)
[2019-07-07] MEDS ORDERED: BACLOFEN 10 MG (LIORESAL) TAB PO PRN (20:30)
[2019-07-07] MEDS ORDERED: diphenhydrAMINE 25 MG TAB (BENADRYL) PO PRN (20:30)
[2019-07-07] MEDS ORDERED: CYCLOBENZAPRINE 10 MG (FLEXERIL) TAB PO PRN (20:30)
[2019-07-07] MEDS ORDERED: DOCUSATE SODIUM 100 MG (COLACE) CAP PO PRN (20:30)
[2019-07-07] MEDS ORDERED: FLEET ENEMA ADULT 1 EA BTL PR PRN (20:30)
[2019-07-07] MEDS ORDERED: CALCIUM CARBONATE 500 MG (TUMS) TAB.CHEW PO PRN (20:30)
[2019-07-07] MEDS ORDERED: ALPRAZolam 0.25 MG (XANAX) TAB PO PRN (20:30)
[2019-07-07] MEDS ORDERED: oxyCODONE/APAP 5/325MG (PERCOCET 5) TABLET PO PRN (20:30)
[2019-07-07] MEDS ORDERED: LACTULOSE SYRUP 10GM/15ML (ENULOSE) 30ML UDC PO PRN (20:30)
[2019-07-07] MEDS ORDERED: BISACODYL 10 MG SUPP (DULCOLAX) PR PRN (20:30)
[2019-07-07] MEDS ORDERED: ONDANSETRON 4 MG (ZOFRAN) ORAL DISSOLVE TAB PO PRN (20:30)
[2019-07-07] MEDS ORDERED: guaiFENesin/CODEINE (ROBITUSSIN AC) 10ML UDC PO PRN (20:30)
[2019-07-07] MEDS ORDERED: MELATONIN 3 MG TABLET PO PRN (20:30)
[2019-07-07] MEDS: SENNA W/DOCUSATE (SENOKOT S) TABLET PO SCH (21:00)
[2019-07-07] MEDS ORDERED: TROSPIUM 20 MG (SANCTURA) TAB PO SCH (21:00)
[2019-07-07] MEDS: POLYETHYLENE GLYCOL 17 GM (MIRALAX) PACK PO SCH (21:00)
[2019-07-07] MEDS: DICLOFENAC 1% GEL 100 GM (VOLTAREN) TUBE TOP SCH (21:00)
[2019-07-07] MEDS ORDERED: ceFAZolin INJECTION 2,000 MG in WATER (STERILE) FOR INJECTION 10 ML IV SCH (22:00)
[2019-07-08] VITALS (7 sets, daily range): BP systolic 112–142; BP diastolic 55–67
--- NOTE | 2019-07-08 03:34 | OPERATIVE REPORT ---
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 PROCEDURES PERFORMED: 1. L3-L4 laminectomy, partial medial facetectomy, foraminotomy. 2. L4-L5 laminectomy, partial medial facetectomy, foraminotomy. DATE AND TIME OF SURGERY: Please see anesthesia record. SURGEON: Zoran Sandoval MD WIRE TECHNICIAN: MARCIAL Nettles. ROLE OF PROJECT MANAGEMENT IT SPECIALIST: Aid in retraction of the procedure, suction of neural elements, aid in decompression and wound closure. ANESTHESIA: General endotracheal. ESTIMATED BLOOD LOSS: Less 100 mL. INTRAVENOUS FLUIDS: Please see anesthesia record. ANTIBIOTICS: Ancef. COMPLICATIONS: None. INDICATIONS FOR PROCEDURE: The patient is an 89-year-old female with severe stenosis, lower extremity weakness, pain and inability to tolerate therapy, admission to the hospital for her weakness and progression and desires operative treatment after risks, benefits, alternatives were discussed with the patient and her family. NEUROMONITORING: Standard intraoperative neuromonitoring carried out by means of real time continuous high quality bidirectional mode, audio and visual communication to both the environmental field services technician and myself was performed by Dr. Harris. SSEPS, EMGs, TOFs were carried out continuously throughout the procedure and stable. DESCRIPTION OF PROCEDURE: The patient was taken from the preoperative holding area and brought back to the operative suite. After adequate induction of general anesthesia, preoperative antibiotics, turned prone on Andres table, careful padding torso, extremities, sterilely prepped and draped posterior lumbosacral spine. Attention was directed to midline. Incision made overlying L3 to L5. Dissection was carried down to the level of lamina. C-arm was brought in for confirmation. Once appropriate levels were confirmed, full exposure was carried out. Cerebellar retractors were used to hold the soft tissues retracted and then a partial three complete 4 and partial L5 laminectomy, bilateral medial facetectomy and foraminotomy were performed, full and adequate decompression. Surgiflo, bone wax and bipolar cautery used to aid hemostasis. Decompression was assured. Hemostasis was assured. Deep drain was placed. Wound was closed in layers. The patient transferred to recovery room in stable condition having tolerated the procedure well with stable spinal monitoring. Job ID: [id number] DocumentID: [id number] Dictated Date: 07/07/2019 19:01:35 Assistant Manager Date: 07/08/2019 03:34:21 Dictated By: ZORAN SANDOVAL MD
[2019-07-08] MEDS: ceFAZolin 2 GM/NS 50 ML (COMPOUNDED) IV SCH ×3 (04:33→14:14)
[2019-07-08] MEDS: NS IV 1000 ML 1,000 ML IV SCH (04:37)
[2019-07-08] MEDS: HYDROcodone/APAP 5 MG/325 MG (LORTAB) TAB PO PRN ×2 (04:38→21:04)
[2019-07-08] MEDS: MULTIVIT W/MINERALS TAB (THERAGRAN M) PO SCH (05:05)
[2019-07-08 05:20] LABS: BASOPHILS % (AUTO) 0 % (0-10); EOSINOPHILS # (AUTO) 0.1 10^3/uL (0.0-0.3); EOSINOPHILS % (AUTO) 1 % (0-10); HEMATOCRIT 29 % (35-52); HEMOGLOBIN 9.1 G/DL (11.5-16.0); LYMPHOCYTES # (AUTO) 2.1 X 10^3 (1.0-4.0); LYMPHOCYTES % (AUTO) 28 % (12-44); MEAN CORPUSCULAR HEMOGLOBIN 28 PG (25-34); MEAN CORPUSCULAR HGB CONC 31 G/DL (32-36); MEAN CORPUSCULAR VOLUME 92 FL (80-99); MEAN PLATELET VOLUME 11.2 FL (7.4-10.4); MONOCYTES # (AUTO) 0.7 X 10^3 (0.0-1.0); MONOCYTES % (AUTO) 10 % (0-12); NEUTROPHILS # (AUTO) 4.4 X 10^3 (1.8-7.8); NEUTROPHILS % (AUTO) 60 % (42-75); PLATELET COUNT 229 10^3/uL (130-400); RED CELL DISTRIBUTION WIDTH 16.4 % (10.0-14.5); WHITE BLOOD COUNT 7.3 10^3/uL (4.3-11.0)
[2019-07-08 05:34] LABS: ALBUMIN 3.3 GM/DL (3.2-4.5); BILIRUBIN,TOTAL 0.3 MG/DL (0.1-1.0); CALCIUM 8.1 MG/DL (8.5-10.1); CREATININE SERUM 1.17 MG/DL (0.60-1.30); POTASSIUM 4.3 MMOL/L (3.6-5.0); TOTAL PROTEIN 5.6 GM/DL (6.4-8.2)
--- NOTE | 2019-07-08 06:02 | NUR ---
pt unable to void post surgery.dr day made aware woods cath placed per dr kong 550 cl yellow uine
--- NOTE | 2019-07-08 07:02 | Anesthesia-General Post-Op ---
General Patient Condition Mental Status/LOC: Same as Preop Cardiovascular: Satisfactory Nausea/Vomiting: Absent Respiratory: Satisfactory Pain: Controlled Complications: Absent Post Op Complications Complications None Follow Up Care/Instructions Patient Instructions None needed. Anesthesia/Patient Condition Patient Condition Patient is doing well, no complaints, stable vital signs, no apparent adverse anesthesia problems. No complications reported per nursing. GEORGE VILLASENOR CRNA Jul 08, 2019 07:02
[2019-07-08] MEDS ORDERED: NON-FORMULARY MEDICATION 1 EA EA (Fesoterodine Fumarate (Toviaz) 4 MG) PO SCH (09:00)
[2019-07-08] MEDS ORDERED: MIRABEGRON PO SCH (09:00)
[2019-07-08] MEDS ORDERED: NON-FORMULARY MEDICATION 1 EA EA PO SCH (09:00)
[2019-07-08] MEDS: DICLOFENAC 1% GEL 100 GM (VOLTAREN) TUBE TOP SCH ×5 (09:00→21:05)
--- NOTE | 2019-07-08 09:00 | NUR ---
NOTE THAT PT'S HOME MEDS WOULD NOT SCAN --
[2019-07-08] MEDS: POLYETHYLENE GLYCOL 17 GM (MIRALAX) PACK PO SCH ×2 (09:25→21:00)
[2019-07-08] MEDS: SENNA W/DOCUSATE (SENOKOT S) TABLET PO SCH ×2 (09:26→21:00)
[2019-07-08] MEDS: ZINC SULFATE 220 MG CAPSULE PO SCH (09:26)
[2019-07-08] MEDS: amLODIPine 10 MG (NORVASC) TAB PO SCH (09:28)
[2019-07-08] MEDS: LOSARTAN 25 MG (COZAAR) TAB PO SCH (09:30)
--- NOTE | 2019-07-08 10:24 | Physical Therapy Evaluation ---
PT Evaluation-General Medical Diagnosis Admission Date Jul 07, 2019 at 13:45 Medical Diagnosis: Laminectomy Onset Date: Jul 07, 2019 Therapy Diagnosis Therapy Diagnosis: debility Height/Weight Height (Inches): 3 Weight (Pounds): 165 Precautions Precautions/Isolations: Fall Prevention, Standard Precautions Weight Bear Status Right Lower Extremity: Right Full Weight Bearing Left Lower Extremity: Left Full Weight Bearing Referral Physician: Fan Reason for Referral: Evaluation/Treatment Medical History Pertinent Medical History: HTN Current History s/p Laminectomy secondary to stenosis (pain in back x 1 month) Reviewed History: Yes Social History Home: Single Level Current Living Status: Other Family Entry Into Home: Stairs With Railing PT Steps Into Home: 1 Prior Prior Level of Function SCALE: Activities may be completed with or without assistive devices. 5-Gabotrrfmm-ecrfigp completes the activity by him/herself with no assistance from a helper. 5-Set-up or Clean-up Assistance-helper sets up or cleans up; patient completes activity. [place] assists only prior to or following the activity. 4-Supervision or Touching Assistance-helper provides verbal cues and/or touching/steadying and/or contact guard assistance as patient completes activity. Assistance may be provided throughout the activity or intermittently. 3-Partial/Moderate Assistance-helper does LESS THAN HALF the effort. [place] lifts, holds or supports trunk or limbs, but provides less than half the effort. 2-Substantial/Maximal Assistance-helper does MORE THAN HALF the effort. [place] lifts or holds trunk or limbs and provides more than half the effort. 9-Gzlfhmbjc-isixgg does ALL the effort. Patient does none of the effort to complete the activity. Or, the assistance of 2 or more helpers is required for the patient to complete the activity. If activity was not attempted, code reason: 7-Patient Refused. 9-Not Applicable-not attempted and the patient did not perform the activity before the current illness, exacerbation or injury. 10-Not Attempted due to Environmental Limitations-(lack of equipment, weather restraints, etc.). 88-Not Attempted due to Medical Conditions or Safety Concerns. Bed Mobility: 6 Transfers (B,C,W/C): 6 Gait: 6 Stairs: 6 Indoor Mobility (Ambulation): Independent Stairs: Independent Prior Devices Use: None PT Evaluation-Current Subjective Patient agrees to PT. Patient denies pain at this time. Pain Numeric Pain Scale: 0-No Pain Location: No Pain Reported Objective Patient Orientation: Normal For Age Attachments: Chávez Catheter, IV ROM/Strength ROM Lower Extremities bilateral LE WFL Strength Lower Extremities 4/5 grossly bilateral LE Integumentary/Posture Integumentary refer to nursing notes Bowel Incontinence: No Bladder Incontinence: Chávez Cath Posture WFL Neuromuscular (Tone, Coordination, Reflexes) grossly intact with all Sensory Vision: Functional Hearing: Functional Sensation Right Lower Extremit: Intact Sensation Left Lower Extremity: Intact Transfers Roll Left to Right (QC): 5 Sit to Lying (QC): 5 Lying to Sitting/Side of Bed(Q: 5 Sit to Stand (QC): 5 Chair/Jaj-yk-Qiccc Xfer(QC): 5 Gait Mode of Locomotion: Walk Anticipated Mode of Locomotion: Walk Walk 10 feet (QC): 5 Walk 50 ft with 2 Turns(QC): 5 Walk 150 ft (QC): 5 Walking 10ft/uneven surface-QC: 5 Distance: 200' Gait Assistive Device: FWW Comments/Gait Description reciprocal pattern with FWW Balance Sitting Static: Normal Sitting Dynamic: Normal Standing Static: Good Standing Dynamic: Good Assessment/Needs 89 y.o. female, s/p laminectomy, will benefit from skilled PT to address functional strength and mobility to improve current LOF to safely return to home at maximum LOF. Rehab Potential: Fair PT Book Author Goals Book Author Goals PT Book Author Goals Time Frame: Jul 16, 2019 Roll Left & Right (QC): 6 Sit to Lying (QC): 6 Lying-Sitting on Side/Bed(QC): 6 Sit to Stand (QC): 6 Chair/Jzj-qu-Opbmc Xfer(QC): 6 Toilet Transfer (QC): 6 Car Transfer (QC): 6 Does the Patient Walk: Yes Walk 10 feet (QC): 6 Walk 50ft with 2 Turns (QC): 6 Walk 150 ft (QC): 6 Walking 10ft on Uneven Surface: 6 1 Step (curb) (QC): 6 4 Steps (QC): 6 12 Steps (QC): 9 Picking up an Object (QC): 5 Does the Pt use WC or Scooter?: No PT Plan Treatment/Plan Treatment Plan: Continue Plan of Care Treatment Plan: Bed Mobility, Education, Functional Activity Kaden, Functional Strength, Gait, Safety, Therapeutic Exercise, Transfers Treatment Duration: Jul 16, 2019 Frequency: 11 times per week Estimated Hrs Per Day: .5 hour per day Patient and/or Family Agrees t: Yes Time/GCodes Time In: 842 Time Out: 900 Total Billed Treatment Time: 18 Total Billed Treatment 1 visit EVModC 18 min BASIL SAMPSON PT Jul 08, 2019 10:24
--- NOTE | 2019-07-08 10:39 | NUR ---
CM DISCHARGE PLANNING: F/U with Dr Alba et she reports that the patient will be evaluated to return to [facility] on Tuesday 07/10. F/U with [facility] staff et they indicate the POC is for her to return on Thursday. No further interventions noted at this time.
[2019-07-08] MEDS: ONDANSETRON 4 MG/2 ML (SDV) Z0FRAN IV PRN (10:58)
--- NOTE | 2019-07-08 11:29 | Occupational Therapy Eval ---
OT Evaluation-General/PLF Medical Diagnosis Admission Date Jul 07, 2019 at 13:45 Medical Diagnosis: Laminectomy Onset Date: Jul 07, 2019 Therapy Diagnosis Therapy Diagnosis: decreased self care skills Height/Weight Height (Inches): 3 Weight (Pounds): 165 Precautions Precautions/Isolations: Fall Prevention, Standard Precautions Referral Physician: Fan Medical History Pertinent Medical History: HTN Additional Medical History Pt s/p laminectomy L3-4, L4-5 Social History Home: Single Level Current Living Status: Other Family Entry Into Home: Stairs With Railing Steps Into Home: 1 ADL-Prior Level of Function SCALE: Activities may be completed with or without assistive devices. 5-Qvmmwcnpix-blvntqf completes the activity by him/herself with no assistance from a helper. 5-Set-up or Clean-up Assistance-helper sets up or cleans up; patient completes activity. [place] assists only prior to or following the activity. 4-Supervision or Touching Assistance-helper provides verbal cues and/or touching/steadying and/or contact guard assistance as patient completes activity. Assistance may be provided throughout the activity or intermittently. 3-Partial/Moderate Assistance-helper does LESS THAN HALF the effort. [place] lifts, holds or supports trunk or limbs, but provides less than half the effort. 2-Substantial/Maximal Assistance-helper does MORE THAN HALF the effort. [place] lifts or holds trunk or limbs and provides more than half the effort. 2-Nybntgtpm-rbdpgk does ALL the effort. Patient does none of the effort to complete the activity. Or, the assistance of 2 or more helpers is required for the patient to complete the activity. If activity was not attempted, code reason: 7-Patient Refused. 9-Not Applicable-not attempted and the patient did not perform the activity before the current illness, exacerbation or injury. 10-Not Attempted due to Environmental Limitations-(lack of equipment, weather restraints, etc.). 88-Not Attempted due to Medical Conditions or Safety Concerns. ADL PLOF Comments Pt reports being independent prior to hospitalization Self Care: Independent Functional Cognition: Independent DME/Equipment: Bath Chair, Tub/Shower Drive Self: Yes OT Current Status Subjective Pt in bed, agrees to therapy. Pt states her pain is much improved since surgery. Pt states she's had nausea this morning. Mental Status/Objective Patient Orientation: Person, Place, Situation Attachments: Chávez Catheter, IV Current Glasses/Contacts: Yes Hearing Aids: No Dentures/Partials: Yes Hand Dominance: Right Upper Extremity ROM Grossly functional Upper Extremity Coordination WFL ADL-Treatment ADL-Current Pt states she has already been up to chair this morning. Declined to complete bathing and states she already changed gown this morning. Pt completed denture care and placed them in mouth after set up. Pt washed face without assist. States she already combed hair. Pt denied other needs at this time. Pt resting in bed with needs met after session. Eating (QC): 6 Oral Hygiene (QC): 5 Shower/Bathe Self (QC): 7 Upper Body Dressing (QC): 7 Education OT Patient Education: Rehab process Teaching Recipient: Patient Teaching Methods: Discussion Response to Teaching: Verbalize Understanding OT Roll Finisher Goals Prison Goals Time Frame: Jul 22, 2019 Eating (QC): 6 Oral Hygiene (QC): 6 Toileting Hygiene (QC): 6 Shower/Bathe Self (QC): 5 Upper Body Dressing (QC): 6 Lower Body Dressing (QC): 6 On/Off Footwear (QC): 6 Additional Goals: 1-Demonstrate ADL Tasks, 2-Verbalize Understanding, 3- ImproveStrength/Kaden 1=Demonstrate adherence to instructed precautions during ADL tasks. 2=Patient will verbalize/demonstrate understanding of assistive devices/modifications for ADL. 3=Patient will improve strength/tolerance for activity to enable patient to perform ADL's. OT Education/Plan Problem List/Assessment Assessment: Decreased Activ Tolerance, Dependent Transfers, Impaired Self-Care Skills Discharge Recommendations Plan/Recommendations: Continue POC Treatment Plan/Plan of Care Treatment,Training & Education: Yes Patient would benefit from OT for education, treatment and training to promote independence in ADL's, mobility, safety and/or upper extremity function for ADL's. Plan of Care: ADL Retraining, Functional Mobility, UE Funct Exercise/Act Treatment Duration: Jul 22, 2019 Frequency: 5 times per week Estimated Hrs Per Day: .25 hour per day Rehab Potential: Fair Time/GCodes Start Time: 10:42 Stop Time: 10:59 Total Time Billed (hr/min): 17 Billed Treatment Time 1 visit, CARMEN(17minutes) LAYLA TRINIDAD OT Jul 08, 2019 11:29
--- NOTE | 2019-07-08 11:33 | History & Physical-Hospitalist ---
[facility] 07/08/19 1133: History of Present Illness HPI/Chief Complaint CC: Post Op Laminectomy HPI: Patient is brought to the 4th floor from the in patient rehab floor after post op laminectomy from L3-L5. Patient was having back pain and bilaterally leg pain that was worse with standing. Pain was described as very severe, sharp and radiated down both legs. Patient also had post op urine retention relieved with Woods cath draining 550cc of clear urine. Source: patient Date Seen 07/08/19 Time Seen by a Provider: 07:40 Attending Physician Jennifer Gibson Floyd R MD Referring Physician Date of Admission Jul 07, 2019 at 13:45 Home Medications & Allergies Home Medications Reviewed patient Home Medication Reconciliation performed by pharmacy medication reconciliations automobile technician and/or nursing. Patients Allergies have been reviewed. Allergies Allergies Coded Allergies Tetanus Vaccines and Toxoid (Unverified Allergy, Mild, RASH, 09/08/06) Past Iwhlymm-Fnizel-Ybbjbe Hx Patient Social History Alcohol Use: Denies Use Recreational Drug Use: No Smoking Status: Never a Smoker 2nd Hand Smoke Exposure: No Physical Abuse Screen: No Sexual Abuse: No Recent Foreign Travel: No Contact w/other who traveled: No Recent Hopitalizations: No Recent Infectious Disease Expo: No Immunizations Up To Date Tetanus Booster (TDap): Unknown Date of Pneumonia Vaccine: Apr 19, 2014 Date of Influenza Vaccine: Apr 19, 2019 Seasonal Allergies Seasonal Allergies: No Past Medical History Surgeries: Bladder Surgery Currently Using CPAP: No Currently Using BIPAP: No Cardiac: Hypertension : No Sexually Transmitted Disease: No HIV/AIDS: No Female Reproductive Disorders: Denies Musculoskeletal: Chronic Back Pain Hearing Impairment: Denies History of Blood Disorders: No Review of Systems Constitutional: No chills, No fever EENTM: No ear pain, No eye pain Respiratory: No cough, No dyspnea on exertion Cardiovascular: No chest pain, No edema Gastrointestinal: No abdominal pain, No nausea, No vomiting Musculoskeletal: back pain (post op laminectomy) Physical Exam Physical Exam Vital Signs Vital Signs - First Documented 07/07/19 07/07/19 13:41 20:40 Temp 37.0 Pulse 88 Resp 16 B/P (MAP) 161/76 (104) Pulse Ox 96 O2 Delivery Room Air O2 Flow Rate 2.00 Capillary Refill : Height, Weight, BMI Height: '3" Weight: 165lbs. oz. 74.767172va; 24.37 BMI Method:Estimated General Appearance: No Apparent Distress, WD/WN Eyes: Bilateral Eye Normal Inspection Neck: Non Tender, Supple Respiratory: Chest Non Tender, No Accessory Muscle Use, No Respiratory Distress, Crackles Cardiovascular: Regular Rate, Rhythm, No Edema, Normal Peripheral Pulses (2/4 radial pulse bilaterally) Extremity: Non Tender, No Calf Tenderness Neurologic/Psychiatric: Alert, Oriented x3, Normal Mood/Affect Skin: Normal Color, Warm/Dry Lymphatic: No Adenopathy Results Results/Procedures Labs Laboratory Tests 07/08/19 04:30 Patient resulted labs reviewed. Assessment/Plan Admission Diagnosis Post op laminectomy and Back Pain from surgery -pain management post op urinary retention and history of bladder surgery - woods catheter Anemia - monitor vitals and hgb Renal Insufficiency - IV fluids Continue liquid diet Admission Status: Observation Clinical Quality Measures DVT/VTE Risk/Contraindication: Risk Factor Score Per Nursin RFS Level Per Nursing on Admit: 4+=Very High Contraindications-Pharm: Other *list below* Other: spine surgery JENNIFER GIBSON DO 07/08/192128: History of Present Illness HPI/Chief Complaint CC: s/p laminectomy due to failing inpatient rehab for lumbar stenosis HPI: This is an 89yoWF clinic pt of Dr. Carmona who I DC from inpatient rehab yesterday in order to undergo a two level laminectomy by Dr. Sandoval. The severity of her lumbar stenosis was not responsive to steroids and PT. She underwent the procedure in an uncomplicated manner and he only complication has been since surgery she was unable to urinate and does have a history of overactive bladder managed by Dr. Thompson in the past so woods catheter was initiated in dwelling, Dr. Thompson was consulted and she will be holding all of her bladder medications because that can actually cause retention too. Bowels are not moving but Miralax and Senna given and we will heplock IV fluids since she is able to tolerate oral intake. We will plan on sending her back to inpatient rehab once she is stable from a clinical standpoint. She does have crackles on exam and chest x ray will be obtained but I did note that in rehab so it may be pulmonary fibrosis but she is not a smoker Past Ifhumij-Brdtek-Eryxfh Hx Past Med/Social Hx: Reviewed Nursing Past Med/Soc Hx, Reviewed and Corrections made Patient Social History Marrital Status: single Employed/Student: retired Smoking Status: Never a Smoker Past Medical History Surgeries: Orthopedic Cardiac: High Cholesterol, Hypertension Genitourinary: Bladder Infection, Neurogenic Bladder Musculoskeletal: Arthritis Review of Systems Constitutional: see HPI Musculoskeletal: back pain (post op laminectomy) Physical Exam Physical Exam General Appearance: No Apparent Distress, Chronically ill, Thin Eyes: Right Eye Normal Inspection, Right Eye PERRL HEENT: PERRL/EOMI, Normal ENT Inspection, Pharynx Normal, Moist Mucous Membranes Neck: Full Range of Motion, Normal Inspection, Non Tender Respiratory: Chest Non Tender, Lungs Clear, Normal Breath Sounds, No Accessory Muscle Use, No Respiratory Distress Cardiovascular: Regular Rate, Rhythm, No Edema, No Gallop, No JVD, No Murmur, Normal Peripheral Pulses Gastrointestinal: Normal Bowel Sounds, No Organomegaly, No Pulsatile Mass, Non Tender, Soft Back: Decreased Range of Motion, Muscle Spasm, Vertebral Tenderness Extremity: Normal Capillary Refill, Normal Inspection, Normal Range of Motion, Non Tender, No Calf Tenderness, No Pedal Edema Neurologic/Psychiatric: Alert, Oriented x3, No Motor/Sensory Deficits, Normal Mood/Affect, quality officer II-XII Norm as Tested Skin: Normal Color, Warm/Dry Lymphatic: No Adenopathy Assessment/Plan Admission Diagnosis Assessment: s/p laminectomy due to severe and incapacitating pain unresolved with steroids and therapy Plan: Home meds IRF Thursday Admission Status: Observation Diagnosis/Problems Diagnosis/Problems (1) Lumbar stenosis (2) Intractable low back pain Status: Acute (3) DVT prophylaxis (4) Advanced age (5) At risk for falls (6) Thin build (7) Hypertension (8) Osteoarthritis (9) Depression Supervisory-Addendum Brief Verification & Attestation Participated in pt care: history, MDM, physical Personally performed: exam, history, MDM, supervision of care Care discussed with: Medical Student Procedures: n/a Results interpretation: Verified all documentation Verification and Attestation of Medical Student E/M Service A medical student performed and documented this service in my presence. I reviewed and verified all information documented by the medical student and made modifications to such information, when appropriate. I personally performed the physical exam and medical decision making. Jennifer Gibson, Jul 08, 2019,21:29 AMANDA DOUGLAS MED STUDEN Jul 08, 2019 11:33 JENNIFER GIBSON DO Jul 08, 2019 21:29
--- NOTE | 2019-07-08 12:20 | Diagnostic Imaging Report ---
INDICATION: Lung crackles. Time of exam 11:40 AM Comparison is made with prior chest from 09/26/2013. The heart is enlarged but stable. Lungs appear to be fairly clear. No parenchymal consolidation is seen. There is no effusion or pneumothorax identified. Slightly nodular density in the upper left chest is noted, indeterminate. IMPRESSION: Small nodular density left upper lobe, indeterminate. Follow-up serial chest radiographs to confirm clearing or stability is recommended. If this persists, CT of the chest could be performed for further evaluation. Study is otherwise unremarkable. Dictated by: Dictated on workstation # [id number]
--- NOTE | 2019-07-08 12:20 | CONSULTATION REPORT ---
DATE OF SERVICE: 07/08/2019 ATTENDING PHYSICIAN: Dr. Alba -- Dr. Sandoval. SUMMARY: After reviewing the patient's record and interviewing her and examining her, this is an 89-year-old white lady, very pleasant, very sharp who has a history of wet overactive bladder, who is doing decently on the Myrbetriq, but after trying two or three other medications. She had no other procedure done for that. She has a history of a bladder tie up in the past, mostly for stress incontinence, which she does not have now. She has spinal stenosis, refractory to conservative treatment. She just underwent a laminectomy L3-L4 and L4-L5 by Dr. Sandoval and is recovering. She had postoperative retention, which is not unusual to happen. IMPRESSION: 1. Urinary retention, postop. 2. History of wet overactive bladder. RECOMMENDATIONS: 1. We will hold the trospium and any other medication including Myrbetriq if she is on it. 2. We will deal with the urinary retention first and then later on we will work her up for the wet overactive bladder as an outpatient. I fully explained the plan for her and the possible treatments. Thank you for letting me participate in the care of this patient, we will follow with you. Job ID: [id number] DocumentID: [id number] Dictated Date: 07/08/2019 09:53:10 Copyright Expert Date: 07/08/2019 12:19:24 Dictated By: LATRICIA ALTAMIRANO MD
--- NOTE | 2019-07-08 13:11 | Physical Therapy Daily Note ---
PT Daily Note-Current Subjective Patient agrees to PT. Family/friends present. Pain Numeric Pain Scale: 0-No Pain Location: No Pain Reported Mental Status Patient Orientation: Normal For Age Attachments: Chávez Catheter Transfers SCALE: Activities may be completed with or without assistive devices. 0-Zywsnqeljs-filjvzd completes the activity by him/herself with no assistance from a helper. 5-Set-up or Clean-up Assistance-helper sets up or cleans up; patient completes activity. [place] assists only prior to or following the activity. 4-Supervision or Touching Assistance-helper provides verbal cues and/or touching/steadying and/or contact guard assistance as patient completes activity. Assistance may be provided throughout the activity or intermittently. 3-Partial/Moderate Assistance-helper does LESS THAN HALF the effort. [place] lifts, holds or supports trunk or limbs, but provides less than half the effort. 2-Substantial/Maximal Assistance-helper does MORE THAN HALF the effort. [place] lifts or holds trunk or limbs and provides more than half the effort. 0-Vlhzxoyam-aimked does ALL the effort. Patient does none of the effort to complete the activity. Or, the assistance of 2 or more helpers is required for the patient to complete the activity. If activity was not attempted, code reason: 7-Patient Refused. 9-Not Applicable-not attempted and the patient did not perform the activity before the current illness, exacerbation or injury. 10-Not Attempted due to Environmental Limitations-(lack of equipment, weather restraints, etc.). 88-Not Attempted due to Medical Conditions or Safety Concerns. Roll Left & Right (QC): 5 Sit to Lying (QC): 5 Lying to Sitting/Side of Bed(Q: 5 Sit to Stand (QC): 5 Chair/Mme-vb-Bieiy Xfer(QC): 5 Weight Bearing Right Lower Extremity: Right Full Weight Bearing Left Lower Extremity: Left Full Weight Bearing Gait Training Does the Patient Walk?: Yes Distance: 150' Walk 10 feet (QC): 4 Walk 50 ft with 2 Turns(QC): 4 Walk 150 ft (QC): 4 Gait Assistive Device: FWW slow, reciprocal pattern Assessment Patient up in recliner with needs met. Patient progressing with treatment plan and will transfer to [facility] on Thursday per report. PT Tailor Apprentice Goals Skilled Nursing Goals PT Skilled Nursing Goals Time Frame: Jul 16, 2019 Roll Left & Right (QC): 6 Sit to Lying (QC): 6 Lying-Sitting on Side/Bed(QC): 6 Sit to Stand (QC): 6 Chair/Nhk-wi-Rqyzt Xfer(QC): 6 Toilet Transfer (QC): 6 Car Transfer (QC): 6 Does the Patient Walk: Yes Walk 10 feet (QC): 6 Walk 50ft with 2 Turns (QC): 6 Walk 150 ft (QC): 6 Walking 10ft on Uneven Surface: 6 1 Step (curb) (QC): 6 4 Steps (QC): 6 12 Steps (QC): 9 Picking up an Object (QC): 5 Does the Pt use WC or Scooter?: No PT Plan Treatment/Plan Treatment Plan: Continue Plan of Care Treatment Plan: Bed Mobility, Education, Functional Activity Kaden, Functional Strength, Gait, Safety, Therapeutic Exercise, Transfers Treatment Duration: Jul 16, 2019 Frequency: 11 times per week Estimated Hrs Per Day: .5 hour per day Patient and/or Family Agrees t: Yes Time/GCodes Time In: 1250 Time Out: 1303 Total Billed Treatment Time: 13 Total Billed Treatment 1 visit FA 13 min BASIL SAMPSON PT Jul 08, 2019 13:11
--- NOTE | 2019-07-08 15:44 | NUR ---
Inpatient rehab evaluation Talked with Dr. Alba regarding patient's return to the ARU. Dr. Alba feels patient will be ready to admit to inpatient rehab on 07/10/19. Met with patient to discuss admission to the inpatient rehab unit. Patient reports much improvement in back pain after surgery. She is eager to return to rehab so that she can gain strength and return home safely. Plan on admission to the ARU on 07/10/19. RN notified.
[2019-07-09 05:44] LABS: BASOPHILS % (AUTO) 0 % (0-10); EOSINOPHILS # (AUTO) 0.3 10^3/uL (0.0-0.3); EOSINOPHILS % (AUTO) 5 % (0-10); HEMATOCRIT 28 % (35-52); HEMOGLOBIN 8.7 G/DL (11.5-16.0); LYMPHOCYTES # (AUTO) 1.4 X 10^3 (1.0-4.0); LYMPHOCYTES % (AUTO) 21 % (12-44); MEAN CORPUSCULAR HEMOGLOBIN 28 PG (25-34); MEAN CORPUSCULAR HGB CONC 31 G/DL (32-36); MEAN CORPUSCULAR VOLUME 91 FL (80-99); MEAN PLATELET VOLUME 11.1 FL (7.4-10.4); MONOCYTES # (AUTO) 0.9 X 10^3 (0.0-1.0); MONOCYTES % (AUTO) 13 % (0-12); NEUTROPHILS # (AUTO) 4.1 X 10^3 (1.8-7.8); NEUTROPHILS % (AUTO) 61 % (42-75); PLATELET COUNT 193 10^3/uL (130-400); RED CELL DISTRIBUTION WIDTH 16.4 % (10.0-14.5); WHITE BLOOD COUNT 6.8 10^3/uL (4.3-11.0)
[2019-07-09 06:10] LABS: ALBUMIN 3.1 GM/DL (3.2-4.5); BILIRUBIN,TOTAL 0.4 MG/DL (0.1-1.0); CALCIUM 8.1 MG/DL (8.5-10.1); CREATININE SERUM 1.01 MG/DL (0.60-1.30); POTASSIUM 4.7 MMOL/L (3.6-5.0); TOTAL PROTEIN 5.6 GM/DL (6.4-8.2)
[2019-07-09] MEDS: MULTIVIT W/MINERALS TAB (THERAGRAN M) PO SCH (06:31)
[2019-07-09] MEDS: HYDROcodone/APAP 5 MG/325 MG (LORTAB) TAB PO PRN (06:31)
[2019-07-09 07:57] VITALS: BP 120/68
--- NOTE | 2019-07-09 08:59 | Physical Therapy Daily Note ---
PT Daily Note-Current Subjective Agrees to PT. Reports she feels so much better. Reports she thinks she is returning to [facility] on Thursday. Mental Status Patient Orientation: Person, Place, Time, Situation Attachments: Drains, Chávez Catheter Transfers SCALE: Activities may be completed with or without assistive devices. 1-Oxblttyzza-nywwcyp completes the activity by him/herself with no assistance from a helper. 5-Set-up or Clean-up Assistance-helper sets up or cleans up; patient completes activity. [place] assists only prior to or following the activity. 4-Supervision or Touching Assistance-helper provides verbal cues and/or touching/steadying and/or contact guard assistance as patient completes activity. Assistance may be provided throughout the activity or intermittently. 3-Partial/Moderate Assistance-helper does LESS THAN HALF the effort. [place] lifts, holds or supports trunk or limbs, but provides less than half the effort. 2-Substantial/Maximal Assistance-helper does MORE THAN HALF the effort. [place] lifts or holds trunk or limbs and provides more than half the effort. 4-Diminewsg-etohjx does ALL the effort. Patient does none of the effort to complete the activity. Or, the assistance of 2 or more helpers is required for the patient to complete the activity. If activity was not attempted, code reason: 7-Patient Refused. 9-Not Applicable-not attempted and the patient did not perform the activity before the current illness, exacerbation or injury. 10-Not Attempted due to Environmental Limitations-(lack of equipment, weather restraints, etc.). 88-Not Attempted due to Medical Conditions or Safety Concerns. Sit to Lying (QC): 4 (sBA for safety) Sit to Stand (QC): 4 (CGA for safety with cues for hand placement) Chair/Epl-xw-Fsbgm Xfer(QC): 4 Weight Bearing Right Lower Extremity: Right Full Weight Bearing Left Lower Extremity: Left Full Weight Bearing Gait Training Does the Patient Walk?: Yes Distance: 250 ft Walk 10 feet (QC): 4 Walk 50 ft with 2 Turns(QC): 4 Walk 150 ft (QC): 4 Gait Assistive Device: FWW CGA with gait for safety; decreased speed and decreased heel strike / toe off. Steady without LOB Treatments Pt up in chair with nurse tech present post treatment with needs met. Assessment Current Status: Good Progress Pt feeling much better post surgery. Mobility progressing well. Pt to sit up in chair for meals over the weekend. PT Hat Former Goals Mcfp Goals PT Mcfp Goals Time Frame: Jul 16, 2019 Roll Left & Right (QC): 6 Sit to Lying (QC): 6 Lying-Sitting on Side/Bed(QC): 6 Sit to Stand (QC): 6 Chair/Ohx-ee-Nuthk Xfer(QC): 6 Toilet Transfer (QC): 6 Car Transfer (QC): 6 Does the Patient Walk: Yes Walk 10 feet (QC): 6 Walk 50ft with 2 Turns (QC): 6 Walk 150 ft (QC): 6 Walking 10ft on Uneven Surface: 6 1 Step (curb) (QC): 6 4 Steps (QC): 6 12 Steps (QC): 9 Picking up an Object (QC): 5 Does the Pt use WC or Scooter?: No PT Plan Problem List Problem List: Activity Tolerance, Functional Strength, Safety, Balance, Gait, Transfer, Bed Mobility Treatment/Plan Treatment Plan: Continue Plan of Care Treatment Plan: Bed Mobility, Education, Functional Activity [place], Functional Strength, Gait, Safety, Therapeutic Exercise, Transfers Treatment Duration: Jul 16, 2019 Frequency: 11 times per week Estimated Hrs Per Day: .5 hour per day Patient and/or Family Agrees t: Yes Safety Risks/Education Patient Education: Transfer Techniques, Safety Issues Teaching Recipient: Patient Teaching Methods: Demonstration, Discussion Response to Teaching: Reinforcement Needed Time/GCodes Time In: 835 Time Out: 859 Total Billed Treatment Time: 24 Total Billed Treatment visit FA 24 BISI QUINN PT Jul 09, 2019 08:59
[2019-07-09] MEDS: amLODIPine 10 MG (NORVASC) TAB PO SCH (09:48)
[2019-07-09] MEDS: LOSARTAN 25 MG (COZAAR) TAB PO SCH (09:49)
[2019-07-09] MEDS: ZINC SULFATE 220 MG CAPSULE PO SCH (09:50)
[2019-07-09] MEDS: DICLOFENAC 1% GEL 100 GM (VOLTAREN) TUBE TOP SCH ×4 (09:51→19:45)
[2019-07-09] MEDS: SENNA W/DOCUSATE (SENOKOT S) TABLET PO SCH ×2 (09:51→20:00)
[2019-07-09] MEDS: POLYETHYLENE GLYCOL 17 GM (MIRALAX) PACK PO SCH ×2 (09:51→19:59)
--- NOTE | 2019-07-09 12:23 | Progress Note - Hospitalist ---
Subjective HPI/CC On Admission Date Seen by Provider: Jul 09, 2019 Time Seen by Provider: 11:00 CC: s/p laminectomy due to failing inpatient rehab for lumbar stenosis HPI: This is an 89yoWF clinic pt of Dr. Carmona who I DC from inpatient rehab yesterday in order to undergo a two level laminectomy by Dr. Sandoval. The severity of her lumbar stenosis was not responsive to steroids and PT. She underwent the procedure in an uncomplicated manner and he only complication has been since surgery she was unable to urinate and does have a history of overactive bladder managed by Dr. Thompson in the past so woods catheter was initiated in dwelling, Dr. Thompson was consulted and she will be holding all of her bladder medications because that can actually cause retention too. Bowels are not moving but Miralax and Senna given and we will heplock IV fluids since she is able to tolerate oral intake. We will plan on sending her back to inpatient rehab once she is stable from a clinical standpoint. She does have crackles on exam and chest x ray will be obtained but I did note that in rehab so it may be pulmonary fibrosis but she is not a smoker Subjective/Events-last exam Patient doing very well but feet are still numb and she is very off balance Minimal pain from incision site Dr Thompson saw her briefly yesterday and woods cath remains for now Off OAB bladder meds for now BM 07/08/19Thursday IRF transfer Checked meds and labs Conferred with regulatory intern of Systems General: Fatigue Genitourinary: Retention Musculoskeletal: back pain Objective Exam Vital Signs Vital Signs Date Time Temp Pulse Resp B/P (MAP) Pulse Ox O2 Delivery O2 Flow Rate FiO2 07/09/19 08:00 Room Air 07/09/19 07:57 36.6 70 18 120/68 (85) 94 07/07/19 20:40 2.00 Capillary Refill : General Appearance: No Apparent Distress, WD/WN, Anxious, Chronically ill, Thin Respiratory: Chest Non Tender, Lungs Clear, Normal Breath Sounds, No Accessory Muscle Use, No Respiratory Distress Cardiovascular: Regular Rate, Rhythm, No Edema, No Gallop, No JVD, No Murmur, Normal Peripheral Pulses Neurologic/Psychiatric: Alert, Oriented x3, No Motor/Sensory Deficits, Normal Mood/Affect Skin: Normal Color, Warm/Dry Results/Procedures Lab Laboratory Tests 07/09/19 05:14 Patient resulted labs reviewed. Assessment/Plan Assessment and Plan Assess & Plan/Chief Complaint Assessment: s/p lumbar laminectomy 2 levels POD # 2 Post op urinary retention requiring in-swelling catheter and consulted Dr Thompson Frail status HTN Debility Advanced age Plan: IRF tomorrow Woods cath BM regimen Appreciate Dr Sandoval and Dr Thompson Diagnosis/Problems Diagnosis/Problems (1) Lumbar stenosis (2) Intractable low back pain Status: Acute (3) DVT prophylaxis (4) Advanced age (5) At risk for falls (6) Thin build (7) Hypertension (8) Osteoarthritis (9) Depression (10) Urinary retention (11) Woods catheter in place (12) Overactive bladder (13) Lung crackles Clinical Quality Measures DVT/VTE Risk/Contraindication: Risk Factor Score Per Nursin RFS Level Per Nursing on Admit: 4+=Very High Contraindications-Pharm: Other *list below* Other: spine surgery PERRY GIBSON DO Jul 09, 2019 12:23
[2019-07-09 16:01] VITALS: BP 141/66
[2019-07-09 23:47] VITALS: BP 120/51
[2019-07-10] MEDS: MULTIVIT W/MINERALS TAB (THERAGRAN M) PO SCH (06:19)
[2019-07-10 08:00] VITALS: BP 136/89
[2019-07-10] MEDS: SENNA W/DOCUSATE (SENOKOT S) TABLET PO SCH (08:27)
[2019-07-10] MEDS: ZINC SULFATE 220 MG CAPSULE PO SCH (08:27)
[2019-07-10] MEDS: DICLOFENAC 1% GEL 100 GM (VOLTAREN) TUBE TOP SCH (08:27)
[2019-07-10] MEDS: POLYETHYLENE GLYCOL 17 GM (MIRALAX) PACK PO SCH (08:27)
[2019-07-10] MEDS: amLODIPine 10 MG (NORVASC) TAB PO SCH (08:28)
[2019-07-10] MEDS: LOSARTAN 25 MG (COZAAR) TAB PO SCH (08:28)
[2019-07-10 09:46] VITALS: BP 136/89
[2019-07-10] MEDS: ONDANSETRON 4 MG/2 ML (SDV) Z0FRAN IV PRN (09:56)
--- NOTE | 2019-07-10 12:05 | Discharge Summary ---
Diagnosis/Chief Complaint Date of Admission Jul 07, 2019 at 13:45 Date of Discharge Jul 10, 2019 at 09:46 Discharge Date: Jul 10, 2019 Discharge Diagnosis Assessment: s/p lumbar laminectomy 2 levels POD # 2 Post op urinary retention requiring in-swelling catheter and consulted Dr Thompson Frail status HTN Debility Advanced age Plan: IRF tomorrow Woods cath BM regimen Appreciate Dr Sandoval and Dr Thompson Diagnosis/Problems Diagnosis/Problems (1) Lumbar stenosis (2) Intractable low back pain Status: Acute (3) DVT prophylaxis (4) Advanced age (5) At risk for falls (6) Thin build (7) Hypertension (8) Osteoarthritis (9) Depression (10) Urinary retention (11) Woods catheter in place (12) Overactive bladder (13) Lung crackles Discharge Summary Discharge Physical Examination Allergies: Coded Allergies: Tetanus Vaccines and Toxoid (Unverified Allergy, Mild, RASH, 09/08/06) Vitals & I&Os Vital Signs Date Time Temp Pulse Resp B/P (MAP) Pulse Ox O2 Delivery O2 Flow Rate FiO2 07/10/19 09:46 37.0 71 20 136/89 95 Room Air 07/07/19 20:40 2.00 General Appearance: Alert, Oriented X3, Cooperative Respiratory: Other (crackles lower lobes) Hospital Course Was the Problem List Reviewed?: Yes Hospital course: patient had an uncomplicated hospital course after she was admitted from IRF and underwent an uncomplicated laminectomy two levels by DR Sandoval for incapacitating back pain requiring surgery or become wheelchair bound. Urinary retention required woods cath and Dr Thompson consultation. Patient required IRF for strengthening and fall risk prevention so she was moved to IRF for continued recovery. Labs (last 24 hrs) Laboratory Tests 07/08/19 04:30: White Blood Count 7.3, Red Blood Count 3.20L, Hemoglobin 9.1#L, Hematocrit 29L, Mean Corpuscular Volume 92, Mean Corpuscular Hemoglobin 28, Mean Corpuscular Hemoglobin Concent 31L, Red Cell Distribution Width 16.4H, Platelet Count 229, Mean Platelet Volume 11.2H, Neutrophils (%) (Auto) 60, Lymphocytes (%) (Auto) 28, Monocytes (%) (Auto) 10, Eosinophils (%) (Auto) 1, Basophils (%) (Auto) 0, Neutrophils # (Auto) 4.4, Lymphocytes # (Auto) 2.1, Monocytes # (Auto) 0.7, Eosinophils # (Auto) 0.1, Basophils # (Auto) 0.0, Sodium Level 140, Potassium Level 4.3, Chloride Level 106, Carbon Dioxide Level 27, Anion Gap 7, Blood Urea Nitrogen 32H, Creatinine 1.17, Estimat Glomerular Filtration Rate 44, BUN/Creatinine Ratio 27, Glucose Level 86, Calcium Level 8.1L, Corrected Calcium 8.7, Total Bilirubin 0.3, Aspartate Amino Transf (AST/SGOT) 20, Alanine Aminotransferase (ALT/SGPT) 19, Alkaline Phosphatase 51, Total Protein 5.6L, Albumin 3.3 07/09/19 05:14: White Blood Count 6.8, Red Blood Count 3.06L, Hemoglobin 8.7L, Hematocrit 28L, Mean Corpuscular Volume 91, Mean Corpuscular Hemoglobin 28, Mean Corpuscular Hemoglobin Concent 31L, Red Cell Distribution Width 16.4H, Platelet Count 193, Mean Platelet Volume 11.1H, Neutrophils (%) (Auto) 61, Lymphocytes (%) (Auto) 21, Monocytes (%) (Auto) 13H, Eosinophils (%) (Auto) 5, Basophils (%) (Auto) 0, Neutrophils # (Auto) 4.1, Lymphocytes # (Auto) 1.4, Monocytes # (Auto) 0.9, Eosinophils # (Auto) 0.3, Basophils # (Auto) 0.0, Sodium Level 138, Potassium Level 4.7, Chloride Level 105, Carbon Dioxide Level 24, Anion Gap 9, Blood Urea Nitrogen 21H, Creatinine 1.01, Estimat Glomerular Filtration Rate 52, BUN/Creatinine Ratio 21, Glucose Level 92, Calcium Level 8.1L, Corrected Calcium 8.8, Total Bilirubin 0.4, Aspartate Amino Transf (AST/SGOT) 15, Alanine Aminotransferase (ALT/SGPT) 11, Alkaline Phosphatase 52, Total Protein 5.6L, Albumin 3.1L Pending Labs Laboratory Tests 07/08/19 04:30: White Blood Count 7.3, Red Blood Count 3.20, Hemoglobin 9.1, Hematocrit 29, Mean Corpuscular Volume 92, Mean Corpuscular Hemoglobin 28, Mean Corpuscular Hemoglobin Concent 31, Red Cell Distribution Width 16.4, Platelet Count 229, Mean Platelet Volume 11.2, Neutrophils (%) (Auto) 60, Lymphocytes (%) (Auto) 28, Monocytes (%) (Auto) 10, Eosinophils (%) (Auto) 1, Basophils (%) (Auto) 0, Neutrophils # (Auto) 4.4, Lymphocytes # (Auto) 2.1, Monocytes # (Auto) 0.7, Eosinophils # (Auto) 0.1, Basophils # (Auto) 0.0, Sodium Level 140, Potassium Level 4.3, Chloride Level 106, Carbon Dioxide Level 27, Anion Gap 7, Blood Urea Nitrogen 32, Creatinine 1.17, Estimat Glomerular Filtration Rate 44, BUN/Creatinine Ratio 27, Glucose Level 86, Calcium Level 8.1, Corrected Calcium 8.7, Total Bilirubin 0.3, Aspartate Amino Transf (AST/SGOT) 20, Alanine Aminotransferase (ALT/SGPT) 19, Alkaline Phosphatase 51, Total Protein 5.6, Alb umin 3.3 07/09/19 05:14: White Blood Count 6.8, Red Blood Count 3.06, Hemoglobin 8.7, Hematocrit 28, Mean Corpuscular Volume 91, Mean Corpuscular Hemoglobin 28, Mean Corpuscular Hemoglobin Concent 31, Red Cell Distribution Width 16.4, Platelet Count 193, Mean Platelet Volume 11.1, Neutrophils (%) (Auto) 61, Lymphocytes (%) (Auto) 21, Monocytes (%) (Auto) 13, Eosinophils (%) (Auto) 5, Basophils (%) (Auto) 0, Neutrophils # (Auto) 4.1, Lymphocytes # (Auto) 1.4, Monocytes # (Auto) 0.9, Eos inophils # (Auto) 0.3, Basophils # (Auto) 0.0, Sodium Level 138, Potassium Level 4.7, Chloride Level 105, Carbon Dioxide Level 24, Anion Gap 9, Blood Urea Nitrogen 21, Creatinine 1.01, Estimat Glomerular Filtration Rate 52, BUN/Creatinine Ratio 21, Glucose Level 92, Calcium Level 8.1, Corrected Calcium 8.8, Total Bilirubin 0.4, Aspartate Amino Transf (AST/SGOT) 15, Alanine Aminotra nsferase (ALT/SGPT) 11, Alkaline Phosphatase 52, Total Protein 5.6, Albumin 3.1 Discharge Home Medications: Active Scripts Active Percocet 5-325 mg Tablet (Oxycodone HCl/Acetaminophen) 1 Each Tablet 1 Tab PO Q4H MDD 6 TABS 7 Days Reported Triamcinolone Acetonide 0.1% Cream (Triamcinolone Acet) 15 Gm Cr 1 Gm TOP BID PRN Prednisone 20 Mg Tab 40 Mg PO DAILY 4 DAY SUPPLY FILLED 07-01-19 (NOT PICKED UP YET) TAKES 2 (20MG) TABLETS Losartan Potassium 25 Mg Tablet 50 Mg PO DAILY TAKES 2 (25MG) TABLETS Amlodipine Besylate 10 Mg Tablet 5 Mg PO DAILY TAKES 1/2 (10MG) TABLET Vitamin D3 (Cholecalciferol (Vitamin D3)) 2,000 Unit Tablet 2,000 Unit PO DAILY Calcium Carbonate 600 Mg Tablet 600 Mg PO DAILY Citalopram HBr (Citalopram Hydrobromide) 20 Mg Tablet 20 Mg PO DAILY Hydrocodone-Acetamin 5-325 mg (Hydrocodone/Acetaminophen) 1 Each Tablet 1-2 Tab PO Q6H PRN Cyclobenzaprine HCl 10 Mg Tablet 10 Mg PO TID PRN Zinc (Zinc Amino Acid Chelate) 50 Mg Tablet 50 Mg PO DAILY Meloxicam 15 Mg Tablet 15 Mg PO DAILY Myrbetriq (Mirabegron) 25 Mg Tab.er.24h 50 Mg PO DAILY Instructions to patient/family Please see electronic discharge instructions given to patient. Diagnosis/Problems Diagnosis/Problems (1) Lumbar stenosis (2) Intractable low back pain Status: Acute (3) DVT prophylaxis (4) Advanced age (5) At risk for falls (6) Thin build (7) Hypertension (8) Osteoarthritis (9) Depression (10) Urinary retention (11) Woods catheter in place (12) Overactive bladder (13) Lung crackles Clinical Quality Measures DVT/VTE Risk/Contraindication: Risk Factor Score Per Nursin RFS Level Per Nursing on Admit: 4+=Very High Contraindications-Pharm: Other *list below* Other: spine surgery PERRY GIBSON DO Jul 10, 2019 12:05
== END 2019-07-10 09:46 | DRG 517 ==
LOC: 4TH 13:45
PROVIDERS: ADMIT Internal Medicine; ATTEND Internal Medicine
PROC: 01NB0ZZ Release Lumbar Nerve, Open Approach (ICD-10-PCS; principal; 2019-07-08)
PROC: 4A11X4G Monitoring of Peripheral Nervous Electrical Activity, Intraoperative, External Approach (ICD-10-PCS; 2019-07-08)
DX: M48.062 Spinal stenosis, lumbar region with neurogenic claudication (principal); M51.16 Intervertebral disc disorders with radiculopathy, lumbar region; D64.9 Anemia, unspecified; N28.9 Disorder of kidney and ureter, unspecified; E78.00 Pure hypercholesterolemia, unspecified; I10 Essential (primary) hypertension; M54.5 Low back pain; G89.29 Other chronic pain; F32.9 Major depressive disorder, single episode, unspecified; N32.81 Overactive bladder; R33.8 Other retention of urine
CPT/HCPCS: 36415; 71045; 80053; 85025; 85027; 94664

== ENCOUNTER 2019-07-10 09:50 | Inpatient (IN) | payer MEDICARE ==
[~2019-07-10] VITALS: Ht 157.5 cm; Wt 57.6 kg
[2019-07-10 05:54] LABS: BASOPHILS % (AUTO) 0 % (0-10); EOSINOPHILS # (AUTO) 0.3 10^3/uL (0.0-0.3); EOSINOPHILS % (AUTO) 4 % (0-10); HEMATOCRIT 29 % (35-52); HEMOGLOBIN 9.2 G/DL (11.5-16.0); LYMPHOCYTES # (AUTO) 1.4 X 10^3 (1.0-4.0); LYMPHOCYTES % (AUTO) 18 % (12-44); MEAN CORPUSCULAR HEMOGLOBIN 29 PG (25-34); MEAN CORPUSCULAR HGB CONC 32 G/DL (32-36); MEAN CORPUSCULAR VOLUME 91 FL (80-99); MEAN PLATELET VOLUME 11.6 FL (7.4-10.4); MONOCYTES # (AUTO) 0.9 X 10^3 (0.0-1.0); MONOCYTES % (AUTO) 12 % (0-12); NEUTROPHILS # (AUTO) 5.1 X 10^3 (1.8-7.8); NEUTROPHILS % (AUTO) 67 % (42-75); PLATELET COUNT 187 10^3/uL (130-400); WHITE BLOOD COUNT 7.7 10^3/uL (4.3-11.0)
[2019-07-10 06:15] LABS: ALANINE AMINOTRANSFERASE 6 U/L (0-55); ALBUMIN 3.3 GM/DL (3.2-4.5); ALKALINE PHOSPHATASE 53 U/L (40-136); BILIRUBIN,TOTAL 0.5 MG/DL (0.1-1.0); BUN/CREATININE RATIO 22; CALCIUM 8.5 MG/DL (8.5-10.1); CARBON DIOXIDE 25 MMOL/L (21-32); CHLORIDE 105 MMOL/L (98-107); CREATININE SERUM 0.87 MG/DL (0.60-1.30); GFR ESTIMATED > 60; GLUCOSE 101 MG/DL (70-105); POTASSIUM 4.4 MMOL/L (3.6-5.0); SODIUM 139 MMOL/L (135-145); TOTAL PROTEIN 5.9 GM/DL (6.4-8.2)
[~2019-07-10 09:50] MED LIST changes: +POLYETHYLENE GLYCOL 17 GM (MIRALAX) PACK PO SCH; +SENNA W/DOCUSATE (SENOKOT S) TABLET PO SCH
--- NOTE | 2019-07-10 10:12 | NUR ---
Adriana Huffman admitted to room 230-1, with an admitting diagnosis of Post Laminectomy/Debility, on 07/10/19 from [facility] 4th floor, accompanied by 2 Daughters and Nursing Staff.ADRIANA CHO introduced to surroundings, call light, bed controls, phone, TV, temperature control, lights, meal times, smoking policy, visitor policy, side rail policy, bathrooms and showers. Patient Rights given to patient in the handbook.ADRIANA CHO verbalizes understanding that [facility] is not responsible for the loss or damage to any personal effects or valuables that are kept in the patients posession during their hospitalization. The following Patient Care Plans were discussed with the Laminectomy and Impaired Mobility, as well as, Discharge Planning. ADRIANA CHO verbalizes understanding of Interdisciplinary Patient Education. Patient received Patient Rights Booklet, which includes Privacy Act Statement and Data Collection Information Summary.
[2019-07-10 10:32] VITALS: BP 135/68
--- NOTE | 2019-07-10 11:00 | NUR ---
DR GIBSON TO ROOM TO SEE PT/ NO NEW ORDERS AT THIS TIME.
[2019-07-10] MEDS ORDERED: ALPRAZolam 0.25 MG (XANAX) TAB PO PRN ×2 (11:17→12:30)
[2019-07-10] MEDS ORDERED: CALCIUM CARBONATE 500 MG (TUMS) TAB.CHEW PO PRN ×2 (11:18→12:30)
[2019-07-10] MEDS ORDERED: diphenhydrAMINE 25 MG TAB (BENADRYL) PO PRN ×2 (11:19→12:30)
[2019-07-10] MEDS ORDERED: BISACODYL 10 MG SUPP (DULCOLAX) PR PRN ×2 (11:20→12:30)
[2019-07-10] MEDS ORDERED: DOCUSATE SODIUM 100 MG (COLACE) CAP PO PRN ×2 (11:20→12:30)
[2019-07-10] MEDS ORDERED: guaiFENesin/CODEINE (ROBITUSSIN AC) 10ML UDC PO PRN ×2 (11:21→12:30)
[2019-07-10] MEDS ORDERED: FLEET ENEMA ADULT 1 EA BTL PR PRN ×2 (11:21→12:30)
[2019-07-10] MEDS ORDERED: LACTULOSE SYRUP 10GM/15ML (ENULOSE) 30ML UDC PO PRN ×2 (11:21→21:00)
[2019-07-10] MEDS ORDERED: LOPERAMIDE 2 MG (IMODIUM) TABLET PO PRN ×2 (11:22→12:30)
[2019-07-10] MEDS ORDERED: MELATONIN 3 MG TABLET PO PRN (11:22)
[2019-07-10] MEDS ORDERED: ONDANSETRON 4 MG (ZOFRAN) ORAL DISSOLVE TAB PO PRN ×2 (11:24→12:30)
--- NOTE | 2019-07-10 12:20 | PM&R Post Admission Assessment ---
PM&R Date of Visit: Jul 10, 2019 Time of Visit: 12:00 History of Present Illness Chief complaint: Recovery from severe lumbar stenosis laminectomy on 2 levels with resulted lower extremity weakness and fall risk and urinary retention requiring Woods catheter maintenance History of present illness: This is an 89-year-old white female that was admitted from observation on [facility] at [facility] week and a half ago had spent nearly a week in inpatient rehab due to lumbar stenosis and severe lumbar back pain which improved with steroids but that was short-lived and MRI was reviewed by Dr. Sandoval who was consulted patient was found to be in need of a two-level laminectomy so that was performed in an uncomplicated manner on with no complication except for urinary retention requiring Woods catheter maintenance and urology has been consulted who she has seen before due to severe overactive bladder and incontinence issues in the past and we did stop all those medications to help resolve the retention in the meantime. She is having bowel movements regularly and vital signs have remained stable. She arrived at 10:00 this morning from [facility] to inpatient rehab. She did have emesis x2 because she drank too much coffee this morning which sometimes does happen. She is very grateful for the surgical resolution the drain was removed this morning and will work on urinary retention and strengthening lower extremities to prevent falls and help recover and return home to her prior level of functioning. Past [id number]-[id number] Hx Past Med/Social Hx: Reviewed Nursing Past Med/Soc Hx, Reviewed and Corrections made Patient Social History Marrital Status: single Employed/Student: retired Alcohol Use: Denies Use Recreational Drug Use: No Smoking Status: Never a Smoker 2nd Hand Smoke Exposure: No Physical Abuse Screen: No Sexual Abuse: No Recent Foreign Travel: No Contact w/other who traveled: No Recent Hopitalizations: No Recent Infectious Disease Expo: No Immunizations Up To Date Tetanus Booster (TDap): Unknown Date of Pneumonia Vaccine: Apr 19, 2014 Date of Influenza Vaccine: Apr 19, 2019 Seasonal Allergies Seasonal Allergies: No Past Medical History Surgeries: Bladder Surgery, Orthopedic (spine Dr Sandoval 06/2019) Currently Using CPAP: No Currently Using BIPAP: No Cardiac: Hypertension Sexually Transmitted Disease: No HIV/AIDS: No Female Reproductive Disorders: Denies Genitourinary: Bladder Infection, Neurogenic Bladder OAB Musculoskeletal: Arthritis, Chronic Back Pain Hearing Impairment: Denies History of Blood Disorders: No PM&R Allergy/Meds/Data Review Allergies Coded Allergies: Tetanus Vaccines and Toxoid (Unverified Allergy, Mild, RASH, 09/08/06) Home Medications Scheduled Amlodipine Besylate (Amlodipine Besylate), 5 MG PO DAILY, (Reported) Calcium Carbonate (Calcium Carbonate), 600 MG PO DAILY, (Reported) Cholecalciferol (Vitamin D3) (Vitamin D3), 2,000 UNIT PO DAILY, (Reported) Citalopram Hydrobromide (Citalopram HBr), 20 MG PO DAILY, (Reported) Losartan Potassium (Losartan Potassium), 50 MG PO DAILY, (Reported) Meloxicam (Meloxicam), 15 MG PO DAILY, (Reported) Mirabegron (Myrbetriq), 50 MG PO DAILY, (Reported) Oxycodone HCl/Acetaminophen (Percocet 5-325 mg Tablet), 1 TAB PO Q4H Prednisone (Prednisone), 40 MG PO DAILY, (Reported) Zinc Amino Acid Chelate (Zinc), 50 MG PO DAILY, (Reported) Scheduled PRN Cyclobenzaprine HCl (Cyclobenzaprine HCl), 10 MG PO TID PRN for MUSCLE SPASMS, (Reported) Hydrocodone/Acetaminophen (Hydrocodone-Acetamin 5-325 mg), 1-2 TAB PO Q6H PRN for PAIN-MODERATE (5-7), (Reported) Triamcinolone Acet (Triamcinolone Acetonide 0.1% Cream), 1 GM TOP BID PRN for IRRITATION/ITCHING, (Reported) Discontinued Medications Fesoterodine Fumarate (Toviaz), 4 MG PO DAILY, (Reported) Discontinued Reason: No Longer Taking Solifenacin Succinate (Vesicare), 5 MG PO DAILY, (Reported) Discontinued Reason: No Longer Taking Current Medications Current Medications Reviewed Laboratory Data Laboratory Tests 07/10/19 04:47: White Blood Count 7.7, Red Blood Count 3.21L, Hemoglobin 9.2L, Hematocrit 29L, Mean Corpuscular Volume 91, Mean Corpuscular Hemoglobin 29, Mean Corpuscular Hemoglobin Concent 32, Red Cell Distribution Width 16.0H, Platelet Count 187, Mean Platelet Volume 11.6H, Neutrophils (%) (Auto) 67, Lymphocytes (%) (Auto) 18, Monocytes (%) (Auto) 12, Eosinophils (%) (Auto) 4, Basophils (%) (Auto) 0, Neutrophils # (Auto) 5.1, Lymphocytes # (Auto) 1.4, Monocytes # (Auto) 0.9, Eosinophils # (Auto) 0.3, Basophils # (Auto) 0.0, Sodium Level 139, Potassium Level 4.4, Chloride Level 105, Carbon Dioxide Level 25, Anion Gap 9, Blood Urea Nitrogen 19H, Creatinine 0.87, Estimat Glomerular Filtration Rate > 60, BUN/Creatinine Ratio 22, Glucose Level 101, Calcium Level 8.5, Corrected Calcium 9.1, Total Bilirubin 0.5, Aspartate Amino Transf (AST/SGOT) 15, Alanine Aminotransferase (ALT/SGPT) 6, Alkaline Phosphatase 53, Total Protein 5.9L, Albumin 3.3 Review of Systems Constitutional: see HPI EENTM: no symptoms reported Respiratory: no symptoms reported Cardiovascular: no symptoms reported Gastrointestinal: no symptoms reported Genitourinary: other (retention requiring woods cath) Musculoskeletal: back pain Skin: no symptoms reported Psychiatric/Neurological: Anxiety All Other Systems Reviewed Negative Unless Noted: Yes Physical Exam Physical Exam Vital Signs Vital Signs - First Documented 07/10/19 10:32 Temp 37.4 Pulse 68 Resp 16 B/P (MAP) 135/68 Pulse Ox 94 O2 Delivery Room Air Capillary Refill : Less Than 3 Seconds Height, Weight, BMI Height: '3" Weight: 165lbs. oz. 74.463031ow; 23.30 BMI Method:Estimated General Appearance: No Apparent Distress, WD/WN, Chronically ill, Thin Eyes: Bilateral Eye Normal Inspection, Bilateral Eye PERRL HEENT: PERRL/EOMI, Normal ENT Inspection, Pharynx Normal Neck: Full Range of Motion, Normal Inspection, Non Tender, Supple, Carotid Bruit Respiratory: Chest Non Tender, Lungs Clear, Normal Breath Sounds, No Accessory Muscle Use, No Respiratory Distress, Other (crakles in lower lobes) Cardiovascular: Regular Rate, Rhythm, No Edema, No Gallop, No JVD, No Murmur, Normal Peripheral Pulses Gastrointestinal: Normal Bowel Sounds, No Organomegaly, No Pulsatile Mass, Non Tender, Soft Back: Normal Inspection, No CVA Tenderness, No Vertebral Tenderness Extremity: Normal Capillary Refill, Normal Inspection, Normal Range of Motion, Non Tender, No Calf Tenderness, No Pedal Edema Neurologic/Psychiatric: Alert, Oriented x3, No Motor/Sensory Deficits, Normal Mood/Affect Skin: Normal Color, Warm/Dry Lymphatic: No Adenopathy PM&R Medical Assessment & Plan REHAB/MEDICAL ASSESSMENT AND PLAN: REHAB IMPAIRMENT GROUP: Lumbar stenosis with myelopathy requiring urgent laminectomy two levels ETIOLOGIC DIAGNOSIS: Lumbar stenosis with myelopathy requiring urgent laminectomy two levels The comorbidities that impact the patients function and/or functional outcome by: Frail status, advanced age, urinary retention, OAB REHAB PLAN: The patient is being admitted to our comprehensive inpatient rehabilitation facility and can tolerate the intensity of service consisting of at least: 180 minutes of therapy a day, 5 out of 7 days a week Rehab treatment will consist of: PT and OT will focus on strengthening legs f rom radiculopathy myelopathy and recent laminectomies The patient/family has a good understanding of our discharge process and will benefit from an interdisciplinary inpatient rehabilitation program. The patient has potential to make improvement and is in need of at least two of the following multidisciplinary therapies including but not limited to physical, occupational, speech, and prosthetics and orthotics. Additionally the patient will need services from respiratory, nutritional services, wound care, psychology, etc. (Customize this to each patient). Given the patients complex condition and risk of further medical complications, rehabilitation services cannot be safely or effectively provided at a lower level of care such as a assisted facility. BARRIERS TO DISCHARGE: Advanced age and fall risk ESTIMATED LOS: 7 days DISPOSITION: Home with daughter RELEVANT CHANGES SINCE PREADMISSION SCREENING: I have compared the patients medical and functional status at the time of the preadmission screening and there are: no changes PROGNOSIS: Good REHABILITATION GOALS: 1. PT and OT will focus on fall prevention and strengthening from recent back surgery and advanced age issues All the above goals were reviewed with the patient and he/she is in agreement. By signing this document, I acknowledge that I have personally performed a full physical examination on this patient within 24 hours of admission to this inpatient rehabilitation facility and have determined the patient to be able to tolerate the above course of treatment at an intensive level for a reasonable period of time. I will be completing a detailed individualized Plan of Care for this patient by day #4 of the patients stay based upon the Preadmission Screen, the Post-Admission Evaluation, and the therapy evaluations. Admission Dx/Comorbidities: (1) Lumbar stenosis ICD Codes: M48.061 - Spinal stenosis, lumbar region without neurogenic claudication (2) Lung crackles ICD Codes: R09.89 - Other specified symptoms and signs involving the circulatory and respiratory systems (3) Woods catheter in place ICD Codes: Z96.0 - Presence of urogenital implants (4) Overactive bladder ICD Codes: N32.81 - Overactive bladder (5) Urinary retention ICD Codes: R33.9 - Retention of urine, unspecified (6) Intractable low back pain Status: Acute ICD Codes: M54.5 - Low back pain (7) DVT prophylaxis ICD Codes: Z29.9 - Encounter for prophylactic measures, unspecified (8) Advanced age ICD Codes: R54 - Age-related physical debility (9) At risk for falls ICD Codes: Z91.81 - History of falling (10) Thin build ICD Codes: R68.89 - Other general symptoms and signs (11) Hypertension ICD Codes: I10 - Essential (primary) hypertension (12) Osteoarthritis ICD Codes: M19.90 - Unspecified osteoarthritis, unspecified site (13) Depression ICD Codes: F32.9 - Major depressive disorder, single episode, unspecified PERRY GIBSON DO Jul 10, 2019 12:20
[2019-07-10] MEDS ORDERED: BACLOFEN 10 MG (LIORESAL) TAB PO PRN (12:30)
[2019-07-10] MEDS ORDERED: CATHETER FLUSH 10 ML SYR IV PRN (12:30)
[2019-07-10] MEDS ORDERED: fentaNYL INJECTION 100 MCG/2 ML AMP IVP PRN (12:30)
[2019-07-10] MEDS ORDERED: CYCLOBENZAPRINE 10 MG (FLEXERIL) TAB PO PRN (12:30)
[2019-07-10] MEDS ORDERED: ONDANSETRON 4 MG/2 ML (SDV) Z0FRAN IV PRN (12:30)
--- NOTE | 2019-07-10 14:54 | Progress Note - Urology ---
Progress Note-Urology Progress Notes/Assess & Plan Progress/Assessment & Plan PATIENT APPARENTLY IS STILL ON mYRBETRIQ FROM HOME MEDICINES, REASON??? WE WILL HOLD IT ALONG WITH TROSPIUM ?TOV TOMORROW Final Diagnosis URINE RETENTION LATRICIA ALTAMIRANO MD Jul 10, 2019 14:54
--- NOTE | 2019-07-10 15:18 | NUR ---
DR ALTAMIRANO HERE TO SEE PT. DR ALTAMIRANO WANTS TO BE SURE THAT MYBETRIQ (HOME MEDICATION THAT WAS BROUGHT TO HOSPITAL) IS DISCONTINUED.
[2019-07-10 17:08] VITALS: BP 126/76
[2019-07-10] MEDS: DICLOFENAC 1% GEL 100 GM (VOLTAREN) TUBE TOP SCH ×3 (17:24→20:27)
[2019-07-10] MEDS: DOCUSATE SODIUM 100 MG (COLACE) CAP PO SCH (20:26)
[2019-07-10] MEDS: SENNA W/DOCUSATE (SENOKOT S) TABLET PO SCH (20:26)
[2019-07-10] MEDS: POLYETHYLENE GLYCOL 17 GM (MIRALAX) PACK PO SCH (20:26)
[2019-07-10] MEDS ORDERED: POLYETHYLENE GLYCOL 17 GM (MIRALAX) PACK PO SCH (21:00)
[2019-07-10] MEDS ORDERED: SENNA W/DOCUSATE (SENOKOT S) TABLET PO SCH (21:00)
[2019-07-11 05:47] VITALS: BP 102/56
[2019-07-11 06:01] LABS: BASOPHILS % (AUTO) 0 % (0-10); EOSINOPHILS # (AUTO) 0.3 10^3/uL (0.0-0.3); EOSINOPHILS % (AUTO) 5 % (0-10); HEMATOCRIT 28 % (35-52); HEMOGLOBIN 8.7 G/DL (11.5-16.0); LYMPHOCYTES # (AUTO) 1.3 X 10^3 (1.0-4.0); LYMPHOCYTES % (AUTO) 20 % (12-44); MEAN CORPUSCULAR HEMOGLOBIN 28 PG (25-34); MEAN CORPUSCULAR HGB CONC 31 G/DL (32-36); MEAN CORPUSCULAR VOLUME 90 FL (80-99); MEAN PLATELET VOLUME 11.3 FL (7.4-10.4); MONOCYTES % (AUTO) 14 % (0-12); NEUTROPHILS # (AUTO) 4.2 X 10^3 (1.8-7.8); NEUTROPHILS % (AUTO) 62 % (42-75); PLATELET COUNT 186 10^3/uL (130-400); RED CELL DISTRIBUTION WIDTH 16.1 % (10.0-14.5); WHITE BLOOD COUNT 6.8 10^3/uL (4.3-11.0)
[2019-07-11] MEDS: MULTIVIT W/MINERALS TAB (THERAGRAN M) PO SCH (06:14)
[2019-07-11 06:22] LABS: ALANINE AMINOTRANSFERASE < 6 U/L (0-55); ALBUMIN 3.2 GM/DL (3.2-4.5); ALKALINE PHOSPHATASE 56 U/L (40-136); BILIRUBIN,TOTAL 0.4 MG/DL (0.1-1.0); BUN/CREATININE RATIO 18; CALCIUM 8.8 MG/DL (8.5-10.1); CARBON DIOXIDE 24 MMOL/L (21-32); CHLORIDE 105 MMOL/L (98-107); CREATININE SERUM 1.01 MG/DL (0.60-1.30); GFR ESTIMATED 52; GLUCOSE 97 MG/DL (70-105); POTASSIUM 4.4 MMOL/L (3.6-5.0); SODIUM 139 MMOL/L (135-145); TOTAL PROTEIN 6.1 GM/DL (6.4-8.2)
--- NOTE | 2019-07-11 07:21 | Progress Note - Urology ---
Progress Note-Urology Progress Notes/Assess & Plan Progress/Assessment & Plan TOV TODAY Final Diagnosis URINE RETENTION LATRICIA ALTAMIRANO MD Jul 11, 2019 07:21
--- NOTE | 2019-07-11 08:53 | Physical Therapy Evaluation ---
PT Evaluation-General Medical Diagnosis Admission Date Jul 10, 2019 at 09:50 Medical Diagnosis: lumbar laminectomy Onset Date: Jul 07, 2019 Therapy Diagnosis Therapy Diagnosis: impaired mobility, strength, endurance, balance Height/Weight Height (Inches): 3 Weight (Pounds): 165 Precautions Precautions/Isolations: Fall Prevention, Standard Precautions Referral Physician: Jennifer Alba DO Reason for Referral: Evaluation/Treatment Medical History Pertinent Medical History: HTN Additional Medical History Past Medical History Surgeries: Bladder Surgery, Orthopedic (spine Dr Sandoval 06/2019) Currently Using CPAP: No Currently Using BIPAP: No Cardiac: Hypertension Sexually Transmitted Disease: No HIV/AIDS: No Female Reproductive Disorders: Denies Genitourinary: Bladder Infection, Neurogenic Bladder OAB Musculoskeletal: Arthritis, Chronic Back Pain Hearing Impairment: Denies History of Blood Disorders: No Reviewed History: Yes Social History Home: Single Level Current Living Status: Children Entry Into Home: Stairs With Railing PT Steps Into Home: 1 Patient states daughter has RA and can assist her a little but not much. Prior Prior Level of Function SCALE: Activities may be completed with or without assistive devices. 0-Rztvnxssmw-gitojfy completes the activity by him/herself with no assistance from a helper. 5-Set-up or Clean-up Assistance-helper sets up or cleans up; patient completes activity. [place] assists only prior to or following the activity. 4-Supervision or Touching Assistance-helper provides verbal cues and/or touching/steadying and/or contact guard assistance as patient completes activity. Assistance may be provided throughout the activity or intermittently. 3-Partial/Moderate Assistance-helper does LESS THAN HALF the effort. [place] lifts, holds or supports trunk or limbs, but provides less than half the effort. 2-Substantial/Maximal Assistance-helper does MORE THAN HALF the effort. [place] lifts or holds trunk or limbs and provides more than half the effort. 5-Ewwzbmedb-ibopcx does ALL the effort. Patient does none of the effort to complete the activity. Or, the assistance of 2 or more helpers is required for the patient to complete the activity. If activity was not attempted, code reason: 7-Patient Refused. 9-Not Applicable-not attempted and the patient did not perform the activity before the current illness, exacerbation or injury. 10-Not Attempted due to Environmental Limitations-(lack of equipment, weather restraints, etc.). 88-Not Attempted due to Medical Conditions or Safety Concerns. Bed Mobility: 6 Transfers (B,C,W/C): 6 Gait: 6 Stairs: 6 Indoor Mobility (Ambulation): Independent Stairs: Independent PT Evaluation-Current Subjective Patient in bed pre tx, agrees to PT, has no pain at rest, states that the surgery has helped her a lot. Patient does not have a back brace and does not have orders for one. Pt/Family Goals to be independent at home Objective Patient Orientation: Person, Place, Situation Attachments: Chávez Catheter ROM/Strength ROM Lower Extremities WNL Strength Lower Extremities 4/5 gross BLE Sensory Hearing: Functional Sensation Right Lower Extremit: Intact Sensation Left Lower Extremity: Intact Sensation Lower Extremities Patient states she has some impaired sensation on the bottom of her feet but has intact light touch sensation tested in L4-5 and S1 dermatomes. Transfers Roll Left to Right (QC): 4 Sit to Lying (QC): 4 Lying to Sitting/Side of Bed(Q: 4 Sit to Stand (QC): 4 Chair/Jzg-ib-Xntcn Xfer(QC): 4 Car Transfer (QC): 4 Patient performs bed mobility with SBA, supine <-> sit with SBA, sit <-> stand with CGA, transfers with CGA, car transfer CGA. Good use of hand placement and positioning during transfers, does not need many cues. Gait Does the Patient Walk?: Yes Mode of Locomotion: Walk Anticipated Mode of Locomotion: Walk Walk 10 feet (QC): 4 Walk 50 ft with 2 Turns(QC): 4 Walk 150 ft (QC): 4 Walking 10ft/uneven surface-QC: 4 Distance: 150'x2 Gait Assistive Device: FWW Comments/Gait Description Patient can ambulate 150' with a rolling walker with CGA (including 50' with at least 2 turns of 90 degrees and 10' over an uneven surface). Gait is slow and slightly unsteady but no neelam LOB. Wheelchair Training Does the Pt Use a Wheelchair?: No Wheel 50 ft with 2 turns (QC): 9 Wheel 150 ft (QC): 9 Stairs #of Steps: 1 1 Step (curb) (QC): 4 4 Steps (QC): 88 12 Steps (QC): 88 Walking Assistive Device: Walker Patient can go up and down 1 step using a rolling walker with CGA, cues for step placement. Balance Sitting Static: Normal Sitting Dynamic: Normal Standing Static: Good Standing Dynamic: Good Picking up an Object (QC): 88 Treatment Patient performed NuStep level 4 for 15 min, parallel bars exercises x15 (heel raises, mini-squats, hip abd, marching) Assessment/Needs Patient has impaired mobility, strength, endurance, balance. She has little to no pain, slightly unsteady with ambulation. Rehab Potential: Fair PT Short Term Goals Short Term Goals Time Frame: Jul 18, 2019 Roll Left & Right: 6 Sit to lyin Lying to sitting on side of be: 6 Sit to stand: 4 Chair/fhe-dc-tqjhw transfer: 4 Walk 10 feet: 4 Walk 50 feet with two turns: 4 Walk 150 feet: 4 PT Shoe Repair Cobbler Goals [facility] Goals PT [facility] Goals Time Frame: Aug 01, 2019 Roll Left & Right (QC): 6 Sit to Lying (QC): 6 Lying-Sitting on Side/Bed(QC): 6 Sit to Stand (QC): 6 Chair/Ory-vk-Kabeo Xfer(QC): 6 Toilet Transfer (QC): 6 Car Transfer (QC): 6 Walk 10 feet (QC): 6 Walk 50ft with 2 Turns (QC): 6 Walk 150 ft (QC): 6 Walking 10ft on Uneven Surface: 6 1 Step (curb) (QC): 4 4 Steps (QC): 4 Does the Pt use WC or Scooter?: No PT Plan Problem List Problem List: Activity Tolerance, Functional Strength, Safety, Balance, Gait, Transfer, Bed Mobility Treatment/Plan Treatment Plan: Continue Plan of Care Treatment Plan: Bed Mobility, Education, Functional Activity Kaden, Functional Strength, Group Therapy, Gait, Safety, Therapeutic Exercise, Transfers Treatment Duration: Aug 01, 2019 Frequency: At least 5 of 7 days/Wk (IRF) Estimated Hrs Per Day: 1.5 hours per day Patient and/or Family Agrees t: Yes Safety Risks/Education Patient Education: Gait Training, Transfer Techniques, Steps, Correct Positioning, Safety Issues Teaching Recipient: Patient Teaching Methods: Demonstration, Discussion Response to Teaching: Reinforcement Needed Discharge Recommendations Therapy Discharge Recommendati: Other, See Comments (home with family) Time/GCodes Time In: 0800 Time Out: 0900 Total Billed Treatment Time: 60 Total Billed Treatment 1 visit EVM 30' EX 30' ROCIO ZENDEJAS PT Jul 11, 2019 08:53
[2019-07-11 09:04] VITALS: BP 118/67
[2019-07-11] MEDS: ZINC SULFATE 220 MG CAPSULE PO SCH (09:07)
[2019-07-11] MEDS: POLYETHYLENE GLYCOL 17 GM (MIRALAX) PACK PO SCH ×2 (09:08→20:36)
[2019-07-11] MEDS: IRON SUCROSE 200 MG/10 ML (VENOFER) VIAL IV SCH (09:08)
[2019-07-11] MEDS: DOCUSATE SODIUM 100 MG (COLACE) CAP PO SCH ×2 (09:09→20:36)
[2019-07-11] MEDS: SENNA W/DOCUSATE (SENOKOT S) TABLET PO SCH ×2 (09:09→20:36)
--- NOTE | 2019-07-11 09:10 | PM&R Progress Note ---
Subjective HPI/CC On Admission Date Seen by Provider: Jul 11, 2019 Time Seen by Provider: 09:15 Subjective/Events-last exam Patient doing very well Legs are still a bit weak Fall risk remains Hemoglobin 8.7 Iron infusions ordered considering her iron level of 17 Chávez catheter maintained by urology Holding other bladder meds to prevent further retention SCDs maintained for DVT prophylaxis since anticoagulation is contraindicated due to recent spine surgery Bowels movement yesterday Conferred with RN Reviewed therapy notes Checked therapy notes Review of Systems General: Fatigue Genitourinary: Retention Musculoskeletal: back pain, leg pain Objective Exam Vital Signs Vital Signs Date Time Temp Pulse Resp B/P (MAP) Pulse Ox O2 Delivery O2 Flow Rate FiO2 07/11/19 19:18 98 Room Air 07/11/19 16:04 36.6 61 16 145/73 (97) Capillary Refill : Less Than 3 Seconds General Appearance: No Apparent Distress, WD/WN, Chronically ill, Thin HEENT: PERRL/EOMI, Normal ENT Inspection, Pharynx Normal Neck: Full Range of Motion, Normal Inspection, Non Tender, Supple, Carotid Bruit Respiratory: Chest Non Tender, Lungs Clear, Normal Breath Sounds, No Accessory Muscle Use, No Respiratory Distress, Other (crakles in lower lobes) Cardiovascular: Regular Rate, Rhythm, No Edema, No Gallop, No JVD, No Murmur, Normal Peripheral Pulses Gastrointestinal: Normal Bowel Sounds, No Organomegaly, No Pulsatile Mass, Non Tender, Soft Back: Normal Inspection, No CVA Tenderness, No Vertebral Tenderness Extremity: Normal Capillary Refill, Normal Inspection, Normal Range of Motion, Non Tender, No Calf Tenderness, No Pedal Edema Neurologic/Psychiatric: Alert, Oriented x3, No Motor/Sensory Deficits, Normal Mood/Affect Skin: Normal Color, Warm/Dry Lymphatic: No Adenopathy Results/Procedures Lab Laboratory Tests 07/11/19 05:48 Patient resulted labs reviewed. FIM Transfers Therapy Code Descriptions/Definitions Functional [place] Measure: 0=Not Assessed/NA 4=Minimal Assistance 1=Total Assistance 5=Supervision or Setup 2=Maximal Assistance 6=Modified [place] 3=Moderate Assistance 7=Complete IndependenceSCALE: Activities may be completed with or without assistive devices. 8-Hjlkmgpbmf-ygjuqra completes the activity by him/herself with no assistance from a helper. 5-Set-up or Clean-up Assistance-helper sets up or cleans up; patient completes activity. [place] assists only prior to or following the activity. 4-Supervision or Touching Assistance-helper provides verbal cues and/or touching/steadying and/or contact guard assistance as patient completes activity. Assistance may be provided throughout the activity or intermittently. 3-Partial/Moderate Assistance-helper does LESS THAN HALF the effort. [place] lifts, holds or supports trunk or limbs, but provides less than half the effort. 2-Substantial/Maximal Assistance-helper does MORE THAN HALF the effort. [place] lifts or holds trunk or limbs and provides more than half the effort. 3-Aedzupjkv-hpuayl does ALL the effort. Patient does none of the effort to complete the activity. Or, the assistance of 2 or more helpers is required for the patient to complete the activity. If activity was not attempted, code reason: 7-Patient Refused. 9-Not Applicable-not attempted and the patient did not perform the activity before the current illness, exacerbation or injury. 10-Not Attempted due to Environmental Limitations-(lack of equipment, weather restraints, etc.). 88-Not Attempted due to Medical Conditions or Safety Concerns. Roll Left to Right (QC): 4 Sit to Lying (QC): 4 Sit to Stand (QC): 4 Chair/Gxz-zz-Vtdvd Xfer(QC): 4 Car Transfer (QC): 4 Gait Training Does the Patient Walk?: Yes Walk 10 feet (QC): 4 Walk 50 ft with 2 Turns(QC): 4 Walk 150 ft (QC): 4 Walking 10ft/uneven surface-QC: 4 Gait Assistive Device: FWW Wheelchair Training Does the Pt Use a Wheelchair?: No Stair Training #of Steps: 1 1 Step (curb) (QC): 4 Balance Picking up an Object (QC): 88 Assessment/Plan Assessment and Plan Assess & Plan/Chief Complaint Assessment: s/p lumbar laminectomy 2 levels POD # 4 Post op urinary retention requiring in-swelling catheter and consulted Dr Thompson Frail status HTN Debility Advanced age Iron deficiency anemia requiring iron infusions Crackles on lung exam CXR negative except small nodule found incidentally so ordering CT chest IV contrast Plan: IRF protocol Chávez cath until Urology DC it BM regimen Appreciate Dr Sandoval and Dr Thompson Check CT chest IV iron (1) Lumbar stenosis (2) Lung crackles (3) Chávez catheter in place (4) Overactive bladder (5) Urinary retention (6) Intractable low back pain Status: Acute (7) DVT prophylaxis (8) Advanced age (9) At risk for falls (10) Thin build (11) Hypertension (12) Osteoarthritis (13) Depression PERRY GIBSON DO Jul 11, 2019 09:09
[2019-07-11] MEDS: amLODIPine 5 MG (NORVASC) TAB PO SCH (09:12)
[2019-07-11] MEDS: LOSARTAN 50 MG (COZAAR) TAB PO SCH (09:12)
[2019-07-11] MEDS: HYDROcodone/APAP 5 MG/325 MG (LORTAB) TAB PO PRN ×2 (09:19→20:35)
[2019-07-11] MEDS: DICLOFENAC 1% GEL 100 GM (VOLTAREN) TUBE TOP SCH ×4 (09:48→20:36)
--- NOTE | 2019-07-11 11:31 | ST Cognitive Linguistic Eval ---
Speech Evaluation-General Medical Diagnosis lumbar laminectomy Onset Date: Jul 11, 2019 Therapy Diagnosis Therapy Diagnosis: Cognitive-communication Referral Referring Physician: Dr. Alba Medical History Pertinent Medical History: HTN Reviewed History: Yes Social History Current Living Status: Children Speech PLF-Current Status Prior Level of Function Patient lived with her children where she was independent for much of her needs. Subjective Patient was pleasant and cooperative with the cognitive assessment. Language Eval: Auditory Comprehends Simple Yes/No Ques: Functional Indent/Objects Multiple [place]: Functional Ident/Pics in Multiple [place]: Functional Follows 1-Step Commands: Functional Follows Complex Directions: Functional Follows General Conversations: Functional Language Eval: Verbal Language Completes Spontaneous Greeting: Functional Produces Auto, Serial Info: Functional Imitates Simple Words/Phrases: Functional Word Finding: Functional Requests Basic Needs: Functional States Basic Personal Info: Functional Expresses Complex Ideas: Functional Objective Cognitive Domain Attention: WNL Memory: Mild Problem Solving: Functional Executive Functions: WNL Visuospatial Skills: WNL Composite Severity Rating: WNL Clock Drawing Severity Rating: WNL Objective Formal/Standardized Tests [facility] Status ([facility]) Results 27/30, within normal range of function Oral Motor/Speech Production Within Normal Limits Impression The patient is a pleasant 89 year old female who was re-admitted to the ARU s/p spinal fusion. Patient was given the UMS with a score of 27/30 obtained. This score falls in the normal range of function. The patient does not require further ST services at this time. Speech Patient Assess Expression of Ideas/Wants: Expression (4) Understanding Verbal Content: Understands (4) Brief Interview-Mental Status: Yes Repetition of Three Words: Three (3) Temporal Orientation: Year: Correct (3) Temporal Orientation: Month: Accurate within 5 days(2) Temporal Orientation: Day: Correct (1) Recall : Wear to say "Sock": Yes,after cueing (1) Recall : Color: Yes, after cueing (1) Recall : Bed: Yes, no cue required (2) Memory/Recall Ability: Current season, Location of own room, Staff names and faces, That he or she is in a hsp/hsp unit Speech-Plan Patient/Family Goals Patient/Family Goals: The patient plans on returning home with her children upon rehab discharge. Treatment Plan Speech Therapy Treatment Plan: Discontinue ST The patient does not require ST services at this time. Treatment Duration: Jul 11, 2019 Frequency: 1 time per week Estimated Hrs Per Day: .25 hour per day Rehab Potential: Fair Barriers to Learning: None identified Pt/Family Agrees to Plan: Yes Safety Risks/Education Teaching Recipient: Patient, Family Teaching Methods: Discussion Response to Teaching: Verbalize Understanding Education Topics Provided: Safety within her room and communication of her wants/needs. Time Speech Therapy Time In: 11:15 Speech Therapy Time Out: 11:30 Total Billed Time: 15 Billed Treatment Time 1LEI [address] ST Jul 11, 2019 11:31
--- NOTE | 2019-07-11 12:58 | Occupational Therapy Eval ---
OT Evaluation-General/PLF Medical Diagnosis Admission Date Jul 10, 2019 at 09:50 Medical Diagnosis: lumbar laminectomy Onset Date: Jul 11, 2019 Therapy Diagnosis Therapy Diagnosis: Decreased functional mobility and ADL function Height/Weight Height (Inches): 3 Weight (Pounds): 165 Precautions Precautions/Isolations: Fall Prevention, Standard Precautions, Pressure Ulcer Safety Interventions: None Weight Bear Status Weight Bearing Restriction: Full Weight Bearing Location Restriction: LE Bilateral Referral Physician: Jennifer Alba DO Referral Reason: Activity Tolerance, Self Care, Evaluation/Treatment, Strengthening/ROM Medical History Pertinent Medical History: HTN Additional Medical History HTN, arthritis, chronic back pain Current History Pt completed laminectomy last week; states pain has decreased significantly since. Reviewed History: Yes Social History Home: Single Level Current Living Status: Children Entry Into Home: Stairs With Railing Steps Into Home: 1 ADL-Prior Level of Function SCALE: Activities may be completed with or without assistive devices. 1-Pantblluue-gygvega completes the activity by him/herself with no assistance from a helper. 5-Set-up or Clean-up Assistance-helper sets up or cleans up; patient completes activity. [place] assists only prior to or following the activity. 4-Supervision or Touching Assistance-helper provides verbal cues and/or touching/steadying and/or contact guard assistance as patient completes activi ty. Assistance may be provided throughout the activity or intermittently. 3-Partial/Moderate Assistance-helper does LESS THAN HALF the effort. [place] lifts, holds or supports trunk or limbs, but provides less than half the effort. 2-Substantial/Maximal Assistance-helper does MORE THAN HALF the effort. [place] lifts or holds trunk or limbs and provides more than half the effort. 2-Cspyplxkt-pyfjdx does ALL the effort. Patient does none of the effort to complete the activity. Or, the assistance of 2 or more helpers is required for the patient to complete the activity. If activity was not attempted, code reason: 7-Patient Refused. 9-Not Applicable-not attempted and the patient did not perform the activity before the current illness, exacerbation or injury. 10-Not Attempted due to Environmental Limitations-(lack of equipment, weather restraints, etc.). 88-Not Attempted due to Medical Conditions or Safety Concerns. ADL PLOF Comments Pt states IND without use of AE. Self Care: Independent Functional Cognition: Independent DME/Equipment: Grab Bars, Tub/Shower DME/Equipment Comments tub bench within tub/shower, grab bars at shower and toilet. Occupation: retired Drive Self: Yes OT Current Status Subjective Pt seen in bed, nursing present. Pt c/o pain in mid-back that "hits" every once in a while. Pt contemplates tylenol and muscle relaxers, pt agreeable to OT tx session and evaluation. Mental Status/Objective Patient Orientation: Person, Place, Time, Situation, Normal For Age Current Glasses/Contacts: Yes Hearing Aids: No Dentures/Partials: Yes Hand Dominance: Right Upper Extremity ROM WFL BUE Upper Extremity Coordination WFL BUE Upper Extremity Sensation WFL, no c/o paresthesias Upper Extremity Strength 4-/5 bilaterally ADL-Treatment Eating (QC): 6 Oral Hygiene (QC): 6 Shower/Bathe Self (QC): 4 (Min A with back and feet; SBA during bottom) Upper Body Dressing (QC): 5 (s/u) Lower Body Dressing (QC): 2 (Max A: pt able to pull up in stancePt educated on AE for pant doffing/ donning, pt demosntrates back with min cues for placement of AE.) On/Off Footwear (QC): 2 (Max A with socks pre-sock aidePt completes with IND after education of sock aide use.) Toileting Hygiene (QC): 4 (SBA in stance.) Other Treatments Pt agreeable to OT eval/ treat. Pt completes eval in bed, stating intermittent pain. pt states pain was severe and BLE were "numb" prior to laminectomy, pt very pleased with outcome and wishes to regain strength and sensation in BLE and increase IND within ADLs. Pt lives with daughter who has RA, unable to assist pt at times. Pt roles include grocery shopping, cooking, cleaning, driving; pt denies past hx of falls recently. Pt very pleasant. Pt educated of back precautions and of use of AE during healing. Nursing notified of pt showering tasks. Pt completes showering tasks in room, dresses on shower bench. Pt completes denture hygiene at sink, requests chair behind her due to weakness of legs. Pt maintains balance at sink and demonstrates fair endurance. Safety awareness in tact. Pt returns to recliner chair, educated on HEP with handout and pt completes 10 sets of bilateral theraband exercises with yellow theraband (back flies, int/ ext rotations, shoulder scaptions, and tricep extensions). Pt's daughter present end of session, left in recliner chair, all needs met, call light in reach. Education OT Patient Education: Correct positioning, Exercise program, Home exercise program, Modified ADL techniques, Progress toward Goal/Update tx plan, Reviewed precautions, Rehab process, Safety issues, Use of adapted equipment Teaching Recipient: Patient Teaching Methods: Demonstration, Discussion Response to Teaching: Verbalize Understanding, Return Demonstration OT Short Term Goals Short Term Goals Shower/bathe self: 5 Upper body dressin Lower body dressin OT Assisted Goals Assisted Goals Time Frame: Jul 25, 2019 Eating (QC): 6 Oral Hygiene (QC): 6 Toileting Hygiene (QC): 6 Shower/Bathe Self (QC): 6 Upper Body Dressing (QC): 6 Lower Body Dressing (QC): 6 On/Off Footwear (QC): 6 Additional Goals: 1-Demonstrate ADL Tasks, 2-Verbalize Understanding, 3- ImproveStrength/Kaden 1=Demonstrate adherence to instructed precautions during ADL tasks. 2=Patient will verbalize/demonstrate understanding of assistive devices/modifications for ADL. 3=Patient will improve strength/tolerance for activity to enable patient to perform ADL's. OT Education/Plan Problem List/Assessment Assessment: Decreased Activ Tolerance, Decreased UE Strength, Impaired Funct Balance, Impaired I ADL's, Impaired Self-Care Skills Discharge Recommendations Plan/Recommendations: Continue POC Therapy Discharge Recommendati: Home & Family Equpiment Recommendations-D/C: Hip Kit Treatment Plan/Plan of Care Treatment,Training & Education: Yes Patient would benefit from OT for education, treatment and training to promote independence in ADL's, mobility, safety and/or upper extremity function for ADL's. Plan of Care: ADL Retraining, Functional Mobility, Group Exercise/Act as Ind, UE Funct Exercise/Act Treatment Duration: Jul 25, 2019 Frequency: At least 5 of 7 days/Wk (IRF) Estimated Hrs Per Day: 1.5 hours per day Agreement: Yes Rehab Potential: Good Time/GCodes Start Time: 09:15 Stop Time: 10:45 Total Time Billed (hr/min): 90 Billed Treatment Time 1, EVM, ADL 5 (90) ANGELITO BLACK OTR Jul 11, 2019 12:58
--- NOTE | 2019-07-11 14:13 | Physical Therapy Daily Note ---
PT Daily Note-Current Subjective Patient continues to deny back or leg pain on this date. Pain Numeric Pain Scale: 0-No Pain Location: No Pain Reported Mental Status Patient Orientation: Normal For Age Transfers SCALE: Activities may be completed with or without assistive devices. 6-Ypgjarjebh-dashtqv completes the activity by him/herself with no assistance from a helper. 5-Set-up or Clean-up Assistance-helper sets up or cleans up; patient completes activity. [place] assists only prior to or following the activity. 4-Supervision or Touching Assistance-helper provides verbal cues and/or touching/steadying and/or contact guard assistance as patient completes activity. Assistance may be provided throughout the activity or intermittently. 3-Partial/Moderate Assistance-helper does LESS THAN HALF the effort. [place] lifts, holds or supports trunk or limbs, but provides less than half the effort. 2-Substantial/Maximal Assistance-helper does MORE THAN HALF the effort. [place] lifts or holds trunk or limbs and provides more than half the effort. 7-Iloislwmt-bcpdaj does ALL the effort. Patient does none of the effort to complete the activity. Or, the assistance of 2 or more helpers is required for the patient to complete the activity. If activity was not attempted, code reason: 7-Patient Refused. 9-Not Applicable-not attempted and the patient did not perform the activity before the current illness, exacerbation or injury. 10-Not Attempted due to Environmental Limitations-(lack of equipment, weather restraints, etc.). 88-Not Attempted due to Medical Conditions or Safety Concerns. Roll Left & Right (QC): 5 Sit to Lying (QC): 5 Lying to Sitting/Side of Bed(Q: 5 Sit to Stand (QC): 5 Chair/Agn-yq-Wckxq Xfer(QC): 5 Toilet Transfer (QC): 5 Car Transfer (QC): 5 Gait Training Does the Patient Walk?: Yes Distance: 225'x2 Walk 10 feet (QC): 5 Walk 50 ft with 2 Turns(QC): 5 Walk 150 ft (QC): 5 Gait Assistive Device: FWW safe and functional with FWW/no deviation Exercises NuStep Minutes: 15 NuStep Workload: 3 (to improve mobility and strength) Assessment Patient tolerated treatment well and was able to toilet self. PT to increase activity to improve current LOF. PT Short Term Goals Short Term Goals Time Frame: Jul 18, 2019 Roll Left & Right: 6 Sit to lyin Lying to sitting on side of be: 6 Sit to stand: 4 Chair/sfs-bg-hfbdb transfer: 4 Walk 10 feet: 4 Walk 50 feet with two turns: 4 Walk 150 feet: 4 PT Serologist Goals Mcc Goals PT Mcc Goals Time Frame: Aug 01, 2019 Roll Left & Right (QC): 6 Sit to Lying (QC): 6 Lying-Sitting on Side/Bed(QC): 6 Sit to Stand (QC): 6 Chair/Dwr-el-Blwae Xfer(QC): 6 Toilet Transfer (QC): 6 Car Transfer (QC): 6 Walk 10 feet (QC): 6 Walk 50ft with 2 Turns (QC): 6 Walk 150 ft (QC): 6 Walking 10ft on Uneven Surface: 6 1 Step (curb) (QC): 4 4 Steps (QC): 4 Does the Pt use WC or Scooter?: No PT Plan Treatment/Plan Treatment Plan: Continue Plan of Care Treatment Plan: Bed Mobility, Education, Functional Activity Kaden, Functional Strength, Group Therapy, Gait, Safety, Therapeutic Exercise, Transfers Treatment Duration: Aug 01, 2019 Frequency: At least 5 of 7 days/Wk (IRF) Estimated Hrs Per Day: 1.5 hours per day Patient and/or Family Agrees t: Yes Time/GCodes Time In: 1330 Time Out: 1400 Total Billed Treatment Time: 30 Total Billed Treatment 1 visit EX 15 min GT 15 min BASIL SAMPSON PT Jul 11, 2019 14:13
[2019-07-11 16:04] VITALS: BP 145/73
--- NOTE | 2019-07-11 17:02 | NUR ---
ADMISSION Patient was admitted to ARU 07/10/19 for lumbar stenosis, lumbar radiculopathy, post op laminectomies. Prior to hospital admission she resided with her daughter Sander Blanco here in [place]. She was functionally mobile, including driving independently and babysitting grandchildren, until onset of prohibitive pain. DME: Patient indicates she has a FWW, hip kit is recommended by therapy. PCP: Dr. Mendez Carmona [facility] INSURED: Medicare, My Visual Brief supplement PHARMACY: [facility] ADVANCED DIRECTIVE: Patient's daughter Daysi Villar is indicated as DPOA, document has been requested for EMR file. Patient had five children, 4 daughters remain, her son in 1972 at age 21. She is very pleased with her post op pain relief and ongoing recovery and is hopeful to return to a better quality of function and life. She was on ARU just prior to surgical intervention, she understands the purpose of the weekly team conference as it relates to discharge planning.
[2019-07-11] MEDS: RT-ALBUTEROL SULF 2.5 MG/3 ML PRE-MIX VIAL INH SCH (19:16)
[2019-07-11] MEDS: MELATONIN 3 MG TABLET PO PRN (20:35)
[2019-07-12 06:00] VITALS: BP 147/68
[2019-07-12] MEDS: ACETAMINOPHEN 325 MG TABLET PO PRN ×2 (06:53→18:08)
[2019-07-12] MEDS: MULTIVIT W/MINERALS TAB (THERAGRAN M) PO SCH (06:53)
[2019-07-12] MEDS: LOSARTAN 50 MG (COZAAR) TAB PO SCH (08:21)
[2019-07-12] MEDS: SENNA W/DOCUSATE (SENOKOT S) TABLET PO SCH ×2 (08:21→20:39)
[2019-07-12] MEDS: DOCUSATE SODIUM 100 MG (COLACE) CAP PO SCH ×2 (08:21→20:34)
[2019-07-12] MEDS: ZINC SULFATE 220 MG CAPSULE PO SCH (08:21)
[2019-07-12] MEDS: amLODIPine 5 MG (NORVASC) TAB PO SCH (08:21)
--- NOTE | 2019-07-12 08:40 | Progress Note - Urology ---
Progress Note-Urology Progress Notes/Assess & Plan Progress/Assessment & Plan VOIDING WELL. NO PVR DONE YESTERDAY. WILL DO ONE TODAY Final Diagnosis URINE RETENTION LATRICIA ALTAMIRANO MD Jul 12, 2019 08:40
--- NOTE | 2019-07-12 09:04 | Physical Therapy Daily Note ---
PT Daily Note-Current Subjective Patient is very agreeable to participate with PT. No c/o. Denies pain. Pain Numeric Pain Scale: 0-No Pain Location: No Pain Reported Mental Status Patient Orientation: Normal For Age Transfers SCALE: Activities may be completed with or without assistive devices. 6-Glzwrbcrux-kghosbm completes the activity by him/herself with no assistance from a helper. 5-Set-up or Clean-up Assistance-helper sets up or cleans up; patient completes activity. [place] assists only prior to or following the activity. 4-Supervision or Touching Assistance-helper provides verbal cues and/or touching/steadying and/or contact guard assistance as patient completes activity. Assistance may be provided throughout the activity or intermittently. 3-Partial/Moderate Assistance-helper does LESS THAN HALF the effort. [place] l ifts, holds or supports trunk or limbs, but provides less than half the effort. 2-Substantial/Maximal Assistance-helper does MORE THAN HALF the effort. [place] lifts or holds trunk or limbs and provides more than half the effort. 9-Udyycfeut-xxlvjv does ALL the effort. Patient does none of the effort to complete the activity. Or, the assistance of 2 or more helpers is required for t he patient to complete the activity. If activity was not attempted, code reason: 7-Patient Refused. 9-Not Applicable-not attempted and the patient did not perform the activity before the current illness, exacerbation or injury. 10-Not Attempted due to Environmental Limitations-(lack of equipment, weather restraints, etc.). 88-Not Attempted due to Medical Conditions or Safety Concerns. Roll Left & Right (QC): 6 Sit to Lying (QC): 6 Lying to Sitting/Side of Bed(Q: 6 Sit to Stand (QC): 6 Chair/Yex-px-Ngnrx Xfer(QC): 6 Toilet Transfer (QC): 6 Car Transfer (QC): 6 Gait Training Does the Patient Walk?: Yes Distance: 400' x 4 Walk 10 feet (QC): 5 Walk 50 ft with 2 Turns(QC): 5 Walk 150 ft (QC): 5 Walking 10ft/uneven surface-QC: 5 Gait Assistive Device: FWW slow, steady, safe and functional with no deviation Wheelchair Training Does the Pt Use a Wheelchair?: No Stair Training Stair Training: Handrails/: 2 handrails #of Steps: 12 1 Step (curb) (QC): 5 4 Steps (QC): 5 12 Steps (QC): 5 Stairs: Pattern: Step to Exercises Supine Ex: Ankle pumps, Quad Set, Heel Slides, Straight leg raise Supine Reps: 15 Seated Therapy Exercises: Ankle pumps, Long arc quads, Hip flexion Seated Reps: 15 (2 sets) Standing: Heel/toe raises, 3 way Ex=Flex, Abd, Ext, Marching, Mini squats Standing Reps: 15 NuStep Minutes: 20 NuStep Workload: 3 (to improve strength and mobility) Assessment Patient is highly motivated with progress and desires to return to home at the end of the week. PT to continue to increase activity as tolerated by patient. PT Short Term Goals Short Term Goals Time Frame: Jul 18, 2019 Roll Left & Right: 6 Sit to lyin Lying to sitting on side of be: 6 Sit to stand: 4 Chair/dbl-lk-dtbnq transfer: 4 Walk 10 feet: 4 Walk 50 feet with two turns: 4 Walk 150 feet: 4 PT Burial Agent Goals Custodial Goals PT Burial Agent Goals Time Frame: Aug 01, 2019 Roll Left & Right (QC): 6 Sit to Lying (QC): 6 Lying-Sitting on Side/Bed(QC): 6 Sit to Stand (QC): 6 Chair/Pbg-zr-Gfitu Xfer(QC): 6 Toilet Transfer (QC): 6 Car Transfer (QC): 6 Walk 10 feet (QC): 6 Walk 50ft with 2 Turns (QC): 6 Walk 150 ft (QC): 6 Walking 10ft on Uneven Surface: 6 1 Step (curb) (QC): 4 4 Steps (QC): 4 Does the Pt use WC or Scooter?: No PT Plan Treatment/Plan Treatment Plan: Continue Plan of Care Treatment Plan: Bed Mobility, Education, Functional Activity Kaden, Functional Strength, Group Therapy, Gait, Safety, Therapeutic Exercise, Transfers Treatment Duration: Aug 01, 2019 Frequency: At least 5 of 7 days/Wk (IRF) Estimated Hrs Per Day: 1.5 hours per day Patient and/or Family Agrees t: Yes Time/GCodes Time In: 730 Time Out: 900 Total Billed Treatment Time: 90 Total Billed Treatment 1 visit EX x 4 60 min FA x 2 30 min BASIL SAMPSON PT Jul 12, 2019 09:04
[2019-07-12] MEDS: POLYETHYLENE GLYCOL 17 GM (MIRALAX) PACK PO SCH ×2 (09:18→20:39)
--- NOTE | 2019-07-12 09:29 | NUR ---
PVR Bladder Scan is 18cc. Notified Dr. Thompson.
[2019-07-12] MEDS ORDERED: IOHEXOL 350 MG/ML 100 ML (OMNIPAQUE 350) VIAL IV ONE (09:45)
[2019-07-12] MEDS ORDERED: HOLD METFORMIN - RECEIVED CONTRAST 20 ML VIAL IV SCH (09:45)
[2019-07-12] MEDS ORDERED: NS 100 ML (IVPB) BAG IV ONE (09:45)
[2019-07-12] MEDS: RT-ALBUTEROL SULF 2.5 MG/3 ML PRE-MIX VIAL INH SCH ×2 (09:50→18:59)
--- NOTE | 2019-07-12 11:25 | PM&R Progress Note ---
Subjective HPI/CC On Admission Date Seen by Provider: Jul 12, 2019 Time Seen by Provider: 10:30 Subjective/Events-last exam Patient doing very well Legs are still a bit weak still abd DC likely Thursday will give her chance to resolve that issue Fall risk remains and will work on that aggressively Iron infusions tolerated Chávez catheter DC and PVR 17cc Holding other bladder meds to prevent further retention SCDs maintained for DVT prophylaxis since anticoagulation is contraindicated due to recent spine surgery Bowels movements regularly CT chest reviewed Conferred with RN Reviewed therapy notes Checked therapy notes Review of Systems Musculoskeletal: back pain, leg pain Objective Exam Vital Signs Vital Signs Date Time Temp Pulse Resp B/P (MAP) Pulse Ox O2 Delivery O2 Flow Rate FiO2 07/12/19 06:00 37.0 64 18 147/68 (94) 99 Room Air Capillary Refill : Less Than 3 Seconds General Appearance: No Apparent Distress, WD/WN, Chronically ill, Thin HEENT: PERRL/EOMI, Normal ENT Inspection, Pharynx Normal Neck: Full Range of Motion, Normal Inspection, Non Tender, Supple, Carotid Bruit Respiratory: Chest Non Tender, Lungs Clear, Normal Breath Sounds, No Accessory Muscle Use, No Respiratory Distress, Other (crakles in lower lobes) Cardiovascular: Regular Rate, Rhythm, No Edema, No Gallop, No JVD, No Murmur, Normal Peripheral Pulses Gastrointestinal: Normal Bowel Sounds, No Organomegaly, No Pulsatile Mass, Non Tender, Soft Back: Normal Inspection, No CVA Tenderness, No Vertebral Tenderness Extremity: Normal Capillary Refill, Normal Inspection, Normal Range of Motion, Non Tender, No Calf Tenderness, No Pedal Edema Neurologic/Psychiatric: Alert, Oriented x3, No Motor/Sensory Deficits, Normal Mood/Affect Skin: Normal Color, Warm/Dry Lymphatic: No Adenopathy Results/Procedures Lab Patient resulted labs reviewed. FIM Transfers Therapy Code Descriptions/Definitions Functional [place] Measure: 0=Not Assessed/NA 4=Minimal Assistance 1=Total Assistance 5=Supervision or Setup 2=Maximal Assistance 6=Modified [place] 3=Moderate Assistance 7=Complete IndependenceSCALE: Activities may be completed with or without assistive devices. 1-Asstcsphxe-akqyoet completes the activity by him/herself with no assistance from a helper. 5-Set-up or Clean-up Assistance-helper sets up or cleans up; patient completes activity. [place] assists only prior to or following the activity. 4-Supervision or Touching Assistance-helper provides verbal cues and/or touching/steadying and/or contact guard assistance as patient completes activity. Assistance may be provided throughout the activity or intermittently. 3-Partial/Moderate Assistance-helper does LESS THAN HALF the effort. [place] lifts, holds or supports trunk or limbs, but provides less than half the effort. 2-Substantial/Maximal Assistance-helper does MORE THAN HALF the effort. [place] lifts or holds trunk or limbs and provides more than half the effort. 3-Mluywatew-cqbiau does ALL the effort. Patient does none of the effort to complete the activity. Or, the assistance of 2 or more helpers is required for the patient to complete the activity. If activity was not attempted, code reason: 7-Patient Refused. 9-Not Applicable-not attempted and the patient did not perform the activity before the current illness, exacerbation or injury. 10-Not Attempted due to Environmental Limitations-(lack of equipment, weather restraints, etc.). 88-Not Attempted due to Medical Conditions or Safety Concerns. Roll Left to Right (QC): 6 Sit to Lying (QC): 6 Sit to Stand (QC): 6 Chair/Jmu-zj-Nawsa Xfer(QC): 6 Car Transfer (QC): 6 Gait Training Does the Patient Walk?: Yes Distance: 400' x 4 Walk 10 feet (QC): 5 Walk 50 ft with 2 Turns(QC): 5 Walk 150 ft (QC): 5 Walking 10ft/uneven surface-QC: 5 Gait Assistive Device: FWW Wheelchair Training Does the Pt Use a Wheelchair?: No Wheel 50 ft with 2 turns (QC): 9 Wheel 150 ft (QC): 9 Stair Training Stair Training: Handrails/: 2 handrails #of Steps: 12 1 Step (curb) (QC): 5 4 Steps (QC): 5 12 Steps (QC): 5 Stairs: Pattern: Step to Balance Picking up an Object (QC): 88 ADL-Treatment Eating (QC): 6 Oral Hygiene (QC): 6 Shower/Bathe Self (QC): 4 (Min A with back and feet; SBA during bottom) Upper Body Dressing (QC): 5 (s/u) Lower Body Dressing (QC): 2 (Max A: pt able to pull up in stancePt educated on AE for pant doffing/ donning, pt demosntrates back with min cues for placement of AE.) On/Off Footwear (QC): 2 (Max A with socks pre-sock aidePt completes with IND after education of sock aide use.) Toileting Hygiene (QC): 4 (SBA in stance.) Assessment/Plan Assessment and Plan Assess & Plan/Chief Complaint Assessment: s/p lumbar laminectomy 2 levels POD # 5 Post op urinary retention requiring in-swelling catheter and consulted Dr Thompson now DC and urinating well without retention Frail status HTN Debility Advanced age Iron deficiency anemia requiring iron infusions Crackles on lung exam CT chest reviewed Plan: IRF protocol Chávez cath DC BM regimen Appreciate Dr Sandoval and Dr Thompson Check CT chest reviewed IV iron DC Thursday (1) Lumbar stenosis (2) Lung crackles (3) Chávez catheter in place (4) Overactive bladder (5) Urinary retention (6) Intractable low back pain Status: Acute (7) DVT prophylaxis (8) Advanced age (9) At risk for falls (10) Thin build (11) Hypertension (12) Osteoarthritis (13) Depression PERRY GIBSON DO Jul 12, 2019 11:25
--- NOTE | 2019-07-12 11:27 | Occupational Ther Daily Note ---
OT Current Status-Daily Note Subjective Pt in bed, agrees to therapy. Pt has no c/o pain. ADL-Treatment Pt supine to sit without assist. Sit to stand with modified independence. Gait to restroom with FWW, no LOB noted. Transfer to shower using grab bars for safety. Pt doffed clothing without assist. Used dressing stick to doff lower body clothing. Seated bathing completed using hand held shower and long handled sponge. Pt able to wash all areas after set up. Don pullover shirt with set up. Reviewed use of adaptive equipment for LE dressing. Pt donned underwear and pants using human resources office manager. Stood using FWW for balance during pant hike. Pt donned bilateral socks with set up using sock aid. Transfer to toilet using grab bars for safety. Pt able to complete toileting hygiene and clothing management. Stood at sink to wash hands without assist. Pt states she already completed oral care this morning. Therapy Code Descriptions/Definitions Functional [place] Measure: 0=Not Assessed/NA 4=Minimal Assistance 1=Total Assistance 5=Supervision or Setup 2=Maximal Assistance 6=Modified [place] 3=Moderate Assistance 7=Complete IndependenceSCALE: Activities may be completed with or without assistive devices. 1-Ygrhyffwhi-phoykww completes the activity by him/herself with no assistance from a helper. 5-Set-up or Clean-up Assistance-helper sets up or cleans up; patient completes activity. [place] assists only prior to or following the activity. 4-Supervision or Touching Assistance-helper provides verbal cues and/or touching/steadying and/or contact guard assistance as patient completes activity. Assistance may be provided throughout the activity or intermittently. 3-Partial/Moderate Assistance-helper does LESS THAN HALF the effort. [place] lifts, holds or supports trunk or limbs, but provides less than half the effort. 2-Substantial/Maximal Assistance-helper does MORE THAN HALF the effort. [place] lifts or holds trunk or limbs and provides more than half the effort. 9-Vgmqiehst-kemqkj does ALL the effort. Patient does none of the effort to complete the activity. Or, the assistance of 2 or more helpers is required for the patient to complete the activity. If activity was not attempted, code reason: 7-Patient Refused. 9-Not Applicable-not attempted and the patient did not perform the activity before the current illness, exacerbation or injury. 10-Not Attempted due to Environmental Limitations-(lack of equipment, weather restraints, etc.). 88-Not Attempted due to Medical Conditions or Safety Concerns. Shower/Bathe Self (QC): 5 Upper Body Dressing (QC): 5 Lower Body Dressing (QC): 5 On/Off Footwear: 5 Toileting Hygiene (QC): 5 Toilet Transfer (QC): 5 Other Treatment Gait to therapy gym with FWW, no LOB noted. Arm bike x15 minutes to increase overall strength and activity tolerance needed for functional task completion. Pt performed task with minimal resistance and slow pace. No rest breaks needed during task. Pt completed graded clothespins task with bilateral hands to increase rewind operator/pinch strength for ADLs. Pt returned to room and completed sit to supine without assist. Pt resting in bed with needs met and visitor present after session. Education OT Patient Education: Modified ADL techniques Teaching Recipient: Patient Teaching Methods: Demonstration, Discussion Response to Teaching: Verbalize Understanding, Return Demonstration OT Short Term Goals Short Term Goals Shower/bathe self: 5 Upper body dressin Lower body dressin OT Senior Living Goals Senior Living Goals Time Frame: Jul 25, 2019 Eating (QC): 6 Oral Hygiene (QC): 6 Toileting Hygiene (QC): 6 Shower/Bathe Self (QC): 6 Upper Body Dressing (QC): 6 Lower Body Dressing (QC): 6 On/Off Footwear (QC): 6 Additional Goals: 1-Demonstrate ADL Tasks, 2-Verbalize Understanding, 3- ImproveStrength/Kaden 1=Demonstrate adherence to instructed precautions during ADL tasks. 2=Patient will verbalize/demonstrate understanding of assistive devices/modifications for ADL. 3=Patient will improve strength/tolerance for activity to enable patient to perform ADL's. OT Education/Plan Discharge Recommendations Plan/Recommendations: Continue POC Treatment Plan/Plan of Care Patient would benefit from OT for education, treatment and training to promote independence in ADL's, mobility, safety and/or upper extremity function for ADL 's. Plan of Care: ADL Retraining, Functional Mobility, Group Exercise/Act as Ind, UE Funct Exercise/Act Treatment Duration: Jul 25, 2019 Frequency: At least 5 of 7 days/Wk (IRF) Estimated Hrs Per Day: 1.5 hours per day Agreement: Yes Rehab Potential: Good Time/GCodes Start Time: 09:30 Stop Time: 11:00 Total Time Billed (hr/min): 90 Billed Treatment Time 1 visit, ADLx4(60minutes), EXx2(30minutes) LAYLA TRINIDAD OT Jul 12, 2019 11:27
--- NOTE | 2019-07-12 13:12 | Diagnostic Imaging Report ---
PROCEDURE: CT angiography of the chest with contrast. TECHNIQUE: Multiple contiguous axial images were obtained through the chest after uneventful bolus administration of intravenous contrast. 3D reconstructed CTA MIP acquisitions were also performed. Auto Exposure Controls were utilized during the CT exam to meet ALARA standards for radiation dose reduction. INDICATION: Abnormality seen on chest radiograph. COMPARISON: Chest radiograph on 07/08/2019. FINDINGS: The heart size is prominent. No pericardial effusion is present. No evidence of pulmonary embolism to the subsegmental pulmonary arteries. The thoracic aorta demonstrates atherosclerotic plaque without aneurysm or dissection. Mildly prominent mediastinal lymph nodes are seen. Subpleural reticular opacities are seen throughout the lungs. There is somewhat focal prominence of reticular opacities and intralobular septal thickening in the mid left lung, likely representing the area of abnormality seen on the prior chest radiograph. No distinct mass or nodule is seen. No focal consolidations. No central endobronchial obstructing lesions are identified. There is no pleural effusion or pneumothorax. The osseous structures demonstrate no acute abnormalities. Limited views of the upper abdominal structures demonstrate no acute abnormalities. 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 Both adrenal glands are unremarkable. IMPRESSION: 1. Focal area of reticular opacities and intralobular septal thickening in the mid left lung, likely representing a focal area of opacity on the chest radiograph performed 07/08/2019. This likely represents inflammatory or infectious etiology. No focal nodular pulmonary mass is seen. 2. No evidence of pulmonary embolism or thoracic aortic dissection or aneurysm. 3. Mild cardiomegaly. Dictated by: Dictated on workstation # [id number]
[2019-07-12] MEDS: DICLOFENAC 1% GEL 100 GM (VOLTAREN) TUBE TOP SCH ×3 (14:19→20:35)
--- NOTE | 2019-07-12 15:06 | NUR ---
Weekly team conference Weekly team conference held today due to on Thursday. Discussed team conference with patient and her spouse. Team recommends discharge date of 07/16/19 with recommendation of home health care nursing, PT and OT. Patient is in agreement with this plan. Patient provided with list of Medicare participating home health care agencies in the geographic area of the patient. Patient selected [facility] agency and was provided with a comparative data handout from [facility]'s website. Patient and spouse educated on the quality outcomes for the provider. Patient and spouse demonstrated understanding. Referral made to [facility]. Patient denies need for any equipment at discharge.
[2019-07-12 18:44] VITALS: BP 122/64
--- NOTE | 2019-07-12 19:17 | NUR ---
bedside report received from WILBER COBIAN, assume care of pt
[2019-07-12] MEDS: MELATONIN 3 MG TABLET PO PRN (20:34)
--- NOTE | 2019-07-12 20:34 | NUR ---
pt refused Senokot & miralax, took Colace, voltaren to hip for discomfort level 4/10 on numeric scale
--- NOTE | 2019-07-12 21:25 | NUR ---
resting quietly in bed, pain level 0/10 on flacc scale
[2019-07-13 05:58] VITALS: BP 128/73
[2019-07-13] MEDS: MULTIVIT W/MINERALS TAB (THERAGRAN M) PO SCH (07:06)
--- NOTE | 2019-07-13 07:19 | NUR ---
bedside report given to CHERYL COBIAN
[2019-07-13] MEDS: RT-ALBUTEROL SULF 2.5 MG/3 ML PRE-MIX VIAL INH SCH ×2 (07:23→20:34)
[2019-07-13 08:00] VITALS: BP 115/58
[2019-07-13] MEDS: ZINC SULFATE 220 MG CAPSULE PO SCH (09:11)
[2019-07-13] MEDS: LOSARTAN 50 MG (COZAAR) TAB PO SCH (09:11)
[2019-07-13] MEDS: amLODIPine 5 MG (NORVASC) TAB PO SCH (09:11)
[2019-07-13] MEDS: POLYETHYLENE GLYCOL 17 GM (MIRALAX) PACK PO SCH ×2 (09:12→21:51)
[2019-07-13] MEDS: DOCUSATE SODIUM 100 MG (COLACE) CAP PO SCH ×2 (09:12→21:51)
[2019-07-13] MEDS: IRON SUCROSE 200 MG/10 ML (VENOFER) VIAL IV SCH (09:13)
[2019-07-13] MEDS: SENNA W/DOCUSATE (SENOKOT S) TABLET PO SCH ×2 (09:13→21:51)
[2019-07-13] MEDS: DICLOFENAC 1% GEL 100 GM (VOLTAREN) TUBE TOP SCH ×4 (09:13→21:54)
[2019-07-13] MEDS: ACETAMINOPHEN 325 MG TABLET PO PRN (09:34)
--- NOTE | 2019-07-13 09:45 | NUR ---
STATES "IT'S A MIRACLE HOW MUCH PROGRESS I'VE MADE SINCE I'VE BEEN HERE". FEELS IS EMPTYING BLADDER NOW. FEELS FEET ARE STILL A LITTLE NUMB. MEDICATED WITH TYLENOL FOR MILD RIGHT HIP PAIN.
--- NOTE | 2019-07-13 13:00 | NUR ---
AMBULATED IN [place] WITH STAND BY ASST. AND TOLERATED WELL. COMPANY VISITING.
--- NOTE | 2019-07-13 13:28 | PM&R Progress Note ---
Subjective HPI/CC On Admission Date Seen by Provider: Jul 13, 2019 Time Seen by Provider: 10:15 Subjective/Events-last exam Patient doing very well Legs are still a bit weak still and DC likely Thursday will give her chance to resolve that issue and she agrees Fall risk remains and will work on that aggressively Iron infusions tolerated Chávez catheter DC and PVR minimal to zero Holding other bladder meds to prevent further retention SCDs maintained for DVT prophylaxis since anticoagulation is contraindicated due to recent spine surgery Bowels movements regularly CT chest reviewed Conferred with RN Reviewed therapy notes Checked therapy notes Review of Systems Musculoskeletal: back pain, leg pain, foot pain Objective Exam Vital Signs Vital Signs Date Time Temp Pulse Resp B/P (MAP) Pulse Ox O2 Delivery O2 Flow Rate FiO2 07/13/19 17:38 37.4 67 20 139/50 (79) 97 Room Air Capillary Refill : Less Than 3 Seconds General Appearance: No Apparent Distress, WD/WN, Chronically ill, Thin HEENT: PERRL/EOMI, Normal ENT Inspection, Pharynx Normal Neck: Full Range of Motion, Normal Inspection, Non Tender, Supple, Carotid Bruit Respiratory: Chest Non Tender, Lungs Clear, Normal Breath Sounds, No Accessory Muscle Use, No Respiratory Distress, Other (crakles in lower lobes) Cardiovascular: Regular Rate, Rhythm, No Edema, No Gallop, No JVD, No Murmur, Normal Peripheral Pulses Gastrointestinal: Normal Bowel Sounds, No Organomegaly, No Pulsatile Mass, Non Tender, Soft Back: Normal Inspection, No CVA Tenderness, No Vertebral Tenderness Extremity: Normal Capillary Refill, Normal Inspection, Normal Range of Motion, Non Tender, No Calf Tenderness, No Pedal Edema Neurologic/Psychiatric: Alert, Oriented x3, No Motor/Sensory Deficits, Normal Mood/Affect Skin: Normal Color, Warm/Dry Lymphatic: No Adenopathy Results/Procedures Lab Patient resulted labs reviewed. FIM Transfers Therapy Code Descriptions/Definitions Functional [place] Measure: 0=Not Assessed/NA 4=Minimal Assistance 1=Total Assistance 5=Supervision or Setup 2=Maximal Assistance 6=Modified [place] 3=Moderate Assistance 7=Complete IndependenceSCALE: Activities may be completed with or without assistive devices. 4-Epfmlzcbnk-auzhnbq completes the activity by him/herself with no assistance from a helper. 5-Set-up or Clean-up Assistance-helper sets up or cleans up; patient completes activity. [place] assists only prior to or following the activity. 4-Supervision or Touching Assistance-helper provides verbal cues and/or touching/steadying and/or contact guard assistance as patient completes activity. Assistance may be provided throughout the activity or intermittently. 3-Partial/Moderate Assistance-helper does LESS THAN HALF the effort. [place] lifts, holds or supports trunk or limbs, but provides less than half the effort. 2-Substantial/Maximal Assistance-helper does MORE THAN HALF the effort. [place] lifts or holds trunk or limbs and provides more than half the effort. 4-Wspgfjlfs-vfkpbl does ALL the effort. Patient does none of the effort to complete the activity. Or, the assistance of 2 or more helpers is required for the patient to complete the activity. If activity was not attempted, code reason: 7-Patient Refused. 9-Not Applicable-not attempted and the patient did not perform the activity before the current illness, exacerbation or injury. 10-Not Attempted due to Environmental Limitations-(lack of equipment, weather restraints, etc.). 88-Not Attempted due to Medical Conditions or Safety Concerns. Roll Left to Right (QC): 6 Sit to Lying (QC): 6 Sit to Stand (QC): 6 Chair/Vvt-ve-Xamki Xfer(QC): 6 Car Transfer (QC): 6 Gait Training Does the Patient Walk?: Yes Distance: 400' x 4 Walk 10 feet (QC): 5 Walk 50 ft with 2 Turns(QC): 5 Walk 150 ft (QC): 5 Walking 10ft/uneven surface-QC: 5 Gait Assistive Device: FWW Wheelchair Training Does the Pt Use a Wheelchair?: No Wheel 50 ft with 2 turns (QC): 9 Wheel 150 ft (QC): 9 Stair Training Stair Training: Handrails/: 2 handrails #of Steps: 12 1 Step (curb) (QC): 5 4 Steps (QC): 5 12 Steps (QC): 5 Stairs: Pattern: Step to Balance Picking up an Object (QC): 88 ADL-Treatment Eating (QC): 6 Oral Hygiene (QC): 6 Shower/Bathe Self (QC): 5 Upper Body Dressing (QC): 5 Lower Body Dressing (QC): 5 On/Off Footwear (QC): 5 Toileting Hygiene (QC): 5 Toilet Transfer (QC): 5 Assessment/Plan Assessment and Plan Assess & Plan/Chief Complaint Assessment: s/p lumbar laminectomy 2 levels POD # 6 Post op urinary retention requiring in-swelling catheter and consulted Dr Thompson now DC and urinating well without retention Frail status HTN Debility Advanced age Iron deficiency anemia requiring iron infusions Crackles on lung exam CT chest reviewed Plan: IRF protocol Chávez cath DC BM regimen Appreciate Dr Sandoval and Dr Thompson Check CT chest reviewed IV iron DC Thursday (1) Lumbar stenosis (2) Lung crackles (3) Chávze catheter in place (4) Overactive bladder (5) Urinary retention (6) Intractable low back pain Status: Acute (7) DVT prophylaxis (8) Advanced age (9) At risk for falls (10) Thin build (11) Hypertension (12) Osteoarthritis (13) Depression PERRY GIBSON DO Jul 13, 2019 13:28
--- NOTE | 2019-07-13 13:28 | Individualized Plan of Care ---
Individualized Plan of Care Rehab Nursing IPOC Order Admission Date Jul 10, 2019 at 09:50 Current Orders Orders Admission Order(Inpt,Obs,Sdc) (07/09/19 16:46) Vital Signs: Per Unit Policy ( ,16,00 (07/09/19 16:46) Juan Arango (07/09/19 16:46) Sequential Compression Device Q4H (07/09/19 16:46) Contact Center Associate-Inpt Rehab Con (07/09/19 16:46) Rehab Nursing Orders-Ipoc (07/09/19 16:46) Physical Therapy Rehab Orders (07/09/19 16:46) Occupational Therapy Rehab Ord (07/09/19 16:46) Speech Therapy Rehab Orders (07/09/19 16:46) Cbc With Automated Diff (07/10/19 06:00) Comprehensive Metabolic Panel (07/10/19 06:00) General/Regular (07/10/19 Breakfast) Intake & Output , (07/09/19 16:46) Precautions (Aru) (07/09/19 16:46) Weekly Weight WEEK (07/09/19 16:46) Rehab-Intensity Of Therapy (07/09/19 16:46) Initiate Admission Nursing Pro .admission (07/09/19 16:46) Polyethylene Glycol Powder Pkt (Miralax (07/09/19 21:00) Senna S Tablet (Senokot S Tablet) (07/09/19 21:00) Initiate Admission Nursing Pro .admission (07/09/19 16:46) Ambulate ,, (07/10/19 10:25) Sequential Compression Device Q4H (07/10/19 10:25) Dvt/Vte Risk - Notifiy Physici Q4H (07/10/19 10:25) Docusate Sodium Capsule (Colace Capsule) (07/10/19 21:00) Lactulose Oral Solution (Enulose Oral So (07/10/19 11:21) Catheter(Urinary) Insert & Ass 03,15 (07/10/19 12:21) Dressing Order (Intervention) DAILY PRN (07/10/19 12:21) Incentive Spirometry (Nursing) Q2H (07/10/19 12:21) Notify Physician: (07/10/19 12:21) General/Regular (07/10/19 Dinner) Alprazolam Tablet (Xanax Tablet) (07/10/19 12:30) Baclofen Tablet (Lioresal Tablet) (07/10/19 12:30) Bisacodyl Suppository (Dulcolax Supposit (07/10/19 12:30) Citalopram Tablet (Celexa Tablet) (07/11/19 09:00) Calcium Carbonate Chew Tablet (Antacid C (07/10/19 12:30) Cyclobenzaprine Tablet (Flexeril Tablet) (07/10/19 12:30) Diclofenac 1% Gel (Voltaren 1% Gel) (07/10/19 13:00) Docusate Sodium Capsule (Colace Capsule) (07/10/19 12:30) Lactulose Oral Solution (Enulose Oral So (07/10/19 21:00) Loperamide Tablet (Imodium Tablet) (07/10/19 12:30) Hydrocodone/Apap 5/325 Tablet (Lortab 5 (07/10/19 12:30) Melatonin Tablet (Melatonin Tablet) (07/10/19 12:30) Therapeutic Multivitamin Tab (Vitamins, (07/11/19 07:00) Na Phos/Na Biphos Enema (Fleet Enema Wander (07/10/19 12:30) Ondansetron Oral Dissolve Tab (Zofran (07/10/19 12:30) Polyethylene Glycol Powder Pkt (Miralax (07/10/19 21:00) Senna S Tablet (Senokot S Tablet) (07/10/19 21:00) Sodium Chloride Flush (Catheter Flush Sy (07/10/19 12:30) Acetaminophen Tablet/Caplet (Tylenol T (07/10/19 12:30) Zinc Sulfate Capsule (Zinc 50 Mg Capsule (07/11/19 09:00) Ondansetron Injection (Zofran Injectio (07/10/19 12:30) Diphenhydramine Tablet (Benadryl Tablet) (07/10/19 12:30) Fentanyl Injection (Sublimaze Injection (07/10/19 12:30) Guaifenesin/Codeine Syrup (Robitussin Ac (07/10/19 12:30) Oxycodone Immediate Rel Tablet (Oxyir Ta (07/10/19 12:30) Consult Urology (07/10/19 12:21) Incentive Spirometry Initial (07/10/19 12:21) Incentive Spirometry (Nursing) Q2H (07/10/19 12:21) Cbc With Automated Diff (07/11/19 06:00) Comprehensive Metabolic Panel (07/11/19 06:00) Iron Test (Fe) (07/10/19 12:21) Losartan Tablet (Cozaar Tablet) (07/11/19 09:00) Amlodipine Tablet (Norvasc Tablet) (07/11/19 09:00) Iron Sucrose Injection (Venofer Injectio (07/11/19 09:00) Catheter(Urinary) Discontinue (07/11/19 07:21) Patient Visit (07/11/19 ) Pt Eval Moderate Complexity (07/11/19 ) Exercise Therap, Ea 15 Min (07/11/19 ) Patient Visit (07/11/19 ) Exercise Therap, Ea 15 Min (07/11/19 ) Gait Training, Ea 15 Min (07/11/19 ) Patient Visit (07/11/19 ) Speech Sound Lang Comp (07/11/19 ) Albuterol Pre-Mix Nebs (Rt) (Proventil (07/11/19 21:00) Svn Small Volume Nebulizer (07/11/19 15:31) Rt Request For Service (07/11/19 15:31) Ct Angio Chest W (07/12/19 08:00) Bladder Scan (07/12/19 08:21) Nursing Communication (Order) (07/12/19 08:21) Iohexol Injection (Omnipaque 350 Mg/Ml 1 (07/12/19 09:45) Received Contrast (Hold Metformin- Contr (07/12/19 09:45) Ns (Ivpb) (Sodium Chloride 0.9% Ivpb Bag (07/12/19 09:45) Patient Visit (07/12/19 ) Exercise Therap, Ea 15 Min (07/12/19 ) Functional Activities, Ea 15 (07/12/19 ) Rehab Nursing Orders: Ongoing Assess. of Cognitive Status, Ongoing Assess. of Function Status, Bladder Management, Bladder Scan, Bladder Training, Bowel Management, Bowel Training, Disease Management & Educaiton, DVT Prophylaxis, Fall Prevention, Fluid/Electrolyte/Nutrition Mgmt, Infection Prevention, Medication Management & Education, Management of Risks & Complications, Nutrition Management, Pain Management, Patient/Family Support, Safety Management Intensity of Therapy to be met Patient to be seen: Min.3h per day/5 of 7d PT IPOC Problem List: Activity Tolerance, Functional Strength, Safety, Balance, Gait, Transfer, Bed Mobility Treatment Plan: Continue Plan of Care Bed Mobility, Education, Functional Activity Kaden, Functional Strength, Group Therapy, Gait, Safety, Therapeutic Exercise, Transfers Treatment Duration: Aug 01, 2019 Frequency: At least 5 of 7 days/Wk (IRF) Estimated Hrs Per Day: 1.5 hours per day OT IPOC Problems: Decreased Activ Tolerance, Decreased UE Strength, Impaired Funct Balance, Impaired I ADL's, Impaired Self-Care Skills OT Treatment, Training and Edu: Yes Plan of Care: ADL Retraining, Functional Mobility, Group Exercise/Act as Ind, UE Funct Exercise/Act Treatment Duration: Jul 25, 2019 Frequency: At least 5 of 7 days/Wk (IRF) Estimated Hrs Per Day: 1.[address] IPOC Speech Therapy Treatment Plan: Discontinue ST Treatment Duration: Jul 11, 2019 Frequency: 1 time per week Estimated Hrs Per Day: .25 hour per day Contact Center Associate/Case Mgmt Contact Center Associate/Case Managemen: Discharge Planning Dietitian/Tank Shop Supervisor Dietitian/Tank Shop Supervisor to monitor nutritional status and make changes and/or recommendations as needed and work with speech pathology on dietary upgrades as the occur. Physician IPOC Medical Issues being managed closely and that require the 24 hour availability of a physician: Recent lumbar spine surgery will require close monitoring of incision and neuro deficits and urinary retention will require close monitoring of woods cath Brief Synthesis of Preadmission Screen, Post-Admission Evaluation, and Therapy Evaluations: PT will help ambulate with lower leg numbness and focus on fall prevention OT will focus on regaining independence in ADL's Medical Prognosis: Good Anticipated Length of Stay: 7 days PERRY GIBSON DO Jul 13, 2019 13:28
[2019-07-13] MEDS ORDERED: CATHETER FLUSH 10 ML SYR IV PRN (16:15)
[2019-07-13 17:38] VITALS: BP 139/50
[2019-07-13] MEDS: CATHETER FLUSH 10 ML SYR IV SCH (21:54)
[2019-07-14] MEDS: MULTIVIT W/MINERALS TAB (THERAGRAN M) PO SCH (06:10)
[2019-07-14] MEDS: CATHETER FLUSH 10 ML SYR IV SCH ×3 (06:11→20:49)
[2019-07-14 06:24] VITALS: BP 140/58
[2019-07-14] MEDS: RT-ALBUTEROL SULF 2.5 MG/3 ML PRE-MIX VIAL INH SCH ×2 (08:00→20:05)
--- NOTE | 2019-07-14 09:05 | Physical Therapy Daily Note ---
PT Daily Note-Current Subjective Pt laying Supine with HOB elevated upon arrival. Pt agrees to PT for QC scoring for Thursday D/C (07/16). Pt reports pain has resolved and she is so thankful for quick relief from surgery. Pain Numeric Pain Scale: 3 Location: Lower Location Body Site: Back Pain Description: Ache Comment: Pt reports occasional pain when laying but much improved. Mental Status Patient Orientation: Person, Place, Time, Situation Transfers SCALE: Activities may be completed with or without assistive devices. 2-Wdrzexghau-bepctmb completes the activity by him/herself with no assistance from a helper. 5-Set-up or Clean-up Assistance-helper sets up or cleans up; patient completes activity. [place] assists only prior to or following the activity. 4-Supervision or Touching Assistance-helper provides verbal cues and/or touching/steadying and/or contact guard assistance as patient completes activity. Assistance may be provided throughout the activity or intermittently. 3-Partial/Moderate Assistance-helper does LESS THAN HALF the effort. [place] lifts, holds or supports trunk or limbs, but provides less than half the effort. 2-Substantial/Maximal Assistance-helper does MORE THAN HALF the effort. [place] lifts or holds trunk or limbs and provides more than half the effort. 5-Svoglwyej-idpobx does ALL the effort. Patient does none of the effort to complete the activity. Or, the assistance of 2 or more helpers is required for the patient to complete the activity. If activity was not attempted, code reason: 7-Patient Refused. 9-Not Applicable-not attempted and the patient did not perform the activity before the current illness, exacerbation or injury. 10-Not Attempted due to Environmental Limitations-(lack of equipment, weather restraints, etc.). 88-Not Attempted due to Medical Conditions or Safety Concerns. Roll Left & Right (QC): 6 Sit to Lying (QC): 6 Lying to Sitting/Side of Bed(Q: 6 Sit to Stand (QC): 6 Chair/Eue-ws-Gqghg Xfer(QC): 6 Toilet Transfer (QC): 6 Car Transfer (QC): 6 Weight Bearing Full Weight Bearing Full Weight Bearing Gait Training Does the Patient Walk?: Yes Distance: 150' x2 Walk 10 feet (QC): 6 Walk 50 ft with 2 Turns(QC): 6 Walk 150 ft (QC): 6 Walking 10ft/uneven surface-QC: 6 Gait Persons Needed: 1 Gait Assistive Device: FWW Pt walking with improved pain and posture as well as increased activity tolerance. Wheelchair Training Does the Pt Use a Wheelchair?: No Stair Training Stair Training: Handrails/: 2 handrails #of Steps: 12 1 Step (curb) (QC): 6 4 Steps (QC): 6 12 Steps (QC): 6 Stairs: Pattern: Reciprocal Balance Picking up an Object (QC): 88 Special Test Comments Pt did not attempt due to history of back Exercises NuStep Minutes: 13 NuStep Workload: 5 Treatments Pt transfer from bed to standing using FWW. Pt completes QC scoring items listed above except picking up item from floor due to history of back problems and recent surgery. Pt returns to room to rest at end of Rx with all needs met, call light in hand. Assessment Current Status: Good Progress Pt is completing Rx much better since surgery due to less back pain with upright activities. PT Short Term Goals Short Term Goals Time Frame: Jul 18, 2019 Roll Left & Right: 6 Sit to lyin Lying to sitting on side of be: 6 Sit to stand: 4 Chair/gan-yu-nbzxh transfer: 4 Walk 10 feet: 4 Walk 50 feet with two turns: 4 Walk 150 feet: 4 PT Mcfp Goals Network Operations Analyst Goals PT Network Operations Analyst Goals Time Frame: Aug 01, 2019 Roll Left & Right (QC): 6 Sit to Lying (QC): 6 Lying-Sitting on Side/Bed(QC): 6 Sit to Stand (QC): 6 Chair/Wyy-gz-Gumce Xfer(QC): 6 Toilet Transfer (QC): 6 Car Transfer (QC): 6 Walk 10 feet (QC): 6 Walk 50ft with 2 Turns (QC): 6 Walk 150 ft (QC): 6 Walking 10ft on Uneven Surface: 6 1 Step (curb) (QC): 4 4 Steps (QC): 4 Does the Pt use WC or Scooter?: No PT Plan Problem List Problem List: Activity Tolerance Treatment/Plan Treatment Plan: Continue Plan of Care Treatment Plan: Bed Mobility, Education, Functional Activity Kaden, Functional Strength, Group Therapy, Gait, Safety, Therapeutic Exercise, Transfers Treatment Duration: Aug 01, 2019 Frequency: At least 5 of 7 days/Wk (IRF) Estimated Hrs Per Day: 1.5 hours per day Patient and/or Family Agrees t: Yes Safety Risks/Education Patient Education: Correct Positioning, Safety Issues Teaching Recipient: Patient Teaching Methods: Discussion Response to Teaching: Verbalize Understanding Time/GCodes Time In: 800 Time Out: 900 Total Billed Treatment Time: 60 Total Billed Treatment 1, FA x2 (30m), EX (15m) & GT (15m) SAMEER LEVINE PTA Jul 14, 2019 09:05
--- NOTE | 2019-07-14 09:16 | Progress Note - Urology ---
Progress Note-Urology Progress Notes/Assess & Plan Progress/Assessment & Plan VOIDING WELL. PVR 2 DAYS AGO WAS 18. RECHECK TODAY Final Diagnosis RETENTION AND OAB LATRICIA ALTAMIRANO MD Jul 14, 2019 09:16
[2019-07-14 09:32] VITALS: BP 125/50
[2019-07-14] MEDS: SENNA W/DOCUSATE (SENOKOT S) TABLET PO SCH ×2 (09:35→19:42)
[2019-07-14] MEDS: ZINC SULFATE 220 MG CAPSULE PO SCH (09:35)
[2019-07-14] MEDS: DOCUSATE SODIUM 100 MG (COLACE) CAP PO SCH ×2 (09:36→19:41)
[2019-07-14] MEDS: LOSARTAN 50 MG (COZAAR) TAB PO SCH (09:36)
[2019-07-14] MEDS: amLODIPine 5 MG (NORVASC) TAB PO SCH (09:36)
[2019-07-14] MEDS: DICLOFENAC 1% GEL 100 GM (VOLTAREN) TUBE TOP SCH ×4 (10:12→19:42)
[2019-07-14] MEDS: POLYETHYLENE GLYCOL 17 GM (MIRALAX) PACK PO SCH ×2 (10:12→19:41)
--- NOTE | 2019-07-14 10:20 | NUR ---
Pastoral care visit.
--- NOTE | 2019-07-14 10:42 | NUR ---
Notified Dr. Thompson of bladder scan results of 0cc after voiding.
--- NOTE | 2019-07-14 10:48 | NUR ---
Call placed to Dr. Alba's office per Dr. Abla's request to set up as new pt, as pt had Dr. Carmona as her PCP, but she states that she received letter in the mail that he is retiring. Dr. Alba said that she would take her as a pt., as pt had requested.
--- NOTE | 2019-07-14 11:09 | PM&R Progress Note ---
Subjective HPI/CC On Admission Date Seen by Provider: Jul 14, 2019 Time Seen by Provider: 09:15 Subjective/Events-last exam Patient doing very well Legs are still a bit weak still and DC likely Thursday will give her chance to resolve that issue and she agrees Fall risk remains and will work on that aggressively Iron infusions tolerated Chávez catheter DC and PVR minimal to zero, we'll recheck to urology to see what she goes home on Holding other bladder meds to prevent further retention SCDs maintained for DVT prophylaxis since anticoagulation is contraindicated due to recent spine surgery Bowels movements regularly CT chest reviewed Conferred with RN Reviewed therapy notes Checked therapy notes Review of Systems General: Fatigue Objective Exam Vital Signs Vital Signs Date Time Temp Pulse Resp B/P (MAP) Pulse Ox O2 Delivery O2 Flow Rate FiO2 07/14/19 09:32 66 20 125/50 (75) 97 Room Air 07/14/19 06:24 36.6 Capillary Refill : Less Than 3 Seconds General Appearance: No Apparent Distress, WD/WN, Chronically ill, Thin HEENT: PERRL/EOMI, Normal ENT Inspection, Pharynx Normal Neck: Full Range of Motion, Normal Inspection, Non Tender, Supple, Carotid Bruit Respiratory: Chest Non Tender, Lungs Clear, Normal Breath Sounds, No Accessory Muscle Use, No Respiratory Distress, Other (crakles in lower lobes) Cardiovascular: Regular Rate, Rhythm, No Edema, No Gallop, No JVD, No Murmur, Normal Peripheral Pulses Gastrointestinal: Normal Bowel Sounds, No Organomegaly, No Pulsatile Mass, Non Tender, Soft Back: Normal Inspection, No CVA Tenderness, No Vertebral Tenderness Extremity: Normal Capillary Refill, Normal Inspection, Normal Range of Motion, Non Tender, No Calf Tenderness, No Pedal Edema Neurologic/Psychiatric: Alert, Oriented x3, No Motor/Sensory Deficits, Normal Mood/Affect Skin: Normal Color, Warm/Dry Lymphatic: No Adenopathy Results/Procedures Lab Patient resulted labs reviewed. FIM Transfers Therapy Code Descriptions/Definitions Functional [place] Measure: 0=Not Assessed/NA 4=Minimal Assistance 1=Total Assistance 5=Supervision or Setup 2=Maximal Assistance 6=Modified [place] 3=Moderate Assistance 7=Complete IndependenceSCALE: Activities may be completed with or without assistive devices. 4-Aeaotlasza-xvmxxhz completes the activity by him/herself with no assistance from a helper. 5-Set-up or Clean-up Assistance-helper sets up or cleans up; patient completes activity. [place] assists only prior to or following the activity. 4-Supervision or Touching Assistance-helper provides verbal cues and/or touching/steadying and/or contact guard assistance as patient completes activity. Assistance may be provided throughout the activity or intermittently. 3-Partial/Moderate Assistance-helper does LESS THAN HALF the effort. [place] lifts, holds or supports trunk or limbs, but provides less than half the effort. 2-Substantial/Maximal Assistance-helper does MORE THAN HALF the effort. [place] lifts or holds trunk or limbs and provides more than half the effort. 9-Imvgvpngt-nvails does ALL the effort. Patient does none of the effort to complete the activity. Or, the assistance of 2 or more helpers is required for the patient to complete the activity. If activity was not attempted, code reason: 7-Patient Refused. 9-Not Applicable-not attempted and the patient did not perform the activity before the current illness, exacerbation or injury. 10-Not Attempted due to Environmental Limitations-(lack of equipment, weather restraints, etc.). 88-Not Attempted due to Medical Conditions or Safety Concerns. Roll Left to Right (QC): 6 Sit to Lying (QC): 6 Sit to Stand (QC): 6 Chair/Uua-ar-Akemt Xfer(QC): 6 Car Transfer (QC): 6 Gait Training Does the Patient Walk?: Yes Distance: 150' x2 Walk 10 feet (QC): 6 Walk 50 ft with 2 Turns(QC): 6 Walk 150 ft (QC): 6 Walking 10ft/uneven surface-QC: 6 Gait Persons Needed: 1 Gait Assistive Device: FWW Wheelchair Training Does the Pt Use a Wheelchair?: No Wheel 50 ft with 2 turns (QC): 9 Wheel 150 ft (QC): 9 Stair Training Stair Training: Handrails/: 2 handrails #of Steps: 12 1 Step (curb) (QC): 6 4 Steps (QC): 6 12 Steps (QC): 6 Stairs: Pattern: Reciprocal Balance Picking up an Object (QC): 88 ADL-Treatment Eating (QC): 6 Oral Hygiene (QC): 6 Shower/Bathe Self (QC): 5 Upper Body Dressing (QC): 5 Lower Body Dressing (QC): 5 On/Off Footwear (QC): 5 Toileting Hygiene (QC): 5 Toilet Transfer (QC): 5 Assessment/Plan Assessment and Plan Assess & Plan/Chief Complaint Assessment: s/p lumbar laminectomy 2 levels POD # 7 Post op urinary retention requiring in-swelling catheter and consulted Dr Thompson now DC and urinating well without retention Frail status HTN Debility Advanced age Iron deficiency anemia requiring iron infusions Crackles on lung exam CT chest reviewed Plan: IRF protocol Chávez cath DC BM regimen Appreciate Dr Sandoval and Dr Thompson Check CT chest reviewed IV iron DC Thursday (1) Lumbar stenosis (2) Lung crackles (3) Chávez catheter in place (4) Overactive bladder (5) Urinary retention (6) Intractable low back pain Status: Acute (7) DVT prophylaxis (8) Advanced age (9) At risk for falls (10) Thin build (11) Hypertension (12) Osteoarthritis (13) Depression PERRY GIBSON DO Jul 14, 2019 11:09
[2019-07-14] MEDS ORDERED: BACL10TA PO (11:11)
[2019-07-14] MEDS ORDERED: ALBU2.5V4 INH (11:11)
[2019-07-14] MEDS ORDERED: HYDR-3812 PO (11:11)
--- NOTE | 2019-07-14 11:11 | NUR ---
[facility] follow up appt w Dr. Sandoval, pt's surgeon. Had to leave message, they will call back.
--- NOTE | 2019-07-14 11:14 | D/C HH Face to Face Order ---
D/C Face to Face Orders Reconcile Patient Problems Problems Reviewed?: Yes Instructions for Patient [facility], Patient Instructions/FollowUp: Dr. Alba in 1 week Physician to follow Patient: Dr. 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 Generalized weakness Advanced age Hypertension Lung crackles Patient Data-Allergies,Ht & Wt Patient Allergies: Coded Allergies: Tetanus Vaccines and Toxoid (Unverified Allergy, Mild, RASH, 09/08/06) Height (Inches): 3 Weight (Pounds): 165 Home Health Need/Face to Face Date of Face to Face: Jul 14, 2019 Clinical Findings: Generalized weakness and fatigue, Instability, Muscle we akness, Shortness of breath, Unsteady gait I have seen Pt xgpa-[id number]-[id number]: Yes Discharged To: Home Diagnosis/Conditions: Recent spine surgery due to severe stenosis Generalized weakness Advanced age Hypertension Lung crackles Patient is Homebound due to: Brenda fall risk due to instabilty, Muscle w eakness, Shortness of breath/distress Homebound Status Due to the above stated illness, injury or surgical procedure (medical condition or diagnosis) and associated clinical findings, the patient is homebound because of his/her inability to leave home except with aid of a supportive device and/or person AND leaving the home requires a considerable and taxing effort or is medically contraindicated. Pt req the following assistanc: Walker Home Health Nursing Orders Home Health Services Order: Nursing Services, Paper Making Machine Operator-Evaluate & Treat, Physical Therapy-Evaluate & Treat Certify Stmt I certify that this patient is under my care and that I, a nurse practitioner or a physician; a laundry assistant working with me, had a face to face encounter that - meets the physician face to face encounter requirements with this patient as dated. JENNIFER ALBA DO Jul 14, 2019 11:14
--- NOTE | 2019-07-14 11:52 | Occupational Ther Daily Note ---
OT Current Status-Daily Note Subjective Pt alert, lying in bed. Pt agrees to therapy. No c/o pain. Mental Status/Objective Patient Orientation: Person, Place, Time, Situation Attachments: IV ADL-Treatment Pt agrees to shower. Pt ambulated using FWW to bathroom and transferred on/off toilet by self using FWW and grabbars. Completed toileting mod I using FWW and grabbars. Pt transferred into shower using FWW, grabbars and shower bench. Pt doffed clothing sitting on shower bench, mod I. Pt completed own shower mod I using shower bench, grabbars and hand held shower. After set up, pt able to complete dressing using FWW when standing, mod I. Pt stood at sink to complete oral hygiene and grooming using counter for stability. Pt then ambulated to laundry and completed own laundry using FWW. Therapy Code Descriptions/Definitions Functional [place] Measure: 0=Not Assessed/NA 4=Minimal Assistance 1=Total Assistance 5=Supervision or Setup 2=Maximal Assistance 6=Modified [place] 3=Moderate Assistance 7=Complete IndependenceSCALE: Activities may be completed with or without assistive devices. 3-Jufobbwlfn-ywocjpj completes the activity by him/herself with no assistance fr om a helper. 5-Set-up or Clean-up Assistance-helper sets up or cleans up; patient completes activity. [place] assists only prior to or following the activity. 4-Supervision or Touching Assistance-helper provides verbal cues and/or touching/steadying and/or contact guard assistance as patient completes activity. Assistance may be provided throughout the activity or intermittently. 3-Partial/Moderate Assistance-helper does LESS THAN HALF the effort. [place] lifts, holds or supports trunk or limbs, but provides less than half the effort. 2-Substantial/Maximal Assistance-helper does MORE THAN HALF the effort. [place] lifts or holds trunk or limbs and provides more than half the effort. 6-Smdudrtdc-qbaszx does ALL the effort. Patient does none of the effort to complete the activity. Or, the assistance of 2 or more helpers is required for the patient to complete the activity. If activity was not attempted, code reason: 7-Patient Refused. 9-Not Applicable-not attempted and the patient did not perform the activity before the current illness, exacerbation or injury. 10-Not Attempted due to Environmental Limitations-(lack of equipment, weather restraints, etc.). 88-Not Attempted due to Medical Conditions or Safety Concerns. Eating (QC): 6 (Pt demonstrates ability to complete own meal set up and use regular utensils.) Oral Hygiene (QC): 6 Shower/Bathe Self (QC): 6 Upper Body Dressing (QC): 5 Lower Body Dressing (QC): 5 On/Off Footwear: 5 Toileting Hygiene (QC): 6 Toilet Transfer (QC): 6 Other Treatment Pt ambulated to therapy gym to complete UE gross and fine motor tasks to increase strength and activity tolerance for daily functional tasks. Arm bike 20 chávez resistance for 15 min and resistive clothes pins 1x each hand. After therapy, pt lying in bed with call light/phone in reach. All needs met in room. OT Short Term Goals Short Term Goals Shower/bathe self: 5 Upper body dressin Lower body dressin OT Batter Mixer Goals Batter Mixer Goals Time Frame: Jul 25, 2019 Eating (QC): 6 Oral Hygiene (QC): 6 Toileting Hygiene (QC): 6 Shower/Bathe Self (QC): 6 Upper Body Dressing (QC): 6 Lower Body Dressing (QC): 6 On/Off Footwear (QC): 6 Additional Goals: 1-Demonstrate ADL Tasks, 2-Verbalize Understanding, 3- ImproveStrength/Kaden 1=Demonstrate adherence to instructed precautions during ADL tasks. 2=Patient will verbalize/demonstrate understanding of assistive devices/modifications for ADL. 3=Patient will improve strength/tolerance for activity to enable patient to perform ADL's. OT Education/Plan Problem List/Assessment Assessment: Decreased Activ Tolerance, Decreased UE Strength, Impaired Self-Ca re Skills Discharge Recommendations Plan/Recommendations: Continue POC Treatment Plan/Plan of Care Patient would benefit from OT for education, treatment and training to promote independence in ADL's, mobility, safety and/or upper extremity function for ADL's. Plan of Care: ADL Retraining, Functional Mobility, Group Exercise/Act as Ind, UE Funct Exercise/Act Treatment Duration: Jul 25, 2019 Frequency: At least 5 of 7 days/Wk (IRF) Estimated Hrs Per Day: 1.5 hours per day Agreement: Yes Rehab Potential: Good Time/GCodes Start Time: 10:15 Stop Time: 11:45 Total Time Billed (hr/min): 90 Billed Treatment Time 1 visit-ADL 5 (70 min) EX 1 (20 min) BISI MILIAN Jul 14, 2019 11:52
--- NOTE | 2019-07-14 12:18 | NUR ---
Discharge Planning Confirmed receipt of referral with [facility]. Discussed planned discharge date of 07/16/19, with patient and her spouse. Patient and spouse are in agreement for discharge on Thursday. IMM discussed with patient. Patient reports she has no intention of appealing discharge, signature obtained. Discussed DME with patient and spouse. Patient reports she has a walker at home, but she believes it is larger than the walker she is currently using. Patient and spouse request order be sent for a FWW. List of Medicare participating DME companies provided to patient. Patient reports she would like to use [facility] [employer]. Telephone order obtained for FWW. Once order is signed by physician it will be faxed to [facility] [employer]. Patient and spouse voice no concerns at this time.
--- NOTE | 2019-07-14 14:51 | Physical Therapy Daily Note ---
PT Daily Note-Current Subjective Pt laying Supine in bed upon arrival. Pt agrees to walk with PT for Rx. Pain Location: No Pain Reported Mental Status Patient Orientation: Person, Place, Time, Situation Transfers SCALE: Activities may be completed with or without assistive devices. 8-Aqvnqdiluu-ccwaqbh completes the activity by him/herself with no assistance f rom a helper. 5-Set-up or Clean-up Assistance-helper sets up or cleans up; patient completes activity. [place] assists only prior to or following the activity. 4-Supervision or Touching Assistance-helper provides verbal cues and/or touching/steadying and/or contact guard assistance as patient completes activity. Assistance may be provided throughout the activity or intermittently. 3-Partial/Moderate Assistance-helper does LESS THAN HALF the effort. [place] lifts, holds or supports trunk or limbs, but provides less than half the effort. 2-Substantial/Maximal Assistance-helper does MORE THAN HALF the effort. [place] lifts or holds trunk or limbs and provides more than half the effort. 3-Xigphnqmi-kpnisl does ALL the effort. Patient does none of the effort to complete the activity. Or, the assistance of 2 or more helpers is required for the patient to complete the activity. If activity was not attempted, code reason: 7-Patient Refused. 9-Not Applicable-not attempted and the patient did not perform the activity before the current illness, exacerbation or injury. 10-Not Attempted due to Environmental Limitations-(lack of equipment, weather restraints, etc.). 88-Not Attempted due to Medical Conditions or Safety Concerns. Sit to Lying (QC): 6 Lying to Sitting/Side of Bed(Q: 6 Sit to Stand (QC): 6 Toilet Transfer (QC): 6 Weight Bearing Full Weight Bearing Full Weight Bearing Gait Training Does the Patient Walk?: Yes Distance: 350' Walk 10 feet (QC): 6 Walk 50 ft with 2 Turns(QC): 6 Walk 150 ft (QC): 6 Gait Persons Needed: 1 Gait Assistive Device: FWW Treatments Pt transfers from bed to standing using FWW. Pt uses restroom before leaving room for ambulation in hallway. TELECOMMUNICATIONS SALES REPRESENTATIVE issues & goes over HEP for Supine & Seated Ex before pt returns to room. Pt resting in recliner with all needs met, call light in hand. Assessment Current Status: Good Progress Pt tolerates Rx well. PT Short Term Goals Short Term Goals Time Frame: Jul 18, 2019 Roll Left & Right: 6 Sit to lyin Lying to sitting on side of be: 6 Sit to stand: 4 Chair/cfz-pz-jpijm transfer: 4 Walk 10 feet: 4 Walk 50 feet with two turns: 4 Walk 150 feet: 4 PT Supervisor Word Processing Goals Retirement Goals PT Supervisor Word Processing Goals Time Frame: Aug 01, 2019 Roll Left & Right (QC): 6 Sit to Lying (QC): 6 Lying-Sitting on Side/Bed(QC): 6 Sit to Stand (QC): 6 Chair/Ocb-et-Fqntq Xfer(QC): 6 Toilet Transfer (QC): 6 Car Transfer (QC): 6 Walk 10 feet (QC): 6 Walk 50ft with 2 Turns (QC): 6 Walk 150 ft (QC): 6 Walking 10ft on Uneven Surface: 6 1 Step (curb) (QC): 4 4 Steps (QC): 4 Does the Pt use WC or Scooter?: No PT Plan Problem List Problem List: Activity Tolerance Treatment/Plan Treatment Plan: Continue Plan of Care Treatment Plan: Bed Mobility, Education, Functional Activity Kaden, Functional Strength, Group Therapy, Gait, Safety, Therapeutic Exercise, Transfers Treatment Duration: Aug 01, 2019 Frequency: At least 5 of 7 days/Wk (IRF) Estimated Hrs Per Day: 1.5 hours per day Patient and/or Family Agrees t: Yes Safety Risks/Education Patient Education: Gait Training, Transfer Techniques, Issued Written HEP, Correct Positioning, Safety Issues Teaching Recipient: Patient Teaching Methods: Discussion Response to Teaching: Verbalize Understanding Time/GCodes Time In: 1330 Time Out: 1400 Total Billed Treatment Time: 30 Total Billed Treatment 1, GT (20m) & EX (10m) SAMEER LEVINE TELECOMMUNICATIONS SALES REPRESENTATIVE Jul 14, 2019 14:51
[2019-07-14 16:06] VITALS: BP 123/82
--- NOTE | 2019-07-14 16:22 | NUR ---
RD ASSESSMENT PMHx: HTN PT INTERACTION: Pt was awake and pleasant during nutrition assessment. Pt states current appetite is very good, and "there's just too much on my plate to eat." Note avg PO intake of 70% x3d, per chart review. Pt states no issues chewing/swallowing food at this time. Pt states no recent issues with n/v/c/d at this time. Note last BM was 07/14 and pt currently on bowel regimen of colace BID; senna BID; miralax BID, per chart review. ABNORMAL NUTRITION-RELATED LAB VALUES LOW: Pro 6.1 HIGH: Est. kcal needs: 3541-0830 kcal | 25-30 kcal/kg Est. Pro needs: 58-69 g Pro | 1.0-1.2 g Pro/kg PES STATEMENT: Given pt's PO intake, no nutrition diagnosis at this time (NO-2.1) INTERVENTION: Continue with current diet order of Regular diet. Will continue to follow and reassess as pt needs and status change. MONITOR/EVALUATE: PO Intake; Plan of Care; Hydration Status; Weight Status; Lab Values Ciro Betancur, MS, RD, LD
[2019-07-15 05:17] VITALS: BP 146/71
[2019-07-15] MEDS: MULTIVIT W/MINERALS TAB (THERAGRAN M) PO SCH (06:22)
[2019-07-15] MEDS: CATHETER FLUSH 10 ML SYR IV SCH ×2 (06:22→13:11)
[2019-07-15] MEDS: RT-ALBUTEROL SULF 2.5 MG/3 ML PRE-MIX VIAL INH SCH ×2 (06:45→21:24)
--- NOTE | 2019-07-15 08:45 | Occupational Ther Daily Note ---
OT Current Status-Daily Note Subjective Pt alert, lying in bed. Pt agrees to therapy. No c/o pain at this time. Mental Status/Objective Patient Orientation: Person, Place, Time, Situation Attachments: IV ADL-Treatment Pt completed own set up for meal and uses regular utensils. Pt declined shower, wanted sponge bath at sink. Pt gathered clothing using FWW and bathing supplies were at sink. Pt ambulated to bathroom and complete sponge bath, oral care and dressing at sink, mod I. Pt transferred to toilet using FWW, mod I. Completed toileting hygiene, mod I using FWW. Pt then ambulated to sink to wash hands. Therapy Code Descriptions/Definitions Functional [place] Measure: 0=Not Assessed/NA 4=Minimal Assistance 1=Total Assistance 5=Supervision or Setup 2=Maximal Assistance 6=Modified [place] 3=Moderate Assistance 7=Complete IndependenceSCALE: Activities may be completed with or without assistive devices. 1-Ptebqzlrye-nrnqclx completes the activity by him/herself with no assistance from a helper. 5-Set-up or Clean-up Assistance-helper sets up or cleans up; patient completes activity. [place] assists only prior to or following the activity. 4-Supervision or Touching Assistance-helper provides verbal cues and/or touching/steadying and/or contact guard assistance as patient completes activ ity. Assistance may be provided throughout the activity or intermittently. 3-Partial/Moderate Assistance-helper does LESS THAN HALF the effort. [place] lifts, holds or supports trunk or limbs, but provides less than half the effort. 2-Substantial/Maximal Assistance-helper does MORE THAN HALF the effort. [place] lifts or holds trunk or limbs and provides more than half the effort. 6-Dqmxokblr-nfgqvd does ALL the effort. Patient does none of the effort to complete the activity. Or, the assistance of 2 or more helpers is required for the patient to complete the activity. If activity was not attempted, code reason: 7-Patient Refused. 9-Not Applicable-not attempted and the patient did not perform the activity before the current illness, exacerbation or injury. 10-Not Attempted due to Environmental Limitations-(lack of equipment, weather restraints, etc.). 88-Not Attempted due to Medical Conditions or Safety Concerns. Eating (QC): 6 Oral Hygiene (QC): 6 Shower/Bathe Self (QC): 6 Upper Body Dressing (QC): 6 Lower Body Dressing (QC): 6 On/Off Footwear: 6 Toileting Hygiene (QC): 6 Toilet Transfer (QC): 6 Pt states that she has tub transfer bench at home if her family can find it. She does have tub seat in tub already. Pt demonstrated ability to complete tub transfer bench transfer and step into tub using grabbars, mod I. Other Treatment Pt ambulated to therapy gym to complete B UE gross and fine motor strengthening and coordination/dexterity. Arm bike completed 15 min at 20 chávez resistance then resistive pegs (50 each hand) with 1# wt attached to each wrist. Pt then ambulated to large shower room to work on tub transfers with and without tub transfer bench. After therapy, pt lying in bed with call light/phone in reach. All needs met in room. OT Short Term Goals Short Term Goals Shower/bathe self: 5 Upper body dressin Lower body dressin OT Long-Term Goals Counter Tender Goals Time Frame: Jul 25, 2019 Eating (QC): 6 (met-07/15/2019) Oral Hygiene (QC): 6 (met-07/15/2019) Toileting Hygiene (QC): 6 (met-07/15/2019) Shower/Bathe Self (QC): 6 (met-07/15/2019) Upper Body Dressing (QC): 6 (met-07/15/2019) Lower Body Dressing (QC): 6 (met-07/15/2019) On/Off Footwear (QC): 6 (met-07/15/2019) Additional Goals: 1-Demonstrate ADL Tasks, 2-Verbalize Understanding, 3-Imp roveStrength/Kaden 1=Demonstrate adherence to instructed precautions during ADL tasks. 2=Patient will verbalize/demonstrate understanding of assistive devices/modifications for ADL. 3=Patient will improve strength/tolerance for activity to enable patient to perform ADL's. OT Education/Plan Discharge Recommendations Plan/Recommendations: Continue POC (Pt to discharge 07/16/2019) Treatment Plan/Plan of Care Patient would benefit from OT for education, treatment and training to promote independence in ADL's, mobility, safety and/or upper extremity function for ADL's. Plan of Care: ADL Retraining, Functional Mobility, Group Exercise/Act as Ind, UE Funct Exercise/Act Treatment Duration: Jul 25, 2019 Frequency: At least 5 of 7 days/Wk (IRF) Estimated Hrs Per Day: 1.5 hours per day Agreement: Yes Rehab Potential: Good Time/GCodes Start Time: 07:15 Stop Time: 08:45 Total Time Billed (hr/min): 90 Billed Treatment Time 1 visit-ADL 3 (45 min) FA 2 (30 min) EX 1 (15 min) BISI MILIAN Jul 15, 2019 08:45
[2019-07-15] MEDS: DICLOFENAC 1% GEL 100 GM (VOLTAREN) TUBE TOP SCH ×4 (09:00→20:17)
[2019-07-15] MEDS: IRON SUCROSE 200 MG/10 ML (VENOFER) VIAL IV SCH (09:00)
[2019-07-15] MEDS: SENNA W/DOCUSATE (SENOKOT S) TABLET PO SCH ×2 (09:04→20:21)
[2019-07-15] MEDS: DOCUSATE SODIUM 100 MG (COLACE) CAP PO SCH ×2 (09:05→20:21)
[2019-07-15] MEDS: ZINC SULFATE 220 MG CAPSULE PO SCH (09:05)
[2019-07-15] MEDS: LOSARTAN 50 MG (COZAAR) TAB PO SCH (09:05)
[2019-07-15] MEDS: amLODIPine 5 MG (NORVASC) TAB PO SCH (09:06)
[2019-07-15] MEDS: POLYETHYLENE GLYCOL 17 GM (MIRALAX) PACK PO SCH ×2 (09:06→20:21)
[2019-07-15] MEDS: HYDROcodone/APAP 5 MG/325 MG (LORTAB) TAB PO PRN (09:06)
[2019-07-15 09:08] VITALS: BP 111/69
--- NOTE | 2019-07-15 09:42 | PM&R Progress Note ---
Subjective HPI/CC On Admission Date Seen by Provider: Jul 15, 2019 Time Seen by Provider: 09:45 Subjective/Events-last exam Patient doing very well Legs are still a bit weak but will be ready for discharge tomorrow and home health orders placed Fall risk remains and will work on that aggressively even after discharge Iron infusions completed and IV went bad so will discontinue and stop the fifth dose Chávez catheter DC and PVR minimal to zero and urology approved her to go home without any bladder medication SCDs maintained for DVT prophylaxis since anticoagulation is contraindicated due to recent spine surgery Bowels movements regularly CT chest reviewed Doesn't really feel like she needs the breathing treatments although crackles remained chest x-ray was unrevealing Conferred with RN Reviewed therapy notes Checked therapy notes Review of Systems General: Fatigue Musculoskeletal: back pain Objective Exam Vital Signs Vital Signs Date Time Temp Pulse Resp B/P (MAP) Pulse Ox O2 Delivery O2 Flow Rate FiO2 07/15/19 09:48 Room Air 07/15/19 09:08 67 111/69 (83) 07/15/19 06:45 95 07/15/19 05:17 36.8 18 Capillary Refill : Less Than 3 Seconds General Appearance: No Apparent Distress, WD/WN, Chronically ill, Thin HEENT: PERRL/EOMI, Normal ENT Inspection, Pharynx Normal Neck: Full Range of Motion, Normal Inspection, Non Tender, Supple, Carotid Br uit Respiratory: Chest Non Tender, Lungs Clear, Normal Breath Sounds, No Accessory Muscle Use, No Respiratory Distress, Other (crakles in lower lobes) Cardiovascular: Regular Rate, Rhythm, No Edema, No Gallop, No JVD, No Murmur, Normal Peripheral Pulses Gastrointestinal: Normal Bowel Sounds, No Organomegaly, No Pulsatile Mass, Non Tender, Soft Back: Normal Inspection, No CVA Tenderness, No Vertebral Tenderness Extremity: Normal Capillary Refill, Normal Inspection, Normal Range of Motion, Non Tender, No Calf Tenderness, No Pedal Edema Neurologic/Psychiatric: Alert, Oriented x3, No Motor/Sensory Deficits, Normal Mood/Affect Skin: Normal Color, Warm/Dry Lymphatic: No Adenopathy Results/Procedures Lab Patient resulted labs reviewed. FIM Transfers Therapy Code Descriptions/Definitions Functional [place] Measure: 0=Not Assessed/NA 4=Minimal Assistance 1=Total Assistance 5=Supervision or Setup 2=Maximal Assistance 6=Modified [place] 3=Moderate Assistance 7=Complete IndependenceSCALE: Activities may be completed with or without assistive devices. 2-Jxopnoizfx-ydspckq completes the activity by him/herself with no assistance from a helper. 5-Set-up or Clean-up Assistance-helper sets up or cleans up; patient completes activity. [place] assists only prior to or following the activity. 4-Supervision or Touching Assistance-helper provides verbal cues and/or touching/steadying and/or contact guard assistance as patient completes acti vity. Assistance may be provided throughout the activity or intermittently. 3-Partial/Moderate Assistance-helper does LESS THAN HALF the effort. [place] lifts, holds or supports trunk or limbs, but provides less than half the effort. 2-Substantial/Maximal Assistance-helper does MORE THAN HALF the effort. [place] lifts or holds trunk or limbs and provides more than half the effort. 8-Aknwwuaew-imyknr does ALL the effort. Patient does none of the effort to complete the activity. Or, the assistance of 2 or more helpers is required for the patient to complete the activity. If activity was not attempted, code reason: 7-Patient Refused. 9-Not Applicable-not attempted and the patient did not perform the activity before the current illness, exacerbation or injury. 10-Not Attempted due to Environmental Limitations-(lack of equipment, weather restraints, etc.). 88-Not Attempted due to Medical Conditions or Safety Concerns. Roll Left to Right (QC): 6 Sit to Lying (QC): 6 Sit to Stand (QC): 6 Chair/Nbi-be-Yxalk Xfer(QC): 6 Car Transfer (QC): 6 Gait Training Does the Patient Walk?: Yes Distance: 350' Walk 10 feet (QC): 6 Walk 50 ft with 2 Turns(QC): 6 Walk 150 ft (QC): 6 Walking 10ft/uneven surface-QC: 6 Gait Persons Needed: 1 Gait Assistive Device: FWW Wheelchair Training Does the Pt Use a Wheelchair?: No Wheel 50 ft with 2 turns (QC): 9 Wheel 150 ft (QC): 9 Stair Training Stair Training: Handrails/: 2 handrails #of Steps: 12 1 Step (curb) (QC): 6 4 Steps (QC): 6 12 Steps (QC): 6 Stairs: Pattern: Reciprocal Balance Picking up an Object (QC): 88 ADL-Treatment Eating (QC): 6 Oral Hygiene (QC): 6 Shower/Bathe Self (QC): 6 Upper Body Dressing (QC): 6 Lower Body Dressing (QC): 6 On/Off Footwear (QC): 6 Toileting Hygiene (QC): 6 Toilet Transfer (QC): 6 Assessment/Plan Assessment and Plan Assess & Plan/Chief Complaint Assessment: s/p lumbar laminectomy 2 levels POD # 8 Post op urinary retention requiring in-swelling catheter and consulted Dr Thompson now DC and urinating well without retention Frail status HTN Debility Advanced age Iron deficiency anemia requiring iron infusions Crackles on lung exam CT chest reviewed Plan: IRF protocol BM regimen Appreciate Dr Sandoval and Dr Thompson Check CT chest reviewed IV iron completed DC Thursday (1) Lumbar stenosis (2) Lung crackles (3) Chávez catheter in place (4) Overactive bladder (5) Urinary retention (6) Intractable low back pain Status: Acute (7) DVT prophylaxis (8) Advanced age (9) At risk for falls (10) Thin build (11) Hypertension (12) Osteoarthritis (13) Depression PERRY GIBSON DO Jul 15, 2019 09:42
--- NOTE | 2019-07-15 09:51 | Progress Note - Urology ---
Progress Note-Urology Progress Notes/Assess & Plan Progress/Assessment & Plan CONTINUES WELL DEAL. HOME TODAY. PLAN KEEP OFF BLADDER MEDICINES TILL SEES ME IN OFFICE IN 2 WEEKS. Final Diagnosis RETENTION AND OAB LATRICIA ALTAMIRANO MD Jul 15, 2019 09:51
--- NOTE | 2019-07-15 10:02 | Physical Therapy Daily Note ---
PT Daily Note-Current Subjective Pt agreeable to PT session. States her legs are tired from yesterday's PT session and just recently finishing with OT session this morning. States she is looking forward to going home tomorrow. Pain Numeric Pain Scale: 1 Comment: surgical in back, legs tired Appearance Pt in bed upon arrival. At end of session, pt in bed with call light, phone and bedside table within reach. Mental Status Patient Orientation: Person, Place, Time, Eyes Open, Situation, Normal For Age Attachments: [place] Transfers SCALE: Activities may be completed with or without assistive devices. 5-Uuiqqitbam-yiictpq completes the activity by him/herself with no assistance from a helper. 5-Set-up or Clean-up Assistance-helper sets up or cleans up; patient completes activity. [place] assists only prior to or following the activity. 4-Supervision or Touching Assistance-helper provides verbal cues and/or touching/steadying and/or contact guard assistance as patient completes activity. Assistance may be provided throughout the activity or intermittently. 3-Partial/Moderate Assistance-helper does LESS THAN HALF the effort. [place] lifts, holds or supports trunk or limbs, but provides less than half the effort. 2-Substantial/Maximal Assistance-helper does MORE THAN HALF the effort. [place] lifts or holds trunk or limbs and provides more than half the effort. 5-Scthpvqnc-gsiyed does ALL the effort. Patient does none of the effort to complete the activity. Or, the assistance of 2 or more helpers is required for the patient to complete the activity. If activity was not attempted, code reason: 7-Patient Refused. 9-Not Applicable-not attempted and the patient did not perform the activity before the current illness, exacerbation or injury. 10-Not Attempted due to Environmental Limitations-(lack of equipment, weather restraints, etc.). 88-Not Attempted due to Medical Conditions or Safety Concerns. Roll Left & Right (QC): 6 Sit to Lying (QC): 6 Lying to Sitting/Side of Bed(Q: 6 Sit to Stand (QC): 6 Chair/Lsn-zo-Baaaq Xfer(QC): 6 Toilet Transfer (QC): 6 Car Transfer (QC): 6 Pt demonstrating good safe techniques during all transitions Weight Bearing Full Weight Bearing Full Weight Bearing Gait Training Does the Patient Walk?: Yes Distance: 300, 100, 200 Walk 10 feet (QC): 6 Walk 50 ft with 2 Turns(QC): 6 Walk 150 ft (QC): 6 Walking 10ft/uneven surface-QC: 6 Gait Persons Needed: 1 Gait Assistive Device: FWW improved posture, use of FWW safe and with light touch using for light stability only and not for WB, no pain during ambulation Wheelchair Training Does the Pt Use a Wheelchair?: No Stair Training Stair Training: Handrails/: 2 handrails #of Steps: 4 1 Step (curb) (QC): 4 4 Steps (QC): 4 12 Steps (QC): 9 Stairs: Pattern: Step to reciprocating ascending stairs, step to descending stairs. SBA provided due to pt fatiguing Balance Picking up an Object (QC): 9 Exercises NuStep Minutes: 15 NuStep Workload: 5 (decreased to 4 after 3 minutes per pt request stating she didn't want to tire too quickly) Treatments bed mobility with log rolling, transfers from various surfaces, gait on even and uneven surfaces, curb and stairs, strength, balance, activity tolerance, fu nctional mobility, safety, education Assessment Current Status: Good Progress PT Short Term Goals Short Term Goals Time Frame: Jul 18, 2019 Roll Left & Right: 6 Sit to lyin Lying to sitting on side of be: 6 Sit to stand: 4 Chair/yan-mo-boatc transfer: 4 Walk 10 feet: 4 Walk 50 feet with two turns: 4 Walk 150 feet: 4 PT Care Home Goals Wire Spring Relay Adjuster Goals PT Care Home Goals Time Frame: Aug 01, 2019 Roll Left & Right (QC): 6 Sit to Lying (QC): 6 Lying-Sitting on Side/Bed(QC): 6 Sit to Stand (QC): 6 Chair/Zvq-et-Prrfb Xfer(QC): 6 Toilet Transfer (QC): 6 Car Transfer (QC): 6 Walk 10 feet (QC): 6 Walk 50ft with 2 Turns (QC): 6 Walk 150 ft (QC): 6 Walking 10ft on Uneven Surface: 6 1 Step (curb) (QC): 4 4 Steps (QC): 4 Does the Pt use WC or Scooter?: No PT Plan Treatment/Plan Treatment Plan: Continue Plan of Care Treatment Plan: Bed Mobility, Education, Functional Activity Kaden, Functional Strength, Group Therapy, Gait, Safety, Therapeutic Exercise, Transfers Treatment Duration: Aug 01, 2019 Frequency: At least 5 of 7 days/Wk (IRF) Estimated Hrs Per Day: 1.5 hours per day Patient and/or Family Agrees t: Yes Safety Risks/Education Patient Education: Gait Training, Transfer Techniques, Steps, Reviewed Precautions, Correct Positioning, Safety Issues Teaching Recipient: Patient Teaching Methods: Discussion Response to Teaching: Verbalize Understanding, Return Demonstration Discharge Recommendations Therapy Discharge Recommendati: Intermittent Supervision, Home & Family Equpiment Recommendations-D/C: Front Wheeled Walker Time/GCodes Time In: 910 Time Out: 1005 Total Billed Treatment Time: 55 Total Billed Treatment 1 visit, FA x17 min, GT x23 min, EX x15 min YUNIOR DAVALOS PTA Jul 15, 2019 10:02
--- NOTE | 2019-07-15 10:05 | NUR ---
DR GIBSON HERE TO SEE PT/ SL IN [facility] IS INFILTRATED. IV SLOCK TAKEN OUT PER DR ORDER-NO NEW IV SITE NEEDED/PT TOLERATED WELL.
--- NOTE | 2019-07-15 14:52 | Physical Therapy Daily Note ---
PT Daily Note-Current Subjective Pt agreeable to PT session. Pain Numeric Pain Scale: 0-No Pain Appearance Pt in bed with daughter in room upon arrival. At end of session, pt in bed with dtr present, call light, phone and bedside table within reach. Mental Status Patient Orientation: Person, Place, Time, Eyes Open, Situation Transfers SCALE: Activities may be completed with or without assistive devices. 0-Gvzjikwavt-tsanvgd completes the activity by him/herself with no assistance from a helper. 5-Set-up or Clean-up Assistance-helper sets up or cleans up; patient completes activity. [place] assists only prior to or following the activity. 4-Supervision or Touching Assistance-helper provides verbal cues and/or to uching/steadying and/or contact guard assistance as patient completes activity. Assistance may be provided throughout the activity or intermittently. 3-Partial/Moderate Assistance-helper does LESS THAN HALF the effort. [place] lifts, holds or supports trunk or limbs, but provides less than half the effort. 2-Substantial/Maximal Assistance-helper does MORE THAN HALF the effort. [place] lifts or holds trunk or limbs and provides more than half the effort. 3-Iogcjbiwo-dkohso does ALL the effort. Patient does none of the effort to complete the activity. Or, the assistance of 2 or more helpers is required for the patient to complete the activity. If activity was not attempted, code reason: 7-Patient Refused. 9-Not Applicable-not attempted and the patient did not perform the activity before the current illness, exacerbation or injury. 10-Not Attempted due to Environmental Limitations-(lack of equipment, weather restraints, etc.). 88-Not Attempted due to Medical Conditions or Safety Concerns. Roll Left & Right (QC): 6 Sit to Lying (QC): 6 Lying to Sitting/Side of Bed(Q: 6 Sit to Stand (QC): 6 Toilet Transfer (QC): 6 Weight Bearing Full Weight Bearing Full Weight Bearing Gait Training Does the Patient Walk?: Yes Distance: 200 x2 Walk 10 feet (QC): 6 Walk 50 ft with 2 Turns(QC): 6 Walk 150 ft (QC): 6 Gait Persons Needed: 1 Gait Assistive Device: FWW gait training with FWW straight paths pt mod I, provided SBA to CGA for safety during higher balance activities walking with weaving, figure 8's, lateral stepping L and R through small spaces, retro gait, quick stop/start. In // bars with BUE and then unilat UE support, stepping over objects Wheelchair Training Does the Pt Use a Wheelchair?: No Treatments life skills activities for balance and safety taking linens off bed and transporting them 10 ft away to laundry hamper while using walker, toileting and miguelito care mod I, gait, transfers, bed mobility, activity tolerance, education, safety, strength, balance, functional mobility Assessment Current Status: Good Progress Pt is ready for discharge home with daughter tomorrow PT Short Term Goals Short Term Goals Time Frame: Jul 18, 2019 Roll Left & Right: 6 Sit to lyin Lying to sitting on side of be: 6 Sit to stand: 4 Chair/plp-ab-rzejh transfer: 4 Walk 10 feet: 4 Walk 50 feet with two turns: 4 Walk 150 feet: 4 PT Half-Way Goals Access Lead Goals PT Half-Way Goals Time Frame: Aug 01, 2019 Roll Left & Right (QC): 6 Sit to Lying (QC): 6 Lying-Sitting on Side/Bed(QC): 6 Sit to Stand (QC): 6 Chair/Mww-vc-Msznv Xfer(QC): 6 Toilet Transfer (QC): 6 Car Transfer (QC): 6 Walk 10 feet (QC): 6 Walk 50ft with 2 Turns (QC): 6 Walk 150 ft (QC): 6 Walking 10ft on Uneven Surface: 6 1 Step (curb) (QC): 4 4 Steps (QC): 4 Does the Pt use WC or Scooter?: No PT Plan Treatment/Plan Treatment Plan: Discontinue PT, goals met Treatment Plan: Bed Mobility, Education, Functional Activity Kaden, Functional Strength, Group Therapy, Gait, Safety, Therapeutic Exercise, Transfers Treatment Duration: Aug 01, 2019 Frequency: At least 5 of 7 days/Wk (IRF) Estimated Hrs Per Day: 1.5 hours per day Patient and/or Family Agrees t: Yes Safety Risks/Education Patient Education: Gait Training, Transfer Techniques, Reviewed Precautions, Correct Positioning, Safety Issues Teaching Recipient: Patient Teaching Methods: Demonstration, Discussion Response to Teaching: Verbalize Understanding, Return Demonstration Time/GCodes Time In: 1300 Time Out: 1335 Total Billed Treatment Time: 35 Total Billed Treatment 1 visit, GT x35 min YUNIOR DAVALOS RESEARCH INTERVIEWER Jul 15, 2019 14:52
[2019-07-15 15:50] VITALS: BP 152/70
--- NOTE | 2019-07-15 19:05 | NUR ---
bedside report received from GIA COBIAN, assume care of pt
[2019-07-15] MEDS: MELATONIN 3 MG TABLET PO PRN (20:15)
--- NOTE | 2019-07-15 20:17 | NUR ---
pt refused Colace, miralax & Senokot, had large formed brown stool this evening
--- NOTE | 2019-07-15 20:18 | NUR ---
took voltarin gel to shoulder & hip, rates pain 2/10 on numeric scale
--- NOTE | 2019-07-15 21:00 | NUR ---
rates pain level 0/10 on numeric scale
[2019-07-16 05:42] VITALS: BP 148/76
[2019-07-16] MEDS: MULTIVIT W/MINERALS TAB (THERAGRAN M) PO SCH (06:48)
--- NOTE | 2019-07-16 08:00 | NUR ---
PLEASANT AND COOPERATIVE. DENIES PAIN. FEELS READY FOR DISCHARGE TODAY. STATES DAUGHTER WILL BE ABLE TO HELP HER.
[2019-07-16] MEDS: ZINC SULFATE 220 MG CAPSULE PO SCH (08:04)
[2019-07-16] MEDS: amLODIPine 5 MG (NORVASC) TAB PO SCH (08:04)
[2019-07-16] MEDS: LOSARTAN 50 MG (COZAAR) TAB PO SCH (08:04)
[2019-07-16] MEDS: SENNA W/DOCUSATE (SENOKOT S) TABLET PO SCH (08:06)
[2019-07-16] MEDS: POLYETHYLENE GLYCOL 17 GM (MIRALAX) PACK PO SCH (08:06)
[2019-07-16] MEDS: DICLOFENAC 1% GEL 100 GM (VOLTAREN) TUBE TOP SCH (08:06)
[2019-07-16] MEDS: DOCUSATE SODIUM 100 MG (COLACE) CAP PO SCH (08:06)
[2019-07-16] MEDS: RT-ALBUTEROL SULF 2.5 MG/3 ML PRE-MIX VIAL INH SCH (09:11)
[2019-07-16 11:29] VITALS: BP 138/66
--- NOTE | 2019-07-16 12:45 | Discharge Summary ---
Diagnosis/Chief Complaint Date of Admission Jul 10, 2019 at 09:50 Date of Discharge Jul 16, 2019 at 11:15 Discharge Date: Jul 16, 2019 Discharge Diagnosis Assessment: s/p lumbar laminectomy 2 levels POD # 9 Post op urinary retention requiring in-swelling catheter and consulted Dr Thompson now DC and urinating well without retention Frail status HTN Debility Advanced age Iron deficiency anemia requiring iron infusions Crackles on lung exam CT chest reviewed Plan: IRF protocol BM regimen Appreciate Dr Sandoval and Dr Thompson Check CT chest reviewed IV iron completed DC Thursday (1) Lumbar stenosis (2) Lung crackles (3) Chávez catheter in place (4) Overactive bladder (5) Urinary retention (6) Intractable low back pain Status: Acute (7) DVT prophylaxis (8) Advanced age (9) At risk for falls (10) Thin build (11) Hypertension (12) Osteoarthritis (13) Depression Discharge Summary Discharge Physical Examination Allergies: Coded Allergies: Tetanus Vaccines and Toxoid (Unverified Allergy, Mild, RASH, 09/08/06) Vitals & I&Os Vital Signs Date Time Temp Pulse Resp B/P (MAP) Pulse Ox O2 Delivery O2 Flow Rate FiO2 07/16/19 11:29 36.5 77 16 138/66 96 Room Air General Appearance: Alert, Oriented X3, Cooperative Respiratory: Other Cardiovascular: Regular Rate Neuro: Normal Gait, Normal Speech, Strength at 5/5 X4 Ext Hospital Course Was the Problem List Reviewed?: Yes Hospital course: Patient had an uneventful and dramatic improvement during the hospital course in inpatient rehabilitation. She returned after lumbar stenosis surgery after she failed inpatient rehabilitation due to the severity of pain and radiculopathy requiring Dr. Sandoval to perform 2 level lumbar spine surgery of which she recovered nicely but had urinary retention and acute blood loss anemia requiring MedSurg 3 day hospital course before returning back to rehabilitation where she participate in all therapy was able to recover back to prior level of functioning with minimal amount of pain numbness of the feet was much improved at time of discharge bowel function returned back to normal CT scan revealed no evidence of source of crackles on lower lobes of lungs and patient was able to return back home in improved condition. Labs (last 24 hrs) Laboratory Tests 07/10/19 04:47: White Blood Count 7.7, Red Blood Count 3.21L, Hemoglobin 9.2L, Hematocrit 29L, Mean Corpuscular Volume 91, Mean Corpuscular Hemoglobin 29, Mean Corpuscular Hemoglobin Concent 32, Red Cell Distribution Width 16.0H, Platelet Count 187, Mean Platelet Volume 11.6H, Neutrophils (%) (Auto) 67, Lymphocytes (%) (Auto) 18, Monocytes (%) (Auto) 12, Eosinophils (%) (Auto) 4, Basophils (%) (Auto) 0, Neutrophils # (Auto) 5.1, Lymphocytes # (Auto) 1.4, Monocytes # (Auto) 0.9, Eosinophils # (Auto) 0.3, Basophils # (Auto) 0.0, Sodium Level 139, Potassium Level 4.4, Chloride Level 105, Carbon Dioxide Level 25, Anion Gap 9, Blood Urea Nitrogen 19H, Creatinine 0.87, Estimat Glomerular Filtration Rate > 60, BUN/Creatinine Ratio 22, Glucose Level 101, Calcium Level 8.5, Corrected Calcium 9.1, Iron Level 16L, Total Bilirubin 0.5, Aspartate Amino Transf (AST/SGOT) 15, Alanine Aminotransferase (ALT/SGPT) 6, Alkaline Phosphatase 53, Total Protein 5.9L, Albumin 3.3 07/11/19 05:48: White Blood Count 6.8, Red Blood Count 3.12L, Hemoglobin 8.7L, Hematocrit 28L, Mean Corpuscular Volume 90, Mean Corpuscular Hemoglobin 28, Mean Corpuscular Hemoglobin Concent 31L, Red Cell Distribution Width 16.1H, Platelet Count 186, Mean Platelet Volume 11.3H, Neutrophils (%) (Auto) 62, Lymphocytes (%) (Auto) 20, Monocytes (%) (Auto) 14H, Eosinophils (%) (Auto) 5, Basophils (%) (Auto) 0, Neutrophils # (Auto) 4.2, Lymphocytes # (Auto) 1.3, Monocytes # (Auto) 1.0, Eosinophils # (Auto) 0.3, Basophils # (Auto) 0.0, Sodium Level 139, Potassium Level 4.4, Chloride Level 105, Carbon Dioxide Level 24, Anion Gap 10, Blood Urea Nitrogen 18, Creatinine 1.01, Estimat Glomerular Filtration Rate 52, BUN/Creatinine Ratio 18, Glucose Level 97, Calcium Level 8.8, Corrected Calcium 9.4, Total Bilirubin 0.4, Aspartate Amino Transf (AST/SGOT) 15, Alanine Aminotransferase (ALT/SGPT) < 6, Alkaline Phosphatase 56, Total Protein 6.1L, Albumin 3.2 Pending Labs Laboratory Tests 07/10/19 04:47: White Blood Count 7.7, Red Blood Count 3.21, Hemoglobin 9.2, Hematocrit 29, Mean Corpuscular Volume 91, Mean Corpuscular Hemoglobin 29, Mean Corpuscular Hemoglobin Concent 32, Red Cell Distribution Width 16.0, Platelet Count 187, Mean Platelet Volume 11.6, Neutrophils (%) (Auto) 67, Lymphocytes (%) (Auto) 18, Monocytes (%) (Auto) 12, Eosinophils (%) (Auto) 4, Basophils (%) (Auto) 0, Neutrophils # (Auto) 5.1, Lymphocytes # (Auto) 1.4, Monocytes # (Auto) 0.9, Eosinophils # (Auto) 0.3, Basophils # (Auto) 0.0, Sodium Level 139, Potassium Level 4.4, Chloride Level 105, Carbon Dioxide Level 25, Anion Gap 9, Blood Urea Nitrogen 19, Creatinine 0.87, Estimat Glomerular Filtration Rate > 60, BUN/Creatinine Ratio 22, Glucose Level 101, Calcium Level 8.5, Corrected Calcium 9.1, Iron Level 16, Total Bilirubin 0.5, Aspartate Amino Transf (AST/SGOT) 15, Alanine Aminotransferase (ALT/SGPT) 6, Alkaline Phosphatase 53, Total Protein 5.9, Albumin 3.3 07/11/19 05:48: White Blood Count 6.8, Red Blood Count 3.12, Hemoglobin 8.7, Hematocrit 28, Mean Corpuscular Volume 90, Mean Corpuscular Hemoglobin 28, Mean Corpuscular Hem oglobin Concent 31, Red Cell Distribution Width 16.1, Platelet Count 186, Mean Platelet Volume 11.3, Neutrophils (%) (Auto) 62, Lymphocytes (%) (Auto) 20, Monocytes (%) (Auto) 14, Eosinophils (%) (Auto) 5, Basophils (%) (Auto) 0, Neutrophils # (Auto) 4.2, Lymphocytes # (Auto) 1.3, Monocytes # (Auto) 1.0, Eosinophils # (Auto) 0.3, Basophils # (Auto) 0.0, Sodium Level 139, Potassium Level 4.4, Chloride Level 105, Carbon Dioxide Level 24, Anion Gap 10, Blood Urea Nitrogen 18, Creatinine 1.01, Estimat Glomerular Filtration Rate 52, BUN/Creatinine Ratio 18, Glucose Level 97, Calcium Level 8.8, Corrected Calcium 9.4, Total Bilirubin 0.4, Aspartate Amino Transf (AST/SGOT) 15, Alanine Aminotransferase (ALT/SGPT) < 6, Alkaline Phosphatase 56, Total Protein 6.1, Albumin 3.2 Discharge Home Medications: Active Scripts Active Baclofen 10 Mg Tablet 5 Mg PO TID PRN Albuterol Sulfate 2.5 Mg/3 Ml Vial.neb 2.5 Mg INH RTBID Hydrocodone-Acetamin 5-325 mg (Hydrocodone/Acetaminophen) 1 Each Tablet 1-2 Tab PO Q6H PRN Reported Triamcinolone Acetonide 0.1% Cream (Triamcinolone Acet) 15 Gm Cr 1 Gm TOP BID PRN Losartan Potassium 25 Mg Tablet 50 Mg PO DAILY TAKES 2 (25MG) TABLETS Amlodipine Besylate 10 Mg Tablet 5 Mg PO DAILY TAKES 1/2 (10MG) TABLET Vitamin D3 (Cholecalciferol (Vitamin D3)) 2,000 Unit Tablet 2,000 Unit PO DAILY Calcium Carbonate 600 Mg Tablet 600 Mg PO DAILY Citalopram HBr (Citalopram Hydrobromide) 20 Mg Tablet 20 Mg PO DAILY Zinc (Zinc Amino Acid Chelate) 50 Mg Tablet 50 Mg PO DAILY Meloxicam 15 Mg Tablet 15 Mg PO DAILY Instructions to patient/family Please see electronic discharge instructions given to patient. Diagnosis/Problems Diagnosis/Problems (1) Lumbar stenosis (2) Lung crackles (3) Chávez catheter in place (4) Overactive bladder (5) Urinary retention (6) Intractable low back pain Status: Acute (7) DVT prophylaxis (8) Advanced age (9) At risk for falls (10) Thin build (11) Hypertension (12) Osteoarthritis (13) Depression Clinical Quality Measures DVT/VTE Risk/Contraindication: Risk Factor Score Per Nursin RFS Level Per Nursing on Admit: 2=Moderate PERRY GIBSON DO Jul 16, 2019 12:44
--- NOTE | 2019-07-18 11:28 | Therapy Team Discharge Summary ---
Therapy Discharge Summary Discharge Recommendations Date of Discharge Jul 16, 2019 at 11:15 Occupational Therapy Pt admitted to ARU with lumbar laminectomy, pt was s/u for UB dressing, max A for LB dressing, TD with footwear, and CGA-SBA for transfers. Pt and OT worked towards IND within ADL tasks with AE education, safety education, UE strengthening, and functional activities. Pt d/c with all goals met and IND-mod I in all ADL tasks with AE. Pt d/c OT services with recommendations of hip kit. Decreased Activ Tolerance, Decreased UE Strength, Impaired Self-Care Skills PT Longterm Goals Longterm Goals PT Longterm Goals Time Frame: Aug 01, 2019 Roll Left to Right (QC): 6 Sit to Lying (QC): 6 Lying-Sitting on Side/Bed(QC): 6 Sit to Stand (QC): 6 Chair/Sri-jm-Yyrbu Xfer(QC): 6 Car Transfer (QC): 6 Walk 10 feet (QC): 6 Walk 10ft-Uneven Surface(QC): 6 Walk 50ft with 2 Turns (QC): 6 Walk 150 ft (QC): 6 Does the Pt use WC or Scooter?: No 1 Step (curb) (QC): 4 4 Steps (QC): 4 OT Ward Attendant Goals Longterm Goals Time Frame: Jul 25, 2019 Eating (QC): 6 (met-07/15/2019) Oral Hygiene (QC): 6 (met-07/15/2019) Shower/Bathe Self (QC): 6 (met-07/15/2019) Upper Body Dressing (QC): 6 (met-07/15/2019) Lower Body Dressing (QC): 6 (met-07/15/2019) On/Off Footwear (QC): 6 (met-07/15/2019) Toileting Hygiene (QC): 6 (met-07/15/2019) Toilet/Commode Transfer (QC): 6 Additional Goals: 1-Demonstrate ADL Tasks, 2-Verbalize Understanding, 3- ImproveStrength/Kaden 1=Demonstrate adherence to instructed precautions during ADL tasks. 2=Patient will verbalize/demonstrate understanding of assistive devices/modifications for ADL. 3=Patient will improve strength/tolerance for activity to enable patient to perform ADL's. ANGELITO BLACK OTR Jul 18, 2019 11:27
== END 2019-07-16 11:15 | disposition home or self-care (01) | DRG 92 ==
PROVIDERS: ADMIT Internal Medicine; ATTEND Internal Medicine
DX: G95.9 Disease of spinal cord, unspecified (principal); D62 Acute posthemorrhagic anemia; N32.81 Overactive bladder; R33.9 Retention of urine, unspecified; Z91.81 History of falling; I10 Essential (primary) hypertension; F32.9 Major depressive disorder, single episode, unspecified; F41.9 Anxiety disorder, unspecified; M54.9 Dorsalgia, unspecified; M19.91 Primary osteoarthritis, unspecified site; R09.89 Other specified symptoms and signs involving the circulatory and respiratory systems
CPT/HCPCS: 36415; 71275; 80053; 83540; 85025; 94640; 94760

== ENCOUNTER → 2021-04-01 | Outpatient (CLI) | payer MEDICARE ==
[~2021-04-01] MED LIST changes: +ACHD5005 PO; +ALBU2.5V4 INH; +AMLO-251 PO; -AMLO10TA7 PO; +BACL10TA PO; -CALC600T12 PO; +CALC600T91 PO; -HYDR-3812 PO; -POLYETHYLENE GLYCOL 17 GM (MIRALAX) PACK PO SCH; -SENNA W/DOCUSATE (SENOKOT S) TABLET PO SCH
--- NOTE | 2021-04-01 15:55 | Diagnostic Imaging Report ---
INDICATION: History of fibrosis. COMPARISON: 07/08/2019. FINDINGS: Frontal and lateral radiographic views of the chest were obtained and again show diffuse coarse interstitial opacities, consistent with chronic interstitial lung disease. There is no new focal consolidation, large effusion, or pneumothorax. The cardiac silhouette and pulmonary vasculature are within normal limits. The osseous structures show no gross acute abnormalities. IMPRESSION: Redemonstration of diffuse coarse chronic interstitial changes. No new acute cardiopulmonary process. Dictated by: Dictated on workstation # [id number]
== END ==
LOC: RAD 15:07
PROVIDERS: ATTEND Internal Medicine
DX: J84.10 Pulmonary fibrosis, unspecified (principal)
CPT/HCPCS: 71046

== ENCOUNTER 2021-05-26 08:26 | Emergency (ER) | payer MEDICARE ==
[~2021-05-26] VITALS: Ht 152.4 cm; Wt 49.8 kg
--- NOTE | 2021-05-26 11:41 | Diagnostic Imaging Report ---
CLINICAL HISTORY: Right shoulder pain. Fall. COMPARISON: None. TECHNIQUE: 3 views of the right shoulder. FINDINGS: There is no acute fracture or dislocation of the right shoulder. Alignment is anatomic. Degenerative changes are seen in the right shoulder with marginal osteophytes and joint space narrowing. Degenerative changes are also seen in the right acromioclavicular joint with synovial hypertrophy and marginal osteophytes. IMPRESSION: 1. No acute fracture or dislocation in the right shoulder. 2. 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 Dictated by: Dictated on workstation # [id number]
[2021-05-26] MEDS ORDERED: HYDROcodone/APAP 5 MG/325 MG (LORTAB) TAB PO STA (12:08)
[2021-05-26 12:36] LABS: BILIRUBIN,URINE NEGATIVE (NEGATIVE); CLARITY,URINE SL CLOUDY; COLOR,URINE YELLOW; GLUCOSE, URINE (UA) NEGATIVE (NEGATIVE); KETONES,URINE NEGATIVE (NEGATIVE); LEUKOCYTE ESTERASE ,URINE 2+ (NEGATIVE); NITRITE,URINE NEGATIVE (NEGATIVE); PROTEIN,URINE 1+ (NEGATIVE)
[2021-05-26 12:49] LABS: BACTERIA,URINE LARGE /HPF; RBC,URINE 0-2 /HPF; SQUAMOUS EPITHELIAL CELL,UR 0-2 /HPF
[2021-05-26] MEDS ORDERED: ACHD5005 PO (13:21)
[2021-05-26] MEDS ORDERED: CEPH500T PO (13:21)
--- NOTE | 2021-05-26 13:22 | ED Fall/Injury ---
General Chief Complaint: Upper Extremity Stated Complaint: R SHOULDER PAIN,FELL Nursing Triage Note: PT AMB TO RM 3 WITH DAUGHTER WITH COMPLAINT OF RIGHT SHOULDER PAIN. STATES SHE FELL INTO DOOR JAM THIS MORNING. STATES SHE NOW CANNOT LIFT RIGHT SHOULDER. DENIES LOC. Source: patient, family Exam Limitations: no limitations History of Present Illness Date Seen by Provider: May 26, 2021 Time Seen by Provider: 10:25 Initial Comments This 89-year-old woman presents to the emergency room accompanied by her daughter with pain and decreased range of motion in her right shoulder after a fall. She states she has had some trouble with balance recently over the past several weeks. She reports having had blood work performed with Dr. Gibson's office and this period of time. She reports no prodrome to the fall and does not exactly know what caused it. She fell striking her right shoulder on a door jam. She denies any notable head injury. There was no loss of consciousness. She does report urinary frequency. Occurred: this morning Allergies and Home Medications Allergies Coded Allergies: Tetanus Vaccines and Toxoid (Unverified Allergy, Mild, RASH, 09/08/06) Patient Home Medication List Home Medication List Reviewed: Yes Albuterol Sulfate (Albuterol Sulfate) 2.5 Mg/3 Ml Vial.neb, 2.5 MG INH RTBID Prescribed by: PERRY GIBSON on 07/14/19 1111 Amlodipine Besylate (Amlodipine Besylate) 10 Mg Tablet, 5 MG PO DAILY, (Reported) Entered as Reported by: HERI MALDONADO on 07/04/19 1136 Baclofen (Baclofen) 10 Mg Tablet, 5 MG PO TID PRN for MUSCLE SPASMS Prescribed by: PERRY GIBSON on 07/14/19 1111 Calcium Carbonate (Calcium Carbonate) 600 Mg Tablet, 600 MG PO DAILY, (Reported) Entered as Reported by: HERI MALDONADO on 07/04/19 1136 Cephalexin (Cephalexin) 500 Mg Tablet, 500 MG PO TID Prescribed by: CARMEN CHOWDHURY on 05/26/21 1321 Cholecalciferol (Vitamin D3) (Vitamin D3) 2,000 Unit Tablet, 2,000 UNIT PO DAILY, (Reported) Entered as Reported by: HERI MALDONADO on 07/04/19 1136 Citalopram Hydrobromide (Citalopram HBr) 20 Mg Tablet, 20 MG PO DAILY, (Reported) Entered as Reported by: HERI MALDONADO on 07/04/19 1136 Hydrocodone Bit/Acetaminophen (Lortab 5 Mg Tablet) 1 Each Tablet, 1-2 TAB PO Q6H PRN for PAIN-MODERATE (5-7) Prescribed by: PERRY GIBSON on 07/14/19 1111 Hydrocodone/Acetaminophen (Hydrocodone-Acetamin 5-325 mg) 1 Each Tablet, 0.5-1 TAB PO Q6H PRN for PAIN-BREAKTHROUGH Prescribed by: CARMEN CHOWDHURY on 05/26/21 1321 Losartan Potassium (Losartan Potassium) 25 Mg Tablet, 50 MG PO DAILY, (Reported) Entered as Reported by: HERI MALDONADO on 07/04/19 1136 Meloxicam (Meloxicam) 15 Mg Tablet, 15 MG PO DAILY, (Reported) Entered as Reported by: KYE JOYNER on 06/26/19 0933 Triamcinolone Acet (Triamcinolone Acetonide 0.1% Cream) 15 Gm Cr, 1 GM TOP BID PRN for IRRITATION/ITCHING, (Reported) Entered as Reported by: HERI MALDONADO on 07/04/19 1302 Zinc Amino Acid Chelate (Zinc) 50 Mg Tablet, 50 MG PO DAILY, (Reported) Entered as Reported by: KYE JOYNER on 06/26/19 0933 Review of Systems Review of Systems Constitutional: no symptoms reported Eyes: No Symptoms Reported Ears, Nose, Mouth, Throat: no symptoms reported Respiratory: no symptoms reported Cardiovascular: no symptoms reported Gastrointestinal: no symptoms reported Genitourinary: see HPI : No Musculoskeletal: see HPI Skin: no symptoms reported Psychiatric/Neurological: See HPI Past Ztxavah-Pdwaqa-Yzxloc Hx Patient Social History Tobacco Use?: No Use of E-Cig and/or Vaping dev: No Substance use?: No Alcohol Use?: No Pt feels they are or have been: No Immunizations Up To Date Tetanus Booster (TDap): Unknown Influenza Vaccine Up-to-Date: Yes; Up-to-Date First/Initial COVID19 Vaccinat: SPRING 2020 Second COVID19 Vaccination Yaw: SPRING 2020 Seasonal Allergies Seasonal Allergies: No Past Medical History Surgeries: Yes Bladder Surgery, Orthopedic Respiratory: No Currently Using CPAP: No Currently Using BIPAP: No Cardiac: Yes Hypertension Neurological: No Female Reproductive Disorders: Denies Sexually Transmitted Disease: No HIV/AIDS: No Genitourinary: Yes Bladder Infection, Neurogenic Bladder Gastrointestinal: No Musculoskeletal: Yes Arthritis, Chronic Back Pain Endocrine: No HEENT: No Hearing Impairment: Denies Cancer: No Psychosocial: No Integumentary: No Blood Disorders: No Physical Exam Vital Signs Vital Signs - First Documented 05/26/21 08:54 Pulse 77 Resp 20 B/P (MAP) 193/112 (139) Pulse Ox 94 O2 Delivery Room Air Capillary Refill : Less Than 3 Seconds Height, Weight, BMI Height: '3" Weight: 165lbs. oz. [id number]; 21.00 BMI Method:Estimated General Appearance: WD/WN, mild distress HEENT: PERRL/EOMI, normal ENT inspection Neck: normal inspection Cardiovascular: regular rate, rhythm, no edema, no murmur Respiratory: lungs clear, normal breath sounds, no respiratory distress Gastrointestinal: non tender, soft; No distended Extremities: normal inspection, other (Patient holds her right arm to her chest in a slinged position. There is tenderness about the shoulder joint region, especially anteriorly near the biceps tendon insertion. Passive range of motion is mildly painful but active range of motion is minimal secondary to pain. Distal exam is unremarkable. 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, no motor/sensory deficits, alert, normal mood/affect, oriented x 3 Skin: normal color, warm/dry [place] Coma Score Best Eye Response: (4) Open Spontaneously Best Verbal Response: (5) Oriented Best Motor Response: (6) Obeys Commands Karla Total: 15 Progress/Results/Core Measures Results/Orders Lab Results Laboratory Tests Test 05/26/21 12:27 Range/Units Urine Color YELLOW Urine Clarity SL CLOUDY Urine pH 7.0 5-9 Urine Specific [place] 1.015 L 1.016-1.022 Urine Protein 1+ H NEGATIVE Urine Glucose (UA) NEGATIVE NEGATIVE Urine Ketones NEGATIVE NEGATIVE Urine Nitrite NEGATIVE NEGATIVE Urine Bilirubin NEGATIVE NEGATIVE Urine Urobilinogen 0.2 < = 1.0 MG/DL Urine Leukocyte Esterase 2+ H NEGATIVE Urine RBC (Auto) 1+ H NEGATIVE Urine RBC 0-2 /HPF Urine WBC 10-25 H /HPF Urine Squamous Epithelial Cells 0-2 /HPF Urine Crystals NONE /LPF Urine Bacteria LARGE H /HPF Urine Casts NONE /LPF Urine Mucus NEGATIVE /LPF Urine Culture Indicated YES My Orders Orders - CARMEN BURDICK MD Shoulder, Right, 3 Views (05/26/21 10:37) Ua Culture If Indicated (05/26/21 10:37) Hydrocodone/Apap 5/325 Tablet (Lortab 5 (05/26/21 12:08) Urine Culture (05/26/21 12:27) Vital Signs/I&O 05/26/21 05/26/21 08:54 13:48 Pulse 77 Resp 20 86 B/P (MAP) 193/112 (139) 163/91 Pulse Ox 94 19 O2 Delivery Room Air Room Air Blood Pressure Mean: 139 Progress Progress Note : Progress Note X-ray was unremarkable for acute injury. Patient was placed in a sling for comfort. I suspect she has a rotator cuff injury and/or a biceps tendon injury versus contusion. Follow-up with an orthopedist was recommended. Patient takes Mobic and I have recommended adding Tylenol or a small dose of hydrocodone. She was given 1/2 tablet of hydrocodone in the ER. Because of her complaint of balance issues and urinary frequency, urinalysis was obtained which did demonstrate urinary tract infection. Antibiotics were prescribed. See discharge instructions. Diagnostic Imaging Diagonstic Imaging: Xray Plain Films/CT/US/NM/MRI: other (Right shoulder) Comments Right shoulder x-ray viewed by me and report reviewed. See report below: NAME: MIKE CHO [facility] REC#: [id number] PT STATUS: REG ER : [id number] PHYSICIAN: CARMEN BURDICK MD ADMIT DATE: 05/26/21/ER Signed Date of Exam:05/26/21 SHOULDER, RIGHT, 3 VIEWS CLINICAL HISTORY: Right shoulder pain. Fall. COMPARISON: None. TECHNIQUE: 3 views of the right shoulder. FINDINGS: There is no acute fracture or dislocation of the right shoulder. Alignment is anatomic. Degenerative changes are seen in the right shoulder with marginal osteophytes and joint space narrowing. Degenerative changes are also seen in the right acromioclavicular joint with synovial hypertrophy and marginal osteophytes. IMPRESSION: 1. No acute fracture or dislocation in the right shoulder. 2. 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 Dictated by: Dictated on workstation # [id number] Dict: 05/26/21 1136 Trans: 05/26/21 1147 [facility] [id number] Interpreted by: KARLI GIBSON DO Electronically signed by: KARLI GIBSON DO 05/26/21 1147 Departure Impression Primary Impression: Right shoulder injury Qualified Codes: S49.91XA - Unspecified injury of right shoulder and upper arm, initial encounter Additional Impressions: Fall on same level Qualified Codes: W18.30XA - Fall on same level, unspecified, initial encounter Urinary tract infection Qualified Codes: N39.0 - Urinary tract infection, site not specified Disposition: 01 HOME, SELF-CARE Condition: Improved Departure-Patient Inst. Decision time for Depature: 13:17 Referrals: PERRY GIBSON DO (PCP/Family) Primary Care Physician DAVID WOOD MD, TERRY D MD ZAFUTA, MICHAEL P MD Patient Instructions: Biceps Tendon Rupture, Rotator Cuff Injury, Urinary Tract Infection, Adult ED Add. Discharge Instructions: The exact cause of your shoulder injury is uncertain. It may be related to rotator cuff injury and/or biceps tendon injury. No fractures (breaks) were seen on your x-rays. You may continue using meloxicam and/or Tylenol for your pain. If your pain is more severe you may use hydrocodone instead of Tylenol as prescribed. Icing in 20-minute intervals may be helpful in reducing pain and swelling. Avoid lifting, pulling, or raising your arms over your head. You may exercise some passive range of motion by having someone else gently move your shoulder around to prevent it from becoming stiff. Follow-up with an orthopedic provider soon as possible. Some orthopedic providers are listed below for your convenience. Use the sling as much as possible for comfort. You are being treated for urinary tract infection as well. It would be good to follow-up on the urine culture results on Thursday or Thursday to ensure the antibiotic you are taking is appropriate for the culture results. Drink plenty of clear liquids and complete the entire course of antibiotics. Call with questions or concerns. Return to the ER if you have worsening symptoms. All discharge instructions reviewed with patient and/or family. Voiced understanding. Scripts Hydrocodone/Acetaminophen (Hydrocodone-Acetamin 5-325 mg) 1 Each Tablet 0.5-1 TAB PO Q6H PRN for PAIN-BREAKTHROUGH, #10 TAB Prov: CARMEN BURDICK MD 05/26/21 Cephalexin (Cephalexin) 500 Mg Tablet 500 MG PO TID, #21 TAB Prov: CARMEN BURDICK MD 05/26/21 Copy Copies To 1: PERRY GIBSON JOSHUA T MD May 26, 2021 13:22
[2021-05-26 13:48] VITALS: BP 163/91
== END 2021-05-26 13:48 | disposition home or self-care (01) ==
LOC: EDUNIT# 08:26 → ER 08:28
DX: S49.91XA Unspecified injury of right shoulder and upper arm, initial encounter (principal); N39.0 Urinary tract infection, site not specified; I10 Essential (primary) hypertension; G89.29 Other chronic pain; M54.9 Dorsalgia, unspecified; W18.30XA Fall on same level, unspecified, initial encounter
CPT/HCPCS: 73030; 81000; 87077; 87088; 87186; 99283; A4565

== ENCOUNTER → 2021-06-05 | Outpatient (CLI) | payer MEDICARE ==
[~2021-06-05] MED LIST changes: +CEPH500T PO; +CYCL10TA25 PO; -CYCL10TA9 PO
== END ==
LOC: ORTHO 09:04
PROVIDERS: ATTEND Orthopaedic Surgery
DX: M75.121 Complete rotator cuff tear or rupture of right shoulder, not specified as traumatic (principal); M50.10 Cervical disc disorder with radiculopathy, unspecified cervical region; M19.011 Primary osteoarthritis, right shoulder; M65.30 Trigger finger, unspecified finger
CPT/HCPCS: 99203

== ENCOUNTER → 2021-06-26 | Outpatient (CLI) | payer MEDICARE | LOC: ORTHO 09:01 | PROVIDERS: ATTEND Orthopaedic Surgery | DX: M75.121 Complete rotator cuff tear or rupture of right shoulder, not specified as traumatic (principal); M50.10 Cervical disc disorder with radiculopathy, unspecified cervical region | CPT/HCPCS: 99212 ==

== ENCOUNTER 2021-07-11 09:12 | Outpatient (RCR) | payer MEDICARE | END 2021-07-19 | disposition home or self-care (01) | PROVIDERS: ATTEND Orthopaedic Surgery | DX: M50.30 Other cervical disc degeneration, unspecified cervical region (principal) ==

== ENCOUNTER → 2021-07-22 | Outpatient (CLI) | payer MEDICARE | LOC: ORTHO 09:00 | PROVIDERS: ATTEND Orthopaedic Surgery | DX: M25.511 Pain in right shoulder (principal) | CPT/HCPCS: 99212 ==

== ENCOUNTER 2021-10-12 10:42 | Emergency (ER) | payer MEDICARE ==
[~2021-10-12] VITALS: Ht 154 cm; Wt 52.0 kg
[2021-10-12] MEDS ORDERED: AMOX1TAB12 PO (11:17)
--- NOTE | 2021-10-12 11:17 | ED Integumentary General ---
General Chief Complaint: Bite-Animal/Human/Insect Stated Complaint: L ARM CAT BITES Nursing Triage Note: patient states she was attempting to catch family cat. states the cat bit her left lower arm. bleeding controlled Source: patient Exam Limitations: no limitations History of Present Illness Date Seen by Provider: Oct 12, 2021 Time Seen by Provider: 11:14 Initial Comments To ER with reports of cat scratch to her left forearm. This is her own cat which is primarily an indoor cat but occasionally goes outside. She went outside to catch it today and bring it in and it bit her on the left arm. The cat is not vaccinated against rabies but is acting normally eating and drinking as per his usual and this could be considered a provoked attack as it only bit her when she picked it up. Additionally this was primarily an indoor cat so the risk of rabies infection is low. Patient herself is not vaccinated against tetanus though she reports that she is allergic to it. Timing/Duration: just prior to arrival Severity: moderate Location: extremities Possible Cause: other Associated Symptoms: denies symptoms Allergies and Home Medications Allergies Coded Allergies: Tetanus Vaccines and Toxoid (Unverified Allergy, Mild, RASH, 09/08/06) Patient Home Medication List Home Medication List Reviewed: Yes Albuterol Sulfate (Albuterol Sulfate) 2.5 Mg/3 Ml Vial.neb, 2.5 MG INH RTBID Prescribed by: PERRY GIBSON on 07/14/19 1111 Amlodipine Besylate (Amlodipine Besylate) 10 Mg Tablet, 5 MG PO DAILY, (Reported) Entered as Reported by: HERI MALDONADO on 07/04/19 1136 Baclofen (Baclofen) 10 Mg Tablet, 5 MG PO TID PRN for MUSCLE SPASMS Prescribed by: PERRY GIBSON on 07/14/19 1111 Calcium Carbonate (Calcium Carbonate) 600 Mg Tablet, 600 MG PO DAILY, (Reported) Entered as Reported by: HERI MALDONADO on 07/04/19 1136 Cephalexin (Cephalexin) 500 Mg Tablet, 500 MG PO TID Prescribed by: CARMEN CHOWDHURY on 05/26/21 1321 Cholecalciferol (Vitamin D3) (Vitamin D3) 2,000 Unit Tablet, 2,000 UNIT PO DAILY, (Reported) Entered as Reported by: HERI MALDONADO on 07/04/19 1136 Citalopram Hydrobromide (Citalopram HBr) 20 Mg Tablet, 20 MG PO DAILY, (Reported) Entered as Reported by: HERI MALDONADO on 07/04/19 1136 Hydrocodone Bit/Acetaminophen (Lortab 5 Mg Tablet) 1 Each Tablet, 1-2 TAB PO Q6H PRN for PAIN-MODERATE (5-7) Prescribed by: PERRY GIBSON on 07/14/19 1111 Hydrocodone/Acetaminophen (Hydrocodone-Acetamin 5-325 mg) 1 Each Tablet, 0.5-1 TAB PO Q6H PRN for PAIN-BREAKTHROUGH Prescribed by: CARMEN CHOWDHURY on 05/26/21 1321 Losartan Potassium (Losartan Potassium) 25 Mg Tablet, 50 MG PO DAILY, (Reported) Entered as Reported by: HERI MALDONADO on 07/04/19 1136 Meloxicam (Meloxicam) 15 Mg Tablet, 15 MG PO DAILY, (Reported) Entered as Reported by: KYE JOYNER on 06/26/19 0933 Triamcinolone Acet (Triamcinolone Acetonide 0.1% Cream) 15 Gm Cr, 1 GM TOP BID PRN for IRRITATION/ITCHING, (Reported) Entered as Reported by: HERI MALDONADO on 07/04/19 1302 Zinc Amino Acid Chelate (Zinc) 50 Mg Tablet, 50 MG PO DAILY, (Reported) Entered as Reported by: KYE JOYNER on 06/26/19 0933 Review of Systems Review of Systems Constitutional: see HPI EENTM: see HPI Respiratory: no symptoms reported Cardiovascular: no symptoms reported Genitourinary: no symptoms reported Musculoskeletal: see HPI Skin: no symptoms reported Psychiatric/Neurological: No Symptoms Reported Endocrine: No Symptoms Reported Hematologic/Lymphatic: No Symptoms Reported Past Azokzdj-Fzboyr-Rrcvai Hx Immunizations Up To Date Tetanus Booster (TDap): Unknown First/Initial COVID19 Vaccinat: SPRING 2020 Second COVID19 Vaccination Yaw: SPRING 2020 Seasonal Allergies Seasonal Allergies: No Past Medical History Surgeries: Yes Bladder Surgery, Orthopedic Respiratory: No Currently Using CPAP: No Currently Using BIPAP: No Cardiac: Yes Hypertension Neurological: No Female Reproductive Disorders: Denies Sexually Transmitted Disease: No HIV/AIDS: No Genitourinary: Yes Bladder Infection, Neurogenic Bladder Gastrointestinal: No Musculoskeletal: Yes Arthritis, Chronic Back Pain Endocrine: No HEENT: No Hearing Impairment: Denies Cancer: No Psychosocial: No Integumentary: No Blood Disorders: No Physical Exam Vital Signs Vital Signs - First Documented 10/12/21 11:07 Temp 36.9 Pulse 92 Resp 18 B/P (MAP) 180/94 (122) Pulse Ox 94 O2 Delivery Room Air Capillary Refill : Less Than 3 Seconds General Appearance: WD/WN, no apparent distress HEENT: PERRL/EOMI, normal ENT inspection Neck: non-tender, full range of motion Cardiovascular: regular rate, rhythm, no murmur Respiratory: normal breath sounds, no respiratory distress, no accessory muscle use Gastrointestinal: normal bowel sounds, non tender Extremities: normal range of motion, non-tender Neurologic/Psychiatric: alert, normal mood/affect, oriented x 3 Skin: normal color, warm/dry Skin Problem Character: other (Puncture wound to the volar and dorsal left forearm.) Progress/Results/Core Measures Results/Orders Vital Signs/I&O 10/12/21 11:07 Temp 36.9 Pulse 92 Resp 18 B/P (MAP) 180/94 (122) Pulse Ox 94 O2 Delivery Room Air Blood Pressure Mean: 122 Departure Impression Primary Impression: Cat bite Disposition: 01 HOME, SELF-CARE Condition: Stable Departure-Patient Inst. Decision time for Depature: 11:16 Referrals: PERRY GIBSON DO (PCP/Family) Primary Care Physician Patient Instructions: Animal Bites (DC) Add. Discharge Instructions: . Antibiotics as directed 2. Return to ER for any concerns. All discharge instructions reviewed with patient and/or family. Voiced understanding. Scripts Amoxicillin/Potassium Clav (Amox Tr-K Clv 875-125 mg Tab) 1 Each Tablet 1 EACH PO BID, #10 TAB Prov: JUNE KILGORE APRN 10/12/21 JUNE KILGORE APRN Oct 12, 2021 11:17
[2021-10-12 11:34] VITALS: BP 180/94
== END 2021-10-12 11:34 | disposition home or self-care (01) ==
LOC: EDUNIT# 10:42 → ER 10:43
DX: S51.852A Open bite of left forearm, initial encounter (principal); Z88.7 Allergy status to serum and vaccine; W55.01XA Bitten by cat, initial encounter
CPT/HCPCS: 99281

== ENCOUNTER 2022-04-07 09:59 | Emergency (ER) | payer MEDICARE ==
[~2022-04-07] VITALS: Ht 152.4 cm; Wt 47.6 kg
[~2022-04-07 09:59] MED LIST changes: +AMOX1TAB12 PO
[2022-04-07] MEDS ORDERED: AMOX-355 PO (11:09)
--- NOTE | 2022-04-07 11:10 | ED Integumentary General ---
General Chief Complaint: Bite-Animal/Human/Insect Stated Complaint: CAT BITE ON RT HAND Nursing Triage Note: PT AMB TO RM 5 WITH COMPLAINT OF CAT BITE TO RIGHT HAND. UNKNOWN VACCINATION STATUS OF CAT. Source: patient Exam Limitations: no limitations History of Present Illness Date Seen by Provider: Apr 07, 2022 Time Seen by Provider: 11:06 Initial Comments 89-year-old female to ER with cat bite to the radial dorsal side of the right wrist. The cat had escaped the house and she was catching it to bring it back in. It then bit her. She is allergic to tetanus vaccine. The cat is not up-to-date on rabies vaccine however this is strictly an indoor cat that she has had since a kitten and it is now several years old. For the past several years it has not been out of the house. Timing/Duration: just prior to arrival Severity: moderate Associated Symptoms: denies symptoms Allergies and Home Medications Allergies Coded Allergies: Tetanus Vaccines and Toxoid (Unverified Allergy, Mild, RASH, 09/08/06) Patient Home Medication List Home Medication List Reviewed: Yes Albuterol Sulfate (Albuterol Sulfate) 2.5 Mg/3 Ml Vial.neb, 2.5 MG INH RTBID Prescribed by: PERRY GIBSON on 07/14/19 1111 Amlodipine Besylate (Amlodipine Besylate) 10 Mg Tablet, 5 MG PO DAILY, (Reported) Entered as Reported by: HERI MALDONADO on 07/04/19 1136 Amoxicillin/Potassium Clav (Amox Tr-K Clv 875-125 mg Tab) 1 Each Tablet, 1 EACH PO BID Prescribed by: JUNE KILGORE on 10/12/21 1117 Amoxicillin/Potassium Clav (Augmentin 500-125 Tablet) 500 Mg-125 Mg Tablet, 1 EACH PO BID Prescribed by: JUNE KILGORE on 04/07/22 1109 Baclofen (Baclofen) 10 Mg Tablet, 5 MG PO TID PRN for MUSCLE SPASMS Prescribed by: PERRY GIBSON on 07/14/19 1111 Calcium Carbonate (Calcium Carbonate) 600 Mg Tablet, 600 MG PO DAILY, (Reported) Entered as Reported by: HERI MALDONADO on 07/04/19 1136 Cephalexin (Cephalexin) 500 Mg Tablet, 500 MG PO TID Prescribed by: CARMEN CHOWDHURY on 05/26/21 1321 Cholecalciferol (Vitamin D3) (Vitamin D3) 2,000 Unit Tablet, 2,000 UNIT PO DAILY, (Reported) Entered as Reported by: HERI MALDONADO on 07/04/19 1136 Citalopram Hydrobromide (Citalopram HBr) 20 Mg Tablet, 20 MG PO DAILY, (Reported) Entered as Reported by: HERI MALDONADO on 07/04/19 1136 Hydrocodone Bit/Acetaminophen (Lortab 5 Mg Tablet) 1 Each Tablet, 1-2 TAB PO Q6H PRN for PAIN-MODERATE (5-7) Prescribed by: PERRY GIBSON on 07/14/19 1111 Hydrocodone/Acetaminophen (Hydrocodone-Acetamin 5-325 mg) 1 Each Tablet, 0.5-1 TAB PO Q6H PRN for PAIN-BREAKTHROUGH Prescribed by: CARMEN CHOWDHURY on 05/26/21 1321 Losartan Potassium (Losartan Potassium) 25 Mg Tablet, 50 MG PO DAILY, (Reported) Entered as Reported by: HERI MALDONADO on 07/04/19 1136 Meloxicam (Meloxicam) 15 Mg Tablet, 15 MG PO DAILY, (Reported) Entered as Reported by: KYE JOYNER on 06/26/19 0933 Triamcinolone Acet (Triamcinolone Acetonide 0.1% Cream) 15 Gm Cr, 1 GM TOP BID PRN for IRRITATION/ITCHING, (Reported) Entered as Reported by: HERI MALDONADO on 07/04/19 1302 Zinc Amino Acid Chelate (Zinc) 50 Mg Tablet, 50 MG PO DAILY, (Reported) Entered as Reported by: KYE JOYNER on 06/26/19 0933 Review of Systems Review of Systems Constitutional: see HPI EENTM: see HPI Respiratory: no symptoms reported Cardiovascular: no symptoms reported Genitourinary: no symptoms reported Musculoskeletal: no symptoms reported Skin: no symptoms reported Psychiatric/Neurological: No Symptoms Reported Past Cnrtmlj-Oyzscw-Mkzptg Hx Patient Social History Tobacco Use?: No Use of E-Cig and/or Vaping dev: No Substance use?: No Alcohol Use?: No Pt feels they are or have been: No Immunizations Up To Date Tetanus Booster (TDap): Unknown First/Initial COVID19 Vaccinat: SPRING 2020 Second COVID19 Vaccination Yaw: SPRING 2020 Third COVID19 Vaccination Date: SPRING 2020 Seasonal Allergies Seasonal Allergies: No Past Medical History Surgeries: Yes Bladder Surgery, Orthopedic Respiratory: No Currently Using CPAP: No Currently Using BIPAP: No Cardiac: Yes Hypertension Neurological: No Female Reproductive Disorders: Denies Sexually Transmitted Disease: No HIV/AIDS: No Genitourinary: Yes Bladder Infection, Neurogenic Bladder Gastrointestinal: No Musculoskeletal: Yes Arthritis, Chronic Back Pain Endocrine: No HEENT: No Hearing Impairment: Denies Cancer: No Psychosocial: No Integumentary: No Blood Disorders: No Physical Exam Vital Signs Vital Signs - First Documented 04/07/22 10:05 Temp 37.2 Pulse 73 Resp 16 B/P (MAP) 164/87 (112) Pulse Ox 94 O2 Delivery Room Air Capillary Refill : Less Than 3 Seconds General Appearance: WD/WN, no apparent distress HEENT: PERRL/EOMI, normal ENT inspection Neck: non-tender, full range of motion Respiratory: no respiratory distress, no accessory muscle use Gastrointestinal: normal bowel sounds, non tender Neurologic/Psychiatric: alert, normal mood/affect, oriented x 3 Skin: normal color, warm/dry, other (There are 3 lacerations to the radial dorsal aspect of the right wrist. One is 1 cm long depth to the subcutaneous tissue and gaping by about half centimeter. There is a smaller half centimeter laceration and a third 2 cm very superficial laceration. No active bleeding. There is some ecchymosis at the site.) Skin Problem Location: upper extremities Procedures/Interventions Wound Location: Upper Extremities Wound Length (cm): 1 Wound's Depth, Shape: sub Q Wound Explored: clean Irrigated w/ Saline (ccs): 120 Anesthesia: 1% Lidocaine Volume Anesthetic (ccs): 1 Suture: Prolene Suture Size: 5-0 Number of Sutures: 2 Layer Closure?: 1 Number Deep Layer Sutures: 0 Progress/Results/Core Measures Results/Orders My Orders Orders - JUNE KILGORE APRN Amoxicillin/Clavulanate Tablet (Augmenti (04/07/22 11:15) Lidocaine 1% Inj 20 Ml (Xylocaine 1% Inj (04/07/22 11:15) Lidocaine 1% Inj 10 Ml (Xylocaine 1% Inj (04/07/22 11:12) Medications Given in ED Current Medications Medications Dose Ordered Sig/Dawood Route Start Time Stop Time Status Last Admin Dose Admin Lidocaine HCl 10 ml STK-MED ONCE .ROUTE 04/07/22 11:12 04/07/22 11:15 DC 04/07/22 11:20 10 ML Vital Signs/I&O 04/07/22 04/07/22 10:05 11:28 Temp 37.2 37.2 Pulse 73 73 Resp 16 16 B/P (MAP) 164/87 (112) 150/79 Pulse Ox 94 94 O2 Delivery Room Air Room Air Blood Pressure Mean: 112 Departure Impression Primary Impression: Cat bite Disposition: HOME, SELF-CARE Condition: Stable Departure-Patient Inst. Decision time for Depature: 11:08 Referrals: PERRY GIBSON DO (PCP/Family) Primary Care Physician Patient Instructions: Animal Bites (DC) Add. Discharge Instructions: 1. Change the dressing daily. Leave the stitches in for about 12 days. Return to the emergency room in 12 days to have the stitches removed. Return before then for any sign of infection such as increasing redness or swelling. Take the antibiotics as directed. You can wash this gently with soap and water starting tomorrow. All discharge instructions reviewed with patient and/or family. Voiced understanding. Scripts Amoxicillin/Potassium Clav (Augmentin 500-125 Tablet) 500 Mg-125 Mg Tablet 1 EACH PO BID, #10 TAB Prov: JUNE KILGORE APRN 04/07/22 JUNE KILGORE APRN Apr 07, 2022 11:10
[2022-04-07] MEDS ORDERED: LIDOCAINE 1% INJ 10 ML VIAL ONE (11:12)
[2022-04-07] MEDS ORDERED: AUGMENTIN 875 MG TAB (AMOXICILLIN/CLAVULANATE) PO SCH (11:15)
[2022-04-07] MEDS ORDERED: LIDOCAINE 1% INJ 20 ML VIAL INJ ONE (11:15)
[2022-04-07 11:28] VITALS: BP 150/79
== END 2022-04-07 11:39 | disposition home or self-care (01) ==
LOC: EDUNIT# 09:59 → ER 10:02
DX: S61.551A Open bite of right wrist, initial encounter (principal); W55.01XA Bitten by cat, initial encounter